=== PATIENT | female | born 1955 | race Caucasian/White ===

== ENCOUNTER 2016-09-14 18:24 | Emergency (ER) | payer MEDICAID ==
[2016-02-21 16:37] VITALS: BMI 41.9
[~2016-09-14 18:24] MED LIST: BUTALB-APAP-CA1 EACH PO; DESERYL100 MG PO; EFFEXOR XR150 MG PO; FAMOTIDINE10 MG PO; GLIPIZIDE10 MG PO; HUMULIN R100 U/ML SC; LANTUS INSULIN10 ML SC; LEVAQUIN500 MG PO; MIRALAX17 GM PO; NORVASC5 MG PO; PROTONIX40 MG PO; SEROQUEL200 MG PO; STERAPRED 5MG 125 MG; TRAZODONE HCL300 MG PO; VALIUM5 MG PO; ZANTAC150 MG PO; ZOCOR20 MG PO
[2016-09-14 19:34] LABS: BASOPHILS 0.3 % (0.0-2.0); EOSINOPHILS 2.8 % (0-7); HEMATOCRIT 36.8 % (36.0-48.0); HEMOGLOBIN 11.4 g/dL (12-16); IMMATURE GRANULOCYTES 0.4 % (0-5); LYMPHOCYTES 34.2 % (15-50); MCH 24.8 pg (26.0-34.0); MEAN PLATELET VOLUME 9.5 fL (7.4-10.4); MONOCYTES 4.7 % (2-11); NEUTROPHILS 57.6 % (40-80); PLATELET COUNT 177 10x3/uL (130-400); RDW 15.6 % (11.5-14.5); WBC 7.5 10x3/uL (4.8-10.8)
[2016-09-14 20:07] LABS: ALKALINE PHOSPHATASE 181 U/L (46-116); ALT (SGPT) 22 U/L (10-68); CALC OSMOLALITY 288 mosm/kg (275-300); CALCIUM 8.6 mg/dL (8.5-10.1); CARBON DIOXIDE 30.2 mmol/L (21.0-32.0); CHLORIDE - SERUM 103 mmol/L (98-107); CREATININE - SERUM 0.8 mg/dL (0.6-1.3); GLUCOSE 265 mg/dL (74-106); POTASSIUM - SERUM 3.6 mmol/L (3.5-5.1); PROTEIN - SERUM 6.8 g/dL (6.4-8.2); SODIUM 141 mmol/L (136-145); UREA NITROGEN 11 mg/dL (7-18); eGFR NON AFRICAN AMERICAN 77 mL/min (90-120)
[2016-09-14 20:08] LABS: KETONE - SERUM NEGATIVE (NEGATIVE)
[2016-09-14 20:09] LABS: MAGNESIUM - SERUM 1.7 mg/dL (1.8-2.4)
== END 2016-09-14 22:00 | disposition home or self-care (01) ==
LOC: D.ER 18:24
PROVIDERS: Emergency Medicine; Family Medicine
DX: R53.1 Weakness (principal); E66.09 Other obesity due to excess calories; E83.42 Hypomagnesemia; F31.9 Bipolar disorder, unspecified; J44.9 Chronic obstructive pulmonary disease, unspecified; I10 Essential (primary) hypertension; K21.9 Gastro-esophageal reflux disease without esophagitis; Z86.73 Personal history of transient ischemic attack (TIA), and cerebral infarction without residual deficits; E11.65 Type 2 diabetes mellitus with hyperglycemia

== ENCOUNTER 2016-09-18 18:52 | Emergency (ER) | payer MEDICAID ==
[2016-02-21 16:37] VITALS: BMI 41.9
[2016-09-18 19:51] LABS: BASOPHILS 0.2 % (0.0-2.0); EOSINOPHILS 1.9 % (0-7); HEMATOCRIT 38.4 % (36.0-48.0); HEMOGLOBIN 11.9 g/dL (12-16); IMMATURE GRANULOCYTES 0.4 % (0-5); LYMPHOCYTES 26.9 % (15-50); MCH 24.6 pg (26.0-34.0); MCV 79.5 fL (80.0-100.0); MEAN PLATELET VOLUME 9.6 fL (7.4-10.4); MONOCYTES 4.7 % (2-11); NEUTROPHILS 65.9 % (40-80); PLATELET COUNT 211 10x3/uL (130-400); RBC 4.83 10x6/uL (4.00-5.40); RDW 15.9 % (11.5-14.5); WBC 11.3 10x3/uL (4.8-10.8)
[2016-09-18 20:13] LABS: ALBUMIN 3.3 g/dL (3.4-5.0); ALKALINE PHOSPHATASE 175 U/L (46-116); ALT (SGPT) 31 U/L (10-68); BILIRUBIN - TOTAL 0.38 mg/dL (0.2-1.3); CALC OSMOLALITY 286 mosm/kg (275-300); CALCIUM 9.2 mg/dL (8.5-10.1); CARBON DIOXIDE 29.3 mmol/L (21.0-32.0); CHLORIDE - SERUM 102 mmol/L (98-107); CREATININE - SERUM 0.8 mg/dL (0.6-1.3); GLUCOSE 191 mg/dL (74-106); POTASSIUM - SERUM 3.8 mmol/L (3.5-5.1); PROTEIN - SERUM 7.8 g/dL (6.4-8.2); SODIUM 142 mmol/L (136-145); UREA NITROGEN 11 mg/dL (7-18); eGFR NON AFRICAN AMERICAN 77 mL/min (90-120)
[2016-09-18 20:26] LABS: CKMB 0.4 U/L (0.0-3.6); CREATINE KINASE 19 UL (21-215)
[2016-09-18 20:33] LABS: TROPONIN-I < 0.017 ng/mL (0.000-0.060)
== END 2016-09-18 21:46 | disposition home or self-care (01) ==
LOC: D.ER 18:52
PROVIDERS: Emergency Medicine
DX: R07.89 Other chest pain (principal); E11.9 Type 2 diabetes mellitus without complications; J44.9 Chronic obstructive pulmonary disease, unspecified

== ENCOUNTER 2016-10-08 23:44 | Emergency (ER) | payer MEDICAID ==
[2016-02-21 16:37] VITALS: BMI 41.9
[2016-10-09 00:16] LABS: BASOPHILS 0.2 % (0.0-2.0); EOSINOPHILS 2.9 % (0-7); HEMATOCRIT 37.4 % (36.0-48.0); HEMOGLOBIN 11.8 g/dL (12-16); IMMATURE GRANULOCYTES 0.4 % (0-5); LYMPHOCYTES 31.2 % (15-50); MCH 24.9 pg (26.0-34.0); MCHC 31.6 g/dL (31.0-37.0); MCV 78.9 fL (80.0-100.0); MEAN PLATELET VOLUME 9.3 fL (7.4-10.4); MONOCYTES 6.7 % (2-11); NEUTROPHILS 58.6 % (40-80); PLATELET COUNT 210 10x3/uL (130-400); RBC 4.74 10x6/uL (4.00-5.40); RDW 15.3 % (11.5-14.5); WBC 9.4 10x3/uL (4.8-10.8)
[2016-10-09 00:30] LABS: ALBUMIN 3.2 g/dL (3.4-5.0); ALKALINE PHOSPHATASE 172 U/L (46-116); ALT (SGPT) 30 U/L (10-68); BILIRUBIN - TOTAL 0.23 mg/dL (0.2-1.3); CALC OSMOLALITY 276 mosm/kg (275-300); CALCIUM 8.9 mg/dL (8.5-10.1); CARBON DIOXIDE 30.5 mmol/L (21.0-32.0); CHLORIDE - SERUM 100 mmol/L (98-107); CREATININE - SERUM 0.9 mg/dL (0.6-1.3); GLUCOSE 204 mg/dL (74-106); POTASSIUM - SERUM 3.5 mmol/L (3.5-5.1); PROTEIN - SERUM 7.7 g/dL (6.4-8.2); SODIUM 136 mmol/L (136-145); UREA NITROGEN 10 mg/dL (7-18); eGFR NON AFRICAN AMERICAN 68 mL/min (90-120)
[2016-10-09 00:42] LABS: CKMB 0.1 U/L (0.0-3.6); CREATINE KINASE 25 UL (21-215)
[2016-10-09 00:46] LABS: TROPONIN-I < 0.017 ng/mL (0.000-0.060)
[2016-10-09 00:54] LABS: AMYLASE - SERUM 35 U/L (25-115); LIPASE 153 U/L (73-393)
[2016-10-09 01:19] LABS: PRO BNP 51 pg/mL (0-125)
== END 2016-10-09 01:18 | disposition home or self-care (01) ==
LOC: D.ER 23:44
PROVIDERS: Family Medicine
DX: R07.9 Chest pain, unspecified (principal); I10 Essential (primary) hypertension; E11.9 Type 2 diabetes mellitus without complications; Z79.4 Long term (current) use of insulin; I25.10 Atherosclerotic heart disease of native coronary artery without angina pectoris; F31.9 Bipolar disorder, unspecified

== ENCOUNTER 2016-10-17 20:27 | Emergency (ER) | payer MEDICAID ==
[2016-02-21 16:37] VITALS: BMI 41.9
== END 2016-10-17 22:05 | disposition home or self-care (01) ==
LOC: D.ER 20:27
DX: R51 Headache (principal); F31.9 Bipolar disorder, unspecified; I10 Essential (primary) hypertension; I25.10 Atherosclerotic heart disease of native coronary artery without angina pectoris; E11.9 Type 2 diabetes mellitus without complications; Z79.4 Long term (current) use of insulin; Z86.73 Personal history of transient ischemic attack (TIA), and cerebral infarction without residual deficits

== ENCOUNTER 2016-10-24 22:57 | Emergency (ER) | payer MEDICAID ==
[2016-02-21 16:37] VITALS: BMI 41.9
== END 2016-10-24 23:55 | disposition home or self-care (01) ==
LOC: D.ER 22:57
DX: S83.91XA Sprain of unspecified site of right knee, initial encounter (principal); W19.XXXA Unspecified fall, initial encounter; Y93.89 Activity, other specified; Y92.512 Supermarket, store or market as the place of occurrence of the external cause; I10 Essential (primary) hypertension; E11.9 Type 2 diabetes mellitus without complications; Z86.73 Personal history of transient ischemic attack (TIA), and cerebral infarction without residual deficits

== ENCOUNTER 2016-11-18 18:03 | Emergency (ER) | payer MEDICAID ==
[2016-02-21 16:37] VITALS: BMI 41.9
[2016-11-18 19:53] LABS: BASOPHILS 0.1 % (0.0-2.0); EOSINOPHILS 2.4 % (0-7); HEMATOCRIT 37.3 % (36.0-48.0); HEMOGLOBIN 11.7 g/dL (12-16); IMMATURE GRANULOCYTES 0.3 % (0-5); MCH 25.2 pg (26.0-34.0); MCHC 31.4 g/dL (31.0-37.0); MCV 80.4 fL (80.0-100.0); MEAN PLATELET VOLUME 9.6 fL (7.4-10.4); MONOCYTES 6.5 % (2-11); NEUTROPHILS 60.7 % (40-80); RBC 4.64 10x6/uL (4.00-5.40); RDW 15.7 % (11.5-14.5); WBC 7.1 10x3/uL (4.8-10.8)
[2016-11-18 20:10] LABS: ALBUMIN 3.1 g/dL (3.4-5.0); ALKALINE PHOSPHATASE 168 U/L (46-116); ALT (SGPT) 27 U/L (10-68); BILIRUBIN - TOTAL 0.25 mg/dL (0.2-1.3); CALCIUM 8.9 mg/dL (8.5-10.1); CARBON DIOXIDE 25.8 mmol/L (21.0-32.0); CHLORIDE - SERUM 102 mmol/L (98-107); CREATININE - SERUM 0.8 mg/dL (0.6-1.3); POTASSIUM - SERUM 3.5 mmol/L (3.5-5.1); PROTEIN - SERUM 6.7 g/dL (6.4-8.2); SODIUM 139 mmol/L (136-145); UREA NITROGEN 7 mg/dL (7-18); eGFR NON AFRICAN AMERICAN 77 mL/min (90-120)
[2016-11-18 20:12] LABS: CREATINE KINASE 24 UL (21-215)
[2016-11-18 20:13] LABS: CALC OSMOLALITY 285 mosm/kg (275-300); GLUCOSE 276 mg/dL (74-106); TROPONIN-I < 0.017 ng/mL (0.000-0.060)
[2016-11-18 20:24] LABS: PLATELET COUNT 156 10x3/uL (130-400)
== END 2016-11-18 20:45 | disposition home or self-care (01) ==
LOC: D.ER 18:03
PROVIDERS: Family Medicine
DX: K52.9 Noninfective gastroenteritis and colitis, unspecified (principal); I10 Essential (primary) hypertension; E11.9 Type 2 diabetes mellitus without complications; Z79.4 Long term (current) use of insulin; Z86.73 Personal history of transient ischemic attack (TIA), and cerebral infarction without residual deficits

== ENCOUNTER 2016-11-23 21:10 | Emergency (ER) | payer MEDICAID ==
[2016-02-21 16:37] VITALS: BMI 41.9
== END 2016-11-24 00:25 | disposition home or self-care (01) ==
LOC: D.ER 21:10
DX: J18.9 Pneumonia, unspecified organism (principal); I10 Essential (primary) hypertension; E11.9 Type 2 diabetes mellitus without complications; Z79.4 Long term (current) use of insulin; Z86.73 Personal history of transient ischemic attack (TIA), and cerebral infarction without residual deficits; F17.200 Nicotine dependence, unspecified, uncomplicated

== ENCOUNTER 2016-11-24 15:57 | Emergency (ER) | payer MEDICAID ==
[2016-02-21 16:37] VITALS: BMI 41.9
[2016-11-24 16:50] LABS: BASOPHILS 0.3 % (0.0-2.0); EOSINOPHILS 2.3 % (0-7); HEMATOCRIT 36.3 % (36.0-48.0); HEMOGLOBIN 11.6 g/dL (12-16); MCH 25.7 pg (26.0-34.0); MCV 80.3 fL (80.0-100.0); MEAN PLATELET VOLUME 9.6 fL (7.4-10.4); MONOCYTES 9.4 % (2-11); RBC 4.52 10x6/uL (4.00-5.40); RDW 15.8 % (11.5-14.5); WBC 3.9 10x3/uL (4.8-10.8)
[2016-11-24 16:51] LABS: PLATELET COUNT 120 10x3/uL (130-400)
[2016-11-24 17:21] LABS: ALBUMIN 3.2 g/dL (3.4-5.0); ALKALINE PHOSPHATASE 168 U/L (46-116); ALT (SGPT) 31 U/L (10-68); BILIRUBIN - TOTAL 0.24 mg/dL (0.2-1.3); CALC OSMOLALITY 281 mosm/kg (275-300); CALCIUM 8.3 mg/dL (8.5-10.1); CARBON DIOXIDE 24.8 mmol/L (21.0-32.0); CHLORIDE - SERUM 99 mmol/L (98-107); CREATININE - SERUM 0.8 mg/dL (0.6-1.3); GLUCOSE 241 mg/dL (74-106); POTASSIUM - SERUM 3.2 mmol/L (3.5-5.1); PROTEIN - SERUM 6.9 g/dL (6.4-8.2); SODIUM 138 mmol/L (136-145); UREA NITROGEN 6 mg/dL (7-18); eGFR NON AFRICAN AMERICAN 77 mL/min (90-120)
== END 2016-11-24 18:10 | disposition home or self-care (01) ==
LOC: D.ER 15:57
PROVIDERS: Physician Assistant Medical
DX: J06.9 Acute upper respiratory infection, unspecified (principal); F17.200 Nicotine dependence, unspecified, uncomplicated; I10 Essential (primary) hypertension; E11.9 Type 2 diabetes mellitus without complications; Z79.4 Long term (current) use of insulin; Z86.73 Personal history of transient ischemic attack (TIA), and cerebral infarction without residual deficits

== ENCOUNTER 2016-12-07 16:07 | Emergency (ER) | payer MEDICAID ==
[2016-02-21 16:37] VITALS: BMI 41.9
[2016-12-07 16:59] LABS: BASOPHILS 0.3 % (0.0-2.0); EOSINOPHILS 2.2 % (0-7); HEMATOCRIT 38.6 % (36.0-48.0); HEMOGLOBIN 12.1 g/dL (12-16); IMMATURE GRANULOCYTES 0.3 % (0-5); LYMPHOCYTES 33.4 % (15-50); MCH 25.5 pg (26.0-34.0); MCHC 31.3 g/dL (31.0-37.0); MCV 81.4 fL (80.0-100.0); MEAN PLATELET VOLUME 9.7 fL (7.4-10.4); MONOCYTES 6.8 % (2-11); PLATELET COUNT 180 10x3/uL (130-400); RBC 4.74 10x6/uL (4.00-5.40); RDW 15.6 % (11.5-14.5); WBC 6.4 10x3/uL (4.8-10.8)
[2016-12-07 17:26] LABS: ALBUMIN 3.3 g/dL (3.4-5.0); ALKALINE PHOSPHATASE 146 U/L (46-116); ALT (SGPT) 28 U/L (10-68); BILIRUBIN - TOTAL 0.31 mg/dL (0.2-1.3); CALCIUM 8.6 mg/dL (8.5-10.1); CARBON DIOXIDE 24.9 mmol/L (21.0-32.0); CHLORIDE - SERUM 101 mmol/L (98-107); CREATININE - SERUM 0.8 mg/dL (0.6-1.3); POTASSIUM - SERUM 3.3 mmol/L (3.5-5.1); PROTEIN - SERUM 7.4 g/dL (6.4-8.2); SODIUM 138 mmol/L (136-145); UREA NITROGEN 11 mg/dL (7-18); eGFR NON AFRICAN AMERICAN 77 mL/min (90-120)
[2016-12-07 17:27] LABS: CHOL - HDL RATIO 4.8 ratio (2.3-4.1); CHOLESTEROL, TOTAL 188 mg/dL (0-200); CKMB 0.3 U/L (0.0-3.6); CREATINE KINASE 13 UL (21-215); HDL CHOLESTEROL 39 mg/dL (32-96); LDL CHOLESTEROL 109 mg/dL (0-100); LDL-HDL RATIO 2.8 ratio (1.5-3.5); TRIGLYCERIDE 200 mg/dL (30-200)
[2016-12-07 17:39] LABS: CALC OSMOLALITY 286 mosm/kg (275-300); GLUCOSE 312 mg/dL (74-106); TROPONIN-I < 0.017 ng/mL (0.000-0.060)
== END 2016-12-07 20:29 | disposition home or self-care (01) ==
LOC: D.ER 16:07
PROVIDERS: Emergency Medicine
DX: E11.65 Type 2 diabetes mellitus with hyperglycemia (principal); Z79.4 Long term (current) use of insulin; Z91.19 Patient's noncompliance with other medical treatment and regimen; R07.9 Chest pain, unspecified; I10 Essential (primary) hypertension; Z86.73 Personal history of transient ischemic attack (TIA), and cerebral infarction without residual deficits

== ENCOUNTER 2017-01-17 23:33 | Emergency (ER) | payer MEDICAID ==
[2016-02-21 16:37] VITALS: BMI 41.9
== END 2017-01-18 00:43 | disposition home or self-care (01) ==
LOC: D.ER 23:33
DX: I10 Essential (primary) hypertension (principal)

== ENCOUNTER 2017-01-22 13:36 | Emergency (ER) | payer MEDICAID ==
[2016-02-21 16:37] VITALS: BMI 41.9
[2017-01-22 14:04] LABS: BASOPHILS 0.1 % (0-2); EOSINOPHILS 3.9 % (0-7); HEMATOCRIT 39.8 % (36.0-48.0); HEMOGLOBIN 12.8 g/dL (12-16); IMMATURE GRANULOCYTES 0.4 % (0-5); LYMPHOCYTES 29.6 % (15-50); MCH 26.3 pg (26.0-34.0); MCHC 32.2 g/dL (31.0-37.0); MCV 81.7 fL (80.0-100.0); MEAN PLATELET VOLUME 9.5 fL (7.4-10.4); PLATELET COUNT 191 10x3/uL (130-400); RBC 4.87 10x6/uL (4.00-5.40); RDW 15.1 % (11.5-14.5); WBC 7.1 10x3/uL (4.8-10.8)
[2017-01-22 14:18] LABS: APPEARANCE HAZY (CLEAR); BILIRUBIN NEGATIVE (NEGATIVE); COLOR YELLOW (YELLOW); GLUCOSE 500 mg/dL (NEGATIVE); KETONE NEGATIVE (NEGATIVE); LEUKOCYTE ESTERASE 1+ (NEGATIVE); NITRITE NEGATIVE (NEGATIVE); PROTEIN TRACE mg/dL (NEGATIVE); SPECIFIC GRAVITY 1.025 (1.005-1.020); UROBILINOGEN NORMAL (NORMAL)
[2017-01-22 14:19] LABS: ALBUMIN 3.2 g/dL (3.4-5.0); BILIRUBIN - TOTAL 0.31 mg/dL (0.2-1.3); CALCIUM 8.8 mg/dL (8.5-10.1); CARBON DIOXIDE 24.4 mmol/L (21.0-32.0); CREATININE - SERUM 0.9 mg/dL (0.6-1.3); POTASSIUM - SERUM 3.4 mmol/L (3.5-5.1); PROTEIN - SERUM 7.8 g/dL (6.4-8.2)
[2017-01-22 14:20] LABS: BACTERIA MODERATE /hpf (NONE SEEN); MUCUS >1+ /lpf (NONE SEEN); RED CELLS - URINE 0-5 /hpf (0-5); UDS - AMPHET NEGATIVE QUAL (NEGATIVE); UDS - BARB NEGATIVE QUAL (NEGATIVE); UDS - BENZO POSITIVE QUAL (NEGATIVE); UDS - COCAINE NEGATIVE QUAL (NEGATIVE); UDS - METH NEGATIVE QUAL (NEGATIVE); UDS - OPIATE NEGATIVE QUAL (NEGATIVE); UDS - PCP NEGATIVE QUAL (NEGATIVE); UDS - THC NEGATIVE QUAL (NEGATIVE); YEAST <1+ /hpf (NONE SEEN)
== END 2017-01-23 08:17 | disposition home or self-care (01) ==
LOC: D.ER 13:36
PROVIDERS: Emergency Medicine
DX: F32.9 Major depressive disorder, single episode, unspecified (principal); R45.851 Suicidal ideations; E11.65 Type 2 diabetes mellitus with hyperglycemia; I10 Essential (primary) hypertension; E78.5 Hyperlipidemia, unspecified; Z86.73 Personal history of transient ischemic attack (TIA), and cerebral infarction without residual deficits

== ENCOUNTER 2017-02-08 21:32 | Emergency (ER) | payer MEDICAID ==
[2016-02-21 16:37] VITALS: BMI 41.9
[2017-02-08 22:43] LABS: BASOPHILS 0.3 % (0-2); EOSINOPHILS 2.8 % (0-7); HEMATOCRIT 37.9 % (36.0-48.0); HEMOGLOBIN 12.1 g/dL (12-16); IMMATURE GRANULOCYTES 0.5 % (0-5); LYMPHOCYTES 31.7 % (15-50); MCH 26.1 pg (26.0-34.0); MCHC 31.9 g/dL (31.0-37.0); MCV 81.9 fL (80.0-100.0); MEAN PLATELET VOLUME 9.5 fL (7.4-10.4); MONOCYTES 5.7 % (2-11); PLATELET COUNT 188 10x3/uL (130-400); RBC 4.63 10x6/uL (4.00-5.40)
[2017-02-08 23:06] LABS: ALKALINE PHOSPHATASE 183 U/L (46-116); ALT (SGPT) 39 U/L (10-68); CALC OSMOLALITY 279 mosm/kg (275-300); CARBON DIOXIDE 25.1 mmol/L (21.0-32.0); CHLORIDE - SERUM 99 mmol/L (98-107); CREATININE - SERUM 0.9 mg/dL (0.6-1.3); GLUCOSE 293 mg/dL (74-106); POTASSIUM - SERUM 3.5 mmol/L (3.5-5.1); PROTEIN - SERUM 7.4 g/dL (6.4-8.2); SODIUM 134 mmol/L (136-145); UREA NITROGEN 14 mg/dL (7-18); eGFR NON AFRICAN AMERICAN 68 mL/min (90-120)
[2017-02-08 23:17] LABS: CKMB 0.1 U/L (0.0-3.6); CREATINE KINASE 22 UL (21-215)
[2017-02-08 23:20] LABS: TROPONIN-I < 0.017 ng/mL (0.000-0.060)
[2017-02-09 01:36] LABS: CREATINE KINASE 25 UL (21-215)
[2017-02-09 01:37] LABS: TROPONIN-I < 0.017 ng/mL (0.000-0.060)
== END 2017-02-09 02:16 | disposition home or self-care (01) ==
LOC: D.ER 21:32
PROVIDERS: Family Medicine
DX: R07.9 Chest pain, unspecified (principal); E11.9 Type 2 diabetes mellitus without complications; R94.31 Abnormal electrocardiogram [ECG] [EKG]; I10 Essential (primary) hypertension

== ENCOUNTER 2017-02-21 16:25 | Emergency (ER) | payer MEDICAID ==
[2016-02-21 16:37] VITALS: BMI 41.9
[2017-02-21 16:54] LABS: BASOPHILS 0.1 % (0-2); EOSINOPHILS 3.6 % (0-7); HEMATOCRIT 39.8 % (36.0-48.0); HEMOGLOBIN 12.5 g/dL (12-16); IMMATURE GRANULOCYTES 0.5 % (0-5); MCHC 31.4 g/dL (31.0-37.0); MCV 82.7 fL (80.0-100.0); MEAN PLATELET VOLUME 9.5 fL (7.4-10.4); NEUTROPHILS 64.8 % (40-80); PLATELET COUNT 178 10x3/uL (130-400); RBC 4.81 10x6/uL (4.00-5.40); RDW 14.9 % (11.5-14.5); WBC 7.8 10x3/uL (4.8-10.8)
[2017-02-21 17:09] LABS: ALBUMIN 3.1 g/dL (3.4-5.0); ALKALINE PHOSPHATASE 191 U/L (46-116); ALT (SGPT) 37 U/L (10-68); BILIRUBIN - TOTAL 0.44 mg/dL (0.2-1.3); CALC OSMOLALITY 283 mosm/kg (275-300); CALCIUM 8.9 mg/dL (8.5-10.1); CHLORIDE - SERUM 99 mmol/L (98-107); GLUCOSE 352 mg/dL (74-106); POTASSIUM - SERUM 3.6 mmol/L (3.5-5.1); PROTEIN - SERUM 7.8 g/dL (6.4-8.2); SODIUM 135 mmol/L (136-145); UREA NITROGEN 12 mg/dL (7-18); eGFR NON AFRICAN AMERICAN 60 mL/min (90-120)
[2017-02-21 17:19] LABS: CREATINE KINASE 22 UL (21-215); TROPONIN-I < 0.017 ng/mL (0.000-0.060)
[2017-02-22] MEDS ORDERED: GLIPIZIDE10 MG PO (20:52)
== END 2017-02-21 19:40 | disposition home or self-care (01) ==
LOC: D.ER 16:25
PROVIDERS: Emergency Medicine
DX: J18.9 Pneumonia, unspecified organism (principal); E11.9 Type 2 diabetes mellitus without complications; I10 Essential (primary) hypertension; E66.9 Obesity, unspecified

== ENCOUNTER 2017-02-22 14:21 | Inpatient (IN) | payer MEDICAID ==
[~2017-02-22] VITALS: Ht 165.1 cm; Wt 116.1 kg
[2017-02-22 15:10] LABS: BASOPHILS 0.1 % (0-2); EOSINOPHILS 0.1 % (0-7); HEMATOCRIT 39.8 % (36.0-48.0); HEMOGLOBIN 12.7 g/dL (12-16); IMMATURE GRANULOCYTES 0.5 % (0-5); LYMPHOCYTES 16.4 % (15-50); MCHC 31.9 g/dL (31.0-37.0); MCV 81.4 fL (80.0-100.0); MEAN PLATELET VOLUME 9.6 fL (7.4-10.4); MONOCYTES 6.3 % (2-11); NEUTROPHILS 76.6 % (40-80); PLATELET COUNT 171 10x3/uL (130-400); RBC 4.89 10x6/uL (4.00-5.40); RDW 14.7 % (11.5-14.5); WBC 11.4 10x3/uL (4.8-10.8)
[2017-02-22 15:32] LABS: ALBUMIN 3.1 g/dL (3.4-5.0); ALKALINE PHOSPHATASE 213 U/L (46-116); ALT (SGPT) 45 U/L (10-68); BILIRUBIN - TOTAL 0.28 mg/dL (0.2-1.3); CALCIUM 9.6 mg/dL (8.5-10.1); CARBON DIOXIDE 20.2 mmol/L (21.0-32.0); CHLORIDE - SERUM 99 mmol/L (98-107); CREATININE - SERUM 1.1 mg/dL (0.6-1.3); POTASSIUM - SERUM 3.8 mmol/L (3.5-5.1); PRO BNP 143 pg/mL (0-125); PROTEIN - SERUM 7.9 g/dL (6.4-8.2); SODIUM 134 mmol/L (136-145); eGFR NON AFRICAN AMERICAN 54 mL/min (90-120)
[2017-02-22 15:36] LABS: CALC OSMOLALITY 292 mosm/kg (275-300); TROPONIN-I < 0.017 ng/mL (0.000-0.060); UREA NITROGEN 21 mg/dL (7-18)
[2017-02-22 15:38] LABS: GLUCOSE 492 mg/dL (74-106)
[2017-02-22 18:31] LABS: APPEARANCE CLEAR (CLEAR); BILIRUBIN NEGATIVE (NEGATIVE); COLOR YELLOW (YELLOW); GLUCOSE 1000 mg/dL (NEGATIVE); KETONE NEGATIVE (NEGATIVE); LEUKOCYTE ESTERASE NEGATIVE (NEGATIVE); NITRITE NEGATIVE (NEGATIVE); PROTEIN NEGATIVE (NEGATIVE); SPECIFIC GRAVITY 1.015 (1.005-1.020); UROBILINOGEN NORMAL (NORMAL)
[2017-02-22 20:00] VITALS: BP 140/77
--- NOTE | 2017-02-22 20:27 | NUR ---
REC'D TO ROOM 2204 AT THIS TIME FROM ER ACCOMPANIED BY ER STAFF. AWAKE AND ALERT. RESP EVEN AND UNLABORED WITH NO DISTRESS NOTED. CAN EXPRESS NEEDS AND WANTS. NO C/O NOTED AT THIS TIME. ASSESSMENT COMPLETED. C/L IN REACH AT BEDSIDE.
[2017-02-22] MEDS ORDERED: GLIPIZIDE10 MG PO (20:52)
[2017-02-23] VITALS (7 sets, daily range): BP systolic 107–150; BP diastolic 47–80; Ht 165.1 cm; Wt 116.1 kg
--- NOTE | 2017-02-23 08:18 | NUR ---
PT SEEN. UPPER LOBES DIMINISHED BILAT WITH LOWER LOBES CLEAR. STATES MID SHORT OF BREATH-BREATHING SHALLOW AT PRESENT. ENCOURAGED TO DEEP BREATHE EVERY FEW MINUTES TO "OPEN" BASE OF LUNGS. NO PAIN OR N/V AT PRESNT. CALL LIGHT IN REACH
[2017-02-23 13:06] LABS: CKMB 0.5 U/L (0.0-3.6); CREATINE KINASE 35 UL (21-215); TROPONIN-I < 0.017 ng/mL (0.000-0.060)
--- NOTE | 2017-02-23 13:37 | NUR ---
NUTRITION MONITORING & EVAL PROVIDED PT WITH DIABETIC DIET EDU PACKET. DISCUSSED CARB SOURCES, SERVING SIZES, # CARB CHOICES PER MEAL. ENCOURAGED CONSISTENT MEAL TIMES. RD FOLLOWING
[2017-02-23 17:50] LABS: CKMB 0.3 U/L (0.0-3.6); CREATINE KINASE 32 UL (21-215)
[2017-02-23 18:01] LABS: TROPONIN-I < 0.017 ng/mL (0.000-0.060)
--- NOTE | 2017-02-23 19:10 | NUR ---
Received patient resting in bed with eyes open watching TV. Patient AO x4, calm and cooperative. Eyes PERRLA @ 4mm with brisk response, sclera is slightly reddened. S1/S2 noted, rhythmic and regular. Breathing is even and unlabored on 2L via NC, O2 sat 95%. Abdomen is obese and soft, non-tender to palpation with bowel sounds active x4. Patient utilizes commode w/o assistance, 210ml clear yellow urine noted. Full ROM all extemities with all pulses palpable, cap refill <3 sec. 22G piv noted L hand, patent and saline locked. Patient denies pain or other needs at this time, all VSS and will continue to monitor.
--- NOTE | 2017-02-23 21:00 | NUR ---
HS meds given without difficulty, BS performed and insulin given. Patient c/o pain L hand IV site, site patent with dressing intact. No further needs and all VSS, will continue to monitor.
--- NOTE | 2017-02-23 23:00 | NUR ---
Reassessment completed, patient resting in bed with eyes closed. S1/S2 noted rhythmic and regular. Breathing is even and unlabored on 2L via NC with O2 sat 94%, lung sounds clear bilateral upper with diminished mid and lower. All pulses palpable with cap refill <3 sec. Patient denies pain or other needs at this time, all VSS and will continue to monitor.
[2017-02-24] VITALS: BP 116/50
[2017-02-24 00:54] LABS: CKMB 0.1 U/L (0.0-3.6); CREATINE KINASE 33 UL (21-215)
[2017-02-24 00:59] LABS: TROPONIN-I < 0.017 ng/mL (0.000-0.060)
--- NOTE | 2017-02-24 01:00 | NUR ---
Patient resting in bed with eyes closed, breathing is even and unlabored on 2L via NC. Patient denies pain or other needs at this time, all VSS and will continue to monitor.
--- NOTE | 2017-02-24 03:00 | NUR ---
Reassessment completed per flowsheet, patient resting in bed with eyes closed. S1/S2 noted, rhythmic and regular. Breathing is even and unlabored on 2L via NC, Lung sounds clear bilateral upper with diminished mid and lower with O2 sat 94%. Abdomen is obese and soft, non-tender to palpation. Patient states deep pain 8/10 in chest, PRN pain medication given. No further needs at this time, all VSS and will continue to monitor.
[2017-02-24 04:00] VITALS: BP 119/70
--- NOTE | 2017-02-24 05:00 | NUR ---
Patient resting in bed with eyes closed, Lab at bedside for AM draw. Denies pain or other needs at this time, all VSS and will continue to monitor.
[2017-02-24 06:52] LABS: BASOPHILS 0.1 % (0-2); EOSINOPHILS 2.8 % (0-7); HEMATOCRIT 36.5 % (36.0-48.0); HEMOGLOBIN 11.3 g/dL (12-16); IMMATURE GRANULOCYTES 0.4 % (0-5); LYMPHOCYTES 38.6 % (15-50); MCH 25.9 pg (26.0-34.0); MEAN PLATELET VOLUME 9.8 fL (7.4-10.4); MONOCYTES 5.5 % (2-11); NEUTROPHILS 52.6 % (40-80); PLATELET COUNT 177 10x3/uL (130-400); RBC 4.37 10x6/uL (4.00-5.40)
[2017-02-24 07:00] LABS: MCV 83.5 fL (80.0-100.0); WBC 7.5 10x3/uL (4.8-10.8)
[2017-02-24 07:08] LABS: ALBUMIN 2.7 g/dL (3.4-5.0); ANION GAP 14.3 mmol/L (8-16); BILIRUBIN - TOTAL 0.26 mg/dL (0.2-1.3); CALCIUM 8.6 mg/dL (8.5-10.1); CARBON DIOXIDE 26.6 mmol/L (21.0-32.0); CREATININE - SERUM 0.9 mg/dL (0.6-1.3); POTASSIUM - SERUM 3.9 mmol/L (3.5-5.1); PROTEIN - SERUM 6.6 g/dL (6.4-8.2)
--- NOTE | 2017-02-24 08:00 | NUR ---
Alert and oriented times three, verbalized name and . SCD's not on patient refuses stating, I'm up all the time. Patient is up adlib. Reports no present chest pain. Telemetry in place. No distress noted.
[2017-02-24 08:12] VITALS: BP 120/54
--- NOTE | 2017-02-24 10:26 | NUR ---
Patient Name: RONEN PALOMO Admission Status: ER Accout number: [id number] Admission Date: 02-22-2017 : 1955 Admission Diagnosis: Attending: SHANNAN Current LOS: 2 Anticipated DC Date: 02-26-2017 Planned Disposition: Home Primary Insurance: MEDICAID [place] Discharge Planning Comments: CM MET WITH PATIENT REGARDING D/C NEEDS AND PLANS. PATIENT STATED SHE LIVES WITH HER SPOUSE (VIKI) AND HE WILL DRIVE HER HOME AT DISCHARGE. PATIENT STATED SHE HAS 3 STEPS W/RAILS TO ENTER HOME AND NO STAIRS INSIDE. PATIENT STATED SHE IS INDEPENDENT WITH HER CARE AND HAS A WALKER, WHEELCHAIR, NEBULIZER AND GLUCOMETER AT HOME. PATIENTS PCP IS DR. RYAN AND PHARMACY IS [facility]. PATIENT DID NOT WANT HOME HEALTH AT THIS TIME. CM WILL CONTINUE TO FOLLOW PAITIENT WITH D/C NEEDS AND PLANS. PCP DR. SHELBY RODRIGUEZ [facility]- [phone] VIKI (SPOUSE) [phone] Talkback Host: Tayler Mena Is the patient Alert and Oriented? Yes 0 * How many steps to enter\exit or inside your home? 3 W/RAILS 0 * PCP DR. RYAN 0 * Pharmacy [facility] * Preadmission Environment Home with Family 0 * ADLs Independent 0 * Equipment Glucometer Nebulizer Walker Wheelchair 0 * List name and contact numbers for known caregivers / representatives who currently or will assist patient after discharge: VIKI [phone] (SPOUSE) 0 * Community resources currently utilized None 0 * Additional services required to return to the preadmission environment? Yes 0 * Can the patient safely return to the preadmission environment? Yes 0 * Has this patient been hospitalized within the prior 30 days at any hospital? No 0 Grand Total: 0
[2017-02-24 12:27] VITALS: BP 127/78
--- NOTE | 2017-02-24 13:52 | NUR ---
Resting quietly. No distress assessed. Call light within reach.
--- NOTE | 2017-02-24 14:24 | NUR ---
IV ACCESS-22 GAUGE INSERTED IN LEFT HAND FOR ACCESS. CALI LYONS RN
[2017-02-24 16:26] VITALS: BP 125/55
[2017-02-24 20:00] VITALS: BP 157/75
--- NOTE | 2017-02-24 20:30 | NUR ---
SITTING UP IN BED WATCHING TV. NO COMPLAINTS VOICED AT THIS TIME. SL TO LEFT HAND PATENT WITHOUT REDNESS OR EDEMA NOTED. FAMILY AT BEDSIDE. CL IN REACH.
[2017-02-25] VITALS (8 sets, daily range): BP systolic 112–163; BP diastolic 54–72
--- NOTE | 2017-02-25 00:04 | NUR ---
RESTING QUIETLY. NO DISTRESS NOTED.
--- NOTE | 2017-02-25 02:00 | NUR ---
PT IN BED WITH NO DISTRESS. O2 @ 2 PER NASAL CANNULA. LEFT HAND IV S/L. SIDE RAILS X 2. BED IS LOW. CALL LIGHT IN REACH.
--- NOTE | 2017-02-25 05:53 | NUR ---
RESTING QUIETLY. NO DISTRESS NOTED. CL IN REACH.
[2017-02-25 06:35] LABS: BASOPHILS 0.2 % (0-2); EOSINOPHILS 2.9 % (0-7); HEMATOCRIT 35.2 % (36.0-48.0); HEMOGLOBIN 11.3 g/dL (12-16); IMMATURE GRANULOCYTES 0.5 % (0-5); LYMPHOCYTES 32.5 % (15-50); MCH 26.5 pg (26.0-34.0); MCHC 32.1 g/dL (31.0-37.0); MCV 82.4 fL (80.0-100.0); MEAN PLATELET VOLUME 9.4 fL (7.4-10.4); MONOCYTES 4.8 % (2-11); NEUTROPHILS 59.1 % (40-80); PLATELET COUNT 168 10x3/uL (130-400); RBC 4.27 10x6/uL (4.00-5.40); RDW 14.8 % (11.5-14.5); WBC 6.6 10x3/uL (4.8-10.8)
--- NOTE | 2017-02-25 07:00 | NUR ---
REPORT RECIEVED ASSUMED CARE. PATIENT IN BED WITH IV INTACT. NO COMPLAINTS. EYES CLOSED RESTING QUIETLY. CALL LIGHT WITHIN REACH.
[2017-02-25 07:14] LABS: ALBUMIN 2.7 g/dL (3.4-5.0); ANION GAP 11.3 mmol/L (8-16); BILIRUBIN - TOTAL 0.25 mg/dL (0.2-1.3); CARBON DIOXIDE 28.6 mmol/L (21.0-32.0); CREATININE - SERUM 0.9 mg/dL (0.6-1.3); POTASSIUM - SERUM 3.9 mmol/L (3.5-5.1); PROTEIN - SERUM 6.5 g/dL (6.4-8.2)
[2017-02-25 07:55] LABS: ERYTHROCYTE SEDIMENTATION RATE 45 mm/hr (0-30)
--- NOTE | 2017-02-25 18:50 | NUR ---
PATIENT IN BED WITH NO COMPLAINTS AT THIS TIME. CALLED HOUSESUPERVISOR COLEMAN ABOUT BRONCHOSCOPY ON PATIENT TOMORROW. ALSO SPOKE WITH RESPIRATORY THERAPIST. SHE STATED WHEN DR. HORTON PUTS THE ORDER IN IT WILL BE TAKEN CARE OF.
--- NOTE | 2017-02-25 21:44 | NUR ---
AWAKE,ALERT.NO COMPLIANTS VOICED.O2 @ 2L PER NC .NO DISTRESS NOTED. SL TO LEFT ARM WITHOUT REDNESS OR EDEMA NOTED. CL IN REACH.
--- NOTE | 2017-02-26 02:10 | NUR ---
EYES CLOSED. RESP EVEN AND UNALBORED.CL IN REACH
--- NOTE | 2017-02-26 02:59 | NUR ---
PATIENT RESTING IN BED WITH EYES CLOSED AND NO VISIBLE SIGNS OF DISTRESS. BED IN LOWEST POSITION AND CALL LIGHT WITHIN REACH.
[2017-02-26 04:39] VITALS: BP 125/55
--- NOTE | 2017-02-26 05:59 | NUR ---
NO CHANGE IN ASSESSMENT. REMAINS NPO FOR PROCEDURE THIS AM. CL IN REACH
[2017-02-26 06:53] LABS: BASOPHILS 0.1 % (0-2); EOSINOPHILS 2.7 % (0-7); HEMATOCRIT 35.2 % (36.0-48.0); HEMOGLOBIN 11.1 g/dL (12-16); IMMATURE GRANULOCYTES 0.6 % (0-5); LYMPHOCYTES 29.7 % (15-50); MCH 26.1 pg (26.0-34.0); MCHC 31.5 g/dL (31.0-37.0); MCV 82.8 fL (80.0-100.0); MEAN PLATELET VOLUME 10.1 fL (7.4-10.4); MONOCYTES 6.3 % (2-11); NEUTROPHILS 60.6 % (40-80); PLATELET COUNT 167 10x3/uL (130-400); RBC 4.25 10x6/uL (4.00-5.40); RDW 14.8 % (11.5-14.5)
--- NOTE | 2017-02-26 07:00 | NUR ---
REPORT RECIEVED ASSUMED CARE. PATIENT IN BED WITH IV INTACT. CALL LIGHT WITHIN REACH.
[2017-02-26 07:05] LABS: INR 0.99 (0.85-1.17)
[2017-02-26 07:12] LABS: ALBUMIN 2.7 g/dL (3.4-5.0); ALKALINE PHOSPHATASE 155 U/L (46-116); ALT (SGPT) 38 U/L (10-68); BILIRUBIN - TOTAL 0.41 mg/dL (0.2-1.3); CALC OSMOLALITY 287 mosm/kg (275-300); CALCIUM 9.2 mg/dL (8.5-10.1); CHLORIDE - SERUM 101 mmol/L (98-107); CREATININE - SERUM 0.8 mg/dL (0.6-1.3); GLUCOSE 315 mg/dL (74-106); POTASSIUM - SERUM 3.7 mmol/L (3.5-5.1); PROTEIN - SERUM 6.5 g/dL (6.4-8.2); SODIUM 138 mmol/L (136-145); UREA NITROGEN 13 mg/dL (7-18); eGFR NON AFRICAN AMERICAN 77 mL/min (90-120)
[2017-02-26 07:58] VITALS: BP 118/57
[2017-02-26 08:20] LABS: IMMUNOGLOBULIN E 57 IU/mL (0-100)
[2017-02-26 10:19] LABS: IMMUNOGLOBULIN A 183 mg/dL (87-352); IMMUNOGLOBULIN G 939 mg/dL (700-1600)
--- NOTE | 2017-02-26 12:40 | NUR ---
PATIENT BACK TO ROOM AT THIS TIME. VS STABLE. NO COMPLAINTS AT THIS TIME. CALL LIGHT WITHIN REACH. PATIENT IV LEAKING AT THIS TIME. WILL RESTART IV.
[2017-02-26 12:46] VITALS: BP 157/76
[2017-02-26 14:15] LABS: LYMPH - BF 23 %; MACROPHAGES BF 44 %; MESOTHELIALS BF 23 %; NEUT - BF 10 %
--- NOTE | 2017-02-26 16:00 | NUR ---
PATIENT IN BED WITH IV REMOVED. CATH TIP INTACT. UNABLE TO RESTART IV. NOTIFIED CALI VASCULAR NURSE. STATED SHE WOULD COME TO PATIENTS ROOM JORGE.
[2017-02-26 16:02] VITALS: BP 157/75
--- NOTE | 2017-02-26 18:00 | NUR ---
PATIENT REFUSED ALL MEDS. STATED SHE IS LEAVING AMA. STATED IF SHE IS JUST GOING TO SIT HERE IN PAIN WITH NOTHING WRONG WITH HER SHE CAN DO THAT AT HOME. EXPLAINED TO PATIENT THAT SHE IS GETTING ANTIBIOTICS AND TREATMENT HERE. STATED THE "QUACK" TOLD HER NOTHING WAS WRONG WITH HER. CALLED HOUSESUPERVISOR KIM AND TOLD HIM WHAT THE PATIENT STATED. ALSO NOTIFIED ADDIS ESPAÑA. ADDIS STATED PATIENT IS NOT GOING TO BE DISCHARGED THAT THE ONLY WAY SHE CAN LEAVE IS AMA. EXPLAINED TO PATIENT AGAIN.
--- NOTE | 2017-02-26 18:30 | NUR ---
PATIENT STATED SHE IS STAYING AT THIS TIME. NOTIFIED KIM. PATIENT UP TO BR. CALL LIGHT WITHIN REACH. [facility].
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
--- NOTE | 2017-02-26 20:30 | NUR ---
AWAKE,WATCHING TV QUIETLY. NO COMPLAITNS AT THIS TIME.CL IN REACH. O2 @ 2L PER NC ON
[2017-02-26 20:54] VITALS: BP 170/80
[2017-02-27] VITALS: BP 122/51
--- NOTE | 2017-02-27 02:08 | NUR ---
IV RESTARTED PER ICU NURSE. 20 G TO LEFT BREAST. TOLERATED WELL
[2017-02-27 04:00] VITALS: BP 106/56
[2017-02-27 06:15] LABS: ANA REFLEX - DIRECT Negative (Negative)
[2017-02-27 06:23] LABS: BASOPHILS 0.1 % (0-2); EOSINOPHILS 2.1 % (0-7); HEMATOCRIT 35.1 % (36.0-48.0); HEMOGLOBIN 11.3 g/dL (12-16); IMMATURE GRANULOCYTES 0.8 % (0-5); LYMPHOCYTES 19.2 % (15-50); MCH 26.5 pg (26.0-34.0); MCHC 32.2 g/dL (31.0-37.0); MCV 82.2 fL (80.0-100.0); MEAN PLATELET VOLUME 9.9 fL (7.4-10.4); MONOCYTES 6.9 % (2-11); NEUTROPHILS 70.9 % (40-80); PLATELET COUNT 176 10x3/uL (130-400); RBC 4.27 10x6/uL (4.00-5.40); WBC 7.6 10x3/uL (4.8-10.8)
--- NOTE | 2017-02-27 06:25 | NUR ---
EYES CLOSED.RESP EVEN AND UNLAOBRED. CL IN REACH
--- NOTE | 2017-02-27 07:00 | NUR ---
REPORT RECIEVED ASSUMED CARE. PATIENT IN BED WITH IV INTACT. NO COMPLAINTS. CALL LIGHT WITHIN REACH.
[2017-02-27 07:04] LABS: ALBUMIN 2.7 g/dL (3.4-5.0); ANION GAP 11.6 mmol/L (8-16); BILIRUBIN - TOTAL 0.52 mg/dL (0.2-1.3); CALCIUM 8.6 mg/dL (8.5-10.1); CARBON DIOXIDE 28.9 mmol/L (21.0-32.0); CREATININE - SERUM 0.9 mg/dL (0.6-1.3); POTASSIUM - SERUM 3.5 mmol/L (3.5-5.1); PROTEIN - SERUM 6.5 g/dL (6.4-8.2)
[2017-02-27 07:58] VITALS: BP 131/72
--- NOTE | 2017-02-27 11:01 | NUR ---
CM REASSESSMENT NOTE: PATIENT IS DISCHARGING HOME TODAY-STATED SHE DID NOT NEED HOME HEALTH OR ANYTHING ELSE FOR DISCHARGE. PATIENTS SPOUSE (VIKI) WILL DRIVE PATIENT HOME.
[2017-02-27 11:17] LABS: FUNGUS STAIN Final report (())
[2017-02-27 12:28] VITALS: BP 138/53
[2017-02-27 15:37] VITALS: BP 127/79
--- NOTE | 2017-02-27 15:40 | NUR ---
CM REASSESSMENT NOTE: PATIENT IS STAYING HERE TONIGHT DUE TO (FEVER). PATIENT WILL BE REEVALUATED TOMORROW FOR DISCHARGE.
--- NOTE | 2017-02-27 18:55 | NUR ---
PATIENT IN BED WITH IV INTACT. NO COMPLAINTS AT THIS TIME. FAMILY AT BEDSIDE. CALL LIGHT WITHIN REACH.
[2017-02-27 19:11] LABS: ACID FAST SMEAR Negative (()); AFB SPECIMEN PROCESSING Concentration (())
[2017-02-27 20:00] VITALS: BP 124/59
--- NOTE | 2017-02-27 20:00 | NUR ---
PT IN BED WITH NO DISTRESS. IV PATENT IN LEFT CHEST AREA. SIDE RAILS X 2. BED IS LOW. CALL LIGHT IN REACH.
[2017-02-27 22:07] LABS: MYCOPLASMA PNEUMO IGG 560 U/mL (0-99)
[2017-02-28] VITALS: BP 130/60
[2017-02-28 04:00] VITALS: BP 121/68
--- NOTE | 2017-02-28 07:30 | NUR ---
COMPLAINTS OF PAIN UNDER BREAST, AFTER LOOKING SHE HAS A RASH, NYSTATIN POWDER ORDERED, DENIES OTHER NEEDS, BED LOWEST POSITION, CALL LIGHT IN REACH, WILL CONTINUE TO MONITOR
[2017-02-28 08:01] LABS: BASOPHILS 0.2 % (0-2); EOSINOPHILS 3.2 % (0-7); HEMATOCRIT 35.6 % (36.0-48.0); HEMOGLOBIN 11.2 g/dL (12-16); IMMATURE GRANULOCYTES 1.7 % (0-5); LYMPHOCYTES 11.4 % (15-50); MCH 26.1 pg (26.0-34.0); MCHC 31.5 g/dL (31.0-37.0); MEAN PLATELET VOLUME 9.3 fL (7.4-10.4); MONOCYTES 11.2 % (2-11); NEUTROPHILS 72.3 % (40-80); PLATELET COUNT 141 10x3/uL (130-400); RBC 4.29 10x6/uL (4.00-5.40); RDW 15.1 % (11.5-14.5)
[2017-02-28 08:03] LABS: WBC 4.6 10x3/uL (4.8-10.8)
[2017-02-28 08:05] LABS: APPEARANCE CLEAR (CLEAR); BILIRUBIN NEGATIVE (NEGATIVE); COLOR YELLOW (YELLOW); GLUCOSE NEGATIVE (NEGATIVE); KETONE NEGATIVE (NEGATIVE); LEUKOCYTE ESTERASE TRACE (NEGATIVE); NITRITE NEGATIVE (NEGATIVE); PROTEIN NEGATIVE (NEGATIVE); RED CELLS - URINE OCC /hpf (0-5); UROBILINOGEN NORMAL (NORMAL)
[2017-02-28 08:06] LABS: BACTERIA FEW /hpf (NONE SEEN); YEAST OCC /hpf (NONE SEEN)
[2017-02-28 08:31] LABS: ALBUMIN 2.7 g/dL (3.4-5.0); ANION GAP 11.3 mmol/L (8-16); BILIRUBIN - TOTAL 0.4 mg/dL (0.2-1.3); CALCIUM 8.5 mg/dL (8.5-10.1); CARBON DIOXIDE 28.1 mmol/L (21.0-32.0); POTASSIUM - SERUM 3.4 mmol/L (3.5-5.1); PROTEIN - SERUM 6.9 g/dL (6.4-8.2)
[2017-02-28 09:48] VITALS: BP 136/78
--- NOTE | 2017-02-28 10:05 | NUR ---
PT SITTING UP ON THE SIDE OF BED WITH NO VISABLE SIGNS OF PAIN OR DISCOMFORT AT THIS TIME. BED IN LOW POSITION AND CALL LIGHT WITHIN REACH. WILL CONTINUE TO MONITOR.
[2017-02-28] MEDS ORDERED: LEVAQUIN750 MG PO (12:22)
[2017-02-28] MEDS ORDERED: NYSTATIN1 PWD TOPICAL (12:23)
[2017-02-28] MEDS ORDERED: MUCINEX DM ER1 EAC1 PO (12:24)
[2017-02-28] MEDS ORDERED: SINGULAIR10 MG PO (12:24)
[2017-02-28] MEDS ORDERED: FLUTICASONE PRO16 GM NASAL (12:24)
[2017-02-28] MEDS ORDERED: BENZONATATE200 MG PO (12:25)
[2017-02-28] MEDS ORDERED: PULMICORT0.5 MG/21 UPD (12:25)
[2017-02-28] MEDS ORDERED: IPRAT-ALBUT 0.5-3 ML UPD (12:25)
[2017-02-28 13:02] VITALS: BP 121/71
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
--- NOTE | 2017-02-28 15:30 | NUR ---
DISHCARGE PAPERS AND INSTRUICTIONS GIVEN TO PATIENT, QUESTIONS ANSWERED, IV REMOVED TIP INTACT BY PATIENT, DICAHRGED WITH BELONGINGS PER WC
--- NOTE | 2017-03-04 13:54 | EC ---
PATIENT:RONEN PALOMO DATE OF SERVICE: 02/22/17 SEX: F MEDICAL RECORD: [id number] DATE OF : 57 LOCATION:D[facility] AGE OF PATIENT: 61 ADMISSION DATE: 02/22/17 REFERRING PHYSICIAN: INTERPRETING PHYSICIAN: LAINA ROSE M.D. ECHOCARDIOGRAM REPORT ECHO CHARGES 4 ECHO COMPLETE CLINICAL DIAGNOSIS: CP/DYSPNEA ECHOCARDIOGRAPHIC MEASUREMENTS (adult normal given) AC root (d.<3.7cm) 2.7 LV Septum d (<1.2 cm> 1.6 Valve Excursion 1.4 LV Septum (systole) 2.1 Left Atria (s.<4.0cm> 3.4 LVPW d(<1.2cm) 1.5 RV (d.<2.3cm) 2.0 LVPW (sytole) 2.3 LV diastole(<5.6CM) 5.4 MV E-F(>70mm/sec) LV systole 3.1 LVOT Diameter 1.8 MV exc.(>10mm) Est.ejection fraction (50-75%) Pericardial Effusion N DOPPLER: LVIT A 77.0 E 87.0 LA RVSP 20.0 LVOT 119 AOP1/2T Asc. Ao 154 RVOT 71.0 RA PA 100 AV Gradient Peak 9.5 AV Mean 4.4 AV Area 1.9 MV Gradient Peak 4.4 MV Mean 2.1 MV Area COMMENTS: Cobbler Sole: Vanessa LEONOE Clean Out Driller Helper:1 Dr. Wilson TAPE# PACS DATE OF SERVICE: 02/23/2017 Echocardiogram Report REFERRING PHYSICIAN: Dr. Bruce Retana. INDICATION: Chest pain. DESCRIPTION: Left ventricle demonstrates left ventricular hypertrophy. No wall motion abnormalities are noted. Estimated ejection fraction is 55%. Mitral ECHOCARDIOGRAM REPORT [id number] RONEN PALOMO valve is structurally normal. There is trivial regurgitation noted. Left atrium is normal size. The aortic valve is trileaflet. There is no stenosis or regurgitation seen. Right ventricle is normal size and function. Tricuspid valve is structurally normal. There is trivial regurgitation noted. Right atrium is normal size. There is no pericardial effusion seen. IMPRESSION: 1. Left ventricular hypertrophy with preserved ejection fraction of 55%. 2. Trivial mitral regurgitation. 3. Trivial tricuspid regurgitation. TRANSINT:[id number] Voice Confirmation ID: [id number] DOCUMENT ID: [id number] LAINA ROSE M.D. at 1354 CC: [id number] DICTATION DATE: 02/23/17 165 AIRBRUSH PAINTER: 02/23/17 2355 DIS IN 02/28/17 [id number] [place] [address]
== END 2017-02-28 16:04 | disposition home or self-care (01) | DRG 190 ==
LOC: D.ER 14:21 → D.MS 18:58
PROVIDERS: Emergency Medicine; Family Medicine; Internal Medicine Pulmonary Disease; Physician Assistant Medical; ADMIT Family Medicine Adult Medicine
PROC: 0B958ZX Drainage of Right Middle Lobe Bronchus, Via Natural or Artificial Opening Endoscopic, Diagnostic (ICD-10-PCS; principal; 2017-02-26 11:49)
DX: J44.0 Chronic obstructive pulmonary disease with (acute) lower respiratory infection (principal); J18.9 Pneumonia, unspecified organism; Z68.41 Body mass index [BMI] 40.0-44.9, adult; J44.1 Chronic obstructive pulmonary disease with (acute) exacerbation; E11.65 Type 2 diabetes mellitus with hyperglycemia; E78.5 Hyperlipidemia, unspecified; G47.33 Obstructive sleep apnea (adult) (pediatric); Z91.19 Patient's noncompliance with other medical treatment and regimen; K21.9 Gastro-esophageal reflux disease without esophagitis; F41.8 Other specified anxiety disorders; I25.2 Old myocardial infarction; K30 Functional dyspepsia; E66.9 Obesity, unspecified; R05 Cough; Z86.73 Personal history of transient ischemic attack (TIA), and cerebral infarction without residual deficits

== ENCOUNTER 2017-03-04 20:36 | Emergency (ER) | payer MEDICAID ==
[2017-02-23 12:47] VITALS: BMI 42.4
[~2017-03-04 20:36] MED LIST changes: +BENZONATATE200 MG PO; +FLUTICASONE PRO16 GM NASAL; +IPRAT-ALBUT 0.5-3 ML UPD; +LEVAQUIN750 MG PO; +MUCINEX DM ER1 EAC1 PO; +NYSTATIN1 PWD TOPICAL; +PULMICORT0.5 MG/21 UPD; +SINGULAIR10 MG PO
[2017-03-04 22:07] LABS: BASOPHILS 0.3 % (0-2); EOSINOPHILS 2.6 % (0-7); HEMATOCRIT 38.3 % (36.0-48.0); HEMOGLOBIN 12.4 g/dL (12-16); IMMATURE GRANULOCYTES 0.7 % (0-5); LYMPHOCYTES 39.7 % (15-50); MCH 26.6 pg (26.0-34.0); MCHC 32.4 g/dL (31.0-37.0); MEAN PLATELET VOLUME 9.6 fL (7.4-10.4); MONOCYTES 6.2 % (2-11); NEUTROPHILS 50.5 % (40-80); RBC 4.67 10x6/uL (4.00-5.40); RDW 14.9 % (11.5-14.5); WBC 6.9 10x3/uL (4.8-10.8)
[2017-03-04 22:16] LABS: APPEARANCE CLEAR (CLEAR); COLOR YELLOW (YELLOW); LEUKOCYTE ESTERASE NEGATIVE (NEGATIVE); NITRITE NEGATIVE (NEGATIVE); PROTEIN NEGATIVE (NEGATIVE)
[2017-03-04 22:17] LABS: BILIRUBIN NEGATIVE (NEGATIVE); GLUCOSE 250 mg/dL (NEGATIVE); KETONE NEGATIVE (NEGATIVE); PLATELET COUNT 175 10x3/uL (130-400); UROBILINOGEN NORMAL (NORMAL)
[2017-03-04 22:22] LABS: ALKALINE PHOSPHATASE 165 U/L (46-116); ALT (SGPT) 37 U/L (10-68); BILIRUBIN - TOTAL 0.26 mg/dL (0.2-1.3); CALC OSMOLALITY 285 mosm/kg (275-300); CALCIUM 8.8 mg/dL (8.5-10.1); CARBON DIOXIDE 28.9 mmol/L (21.0-32.0); CHLORIDE - SERUM 99 mmol/L (98-107); CREATININE - SERUM 0.7 mg/dL (0.6-1.3); POTASSIUM - SERUM 3.4 mmol/L (3.5-5.1); PROTEIN - SERUM 6.8 g/dL (6.4-8.2); SODIUM 137 mmol/L (136-145); UREA NITROGEN 9 mg/dL (7-18); eGFR NON AFRICAN AMERICAN 90 mL/min (90-120)
[2017-03-04 22:29] LABS: GLUCOSE 338 mg/dL (74-106)
== END 2017-03-05 01:51 | disposition home or self-care (01) ==
LOC: D.ER 20:36
PROVIDERS: Family Medicine
DX: J06.9 Acute upper respiratory infection, unspecified (principal); E11.8 Type 2 diabetes mellitus with unspecified complications; Z79.4 Long term (current) use of insulin; J44.9 Chronic obstructive pulmonary disease, unspecified; F32.9 Major depressive disorder, single episode, unspecified; K21.9 Gastro-esophageal reflux disease without esophagitis

== ENCOUNTER 2017-04-01 22:23 | Emergency (ER) | payer MEDICAID ==
[2017-02-23 12:47] VITALS: BMI 42.4
== END 2017-04-02 01:05 | disposition home or self-care (01) ==
LOC: D.ER 22:23
DX: J02.0 Streptococcal pharyngitis (principal); F31.89 Other bipolar disorder; J44.9 Chronic obstructive pulmonary disease, unspecified; E11.9 Type 2 diabetes mellitus without complications; K21.9 Gastro-esophageal reflux disease without esophagitis; R51 Headache; M79.1 Myalgia; R09.89 Other specified symptoms and signs involving the circulatory and respiratory systems

== ENCOUNTER 2017-04-14 01:06 | Emergency (ER) | payer MEDICAID ==
[2017-02-23 12:47] VITALS: BMI 42.4
== END 2017-04-14 02:10 | disposition home or self-care (01) ==
LOC: D.ER 01:06
DX: M62.838 Other muscle spasm (principal); M60.88 Other myositis, other site; F31.89 Other bipolar disorder; J44.9 Chronic obstructive pulmonary disease, unspecified; E11.9 Type 2 diabetes mellitus without complications; K21.9 Gastro-esophageal reflux disease without esophagitis

== ENCOUNTER 2017-04-15 22:24 | Emergency (ER) | payer MEDICAID ==
[2017-02-23 12:47] VITALS: BMI 42.4
== END 2017-04-16 01:33 | disposition home or self-care (01) ==
LOC: D.ER 22:24
DX: S16.1XXA Strain of muscle, fascia and tendon at neck level, initial encounter (principal); M62.838 Other muscle spasm; E11.9 Type 2 diabetes mellitus without complications; J44.9 Chronic obstructive pulmonary disease, unspecified; K21.9 Gastro-esophageal reflux disease without esophagitis; Z79.4 Long term (current) use of insulin; M54.2 Cervicalgia

== ENCOUNTER 2017-05-22 16:44 | Emergency (ER) | payer MEDICAID ==
[2017-02-23 12:47] VITALS: BMI 42.4
[2017-05-22 18:12] LABS: BASOPHILS 0.1 % (0-2); EOSINOPHILS 2.3 % (0-7); HEMATOCRIT 36.9 % (36.0-48.0); IMMATURE GRANULOCYTES 0.5 % (0-5); LYMPHOCYTES 27.2 % (15-50); MCH 26.5 pg (26.0-34.0); MCHC 32.5 g/dL (31.0-37.0); MCV 81.6 fL (80.0-100.0); MEAN PLATELET VOLUME 9.1 fL (7.4-10.4); MONOCYTES 4.9 % (2-11); PLATELET COUNT 194 10x3/uL (130-400); RBC 4.52 10x6/uL (4.00-5.40); RDW 15.1 % (11.5-14.5); WBC 8.6 10x3/uL (4.8-10.8)
[2017-05-22 18:45] LABS: ALKALINE PHOSPHATASE 168 U/L (46-116); ALT (SGPT) 36 U/L (10-68); BILIRUBIN - TOTAL 0.23 mg/dL (0.2-1.3); CALC OSMOLALITY 280 mosm/kg (275-300); CALCIUM 8.9 mg/dL (8.5-10.1); CARBON DIOXIDE 27.9 mmol/L (21.0-32.0); CHLORIDE - SERUM 101 mmol/L (98-107); CREATININE - SERUM 0.9 mg/dL (0.6-1.3); POTASSIUM - SERUM 4.1 mmol/L (3.5-5.1); PROTEIN - SERUM 7.7 g/dL (6.4-8.2); SODIUM 136 mmol/L (136-145); UREA NITROGEN 13 mg/dL (7-18); eGFR NON AFRICAN AMERICAN 67 mL/min (90-120)
[2017-05-22 18:48] LABS: GLUCOSE 252 mg/dL (74-106)
[2017-05-22 18:56] LABS: CREATINE KINASE 23 UL (21-215)
[2017-05-22 19:00] LABS: TROPONIN-I < 0.017 ng/mL (0.000-0.060)
== END 2017-05-22 21:20 | disposition home or self-care (01) ==
LOC: D.ER 16:44
PROVIDERS: Family Medicine
DX: R07.89 Other chest pain (principal); E11.9 Type 2 diabetes mellitus without complications; J44.9 Chronic obstructive pulmonary disease, unspecified; K21.9 Gastro-esophageal reflux disease without esophagitis; F17.200 Nicotine dependence, unspecified, uncomplicated

== ENCOUNTER 2017-06-03 22:04 | Observation (INO) | payer MEDICAID ==
[2017-06-04 00:15] LABS: HEMOGLOBIN 12.3 g/dL (12-16); LYMPHOCYTES 32.4 % (15-50); MCH 25.2 pg (26.0-34.0); MCHC 31.5 g/dL (31.0-37.0); MCV 79.8 fL (80.0-100.0); MEAN PLATELET VOLUME 8.9 fL (7.4-10.4); NEUTROPHILS 65.1 % (40-80); RBC 4.89 10x6/uL (4.00-5.40); RDW 14.7 % (11.5-14.5)
[2017-06-04 00:16] LABS: PLATELET COUNT 240 10x3/uL (130-400)
[2017-06-04 00:19] LABS: APTT 28.3 SECONDS (22.8-39.4); INR 0.99 (0.85-1.17); PROTIME 12.9 SECONDS (11.6-15.0)
[2017-06-04 00:27] LABS: ALBUMIN 3.1 g/dL (3.4-5.0); ANION GAP 14.4 mmol/L (8-16); BILIRUBIN - TOTAL 0.23 mg/dL (0.2-1.3); CALCIUM 8.9 mg/dL (8.5-10.1); CARBON DIOXIDE 26.4 mmol/L (21.0-32.0); CREATININE - SERUM 0.9 mg/dL (0.6-1.3); POTASSIUM - SERUM 3.8 mmol/L (3.5-5.1); PROTEIN - SERUM 7.9 g/dL (6.4-8.2)
[2017-06-04 01:23] LABS: CREATINE KINASE 24 UL (21-215); TROPONIN-I < 0.017 ng/mL (0.000-0.060)
[2017-06-04 01:49] LABS: APPEARANCE HAZY (CLEAR); COLOR YELLOW (YELLOW); NITRITE NEGATIVE (NEGATIVE); PROTEIN NEGATIVE (NEGATIVE); SPECIFIC GRAVITY 1.025 (1.005-1.020)
[2017-06-04 01:50] LABS: BILIRUBIN NEGATIVE (NEGATIVE); GLUCOSE 100 mg/dL (NEGATIVE); KETONE NEGATIVE (NEGATIVE); UROBILINOGEN NORMAL (NORMAL)
[2017-06-04 01:51] LABS: BACTERIA MANY /hpf (NONE SEEN); EPITHELIAL CELLS 0-5 /hpf (0-5); MUCUS <1+ /lpf (NONE SEEN); RED CELLS - URINE 0-5 /hpf (0-5); WHITE CELLS - URINE 0-5 /hpf (0-5); YEAST <1+ /hpf (NONE SEEN)
[2017-06-04 01:53] LABS: UDS - AMPHET NEGATIVE QUAL (NEGATIVE); UDS - BARB NEGATIVE QUAL (NEGATIVE); UDS - BENZO POSITIVE QUAL (NEGATIVE); UDS - COCAINE NEGATIVE QUAL (NEGATIVE); UDS - OPIATE NEGATIVE QUAL (NEGATIVE); UDS - PCP NEGATIVE QUAL (NEGATIVE); UDS - THC NEGATIVE QUAL (NEGATIVE)
--- NOTE | 2017-06-04 08:20 | NUR ---
PATIENT TO ROOM AT THIS TIME. ASSESSMENT COMPLETE, VS STABLE. IV INTACT. SITTING UP IN BED WITH NO COMPLAINTS AT THIS TIME. ORIENTED TO ROOM AND CALL LIGHT. CALL LIGHT WITHIN REACH.
[2017-06-04 12:15] VITALS: BP 130/80
[2017-06-04 13:33] VITALS: BMI 42.4
[2017-06-04 14:00] VITALS: BMI 41.3
[2017-06-04 16:02] VITALS: BP 140/79
--- NOTE | 2017-06-04 18:55 | NUR ---
PATIENT IN BED WITH IV INTACT. NO COMPLAINTS AT THIS TIME. STATED NAUSEA AND DELGADO BETTER FROM MEDS. NO PROBLEMS AT THIS TIME. CALL LIGHT WITHIN REACH.
[2017-06-04 20:00] VITALS: BP 149/89
[2017-06-05] VITALS: BP 108/66
[2017-06-05 04:00] VITALS: BP 116/66
[2017-06-05 05:25] LABS: BASOPHILS 0.1 % (0-2); EOSINOPHILS 2.3 % (0-7); HEMATOCRIT 37.9 % (36.0-48.0); HEMOGLOBIN 12.2 g/dL (12-16); IMMATURE GRANULOCYTES 0.4 % (0-5); LYMPHOCYTES 34.2 % (15-50); MCH 26.3 pg (26.0-34.0); MCHC 32.2 g/dL (31.0-37.0); MEAN PLATELET VOLUME 9.5 fL (7.4-10.4); MONOCYTES 6.5 % (2-11); NEUTROPHILS 56.5 % (40-80); PLATELET COUNT 216 10x3/uL (130-400); RBC 4.63 10x6/uL (4.00-5.40); RDW 15.2 % (11.5-14.5); WBC 8.4 10x3/uL (4.8-10.8)
[2017-06-05 05:26] LABS: MCV 81.9 fL (80.0-100.0)
[2017-06-05 05:41] LABS: ALBUMIN 2.8 g/dL (3.4-5.0); ANION GAP 11.5 mmol/L (8-16); BILIRUBIN - TOTAL 0.3 mg/dL (0.2-1.3); CALCIUM 8.9 mg/dL (8.5-10.1); CARBON DIOXIDE 27.5 mmol/L (21.0-32.0); CREATININE - SERUM 0.9 mg/dL (0.6-1.3)
--- NOTE | 2017-06-05 07:00 | NUR ---
REPORT RECIEVED ASSUMED CARE. PATIENT IN BED WITH IV INTACT. NO COMPLAINTS OF SIGNS OF DISTRESS AT THIS TIME. CALL LIGHT WITHIN REACH.
[2017-06-05 07:39] VITALS: BP 129/79
[2017-06-05] MEDS ORDERED: LANTUS SOL100 UNIT/1 SC (12:09)
[2017-06-05 12:20] VITALS: BP 124/61
[2017-06-05] MEDS ORDERED: PLAVIX75 MG PO (12:25)
[2017-06-05] MEDS ORDERED: MACROBID100 MG PO (12:25)
[2017-06-05] MEDS ORDERED: ASPIRIN325 MG PO (12:26)
--- NOTE | 2017-06-05 17:00 | NUR ---
PATIENT RECIEVED DISCHARGE INSTRUCTIONS. VERBALIZED UNDERSTANDING. NO QUESTIONS AT THIS TIME. IV REMOVED WITH CATH TIP INTACT. PATIENT TAKEN DOWN TO PRIVATE VEHICLE WITH PERSONAL BELONGINGS BY PLANT MAINTENANCE SUPERVISOR AND FAMILY.
== END 2017-06-05 17:35 | disposition home or self-care (01) ==
LOC: D.ER 22:04 → D.MS 06-04 06:27 → D.M2 06-04 06:27 → OBSVTIME 06-04 06:27 → D.M2 06-04 06:27 → D.MS 06-04 06:49
PROVIDERS: Family Medicine; Nurse Practitioner Family; ADMIT Family Medicine
DX: G45.9 Transient cerebral ischemic attack, unspecified (principal); N39.0 Urinary tract infection, site not specified; I69.354 Hemiplegia and hemiparesis following cerebral infarction affecting left non-dominant side; R47.81 Slurred speech; H53.8 Other visual disturbances; R51 Headache; I07.1 Rheumatic tricuspid insufficiency; I10 Essential (primary) hypertension; E11.9 Type 2 diabetes mellitus without complications

== ENCOUNTER 2017-06-19 20:56 | Emergency (ER) | payer MEDICAID ==
[~2017-06-19 20:56] MED LIST changes: +ASPIRIN325 MG PO; +LANTUS SOL100 UNIT/1 SC; +MACROBID100 MG PO; +PLAVIX75 MG PO
[2017-06-19 21:33] LABS: BASOPHILS 0.1 % (0-2); EOSINOPHILS 2.1 % (0-7); HEMATOCRIT 39.7 % (36.0-48.0); HEMOGLOBIN 12.9 g/dL (12-16); IMMATURE GRANULOCYTES 0.4 % (0-5); LYMPHOCYTES 26.6 % (15-50); MCH 26.4 pg (26.0-34.0); MCHC 32.5 g/dL (31.0-37.0); MCV 81.2 fL (80.0-100.0); MEAN PLATELET VOLUME 9.5 fL (7.4-10.4); MONOCYTES 5.1 % (2-11); NEUTROPHILS 65.7 % (40-80); PLATELET COUNT 206 10x3/uL (130-400); RBC 4.89 10x6/uL (4.00-5.40); RDW 14.8 % (11.5-14.5)
[2017-06-19 21:47] LABS: ALBUMIN 3.2 g/dL (3.4-5.0); ALKALINE PHOSPHATASE 178 U/L (46-116); ALT (SGPT) 35 U/L (10-68); BILIRUBIN - TOTAL 0.23 mg/dL (0.2-1.3); CALC OSMOLALITY 280 mosm/kg (275-300); CALCIUM 9.4 mg/dL (8.5-10.1); CARBON DIOXIDE 23.5 mmol/L (21.0-32.0); CHLORIDE - SERUM 96 mmol/L (98-107); GLUCOSE 370 mg/dL (74-106); POTASSIUM - SERUM 4.3 mmol/L (3.5-5.1); SODIUM 132 mmol/L (136-145); UREA NITROGEN 14 mg/dL (7-18); eGFR NON AFRICAN AMERICAN 60 mL/min (90-120)
[2017-06-19 21:50] LABS: CREATINE KINASE 23 UL (21-215); TROPONIN-I < 0.017 ng/mL (0.000-0.060)
[2017-06-19 22:02] LABS: APPEARANCE CLEAR (CLEAR); BILIRUBIN NEGATIVE (NEGATIVE); COLOR YELLOW (YELLOW); GLUCOSE 1000 mg/dL (NEGATIVE); KETONE NEGATIVE (NEGATIVE); NITRITE NEGATIVE (NEGATIVE); PROTEIN NEGATIVE (NEGATIVE); SPECIFIC GRAVITY 1.025 (1.005-1.020); UROBILINOGEN NORMAL (NORMAL)
[2017-06-19 22:10] LABS: UDS - AMPHET NEGATIVE QUAL (NEGATIVE); UDS - BARB NEGATIVE QUAL (NEGATIVE); UDS - BENZO POSITIVE QUAL (NEGATIVE); UDS - COCAINE NEGATIVE QUAL (NEGATIVE); UDS - OPIATE NEGATIVE QUAL (NEGATIVE); UDS - PCP NEGATIVE QUAL (NEGATIVE); UDS - THC NEGATIVE QUAL (NEGATIVE)
== END 2017-06-19 23:04 | disposition home or self-care (01) ==
LOC: D.ER 20:56
PROVIDERS: Family Medicine; Nurse Practitioner Family
DX: R55 Syncope and collapse (principal); R53.1 Weakness; M25.562 Pain in left knee; F41.9 Anxiety disorder, unspecified; E11.9 Type 2 diabetes mellitus without complications

== ENCOUNTER 2017-06-25 07:19 | Emergency (ER) | payer MEDICAID | END 2017-06-25 09:04 | disposition home or self-care (01) | LOC: D.ER 07:19 | DX: R51 Headache (principal) ==

== ENCOUNTER 2017-07-05 00:58 | Emergency (ER) | payer MEDICAID ==
[2017-07-05 01:38] LABS: BASOPHILS 0.2 % (0-2); EOSINOPHILS 2.5 % (0-7); HEMATOCRIT 39.9 % (36.0-48.0); HEMOGLOBIN 12.9 g/dL (12-16); IMMATURE GRANULOCYTES 0.3 % (0-5); LYMPHOCYTES 30.2 % (15-50); MCH 26.2 pg (26.0-34.0); MCHC 32.3 g/dL (31.0-37.0); MCV 81.1 fL (80.0-100.0); MEAN PLATELET VOLUME 9.4 fL (7.4-10.4); MONOCYTES 6.3 % (2-11); NEUTROPHILS 60.5 % (40-80); PLATELET COUNT 220 10x3/uL (130-400); RBC 4.92 10x6/uL (4.00-5.40); RDW 14.6 % (11.5-14.5); WBC 10.1 10x3/uL (4.8-10.8)
[2017-07-05 01:53] LABS: ALBUMIN 3.2 g/dL (3.4-5.0); ALKALINE PHOSPHATASE 181 U/L (46-116); ALT (SGPT) 31 U/L (10-68); BILIRUBIN - TOTAL 0.26 mg/dL (0.2-1.3); CALC OSMOLALITY 281 mosm/kg (275-300); CALCIUM 8.9 mg/dL (8.5-10.1); CARBON DIOXIDE 23.7 mmol/L (21.0-32.0); CHLORIDE - SERUM 101 mmol/L (98-107); CREATININE - SERUM 0.8 mg/dL (0.6-1.3); POTASSIUM - SERUM 3.5 mmol/L (3.5-5.1); PROTEIN - SERUM 8.1 g/dL (6.4-8.2); SODIUM 137 mmol/L (136-145); UREA NITROGEN 13 mg/dL (7-18); eGFR NON AFRICAN AMERICAN 77 mL/min (90-120)
[2017-07-05 01:54] LABS: GLUCOSE 251 mg/dL (74-106)
[2017-07-05 01:58] LABS: HEMOGLOBIN A1C 10.8 % (4.8-6.0)
[2017-07-05 02:02] LABS: AMYLASE - SERUM 33 U/L (25-115); LIPASE 149 U/L (73-393); PRO BNP 21 pg/mL (0-125); TROPONIN-I < 0.017 ng/mL (0.000-0.060)
== END 2017-07-05 04:20 | disposition home or self-care (01) ==
LOC: D.ER 00:58
PROVIDERS: Family Medicine
DX: R06.00 Dyspnea, unspecified (principal); K21.9 Gastro-esophageal reflux disease without esophagitis

== ENCOUNTER 2017-07-08 22:28 | Emergency (ER) | payer MEDICAID ==
[2017-07-08 23:05] LABS: BASOPHILS 0.1 % (0-2); EOSINOPHILS 2.5 % (0-7); HEMATOCRIT 39.9 % (36.0-48.0); HEMOGLOBIN 12.7 g/dL (12-16); IMMATURE GRANULOCYTES 0.5 % (0-5); LYMPHOCYTES 26.2 % (15-50); MCH 26.1 pg (26.0-34.0); MCHC 31.8 g/dL (31.0-37.0); MCV 82.1 fL (80.0-100.0); MEAN PLATELET VOLUME 9.6 fL (7.4-10.4); MONOCYTES 5.5 % (2-11); NEUTROPHILS 65.2 % (40-80); PLATELET COUNT 219 10x3/uL (130-400); RBC 4.86 10x6/uL (4.00-5.40); RDW 14.8 % (11.5-14.5); WBC 9.6 10x3/uL (4.8-10.8)
[2017-07-08 23:29] LABS: ALBUMIN 3.1 g/dL (3.4-5.0); ANION GAP 11.4 mmol/L (8-16); BILIRUBIN - TOTAL 0.24 mg/dL (0.2-1.3); CALCIUM 8.4 mg/dL (8.5-10.1); CARBON DIOXIDE 28.3 mmol/L (21.0-32.0); POTASSIUM - SERUM 3.7 mmol/L (3.5-5.1)
== END 2017-07-09 02:30 | disposition home or self-care (01) ==
LOC: D.ER 22:28
PROVIDERS: Physician Assistant Medical
DX: J20.9 Acute bronchitis, unspecified (principal); R73.9 Hyperglycemia, unspecified; K21.9 Gastro-esophageal reflux disease without esophagitis

== ENCOUNTER 2017-07-14 23:13 | Emergency (ER) | payer MEDICAID | END 2017-07-14 23:59 | disposition home or self-care (01) | LOC: D.ER 23:13 | DX: R06.00 Dyspnea, unspecified (principal); E11.9 Type 2 diabetes mellitus without complications; Z79.4 Long term (current) use of insulin; K21.9 Gastro-esophageal reflux disease without esophagitis; J44.9 Chronic obstructive pulmonary disease, unspecified ==

== ENCOUNTER 2017-07-29 00:27 | Inpatient (IN) | payer MEDICAID ==
[~2017-07-29] VITALS: Ht 165.1 cm; Wt 113.7 kg
[2017-07-29 00:58] LABS: BASOPHILS 0.1 % (0-2); EOSINOPHILS 2.5 % (0-7); HEMATOCRIT 37.7 % (36.0-48.0); IMMATURE GRANULOCYTES 0.6 % (0-5); LYMPHOCYTES 29.3 % (15-50); MCHC 31.8 g/dL (31.0-37.0); MCV 81.6 fL (80.0-100.0); MEAN PLATELET VOLUME 9.7 fL (7.4-10.4); MONOCYTES 6.1 % (2-11); NEUTROPHILS 61.4 % (40-80); PLATELET COUNT 208 10x3/uL (130-400); RBC 4.62 10x6/uL (4.00-5.40); RDW 14.9 % (11.5-14.5)
[2017-07-29 01:10] LABS: ALBUMIN 2.7 g/dL (3.4-5.0); ANION GAP 14.2 mmol/L (8-16); BILIRUBIN - TOTAL 0.17 mg/dL (0.2-1.3); CALCIUM 8.1 mg/dL (8.5-10.1); CARBON DIOXIDE 24.5 mmol/L (21.0-32.0); POTASSIUM - SERUM 3.7 mmol/L (3.5-5.1)
[2017-07-29 01:42] LABS: APPEARANCE CLEAR (CLEAR); BILIRUBIN NEGATIVE (NEGATIVE); COLOR YELLOW (YELLOW); GLUCOSE 1000 mg/dL (NEGATIVE); KETONE NEGATIVE (NEGATIVE); NITRITE NEGATIVE (NEGATIVE); PROTEIN NEGATIVE (NEGATIVE); UROBILINOGEN NORMAL (NORMAL)
[2017-07-29 01:44] LABS: BACTERIA NONE SEEN /hpf (NONE SEEN); EPITHELIAL CELLS 0-5 /hpf (0-5); WHITE CELLS - URINE 0-5 /hpf (0-5)
--- NOTE | 2017-07-29 02:50 | NUR ---
PT ARRIVES TO FLOOR VIA STRETCHER ACCOMPANIED BY NURSE. ADMISSION ASSESSMENT AND HISTORY OBTAINED. VS, AFEBRILE. RESP EVEN UNLABORED. O2 2LPM NC, SATS 94%. PT IS ALERT AND ORIENTED X4. C/O GENERALIZED WEAKNESS. INSTRUCTED TO CALL FOR NURSING STAFF BEFORE GETTING OOB AND VERBALIZES UNDERSTANDING. STALLWORTH TO BSD, DRAINS ADEQUATE AMOUNT CLEAR YELLOW URINE. IV TO LEFT HAND WITH NS @ 75 ML/HR. NO NEEDS VOICED. DENIES ANY C/O PAIN. CALL LIGHT PLACED WITHIN REACH. WILL CONT TO MONITOR.
[2017-07-29 03:05] VITALS: BMI 46.0
[2017-07-29 05:11] VITALS: BP 149/80
--- NOTE | 2017-07-29 07:15 | NUR ---
REPORT RECEIVED. RR EVEN AND UNLABORED. PT DENIES NEEDS AT THIS TIME. NAME PLACED ON WHITE BOARD. PT IS ALERT AND ORIENTED. BED IN LOWEST POSTION, CALL JUAN IN REACH, WILL CTM.
[2017-07-29 08:15] VITALS: BP 129/71
--- NOTE | 2017-07-29 11:00 | NUR ---
PTS BS CHECKED. CURRENTLY 288, WILL GIVEN SLIDING SCALE. PT REQUESTING PAIN MEDICATION, WILL CALL PHYSICIAN FOR ORDERS.
--- NOTE | 2017-07-29 11:15 | NUR ---
SPOKE TO SANDRA BERGER APN ABOUT PT REQUEST FOR PAIN MEDS. GAVE TELEPHONE ORDER FOR NORCO 5-325 Q4 HRS. WILL GIVE AND CTM.
[2017-07-29 11:40] VITALS: Ht 165.1 cm; Wt 113.7 kg
[2017-07-29 12:14] VITALS: BP 119/91
--- NOTE | 2017-07-29 12:43 | NUR ---
PT STILL REPORTING HER PAIN IS 9/10. SHE SAYS "IT IS JUST TAKING THE EDGE OFF." WILL CALL SANDRA BERGER APN ABOUT PT CONDITION.
--- NOTE | 2017-07-29 12:48 | NUR ---
SPOKE TO SANDRA AGAIN REGARDING PTS CONDITION. GAVE ONE TIME ORDER FOR DILUDID INJECTION 0.5MG. WILL GIVE AND CTM. PT REPORTS THAT IN THE PAST SHE HAS TAKEN DILUDID WHILE IN THE HOSPITAL.
[2017-07-29 16:02] VITALS: BP 121/77
--- NOTE | 2017-07-29 19:22 | NUR ---
PT IN BED RESTING QUEITLY. BREATHING EVEN AND UNLABORED. STATED SHE WAS FEELING HOT SO I BROUGHT HER A FAN. DENIES ANY OTHER NEEDS AT THIS TIME. BED IN LOW POSITION, CALL LIGHT WITHIN REACH.
--- NOTE | 2017-07-29 21:04 | NUR ---
FSBS 204. 8 UNITS INSULIN GIVEN PER SLIDING SCALE.
[2017-07-29 21:09] VITALS: BP 137/61
--- NOTE | 2017-07-29 21:24 | NUR ---
MENTALLY IMPAIRED TEACHER WENT INTO TO TAKE VITALS AND ASKED THE PT IF SHE COULD GIVE HER A BATH DUE TO THE PT BEING IN DIRTY CLOTHES AND HAVING AN ODOR IN THE ROOM. PT REFUSED MULTIPLE TIMES.
--- NOTE | 2017-07-29 23:02 | NUR ---
PT C/O PAIN. PRN DILAUDID GIVEN PER ORDER. BREATHING EVEN AND UNLABORED. WILL CTM.
[2017-07-30 01:59] VITALS: BP 149/59
[2017-07-30 05:54] VITALS: BP 163/84
--- NOTE | 2017-07-30 06:09 | NUR ---
PT FSBS 220. 8 UNITS INSULIN GIVEN PER SLIDING SCALE. BREATHING EVEN AND UNLABORED. BED IN LOW POSITION, CALL LIGHT WITHIN REACH. PT REPORTED THAT SHE THREW UP A "SMALL AMOUNT" EARLIER BUT THAT SHE WAS FEELING BETTER. REQUESTED SOME MILK. WILL CTM.
[2017-07-30 06:19] LABS: BASOPHILS 0.1 % (0-2); EOSINOPHILS 2.9 % (0-7); HEMATOCRIT 40.2 % (36.0-48.0); HEMOGLOBIN 12.6 g/dL (12-16); IMMATURE GRANULOCYTES 0.5 % (0-5); LYMPHOCYTES 28.7 % (15-50); MCH 25.8 pg (26.0-34.0); MCHC 31.3 g/dL (31.0-37.0); MCV 82.4 fL (80.0-100.0); MEAN PLATELET VOLUME 9.6 fL (7.4-10.4); MONOCYTES 5.8 % (2-11); PLATELET COUNT 189 10x3/uL (130-400); RBC 4.88 10x6/uL (4.00-5.40); RDW 14.7 % (11.5-14.5)
[2017-07-30 06:33] LABS: ALBUMIN 2.7 g/dL (3.4-5.0); ALKALINE PHOSPHATASE 195 U/L (46-116); CALCIUM 8.7 mg/dL (8.5-10.1); CARBON DIOXIDE 25.9 mmol/L (21.0-32.0); CHLORIDE - SERUM 104 mmol/L (98-107); CREATININE - SERUM 0.8 mg/dL (0.6-1.3); PROTEIN - SERUM 7.1 g/dL (6.4-8.2); SODIUM 139 mmol/L (136-145); UREA NITROGEN 13 mg/dL (7-18); eGFR NON AFRICAN AMERICAN 77 mL/min (90-120)
[2017-07-30 06:34] LABS: ALT (SGPT) 80 U/L (10-68); CALC OSMOLALITY 285 mosm/kg (275-300); GLUCOSE 245 mg/dL (74-106)
--- NOTE | 2017-07-30 07:30 | NUR ---
MORNING ROUNDS MADE. PATIENT LAYING IN BED, EYES CLOSED. AROUSED EASILY WHEN SPOKEN TO. WEARING NC WITH 2L O2 AND HAS IV IN RIGHT HAND WITH NS @ 75ML. PT ASKED IF HOME MEDS COULD BE STARTED, ADVISED I WOULD SPEAK TO HER MD. C/O PAIN AND ASKED WHEN SHE COULD HAVE EHR DILAUDED. ADVISED SHE HAD IT ABOUT 0300 AND CAN HAVE MORE AROUND 0900. PATIENT VOCALIZED UNDERSTANDING. WILL CONTINUE TO MONITOR. CPOC.
--- NOTE | 2017-07-30 07:30 | NUR ---
AM ROUNDS. PT RESTING QUILETY, RR EVEN AND UNLABORED. PT WORRIED ABOUT HER HOME MEDICATIONS. EXPLAINED THE PHYSICIAN WILL BE ROUNDING TODAY AND HE WILL DECIDE TO START HER HOME MEDS. VERBALIZED UNDERSTANDING.
[2017-07-30 07:55] VITALS: BP 150/90
--- NOTE | 2017-07-30 08:15 | NUR ---
SPOKE WITH DR. TOSCANO REGARDING STARTING HOME MEDS. HOME MEDS RESTARTED. INFORMED HIM PATIENT C/O VOMITING AND HEADACHE. ORDERS ENTERED FOR ZOFRAN 4MG Q6HP AND FIORSET Q4HP. WILL CONTINUE TO MONITOR. CPOC.
--- NOTE | 2017-07-30 09:25 | NUR ---
PATIENT RESTING IN BED. MEDS GIVEN WITHOUT PROBLEMS. DILAUDID AND ZOFRAN GIVEN, STATES PAIN IS "9" ON 1-10 SCALE. WILL CONTINUE TO MONITOR. CPOC.
--- NOTE | 2017-07-30 09:55 | NUR ---
PATIENT LAYING IN BED WITH EYES CLOSED. ASKED PATIENT HER CURRENT LEVEL OF PAIN. STATES "6" ON 0-10 SCALE. WILL CONTINUE TO MONITOR. CPOC.
--- NOTE | 2017-07-30 11:49 | NUR ---
PATIENT LAYING IN BED WITH EYES CLOSED. OPENED EYES WHEN SPOKEN TO. FSBS IS 265, 10U OF HUMALOG GIVEN PER SLIDING SCALE. NO REQUESTS AT THIS TIME. CPOC.
[2017-07-30 12:21] VITALS: BP 129/75
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
[2017-07-30 15:25] VITALS: BP 133/88
--- NOTE | 2017-07-30 16:03 | NUR ---
PATIENT SITTING UP IN BED, FAMILY AT BEDSIDE. MEDS GIVEN WITHOUT PROBLEMS. STATES SHE IS STILL ITCHING A LITTLE, "I'VE BEEN ITCHING ALL DAY". NO REDNESS OR WHELPS PRESENT. STATES SHE WOULD LIKE TO TAKE A BATH, ADVISED WE WILL HELP HER WITH THAT. ALSO, C/O HER CATHETER "BOTHERING HER". WILL ASSESS. CPOC.
--- NOTE | 2017-07-30 16:47 | NUR ---
PATIENT SITTING UP IN BED, FAMILY AT BEDSIDE. FSBS IS 275, 10U HUMALOG GIVEN. STATES SOMEONE WAS GOING TO TAKE HER CATHETER OUT THE OTHER DAY, BUT SHE WANTED IT LEFT IN, BUT NOW SHE WOULD LIKE IT OUT. ADVISED I WOULD LOOK AT THE ORDERS AND I'D BE HAPPY TO TAKE IT OUT IF THERE ARE ORDERS TO DC. PT VOICED UNDERSTANDING. CPOC
--- NOTE | 2017-07-30 18:26 | NUR ---
PT CALLED HER AND HE CALLED STATING SHE WAS CRYING AND DISTRESSED. UPON ENTERING ROOM PT WAS CRYING AND TRYING TO DIAL OUT ON TELEPHONE. ASKED PT WHATS WRONG AND SHE BEGAN TO CRY AND STATED "JOSE I JUST CANT HELP IT IM BIPOLAR AND I JUST I NEED HELP, I DONT WANT TO LIVE" ASKED PT IF SHE WANTED TO HARM HERSELF OR PLANNED ON IT AND SHE STATES "NO I JUST NEED MY AND BIPOLAR MEDICATION" NOTIFIED PTS PRIMARY NURSE RAINA AND PT WILL BE PROVIDED WITH PRN ANXIETY MEDICATION VALIUM. PT PULLED OUT HER PIV AND IT ITCHING ALL OVER HER HANDS AND ARMS AND REQUESTING SOMETHING. PAGED TO REQUEST PRN BENADRYL AND WILL CPOC.
--- NOTE | 2017-07-30 18:32 | NUR ---
UPON TRYING TO RESITE PT SHE REFUSED PIV ACCESS, REFUSED HER OXYGEN AND IS VERY ANXIOUS STILL STATING "IM A BURDEN TO EVERYONE" PT REQUESTING HER COME BACK. CALLED HIM AND HE STATES HE WILL RETURN, STILL WAITING ON TO CALL BACK AND WILL UPDATE HIM ON HER BEHAVIOR AND WAIT FOR FURTHER ORDERS.
--- NOTE | 2017-07-30 18:54 | NUR ---
PT STILL VERY UPSET AND CRYING AND BEING BIPOLAR REFUSING IV BUT STATES SHE WILL TAKE BENADRYL ORALLY. IS AWARE AND PROVIDED US WITH NEW ORDERS. WILL WE CARRY THEM OUT AND TRY TO KEEP PATIENT CALM.
--- NOTE | 2017-07-30 20:05 | NUR ---
RESUMED CARE OF PT, UP ON SIDE RESPIRATIONS EVEN AND UNLABORED ON ROOM AIR. CALM BUT, STATES SHE'S STILL IN A BAD MOOD. REQUESTS CATHETER REMOVED, 10CC OF NS REMOVED FROM CATHETER BULB. NO FURTHER NEEDS AT THIS TIME, WILL CONTINUE TO MONITOR. SEE NURSE ASSESSMENT.
[2017-07-30 21:43] VITALS: BP 156/84
--- NOTE | 2017-07-31 00:08 | NUR ---
HEAD LICE REPORTED BY KATIE VILLEDA SOAKING ON HEAD.
[2017-07-31 01:21] VITALS: BP 160/82
--- NOTE | 2017-07-31 02:29 | NUR ---
HEAD CLEANED WITH A FINE TOOTH COMB, MANY FULL SIZE LICE AND NITS REMOVED. REQUESTS IV TO BE RESTARTED, 2 FAILED ATTEMPTS. WILL CONSULT VASCULAR NURSE IN AM. REQUESTS DILAUDID, GIVEN IM DOSE DUE TO NO IV ACCESS. CALL LIGHT IN REACH. WILL CONTINUE TO MONITOR.
[2017-07-31 05:18] VITALS: BP 104/54
[2017-07-31 06:18] LABS: BASOPHILS 0.1 % (0-2); EOSINOPHILS 3.1 % (0-7); HEMATOCRIT 36.1 % (36.0-48.0); HEMOGLOBIN 11.4 g/dL (12-16); IMMATURE GRANULOCYTES 0.5 % (0-5); LYMPHOCYTES 33.7 % (15-50); MCH 25.8 pg (26.0-34.0); MCHC 31.6 g/dL (31.0-37.0); MCV 81.7 fL (80.0-100.0); MEAN PLATELET VOLUME 9.7 fL (7.4-10.4); MONOCYTES 5.7 % (2-11); NEUTROPHILS 56.9 % (40-80); PLATELET COUNT 189 10x3/uL (130-400); RBC 4.42 10x6/uL (4.00-5.40); RDW 14.8 % (11.5-14.5); WBC 8.4 10x3/uL (4.8-10.8)
[2017-07-31 06:21] LABS: ALBUMIN 2.5 g/dL (3.4-5.0); ANION GAP 12.6 mmol/L (8-16); BILIRUBIN - TOTAL 0.2 mg/dL (0.2-1.3); CALCIUM 8.7 mg/dL (8.5-10.1); CARBON DIOXIDE 26.5 mmol/L (21.0-32.0); POTASSIUM - SERUM 4.1 mmol/L (3.5-5.1); PROTEIN - SERUM 6.3 g/dL (6.4-8.2)
[2017-07-31 08:00] VITALS: BP 140/65
--- NOTE | 2017-07-31 08:08 | NUR ---
BLOOD SUGAR OF 320, 16UNITS OF HUMALOG GIVEN PER S/S. TRIED TO START IV X2 STICKS UNABLE TO START IV. PT ASKING IF CAN HAVE A GUEST TRAY, THAT THEY TOLD HER LAST NIGHT THAT HE COULD HAVE ONE SINCE SHE WAS HAVING A BAD DAY. INFORMED PT THAT I WOULD CHECK WITH THE PAINTING TECHNICIAN. PT DENIES ANY OTHER NEEDS AT THIS TIME. CALL LIGHT IN REACH, NAD NOTED, WILL CONTINUE PLAN OF CARE.
--- NOTE | 2017-07-31 09:00 | NUR ---
SPOKE WITH GERRY BEAMING INSPECTOR AND INFORMED HER THAT I WAS NOT ABLE TO START IV ON PT. GERRY STATED THAT SHE WOULD GO AND TRY TO START IV.
--- NOTE | 2017-07-31 09:37 | NUR ---
INFORMED PT'S THAT HE NEEDS TO BE TREATED FOR HEAD LICE, IF HE WANTS TO VISIT HIS PER OUR POLICY. INFOMRED HIM THAT AFTER HE IS TREATED THAT HE CAN COME BACK AND STAY WITH PT IN ROOM, BUT HAS TO WEAR GLOWN, GLOVES, AND HAT. VERBALIZED UNDERSTANDING.
--- NOTE | 2017-07-31 10:59 | NUR ---
WENT TO ADMINISTER ZOFRAN, PT IN BED, WITH EYES CLOSED, SNOORING. DID NOT WAKE PT UP WILL COME BACK AND CHECK ON PT LATER. CALL LIGHT IN REACH, NAD NOTED.
[2017-07-31 12:00] VITALS: BP 136/56
--- NOTE | 2017-07-31 12:12 | NUR ---
BLOOD SUGAR OF 202, ADMINISTERED 8UNTIS OF HUMALOG PER S/S. PT IN BED, FIXING TO EAT LUNCH. ALSO GAVE PT 5MG OF NORCO FOR PAIN LEVEL OF 9/10, AND 4MG OF ZOFRAN PO FOR C/O OF NUASEA AND VOMITING. PT STATED " THIS IS THE SECOND DAY THAT I HAVE BEEN VOMITING, AND I REALLY THINK SOMETHING IS WRONG." PT DENIES ANY OTHER AT THIS TIME. CALL LIGHT IN REACH, NAD NOTED, WILL CONTINUE PLAN OF CARE.
--- NOTE | 2017-07-31 15:55 | NUR ---
EMILY DE LA TORRE TRIED TO START IV, WAS UNSUCCESSFUL. CALLED HAND ROUNDER HERIBERTO AND SHE WILL COME AND TRY TO START IV. PT IN BED, DENIES ANY NEEDS AT THIS TIME, CALL LIGHT IN REACH, NAD NOTED, WILL CONTINUE PLAN OF CARE.
[2017-07-31 16:00] VITALS: BP 113/50
--- NOTE | 2017-07-31 16:40 | NUR ---
NOTIFIED DR. PIZANO ABOUT PT NOT HAVING IV ACCESS FOR CTA. DR. PIZANO STATED TO CONSULT SURGERY FOR CENTRAL LINE PLACEMENT.
--- NOTE | 2017-07-31 17:25 | NUR ---
CONSENTS FOR CENTRAL LINE PLACEMENT SIGNED BY PT AND PLACED ON CHART. SUPPLIES READY FOR DR. SANCHEZ.
--- NOTE | 2017-07-31 19:10 | NUR ---
RECEIVED REPORT, WILL ASSUME CARE OF PT, PT LAYING BACILIO, DENIES ANY NEEDS, CALL LIGHT IN REACH, WILL CONTINUE PLAN OF CARE
[2017-07-31 21:40] VITALS: BP 120/65
[2017-08-01] VITALS: BP 124/65; BP 150/70
--- NOTE | 2017-08-01 02:10 | NUR ---
PT UP TO RESTROOM, DENIES ANY NEEDS AT THIS TIME, WILL CONTINUE PLAN OF CARE
--- NOTE | 2017-08-01 05:16 | NUR ---
BLOOD COLLECTED TAKEN TO LAB
--- NOTE | 2017-08-01 05:35 | NUR ---
PT IN BED RESTING QUIETLY. BREATHING EVEN AND UNLABORED. BED IN LOW POSITION, CALL LIGHT WITHIN REACH. WILL CPOC.
[2017-08-01 05:39] LABS: BASOPHILS 0.2 % (0-2); EOSINOPHILS 0.9 % (0-7); HEMATOCRIT 36.3 % (36.0-48.0); HEMOGLOBIN 11.4 g/dL (12-16); IMMATURE GRANULOCYTES 0.3 % (0-5); LYMPHOCYTES 16.1 % (15-50); MCHC 31.4 g/dL (31.0-37.0); MCV 82.7 fL (80.0-100.0); MEAN PLATELET VOLUME 9.8 fL (7.4-10.4); MONOCYTES 1.4 % (2-11); NEUTROPHILS 81.1 % (40-80); PLATELET COUNT 157 10x3/uL (130-400); RBC 4.39 10x6/uL (4.00-5.40); WBC 5.8 10x3/uL (4.8-10.8)
[2017-08-01 05:47] LABS: ALBUMIN 2.7 g/dL (3.4-5.0); ALKALINE PHOSPHATASE 182 U/L (46-116); ALT (SGPT) 59 U/L (10-68); BILIRUBIN - TOTAL 0.24 mg/dL (0.2-1.3); CALC OSMOLALITY 287 mosm/kg (275-300); CALCIUM 8.5 mg/dL (8.5-10.1); CARBON DIOXIDE 26.6 mmol/L (21.0-32.0); CHLORIDE - SERUM 104 mmol/L (98-107); CREATININE - SERUM 0.8 mg/dL (0.6-1.3); GLUCOSE 335 mg/dL (74-106); POTASSIUM - SERUM 4.7 mmol/L (3.5-5.1); PROTEIN - SERUM 6.9 g/dL (6.4-8.2); SODIUM 137 mmol/L (136-145); UREA NITROGEN 14 mg/dL (7-18); eGFR NON AFRICAN AMERICAN 77 mL/min (90-120)
--- NOTE | 2017-08-01 07:38 | NUR ---
PATIENT REAMINS IN ISOLATION FOR HEAD LICE. ALERT/OREINT X4. CALL LIGHT WITHIN REACH. VOICES NO NEEDS AT THIS TIME
[2017-08-01 08:00] VITALS: BP 121/76
--- NOTE | 2017-08-01 10:10 | NUR ---
PRN DILAUDID GIVEN PER PATINT REQUEST FOR BILATERAL RIB PAIN.
--- NOTE | 2017-08-01 11:29 | CN ---
PATIENT NAME:RONEN PALOMO MEDICAL RECORD: [id number] : 57 LOCATION:[address] ADMIT DATE: 07/29/17 ACCOUNT: [id number] CONSULTING PHYSICIAN: JCARLOS ORTIZ MD REFERRING PHYSICIAN: KARIS TOSCANO MD DATE OF CONSULTATION: 07/31/2017 IDENTIFYING DATA: The patient is 62 years old and she is admitted to the hospital because of pneumonia. CHIEF COMPLAINT: None. HISTORY OF PRESENT ILLNESS: The patient has a mental health history, it is apparently fairly stable and being managed by her primary care physician who prescribes her psychiatric meds. She is happy with this arrangement and feels that it is appropriate and serving her needs. She says that she had not gotten her psychiatric medicines for several days and was not feeling well and is just overall generally frustrated and angry and so last night made some statements about wanting to hurt herself. She denies that she would do this and says that she was just angry and the context of the conversation seems to have a resonance of truth to it. ASSESSMENT: Major depression. PLAN: The patient denies intent to harm herself or others as mentioned above, she was simply frustrated and angry about not getting her medications. She endorses a lot of depressive symptoms but relates them to her multiple medical and personal problems and states that she would not hurt herself. She has been offered outpatient psychiatric care through the [facility] and says she prefers to see her primary care doctor. She will discuss with him her depressive symptoms. TRANSINT:[id number] Voice Confirmation ID: [id number] DOCUMENT ID: [id number] JCARLOS ORTIZ MD at 1129 CC: [id number] DICTATION DATE: 07/31/17 0957 INSPECTOR GRAIN MILL PRODUCTS: 07/31/17 1044 ADM IN [facility] [address] [place] [address]
--- NOTE | 2017-08-01 11:30 | NUR ---
GLUCOSE LEVEL 370. SIXTEEN UNITS OF SLIDING SCALE GIVEN PER ORDER
[2017-08-01 12:00] VITALS: BP 122/76
--- NOTE | 2017-08-01 13:45 | NUR ---
PRN DILAUDID GIVEN FOR BILATERAL RIB PAIN/DISCOMFORT.
--- NOTE | 2017-08-01 15:57 | NUR ---
DR TOSCANO INTO SEE PATIENT. NEW ORDERS RECEIVED
[2017-08-01 16:00] VITALS: BP 130/79
--- NOTE | 2017-08-01 17:00 | NUR ---
GLUCOSE LEVEL 386. SIXTEEN UNITS OF SLIDING SCALE INSULIN GIVEN
--- NOTE | 2017-08-01 19:35 | NUR ---
RECEIVED REPORT, WILL ASSUME CARE OF PT, PT LAYING IN BED, CALL LIGHT IN REACH, WILL CONTINUE PLAN OF CARE
[2017-08-01 21:22] VITALS: BP 143/81
--- NOTE | 2017-08-01 21:23 | NUR ---
[id number] UNITS OF HUMALOG GIVEN, NORCO GIVEN FOR FOR PAIN, WILL MONITOR
--- NOTE | 2017-08-02 | NUR ---
PT RESTING WELL, NO CHANGES NOTED. ASSESSMENTS UNCHANGED. CALL LIGHT WITHIN REACH. WILL MONITOR.
[2017-08-02 01:32] VITALS: BP 123/65
[2017-08-02 04:27] VITALS: BP 122/62
[2017-08-02 05:21] LABS: BASOPHILS 0.1 % (0-2); EOSINOPHILS 0.1 % (0-7); HEMATOCRIT 34.8 % (36.0-48.0); IMMATURE GRANULOCYTES 0.6 % (0-5); LYMPHOCYTES 14.2 % (15-50); MCH 25.9 pg (26.0-34.0); MCHC 31.6 g/dL (31.0-37.0); MCV 81.9 fL (80.0-100.0); MEAN PLATELET VOLUME 9.4 fL (7.4-10.4); MONOCYTES 4.2 % (2-11); NEUTROPHILS 80.8 % (40-80); PLATELET COUNT 175 10x3/uL (130-400); RBC 4.25 10x6/uL (4.00-5.40); RDW 14.8 % (11.5-14.5); WBC 9.7 10x3/uL (4.8-10.8)
[2017-08-02 05:35] LABS: ALBUMIN 2.6 g/dL (3.4-5.0); ALKALINE PHOSPHATASE 154 U/L (46-116); BILIRUBIN - TOTAL 0.18 mg/dL (0.2-1.3); CALC OSMOLALITY 290 mosm/kg (275-300); CALCIUM 8.5 mg/dL (8.5-10.1); CHLORIDE - SERUM 106 mmol/L (98-107); CREATININE - SERUM 0.7 mg/dL (0.6-1.3); GLUCOSE 315 mg/dL (74-106); POTASSIUM - SERUM 4.7 mmol/L (3.5-5.1); PROTEIN - SERUM 6.6 g/dL (6.4-8.2); SODIUM 139 mmol/L (136-145); UREA NITROGEN 14 mg/dL (7-18); eGFR NON AFRICAN AMERICAN 90 mL/min (90-120)
[2017-08-02 05:42] LABS: ALT (SGPT) 42 U/L (10-68)
--- NOTE | 2017-08-02 07:34 | NUR ---
ASSESSMENT DONE. DENIES NEEDS.
[2017-08-02 09:06] VITALS: BP 136/58
--- NOTE | 2017-08-02 09:45 | NUR ---
RESTS IN ISOLATION ROOM. IV PATENT. CALL LIGHT IN REACH. WILL MONITOR NEEDS.
[2017-08-02 12:00] VITALS: BP 103/67
[2017-08-02] MEDS ORDERED: OMNICEF300 MG PO (14:18)
[2017-08-02] MEDS ORDERED: PREDNISONE10 MG PO (14:18)
--- NOTE | 2017-08-02 16:00 | NUR ---
DC GIVEN TO PT
--- NOTE | 2017-08-02 16:00 | NUR ---
CENTRAL LINE REMOVED. HELD DIRECT PRESSURE FOR 5 MINUTES AND INSTRUCTED PT TO LAY FLAT FOR 15 MINUTES. PT VERBALIZED UNDERSTANDING. NO BLEEDING NOTED AROUND SITE AFTER 5 MINUTES. SUTRUES REMOVED WITH DIFFICULTY. PT TO BE D/C
--- NOTE | 2017-08-02 16:37 | NUR ---
DC HOME PER PERSONAL CAR
--- NOTE | 2017-08-05 11:38 | CN ---
PATIENT NAME:RONEN WELLS MEDICAL RECORD: [id number] : 57 LOCATION:D. D.2132 ADMIT DATE: 07/29/17 ACCOUNT: [id number] CONSULTING PHYSICIAN: RICK PIZANO MD REFERRING PHYSICIAN: BRUCE RETANA MD DATE OF CONSULTATION: 07/31/2017 CONSULT REQUESTING PHYSICIAN: Bruce Retana MD REASON FOR CONSULTATION: Hypoxia. HISTORY OF PRESENT ILLNESS: Ms. Wells is a 62-year-old female who was admitted on the with pleuritic type of chest pain and shortness of breath. The patient required nasal cannula oxygen. Now, the patient is not on any oxygen and she denies any shortness of breath. She says her shortness of breath is significantly improved. There is no significant cough, no sputum production, and no hemoptysis. The patient does have history of recurrent pneumonias as well as history of pulmonary nodule, which is followed by Dr. Cool. REVIEW OF THE SYSTEMS: Mainly in the history of present illness. PAST MEDICAL HISTORY: 1. COPD. 2. Asthma. 3. Coronary artery disease, status post [place]. 4. History of CVA and TIA. 5. Gastroesophageal reflux disease. 6. Bipolar disorder. 7. Obstructive sleep apnea, noncompliant with CPAP machine. 8. Anxiety and depression. PAST SURGICAL HISTORY: 1. Cholecystectomy. 2. Knee surgery. 3. . 4. Appendectomy. 5. ____ ALLERGIES: SHE IS ALLERGIC TO BACTRIM, ERYTHROMYCIN, MEPERIDINE, MORPHINE, NEOMYCIN, AND POLYMYXIN. MEDICATIONS: Fusion Antibodies is reviewed. PERSONAL AND SOCIAL HISTORY: The patient is nonsmoker and nondrinker. FAMILY HISTORY: Noncontributory. PHYSICAL EXAMINATION: GENERAL: Now, the patient is lying comfortably in bed. She is not in acute distress. VITAL SIGNS: The blood pressure is 113/50, pulse is 89, respiration is 18, temperature is 97.2, and SpO2 is 93% on room air. HEENT: Conjunctivae are pink. Sclerae nonicteric. NECK: Neck is supple. No JVD. CONSULT REPORT [id number] RONEN WELLS CHEST: The chest excursion is minimal on both sides. There is no wheeze and no rales. HEART: Rhythm regular. Normal sounds. No murmur. ABDOMEN: Abdomen is soft. Bowel sounds present. No hepatosplenomegaly. RECTAL: Deferred. EXTREMITIES: No cyanosis, no clubbing, and no pedal edema. SKIN: Warm. Normal turgor. CENTRAL NERVOUS SYSTEM: The patient is awake and alert. There is no obvious cranial nerve abnormality. The gait was not tested. IMAGING DATA: Chest radiograph on admission; there were prominent pulmonary vessels. LABORATORY DATA: ABG; the pH was 7.41, pCO2 was 36.4, pO2 was 62, and bicarb was 23.5. CBC; WBC is 8.4, hemoglobin 11.4, hematocrit 36.1, and platelet count 189. IMPRESSION: 1. Acute hypoxic respiratory failure. 2. Dyspnea on exertion. Rule out pulmonary embolism. Rule out pulmonary edema. The patient's chest radiograph on admission showed prominent pulmonary vessels. 3. COPD with acute exacerbation. 4. Pulmonary nodules. This is being followed by Dr. Cool. 5. Pleurisy. This has been resolved. 6. Gastroesophageal reflux disease. 7. Coronary artery disease. RECOMMENDATIONS: 1. I will check the ABG on room air. 2. Check the CTA of the chest. Continue albuterol/ipratropium nebulizer and methylprednisolone IV. Continue Rocephin IV. DVT prophylaxis. Dr. Retana, thank you for involving me in the care of Ms. Wells. TRANSINT:[id number] Voice Confirmation ID: [id number] DOCUMENT ID: [id number] RICK PIZANO MD at 1138 CC: BRUCE RETANA MD [id number] DICTATION DATE: 07/31/17 162 AUTOMOBILE PAINTER: 07/31/172013 DIS IN 08/02/17 [facility] [address] [place] [address]
--- NOTE | 2017-08-18 12:19 | OP ---
PATIENT NAME: RONEN PALOMO MEDICAL RECORD: [id number] :57 LOCATION:D.M2 D.2132 ADMISSION DATE:07/29/17 SURGEON: STEVAN SANCHEZ MD DATE OF OPERATION: 07/31/2017 PREOPERATIVE DIAGNOSES: 1. Need for intravenous access. 2. Pneumonia. 3. Hypoxia. 4. Diabetes mellitus. 5. Hypertension. 6. Hyperlipidemia. 7. Atrial fibrillation. POSTOPERATIVE DIAGNOSES: 1. Need for intravenous access. 2. Pneumonia. 3. Hypoxia. 4. Diabetes mellitus. 5. Hypertension. 6. Hyperlipidemia. 7. Atrial fibrillation. PROCEDURE: Right subclavian vein triple-lumen central venous line placement. SURGEON: Stevan Sanchez MD REPORT OF PROCEDURE: The patient's right chest was prepped and draped in a sterile fashion. Lidocaine 1%, 5 mL was infused into the subcutaneous tissue. A needle was then used to cannulate the right subclavian vein. A guidewire was advanced with ease. Over this wire, a dilator was placed followed by a triple-lumen catheter. The catheter aspirated nonpulsatile dark blood and flushed easily in all 3 ports. This was sutured into place with 3-0 silk ties and dressed appropriately. COMPLICATIONS: None. CONDITION: Stable. ANESTHESIA: Local. BLOOD LOSS: Minimal. Procedure done at the bedside. TRANSINT:[id number] Voice Confirmation ID: [id number] DOCUMENT ID: [id number] OPERATIVE REPORT [id number] RONEN PALOMO STEVAN SANCHEZ MD at 1219 CC: [id number] DICTATION DATE: 07/31/172005 RUBBER FLAP TUBER MACHINE OPERATOR: 07/31/172019 DIS IN 08/02/17 [facility] [address] [place] [address]
== END 2017-08-02 16:37 | disposition home or self-care (01) | DRG 193 ==
LOC: D.ER 00:27 → D.M2 02:05
PROVIDERS: Emergency Medicine; ADMIT Family Medicine Adult Medicine
PROC: 0T9B70Z Drainage of Bladder with Drainage Device, Via Natural or Artificial Opening (ICD-10-PCS; 2017-07-29)
PROC: 02HV33Z Insertion of Infusion Device into Superior Vena Cava, Percutaneous Approach (ICD-10-PCS; principal; 2017-07-31)
DX: J18.9 Pneumonia, unspecified organism (principal); J96.01 Acute respiratory failure with hypoxia; G93.41 Metabolic encephalopathy; J44.0 Chronic obstructive pulmonary disease with (acute) lower respiratory infection; J44.1 Chronic obstructive pulmonary disease with (acute) exacerbation; J20.9 Acute bronchitis, unspecified; I48.2 Chronic atrial fibrillation; E11.65 Type 2 diabetes mellitus with hyperglycemia; I10 Essential (primary) hypertension; E78.5 Hyperlipidemia, unspecified; F31.9 Bipolar disorder, unspecified; G47.33 Obstructive sleep apnea (adult) (pediatric); F41.9 Anxiety disorder, unspecified; D64.9 Anemia, unspecified; K21.9 Gastro-esophageal reflux disease without esophagitis; I25.10 Atherosclerotic heart disease of native coronary artery without angina pectoris; R91.1 Solitary pulmonary nodule; B85.2 Pediculosis, unspecified; Z86.73 Personal history of transient ischemic attack (TIA), and cerebral infarction without residual deficits

== ENCOUNTER 2018-05-09 16:49 | Inpatient (IN) | payer MEDICAID ==
[~2018-05-09] VITALS: Ht 165.1 cm; Wt 120.2 kg
--- NOTE | ~2018-05-09 | EC ---
PATIENT:RONEN PALOMO DATE OF SERVICE: 05/09/18 SEX: F MEDICAL RECORD: [id number] DATE OF : 57 LOCATION:D.M2 D.213 AGE OF PATIENT: 63 ADMISSION DATE: 05/09/18 REFERRING PHYSICIAN: INTERPRETING PHYSICIAN: MARIAH WILSON MD ECHOCARDIOGRAM REPORT ECHO CHARGES 4 ECHO COMPLETE Date: 05/11/18 CLINICAL DIAGNOSIS: SYNCOPE ECHOCARDIOGRAPHIC MEASUREMENTS (adult normal given) AC root (d.<3.7cm) 2.5 cm LV Septum d (<1.2 cm> 1.4 cm Valve Excursion 1.1 cm LV Septum (systole) 1.4 cm Left Atria (s.<4.0cm> 3.4 cm LVPW d(<1.2cm) 0.9 cm RV (d.<2.3cm) 2.2 cm LVPW (sytole) 1.0 cm LV diastole(<5.6CM) 4.4 cm MV E-F(>70mm/sec) cm LV systole 2.4 cm LVOT Diameter 2.0 cm MV exc.(>10mm) cm Est.ejection fraction (50-75%) % DOPPLER: LVIT cm/sec A 85 cm/sec E 65 cm/sec LA cm/sec RVSP 15.7 mmHg LVOT 120 cm/sec AOP1/2T m/s Asc. Ao 154 cm/sec RVOT 93 cm/sec RA cm/sec PA 93 cm/sec AV Gradient Peak 9.5 mmHg AV Mean 4.3 mmHg AV Area 3.0 cm MV Gradient Peak 3.4 mmHg MV Mean 2.4 mmHg MV Area cm COMMENTS: Non Licensed Operator: Radha ROBIN JULIAN Director Of Occupational Therapy: 1 Dr. Wilson TAPE# PACS Pericardial Effusion N DATE OF SERVICE: 05/11/2018 PROCEDURE: Echocardiogram. FINDINGS: 1. Left ventricular chamber size is within normal limits. Left ventricular systolic function is normal. Overall ejection fraction estimated at 60%. 2. Left atrium, right atrium, and right ventricle chamber sizes are within normal limits. 3. Valvular structures have normal structure and motion. ECHOCARDIOGRAM REPORT [id number] RONEN PALOMO 4. Doppler interrogation only reveals trace tricuspid regurgitation, no other valvular insufficiency or stenosis and pulmonary systolic pressure is normal estimated 16 mmHg. 5. No evidence of pericardial effusion or left ventricular thrombus. TRANSINT:[id number] Voice Confirmation ID: [id number] DOCUMENT ID: [id number] MARIAH WILSON MD at 1950 CC: [id number] DICTATION DATE: 05/11/18 1545 MINE WEDGE SAWYER: 05/11/18 1551 ADM IN [place] [id number] [place] [id number]
[~2018-05-09 16:49] MED LIST changes: +OMNICEF300 MG PO; +PREDNISONE10 MG PO
[2018-05-09] MEDS ORDERED: SEROQUEL100 MG PO (16:54)
[2018-05-09 17:56] LABS: BASOPHILS 0.4 % (0-2); EOSINOPHILS 3.2 % (0-7); HEMOGLOBIN 10.2 g/dL (12-16); IMMATURE GRANULOCYTES 0.5 % (0-5); LYMPHOCYTES 31.3 % (15-50); MCH 23.2 pg (26.0-34.0); MCHC 30.9 g/dL (31.0-37.0); MCV 75.2 fL (80.0-100.0); MEAN PLATELET VOLUME 9.4 fL (7.4-10.4); MONOCYTES 8.2 % (2-11); NEUTROPHILS 56.4 % (40-80); PLATELET COUNT 200 10x3/uL (130-400); RBC 4.39 10x6/uL (4.00-5.40); RDW 16.5 % (11.5-14.5); WBC 7.9 10x3/uL (4.8-10.8)
[2018-05-09 18:29] LABS: ALKALINE PHOSPHATASE 129 U/L (46-116); ALT (SGPT) 26 U/L (10-68); BILIRUBIN - TOTAL 0.25 mg/dL (0.2-1.3); CALCIUM 8.5 mg/dL (8.5-10.1); CARBON DIOXIDE 27.6 mmol/L (21.0-32.0); CHLORIDE - SERUM 105 mmol/L (98-107); CKMB 0.2 U/L (0.0-3.6); CREATINE KINASE 19 UL (21-215); CREATININE - SERUM 0.8 mg/dL (0.6-1.3); PROTEIN - SERUM 7.1 g/dL (6.4-8.2); SODIUM 139 mmol/L (136-145); UREA NITROGEN 9 mg/dL (7-18); eGFR NON AFRICAN AMERICAN 77 mL/min (90-120)
[2018-05-09 18:30] LABS: CALC OSMOLALITY 280 mosm/kg (275-300); GLUCOSE 179 mg/dL (74-106); TROPONIN-I < 0.017 ng/mL (0.000-0.060)
[2018-05-09 18:31] LABS: POTASSIUM - SERUM 2.8 mmol/L (3.5-5.1)
[2018-05-09 19:00] VITALS: BP 180/75
[2018-05-09 21:30] VITALS: BP 140/69
[2018-05-10] VITALS (8 sets, daily range): BP systolic 137–174; BP diastolic 60–93; BMI 42.6
[2018-05-10] MEDS ORDERED: EFFEXOR100 MG PO (00:36)
[2018-05-10 13:45] LABS: BASOPHILS 0.2 % (0-2); EOSINOPHILS 3.9 % (0-7); HEMATOCRIT 31.1 % (36.0-48.0); HEMOGLOBIN 9.3 g/dL (12-16); IMMATURE GRANULOCYTES 0.6 % (0-5); LYMPHOCYTES 26.7 % (15-50); MCH 22.9 pg (26.0-34.0); MCHC 29.9 g/dL (31.0-37.0); MCV 76.4 fL (80.0-100.0); MEAN PLATELET VOLUME 9.6 fL (7.4-10.4); MONOCYTES 5.3 % (2-11); NEUTROPHILS 63.3 % (40-80); PLATELET COUNT 121 10x3/uL (130-400); RBC 4.07 10x6/uL (4.00-5.40); RDW 16.5 % (11.5-14.5); WBC 4.9 10x3/uL (4.8-10.8)
[2018-05-10 14:12] LABS: ALBUMIN 2.6 g/dL (3.4-5.0); ALKALINE PHOSPHATASE 132 U/L (46-116); ALT (SGPT) 28 U/L (10-68); BILIRUBIN - TOTAL 0.25 mg/dL (0.2-1.3); CALC OSMOLALITY 288 mosm/kg (275-300); CALCIUM 7.6 mg/dL (8.5-10.1); CARBON DIOXIDE 28.4 mmol/L (21.0-32.0); CHLORIDE - SERUM 106 mmol/L (98-107); CKMB 0.3 U/L (0.0-3.6); CREATINE KINASE 98 UL (21-215); CREATININE - SERUM 0.9 mg/dL (0.6-1.3); GLUCOSE 267 mg/dL (74-106); MAGNESIUM - SERUM 1.5 mg/dL (1.8-2.4); SODIUM 141 mmol/L (136-145); TROPONIN-I < 0.017 ng/mL (0.000-0.060); UREA NITROGEN 9 mg/dL (7-18); eGFR NON AFRICAN AMERICAN 67 mL/min (90-120)
[2018-05-10 15:01] LABS: % SATURATION 7 % (15-55); IRON 21 ug/dl (35-150); TOTAL IRON BIND CAPACITY 283 ug/dl (260-445); UNSAT IRON BIND CAPACITY 262 ug/dl (150-375)
[2018-05-10 19:06] LABS: CKMB 0.3 U/L (0.0-3.6); CREATINE KINASE 122 UL (21-215); TROPONIN-I < 0.017 ng/mL (0.000-0.060)
[2018-05-11 01:21] LABS: CKMB 0.5 U/L (0.0-3.6); CREATINE KINASE 161 UL (21-215)
[2018-05-11 01:27] LABS: TROPONIN-I < 0.017 ng/mL (0.000-0.060)
[2018-05-11 04:00] VITALS: BP 150/79
[2018-05-11 05:43] LABS: BASOPHILS 0.2 % (0-2); EOSINOPHILS 4.1 % (0-7); HEMATOCRIT 30.1 % (36.0-48.0); HEMOGLOBIN 8.9 g/dL (12-16); IMMATURE GRANULOCYTES 0.5 % (0-5); LYMPHOCYTES 30.6 % (15-50); MCH 22.8 pg (26.0-34.0); MCHC 29.6 g/dL (31.0-37.0); MCV 77.2 fL (80.0-100.0); MEAN PLATELET VOLUME 9.3 fL (7.4-10.4); MONOCYTES 7.7 % (2-11); NEUTROPHILS 56.9 % (40-80); RDW 16.8 % (11.5-14.5); WBC 6.1 10x3/uL (4.8-10.8)
[2018-05-11 05:53] LABS: PLATELET COUNT 174 10x3/uL (130-400)
[2018-05-11 06:06] LABS: ALBUMIN 2.6 g/dL (3.4-5.0); ALKALINE PHOSPHATASE 125 U/L (46-116); ALT (SGPT) 31 U/L (10-68); BILIRUBIN - TOTAL 0.32 mg/dL (0.2-1.3); CALCIUM 7.3 mg/dL (8.5-10.1); CARBON DIOXIDE 29.7 mmol/L (21.0-32.0); CHLORIDE - SERUM 105 mmol/L (98-107); CREATININE - SERUM 0.8 mg/dL (0.6-1.3); MAGNESIUM - SERUM 1.4 mg/dL (1.8-2.4); PROTEIN - SERUM 5.8 g/dL (6.4-8.2); SODIUM 142 mmol/L (136-145); eGFR NON AFRICAN AMERICAN 77 mL/min (90-120)
[2018-05-11 06:07] LABS: CALC OSMOLALITY 283 mosm/kg (275-300); GLUCOSE 173 mg/dL (74-106); POTASSIUM - SERUM 3.3 mmol/L (3.5-5.1); UREA NITROGEN 5 mg/dL (7-18)
[2018-05-11 08:08] VITALS: BP 179/71
[2018-05-11 11:00] VITALS: BP 145/84
[2018-05-11 14:51] VITALS: BMI 42.6
[2018-05-11 15:08] VITALS: BP 123/86
[2018-05-11 20:14] VITALS: BP 168/88
[2018-05-12 00:19] VITALS: BP 164/84
[2018-05-12 04:00] VITALS: BP 94/61
[2018-05-12 05:53] LABS: BASOPHILS 0.2 % (0-2); EOSINOPHILS 3.4 % (0-7); HEMATOCRIT 30.3 % (36.0-48.0); HEMOGLOBIN 8.9 g/dL (12-16); IMMATURE GRANULOCYTES 0.5 % (0-5); LYMPHOCYTES 29.9 % (15-50); MCH 22.7 pg (26.0-34.0); MCHC 29.4 g/dL (31.0-37.0); MCV 77.3 fL (80.0-100.0); MEAN PLATELET VOLUME 8.9 fL (7.4-10.4); MONOCYTES 7.1 % (2-11); NEUTROPHILS 58.9 % (40-80); PLATELET COUNT 162 10x3/uL (130-400); RBC 3.92 10x6/uL (4.00-5.40); RDW 16.8 % (11.5-14.5); WBC 5.8 10x3/uL (4.8-10.8)
[2018-05-12 06:15] LABS: ALBUMIN 2.6 g/dL (3.4-5.0); ALKALINE PHOSPHATASE 120 U/L (46-116); ALT (SGPT) 25 U/L (10-68); BILIRUBIN - TOTAL 0.32 mg/dL (0.2-1.3); CALCIUM 7.4 mg/dL (8.5-10.1); CARBON DIOXIDE 32.3 mmol/L (21.0-32.0); CHLORIDE - SERUM 106 mmol/L (98-107); CREATININE - SERUM 0.8 mg/dL (0.6-1.3); GLUCOSE 189 mg/dL (74-106); MAGNESIUM - SERUM 1.6 mg/dL (1.8-2.4); POTASSIUM - SERUM 3.4 mmol/L (3.5-5.1); PROTEIN - SERUM 5.8 g/dL (6.4-8.2); SODIUM 142 mmol/L (136-145); eGFR NON AFRICAN AMERICAN 77 mL/min (90-120)
[2018-05-12 06:23] LABS: CALC OSMOLALITY 284 mosm/kg (275-300); UREA NITROGEN 3 mg/dL (7-18)
[2018-05-12 07:50] VITALS: BP 116/72
[2018-05-12 08:00] VITALS: BP 145/47
[2018-05-12 09:17] LABS: FOLATE (FOLIC ACID) - SERUM 5.9 ng/mL (>3.0)
[2018-05-12 10:50] VITALS: BP 114/51
[2018-05-12 15:11] VITALS: BP 155/87
[2018-05-12 15:41] LABS: CKMB 0.4 U/L (0.0-3.6); CREATINE KINASE 126 UL (21-215); TROPONIN-I < 0.017 ng/mL (0.000-0.060)
[2018-05-12 16:54] LABS: APPEARANCE CLEAR (CLEAR); BILIRUBIN NEGATIVE (NEGATIVE); COLOR YELLOW (YELLOW); GLUCOSE NEGATIVE (NEGATIVE); KETONE NEGATIVE (NEGATIVE); NITRITE NEGATIVE (NEGATIVE); PROTEIN NEGATIVE (NEGATIVE); SPECIFIC GRAVITY 1.015 (1.005-1.020); UROBILINOGEN NORMAL (NORMAL)
[2018-05-12 16:55] LABS: EPITHELIAL CELLS 0-5 /hpf (0-5); WHITE CELLS - URINE OCC /hpf (0-5)
[2018-05-12 16:56] LABS: BACTERIA FEW /hpf (NONE SEEN); YEAST >1+ /hpf (NONE SEEN)
[2018-05-12 20:32] LABS: CKMB 0.5 U/L (0.0-3.6); CREATINE KINASE 124 UL (21-215)
[2018-05-12 20:33] LABS: TROPONIN-I < 0.017 ng/mL (0.000-0.060)
[2018-05-13] VITALS: BP 107/53
[2018-05-13 04:00] VITALS: BP 131/55
[2018-05-13 04:16] LABS: BASOPHILS 0.2 % (0-2); HEMATOCRIT 31.1 % (36.0-48.0); HEMOGLOBIN 9.2 g/dL (12-16); IMMATURE GRANULOCYTES 0.7 % (0-5); LYMPHOCYTES 21.1 % (15-50); MCH 23.1 pg (26.0-34.0); MCHC 29.6 g/dL (31.0-37.0); MCV 77.9 fL (80.0-100.0); MEAN PLATELET VOLUME 9.5 fL (7.4-10.4); MONOCYTES 7.7 % (2-11); NEUTROPHILS 65.3 % (40-80); PLATELET COUNT 178 10x3/uL (130-400); RBC 3.99 10x6/uL (4.00-5.40); RDW 16.7 % (11.5-14.5); WBC 5.6 10x3/uL (4.8-10.8)
[2018-05-13 04:52] LABS: ALBUMIN 2.5 g/dL (3.4-5.0); ALKALINE PHOSPHATASE 115 U/L (46-116); ALT (SGPT) 24 U/L (10-68); BILIRUBIN - TOTAL 0.38 mg/dL (0.2-1.3); CALC OSMOLALITY 280 mosm/kg (275-300); CALCIUM 7.7 mg/dL (8.5-10.1); CARBON DIOXIDE 29.1 mmol/L (21.0-32.0); CHLORIDE - SERUM 105 mmol/L (98-107); CKMB 0.3 U/L (0.0-3.6); CREATINE KINASE 102 UL (21-215); CREATININE - SERUM 0.8 mg/dL (0.6-1.3); GLUCOSE 153 mg/dL (74-106); MAGNESIUM - SERUM 1.5 mg/dL (1.8-2.4); POTASSIUM - SERUM 3.4 mmol/L (3.5-5.1); PROTEIN - SERUM 6.2 g/dL (6.4-8.2); SODIUM 141 mmol/L (136-145); UREA NITROGEN 3 mg/dL (7-18); eGFR NON AFRICAN AMERICAN 77 mL/min (90-120)
[2018-05-13 04:53] LABS: TROPONIN-I < 0.017 ng/mL (0.000-0.060)
[2018-05-13 07:46] VITALS: BP 126/60
[2018-05-13 11:26] VITALS: BP 128/80
[2018-05-13 15:13] VITALS: BP 142/77
[2018-05-13 15:30] VITALS: Ht 165.1 cm; Wt 120.2 kg
[2018-05-13 20:41] VITALS: BP 140/69
[2018-05-14 04:56] VITALS: BP 140/68
[2018-05-14 08:01] LABS: ALBUMIN 2.4 g/dL (3.4-5.0); ALKALINE PHOSPHATASE 104 U/L (46-116); ALT (SGPT) 20 U/L (10-68); CALC OSMOLALITY 280 mosm/kg (275-300); CALCIUM 7.4 mg/dL (8.5-10.1); CARBON DIOXIDE 24.1 mmol/L (21.0-32.0); CHLORIDE - SERUM 106 mmol/L (98-107); CREATININE - SERUM 0.8 mg/dL (0.6-1.3); MAGNESIUM - SERUM 1.7 mg/dL (1.8-2.4); POTASSIUM - SERUM 3.8 mmol/L (3.5-5.1); PROTEIN - SERUM 5.6 g/dL (6.4-8.2); SODIUM 139 mmol/L (136-145); UREA NITROGEN 3 mg/dL (7-18); eGFR NON AFRICAN AMERICAN 77 mL/min (90-120)
[2018-05-14 08:05] LABS: GLUCOSE 205 mg/dL (74-106)
[2018-05-14 09:23] VITALS: BP 119/59
[2018-05-14 09:44] LABS: HEMATOCRIT 29.7 % (36.0-48.0); HEMOGLOBIN 9.1 g/dL (12-16); MCH 23.5 pg (26.0-34.0); MCHC 30.6 g/dL (31.0-37.0); MCV 76.5 fL (80.0-100.0); MEAN PLATELET VOLUME 9.9 fL (7.4-10.4); NEUTROPHILS 65.5 % (40-80); RBC 3.88 10x6/uL (4.00-5.40); RDW 16.7 % (11.5-14.5); WBC 5.1 10x3/uL (4.8-10.8)
[2018-05-14 09:51] LABS: PLATELET COUNT 137 10x3/uL (130-400)
[2018-05-14 13:26] VITALS: BP 127/81
[2018-05-14 18:00] VITALS: BP 130/71
[2018-05-14 20:00] VITALS: BP 113/51
[2018-05-15 04:00] VITALS: BP 118/64
[2018-05-15 05:20] LABS: BASOPHILS 0.2 % (0-2); EOSINOPHILS 3.6 % (0-7); HEMATOCRIT 29.6 % (36.0-48.0); HEMOGLOBIN 8.7 g/dL (12-16); IMMATURE GRANULOCYTES 0.5 % (0-5); LYMPHOCYTES 31.5 % (15-50); MCHC 29.4 g/dL (31.0-37.0); MCV 78.1 fL (80.0-100.0); MEAN PLATELET VOLUME 9.1 fL (7.4-10.4); MONOCYTES 7.9 % (2-11); NEUTROPHILS 56.3 % (40-80); PLATELET COUNT 182 10x3/uL (130-400); RBC 3.79 10x6/uL (4.00-5.40); RDW 17.5 % (11.5-14.5); WBC 6.1 10x3/uL (4.8-10.8)
[2018-05-15 05:49] LABS: ALBUMIN 2.5 g/dL (3.4-5.0); ALKALINE PHOSPHATASE 103 U/L (46-116); ALT (SGPT) 18 U/L (10-68); BILIRUBIN - TOTAL 0.24 mg/dL (0.2-1.3); CALC OSMOLALITY 281 mosm/kg (275-300); CALCIUM 7.7 mg/dL (8.5-10.1); CARBON DIOXIDE 29.8 mmol/L (21.0-32.0); CHLORIDE - SERUM 106 mmol/L (98-107); CREATININE - SERUM 0.8 mg/dL (0.6-1.3); MAGNESIUM - SERUM 1.7 mg/dL (1.8-2.4); POTASSIUM - SERUM 3.4 mmol/L (3.5-5.1); SODIUM 142 mmol/L (136-145); UREA NITROGEN 3 mg/dL (7-18); eGFR NON AFRICAN AMERICAN 77 mL/min (90-120)
[2018-05-15 05:52] LABS: GLUCOSE 137 mg/dL (74-106)
[2018-05-15 08:20] VITALS: BP 104/49
[2018-05-15 12:09] VITALS: BP 142/88
[2018-05-15 15:56] VITALS: BP 138/60
[2018-05-15 20:26] VITALS: BP 155/50
[2018-05-16 00:58] VITALS: BP 109/56
[2018-05-16 06:51] VITALS: BP 128/39
[2018-05-16 07:22] LABS: BASOPHILS 0.2 % (0-2); EOSINOPHILS 3.2 % (0-7); HEMATOCRIT 28.9 % (36.0-48.0); HEMOGLOBIN 8.5 g/dL (12-16); IMMATURE GRANULOCYTES 0.5 % (0-5); LYMPHOCYTES 23.7 % (15-50); MCH 22.8 pg (26.0-34.0); MCHC 29.4 g/dL (31.0-37.0); MCV 77.7 fL (80.0-100.0); MEAN PLATELET VOLUME 8.9 fL (7.4-10.4); MONOCYTES 6.8 % (2-11); NEUTROPHILS 65.6 % (40-80); PLATELET COUNT 160 10x3/uL (130-400); RBC 3.72 10x6/uL (4.00-5.40); RDW 17.7 % (11.5-14.5); WBC 6.3 10x3/uL (4.8-10.8)
[2018-05-16 07:36] LABS: ALBUMIN 2.5 g/dL (3.4-5.0); ALKALINE PHOSPHATASE 98 U/L (46-116); ALT (SGPT) 15 U/L (10-68); BILIRUBIN - TOTAL 0.31 mg/dL (0.2-1.3); CALCIUM 7.8 mg/dL (8.5-10.1); CARBON DIOXIDE 29.5 mmol/L (21.0-32.0); CHLORIDE - SERUM 106 mmol/L (98-107); CREATININE - SERUM 0.8 mg/dL (0.6-1.3); GLUCOSE 156 mg/dL (74-106); POTASSIUM - SERUM 3.7 mmol/L (3.5-5.1); PROTEIN - SERUM 6.1 g/dL (6.4-8.2); SODIUM 140 mmol/L (136-145); eGFR NON AFRICAN AMERICAN 77 mL/min (90-120)
[2018-05-16 07:38] LABS: CALC OSMOLALITY 278 mosm/kg (275-300); UREA NITROGEN 5 mg/dL (7-18)
[2018-05-16 09:20] VITALS: BP 142/77
[2018-05-16 12:33] VITALS: BP 133/59
[2018-05-16 17:32] VITALS: BP 128/67
[2018-05-16 21:59] VITALS: BP 172/79
[2018-05-17 06:25] LABS: BASOPHILS 0.2 % (0-2); EOSINOPHILS 2.9 % (0-7); HEMATOCRIT 28.6 % (36.0-48.0); HEMOGLOBIN 8.5 g/dL (12-16); IMMATURE GRANULOCYTES 0.8 % (0-5); MCH 22.8 pg (26.0-34.0); MCHC 29.7 g/dL (31.0-37.0); MCV 76.9 fL (80.0-100.0); MONOCYTES 8.3 % (2-11); NEUTROPHILS 67.8 % (40-80); PLATELET COUNT 181 10x3/uL (130-400); RBC 3.72 10x6/uL (4.00-5.40); RDW 17.8 % (11.5-14.5); WBC 6.7 10x3/uL (4.8-10.8)
[2018-05-17 07:00] LABS: ALBUMIN 2.4 g/dL (3.4-5.0); ALKALINE PHOSPHATASE 94 U/L (46-116); ALT (SGPT) 14 U/L (10-68); CALC OSMOLALITY 285 mosm/kg (275-300); CALCIUM 7.7 mg/dL (8.5-10.1); CARBON DIOXIDE 28.5 mmol/L (21.0-32.0); CHLORIDE - SERUM 105 mmol/L (98-107); CREATININE - SERUM 0.8 mg/dL (0.6-1.3); GLUCOSE 161 mg/dL (74-106); POTASSIUM - SERUM 3.6 mmol/L (3.5-5.1); PROTEIN - SERUM 5.7 g/dL (6.4-8.2); SODIUM 143 mmol/L (136-145); UREA NITROGEN 6 mg/dL (7-18); eGFR NON AFRICAN AMERICAN 77 mL/min (90-120)
[2018-05-17 07:16] VITALS: BP 143/84
[2018-05-17 08:37] VITALS: BP 135/70
[2018-05-17 11:41] VITALS: BP 139/68
[2018-05-17 16:10] VITALS: BP 153/67
[2018-05-17 20:00] VITALS: BP 173/80
[2018-05-18 00:46] VITALS: BP 143/76
[2018-05-18 04:00] VITALS: BP 118/55
[2018-05-18 06:22] LABS: BASOPHILS 0.2 % (0-2); EOSINOPHILS 3.4 % (0-7); HEMATOCRIT 28.8 % (36.0-48.0); HEMOGLOBIN 8.6 g/dL (12-16); IMMATURE GRANULOCYTES 0.7 % (0-5); LYMPHOCYTES 19.9 % (15-50); MCH 22.9 pg (26.0-34.0); MCHC 29.9 g/dL (31.0-37.0); MCV 76.6 fL (80.0-100.0); MEAN PLATELET VOLUME 9.7 fL (7.4-10.4); MONOCYTES 7.7 % (2-11); NEUTROPHILS 68.1 % (40-80); PLATELET COUNT 202 10x3/uL (130-400); RBC 3.76 10x6/uL (4.00-5.40); WBC 5.9 10x3/uL (4.8-10.8)
[2018-05-18 07:30] LABS: ALBUMIN 2.5 g/dL (3.4-5.0); ALKALINE PHOSPHATASE 88 U/L (46-116); ALT (SGPT) 15 U/L (10-68); BILIRUBIN - TOTAL 0.36 mg/dL (0.2-1.3); CALC OSMOLALITY 279 mosm/kg (275-300); CALCIUM 7.8 mg/dL (8.5-10.1); CARBON DIOXIDE 27.5 mmol/L (21.0-32.0); CHLORIDE - SERUM 106 mmol/L (98-107); CREATININE - SERUM 0.8 mg/dL (0.6-1.3); GLUCOSE 124 mg/dL (74-106); POTASSIUM - SERUM 3.3 mmol/L (3.5-5.1); PROTEIN - SERUM 6.2 g/dL (6.4-8.2); SODIUM 141 mmol/L (136-145); UREA NITROGEN 7 mg/dL (7-18); eGFR NON AFRICAN AMERICAN 77 mL/min (90-120)
[2018-05-18 07:41] VITALS: BP 118/57
[2018-05-18 11:06] VITALS: BP 132/76
[2018-05-18 15:52] VITALS: BP 134/67
[2018-05-18 20:00] VITALS: BP 119/59
[2018-05-19 04:00] VITALS: BP 118/65
[2018-05-19 06:45] LABS: BASOPHILS 0.3 % (0-2); EOSINOPHILS 3.2 % (0-7); HEMATOCRIT 28.9 % (36.0-48.0); HEMOGLOBIN 8.7 g/dL (12-16); IMMATURE GRANULOCYTES 0.9 % (0-5); LYMPHOCYTES 26.6 % (15-50); MCHC 30.1 g/dL (31.0-37.0); MCV 76.5 fL (80.0-100.0); MEAN PLATELET VOLUME 10.1 fL (7.4-10.4); MONOCYTES 8.2 % (2-11); NEUTROPHILS 60.8 % (40-80); RBC 3.78 10x6/uL (4.00-5.40); WBC 6.8 10x3/uL (4.8-10.8)
[2018-05-19 06:46] LABS: ALBUMIN 2.5 g/dL (3.4-5.0); ALKALINE PHOSPHATASE 82 U/L (46-116); ALT (SGPT) 12 U/L (10-68); BILIRUBIN - TOTAL 0.18 mg/dL (0.2-1.3); CALC OSMOLALITY 283 mosm/kg (275-300); CALCIUM 7.6 mg/dL (8.5-10.1); CHLORIDE - SERUM 106 mmol/L (98-107); CREATININE - SERUM 0.7 mg/dL (0.6-1.3); GLUCOSE 136 mg/dL (74-106); POTASSIUM - SERUM 4.2 mmol/L (3.5-5.1); PROTEIN - SERUM 5.8 g/dL (6.4-8.2); SODIUM 142 mmol/L (136-145); eGFR NON AFRICAN AMERICAN 90 mL/min (90-120)
[2018-05-19 06:47] LABS: PLATELET COUNT 134 10x3/uL (130-400)
[2018-05-19 07:04] LABS: UREA NITROGEN 9 mg/dL (7-18)
[2018-05-19 07:55] VITALS: BP 134/67
[2018-05-19 11:28] VITALS: BP 151/77
[2018-05-19] MEDS ORDERED: LOPRESSOR25 MG PO (15:28)
[2018-05-19] MEDS ORDERED: FLAGYL500 MG PO (15:28)
[2018-05-19] MEDS ORDERED: LEVSIN/ANASP0.125 MG SL (15:29)
[2018-05-19 15:30] VITALS: BP 121/70
== END 2018-05-19 18:02 | disposition home or self-care (01) | DRG 394 ==
LOC: D.ER 16:49 → D.M2 22:28 → D.EDHOLD 22:28 → D.M2 22:55 → D.SDCHOLD 05-11 07:34 → D.M2 05-11 07:34
PROVIDERS: Emergency Medicine; Family Medicine; Internal Medicine Nephrology
PROC: 05HC33Z Insertion of Infusion Device into Left Basilic Vein, Percutaneous Approach (ICD-10-PCS; principal; 2018-05-12)
PROC: B54NZZA Ultrasonography of Left Upper Extremity Veins, Guidance (ICD-10-PCS; 2018-05-12)
DX: K55.9 Vascular disorder of intestine, unspecified (principal); A09 Infectious gastroenteritis and colitis, unspecified; Z68.41 Body mass index [BMI] 40.0-44.9, adult; D50.9 Iron deficiency anemia, unspecified; E87.6 Hypokalemia; E83.42 Hypomagnesemia; E11.65 Type 2 diabetes mellitus with hyperglycemia; E78.5 Hyperlipidemia, unspecified; I10 Essential (primary) hypertension; J44.9 Chronic obstructive pulmonary disease, unspecified; K57.90 Diverticulosis of intestine, part unspecified, without perforation or abscess without bleeding; R16.0 Hepatomegaly, not elsewhere classified; E66.9 Obesity, unspecified; Z86.73 Personal history of transient ischemic attack (TIA), and cerebral infarction without residual deficits; K22.4 Dyskinesia of esophagus

== ENCOUNTER 2018-06-17 17:36 | Emergency (ER) | payer MEDICAID ==
[~2018-06-17] VITALS: Ht 165.1 cm; Wt 109.1 kg
[~2018-06-17 17:36] MED LIST changes: +EFFEXOR100 MG PO; +FLAGYL500 MG PO; +LEVSIN/ANASP0.125 MG SL; +LOPRESSOR25 MG PO; +SEROQUEL100 MG PO
[2018-06-17 17:39] VITALS: Ht 165.1 cm; Wt 109.1 kg
[2018-06-17] MEDS ORDERED: ULTRAM50 MG PO (19:51)
[2018-06-17] MEDS ORDERED: CYCLOBENZAPRINE10 MG PO (19:51)
[2018-06-17 20:08] VITALS: BP 150/69
== END 2018-06-17 20:08 | disposition home or self-care (01) ==
LOC: D.ER 17:36
DX: S16.1XXA Strain of muscle, fascia and tendon at neck level, initial encounter (principal); W05.0XXA Fall from non-moving wheelchair, initial encounter; Y93.89 Activity, other specified; Y92.019 Unspecified place in single-family (private) house as the place of occurrence of the external cause; M62.838 Other muscle spasm; E11.9 Type 2 diabetes mellitus without complications; I10 Essential (primary) hypertension; J44.9 Chronic obstructive pulmonary disease, unspecified; Z86.73 Personal history of transient ischemic attack (TIA), and cerebral infarction without residual deficits

== ENCOUNTER 2018-07-10 14:00 | Emergency (ER) | payer MEDICAID ==
[~2018-07-10] VITALS: Ht 165.1 cm; Wt 156.8 kg
[2018-07-10 14:00] VITALS: Ht 165.1 cm; Wt 156.8 kg
[~2018-07-10 14:00] MED LIST changes: +CYCLOBENZAPRINE10 MG PO; +ULTRAM50 MG PO
[2018-07-10 14:54] LABS: BASOPHILS 0.1 % (0-2); EOSINOPHILS 2.1 % (0-7); HEMOGLOBIN 10.2 g/dL (12-16); IMMATURE GRANULOCYTES 0.4 % (0-5); LYMPHOCYTES 23.9 % (15-50); MCH 23.2 pg (26.0-34.0); MCHC 30.9 g/dL (31.0-37.0); MEAN PLATELET VOLUME 9.4 fL (7.4-10.4); MONOCYTES 5.6 % (2-11); NEUTROPHILS 67.9 % (40-80); RDW 16.9 % (11.5-14.5); WBC 7.7 10x3/uL (4.8-10.8)
[2018-07-10 14:56] LABS: PLATELET COUNT 219 10x3/uL (130-400)
[2018-07-10 15:13] LABS: ALBUMIN 2.9 g/dL (3.4-5.0); ALKALINE PHOSPHATASE 160 U/L (46-116); ALT (SGPT) 22 U/L (10-68); BILIRUBIN - TOTAL 0.24 mg/dL (0.2-1.3); CALC OSMOLALITY 283 mosm/kg (275-300); CALCIUM 8.5 mg/dL (8.5-10.1); CARBON DIOXIDE 24.5 mmol/L (21.0-32.0); CHLORIDE - SERUM 102 mmol/L (98-107); CREATININE - SERUM 0.7 mg/dL (0.6-1.3); PROTEIN - SERUM 7.1 g/dL (6.4-8.2); SODIUM 137 mmol/L (136-145); UREA NITROGEN 9 mg/dL (7-18); eGFR NON AFRICAN AMERICAN 90 mL/min (90-120)
[2018-07-10 15:14] LABS: GLUCOSE 295 mg/dL (74-106)
[2018-07-10 15:20] LABS: APTT 21.1 SECONDS (22.8-39.4); INR 0.97 (0.85-1.17); PROTIME 12.5 SECONDS (11.6-15.0)
[2018-07-10 15:39] LABS: CKMB 0.3 U/L (0.0-3.6); CREATINE KINASE 21 UL (21-215); MAGNESIUM - SERUM 1.4 mg/dL (1.8-2.4); TROPONIN-I < 0.017 ng/mL (0.000-0.060)
[2018-07-10 16:56] VITALS: BP 119/56
== END 2018-07-10 17:12 | disposition other institution (70) ==
LOC: D.ER 14:00
PROVIDERS: Emergency Medicine
DX: I63.81 Other cerebral infarction due to occlusion or stenosis of small artery (principal); R20.1 Hypoesthesia of skin; E11.9 Type 2 diabetes mellitus without complications; I10 Essential (primary) hypertension; J44.9 Chronic obstructive pulmonary disease, unspecified; K21.9 Gastro-esophageal reflux disease without esophagitis

== ENCOUNTER 2018-07-25 19:40 | Observation (INO) | payer MEDICAID ==
[~2018-07-25] VITALS: Ht 165.1 cm; Wt 112.2 kg
[2018-07-25] VITALS (7 sets, daily range): BP systolic 122–143; BP diastolic 70–79
--- NOTE | ~2018-07-25 | MORECARE ---
CASE MANAGEMENT DISCHARGE SUMMARY PATIENT: RONEN PALOMO UNIT: [id number] ADM DATE: 07/25/18 AGE: 63 : 57 SEX: F ROOM/BED: D.8760 AUTHOR: YONATAN NEW PHYSICIAN: REFERRING PHYSICIAN: RADAMES COLLINS MD DATE OF SERVICE: 07/28/18 Discharge Plan Patient Name: RONEN PALOMO Facility: [facility]:[place] : 1955 Planned Disposition: Home Anticipated Discharge Date: 07/27/18 Discharge Date: 07/27/2018 Expected LOS: 2 Initial Reviewer: [email or web address] Initial Review Date: 07/28/2018 Generated: 07/28/18 8:55 am Patient Name: RONEN PALOMO Page [phone] at 0755 All edits/amendments must be made on the electronic document DICTATION DATE: 07/28/18 0754 BOLT HEADER: RAN 07/28/18 0754 RPT#: [id number] DC DATE:07/27/18 STATUS: DIS IN [facility] [address] [place] [address] END OF REPORT
--- NOTE | ~2018-07-25 | OP ---
PATIENT NAME: RONEN PALOMO MEDICAL RECORD: [id number] :57 LOCATION:D. D.2123 ADMISSION DATE:07/25/18 SURGEON: DARLENE IZQUIERDO MD DATE OF OPERATION: 07/26/2018 PROCEDURE: Left heart catheterization, selective coronary angiography, right radial approach. CATHETERS: A 5-Latvian sheath and Washburn catheter. The procedure was well tolerated. The patient was returned to the horn. Sheath was removed. TR band was placed. FINDINGS: Left ventriculography in 30-degree GAINES view; normal wall motion and normal systolic function. CORONARY ANATOMY: LEFT MAIN: Left main is free of disease. LAD: Free of disease in the diagonal system. CIRCUMFLEX: Free of disease in the marginal system. RIGHT CORONARY ARTERY: Dominant artery, gives rise to PDA, free of disease. IMPRESSION: Normal LV systolic function. Normal coronary anatomy. TRANSINT:[id number] Voice Confirmation ID: [id number] DOCUMENT ID: [id number] DARLENE IZQUIERDO MD at 1303 CC: [id number] DICTATION DATE: 07/26/18 1532 BENCH TECHNICIAN: 07/26/18 1604 DIS IN 07/27/[address] [facility] [address] [place] [address]
--- NOTE | ~2018-07-25 | HEMODYNAMI ---
PATIENT:RONEN PALOMO MEDICAL RECORD: [id number] : 57 LOCATION:[facility].2123 ADMISSION DATE: 07/25/18 Generatedon:07/26/201815:37 Patient name: RONEN PALOMO Patient #: [id number] SSN: : 1955 Date of study: 07/26/2018 Page: Of Hemodynamic Procedure Report Patient Data Patient Demographics Procedure consent was obtained First Name: RONEN Gender: Female Last Name: DEWEY : 1955 [facility] Initial: J Age: 63 year(s) Patient #: [id number] Race: Additional ID: [id number] Contact details [address]: [address] [place] [address] State: [place] City: [place] Zip code: [address] Admission Admission Data Admission Date: 07/25/2018 Admission Time: 22:41 Room #: D.2123 Lab Results Lab Result Date: 07/26/2018 Lab Result Time: 0:00 Biochemistry Name Units Result Min Max BUN mg/dl 12 --(-*--)-- 7 18 Creatinine mg/dl 1 --(--*-)-- 0.6 1.3 CBC Name Units Result Min Max Hemoglobin g/dl 9.1 *-(----)-- 13.5 17.5 Procedure Procedure Types Cath Procedure Diagnostic Procedure [facility] w/Coronaries Procedure Description Procedure Date Procedure Date: 07/26/2018 Procedure Start Time: 15:21 Procedure End Time: 15:36 Procedure Staff Name Function Miki Rowe RT Monitor Emy Luz RN Nurse David Mensah RT Scrub Nitish Owen MD Performing Physician Procedure Data Cath Procedure Fluoroscopy Diagnostic fluoroscopy Total fluoroscopy Time: 1.3 time: 1.3 min min Diagnostic fluoroscopy Total fluoroscopy dose: dose: 177.66 mGy 177.66 mGy Contrast Material Contrast Material Type Amount (ml) Isovue 300 45 Entry Location Entry Primary Successful Side Size Upsize Upsize Entry Closure Pate ccessful Closure Location (Fr) 1 (Fr) 2 (Fr) Remarks Device Remarks Radial Right 6 Fr Mechanical artery Short Compression Diagnostic catheters Device Type Used For End Catheter Placement DIAGNOSTIC [place] 110cm 5 Left Coronary Fr catheter ([id number]) Angiography Procedure Complications No complications Procedure Medications Medication Administration Route Dosage Oxygen etCO2 Nasal cannula 2 l/min Lidocaine 2% added to field 20 Heparin Flush Bag added to field 2 bags (1000units/500ml NS) 0.9% NaCl I.V. 100 ml/hr Zofran P.O. 4 mg Versed I.V. 2 mg Fentanyl I.V. 100 mcg Versed I.V. 1 mg Fentanyl I.V. 50 mcg Radial Cocktail I.A. 1 syringe (Verapomil 2mg/Nitro 400mcg/Heparin 1500units) Hemodynamics Rest HGB: 9.1 (g/dl) Heart Rate: 77 (bpm) Pressure Samples Time Site Value (mmHg) Purpose Heart Use Rate(bpm) 15:24 LV 110/18,23 EDP 45 15:24 AO 86/56(69) Pullback 23 Gradients Valve Time Site Site 2 Mean SEP/DFP Peak To Heart Use 1 (mmHg) (sec/min) Peak Rate (mmHg) (bpm) Aortic 15:24 LV AO 11 3 23 86/56(69) Calculations Valve P-P Mean Valve Index Valve Source Name Gradient Area Flow (cm2) Aortic 11 11 Snapshots Pre Cath Intra NCS Post Cath Vital Signs Time Heart Resp SPO2 etCO2 NIBP (mmHg) Rhythm Pain Sedation Rate (ipm) (%) (mmHg) Status Level (bpm) 15:02:39 76 18 94 0 165/89(126) NSR 0 (11) 10(A) , No pain 15:07:18 76 20 95 30.8 154/85(120) NSR 0 (11) 10(A) , No pain 15:12:58 75 16 94 27 144/78(100) NSR 0 (11) 10(A) , No pain 15:17:34 74 14 93 14.3 130/76(89) NSR 0 (11) 10(A) , No pain 15:22:05 72 14 94 32.3 132/71(85) NSR 0 (11) 9(A) , No pain 15:26:29 73 15 94 12 121/61(76) NSR 0 (11) 9(A) , No pain 15:30:55 72 15 93 19 110/73(95) NSR 0 (11) 10(A) , No pain 15:35:54 74 4 27.8 Measuring NSR 0 (11) 10(A) , No pain Medications Time Medication Route Dose Verified Delivered Reason Notes Effectiveness by by 15:09:18 Oxygen etCO2 2 l/min Patrick Buffie used for Nasal Dale Luz RN procedure cannula 15:09:30 Lidocaine 2% added 20ml Patrick Patrick for local to vial Dale Hunter MD anesthetic field 15:09:37 Heparin Flush added 2 bags Patrick Patrick used for Bag to Dale Hunter MD procedure (1000units/500ml field NS) 15:09:49 0.9% NaCl I.V. 100 Patrick Buffie used for ml/hr Dale Luz RN procedure 15:10:06 Zofran P.O. 4 mg Patrick Buffie for nausea Dale Luz RN 15:16:17 Versed I.V. 2 mg Patrick Buffie for sedation Dale Luz RN 15:16:25 Fentanyl I.V. 100 mcg Patrick Buffie for sedation Dale Luz RN 15:22:22 Radial Cocktail I.A. 1 Patrick Nitish for (Verapomil syringe Dale Owen vasodilation 2mg/Nitro 400mcg/Heparin 1500units) 15:23:56 Versed I.V. 1 mg Patrick Buffie for sedation Dale Luz RN 15:24:02 Fentanyl I.V. 50 mcg Patrick Buffie for sedation Dale Luz RN Procedure Log Time Note 14:47:49 ACC Patient presents with Stable Angina CCS Anginal Class 2--Slight limitation of ordinary activity. 14:47:52 Diagnostic Cath status Elective 14:48:18 David MICHAEL(R) sent for patient. Start room use. 14:48:19 Time tracking: Regular hours (M-F 7:00 - 5:00) 14:48:23 Plan of Care:Hemodynamics will remain stable., Cardiac rhythm will remain stable., Comfort level will be maintained., Respiratory function will remain adequate., Patient/ family verbilizes understanding of procedure., Procedure tolerated without complication., Recovers from procedure without complications.. 14:54:38 Patient received from PCU to CCL 3 Alert and oriented. Tansferred to table in Supine position. 14:54:39 Warm blankets applied, and racquel hugger turned on for patient comfort. 14:54:40 Correct patient and procedure confirmed by team. 14:54:41 Signed procedure consent form obtained from patient. 14:54:42 ECG and BP/O2 sat monitors applied to patient. 15:01:03 Vital chart was started 15:08:19 Baseline sample Acquired. 15:08:22 Rhythm: sinus rhythm 15:08:25 Full Disclosure recording started 15:08:53 H&P Date Dictated: 07/25/2018 Within 30 days and on chart.. 15:09:10 Pre-procedure instructions explained to patient. 15:09:13 Pre-op teaching completed and patient verbalized understanding. 15:09:18 Oxygen 2 l/min etCO2 Nasal cannula was administered by Emy Luz RN; used for procedure; 15:09:21 Family unavailable. 15:09:24 Patient NPO since Midnight. 15:09:30 Lidocaine 2% 20ml vial added to field was administered by Patrick Hunter MD; for local anesthetic; 15:09:37 Heparin Flush Bag (1000units/500ml NS) 2 bags added to field was administered by Patrick Hunter MD; used for procedure; 15:09:40 Is the patient allergic to Iodine/contrast media? No. 15:09:47 Is patient on blood thinner?No 15:09:49 0.9% NaCl 100 ml/hr I.V. was administered by Emy Luz RN; used for procedure; 15:09:49 Patient diabetic? Yes. 15:09:56 ----Pre-sedation anethsthesia assessment.---- 15:10:04 Previous problem with sedation/anesthesia? Yes nausea 15:10:06 Zofran 4 mg P.O. was administered by Emy Luz RN; for nausea; 15:10:06 Snore? Yes 15:10:08 Sleep apnea? Yes 15:10:09 Deviated septum? No 15:10:11 Opens mouth fully? Yes 15:10:12 Sticks out tongue? Yes 15:10:16 Airway obstruction? Yes COPD 15:10:21 Dentures? Yes OUT 15:10:31 Pre procedure: right dorsailis pedis pulse 2+ Normal; easily identifiable; not easily obliterated 15:10:33 Modified Joel's test Ulnar < 7 seconds 15:10:36 Patient pain scale 0/10 ?. 15:10:52 IV patent on arrival in right antecubital with 0.9% NaCl at 10ml/hr. 15:11:15 Lab Result : Creatinine 1 mg/dl 15:11:15 Lab Result : BUN 12 mg/dl 15:11:15 Lab Result : Hemoglobin 9.1 g/dl 15:11:19 Lab results completed and on chart. 15:11:21 Right Radial & Right Groin area was prepped with chlora-prep and draped in sterile fashion 15::22 Alarms reviewed by R. N. 15::23 Sharps counted by scrub and verified by R.N. 15:16:17 Versed 2 mg I.V. was administered by Emy Luz RN; for sedation; 15:16:25 Fentanyl 100 mcg I.V. was administered by Emy Luz RN; for sedation; 15:20:16 Physician arrived 15:20:16 --------ALL STOP TIME OUT------ 15:20:17 Final Timeout: patient, procedure, and site verified with staff and physician. All members of the team are in agreement. 15:20:19 Right Radial & Right Groin site verified by team. 15:20:42 Sedation plan: IV Moderate Sedation Medication:Versed, Fentanyl 15:20:53 Physical assessment completed. ASA score P 2 - A patient with mild systemic disease as per Nitish Owen MD. 15:20:59 Use device set Radial Dx or PCI 15:21:01 ACIST Syringe (71472) opened to sterile field. 15:21:01 Medline Cath Pack ([id number]) opened to sterile field. 15:21:01 Bag Decanter (2002) opened to sterile field. 15:21:01 DIAGNOSTIC WIRE .035 260cm J wire (871129) opened to sterile field. 15:21:02 ACIST Hand Control (71161) opened to sterile field. 15:21:02 ACIST Manifold (65466) opened to sterile field. 15:21:03 Tegaderm 4 x 4 (1626W) opened to sterile field. 15:21:03 MBrace Wrist Support ([id number]) opened to sterile field. 15:21:04 NEEDLE Cook 21G 4cm Radial (F87213) opened to sterile field. 15:21:05 TR BAND Large ([id number]) opened to sterile field. 15:21:10 SHEATH 6FR Slender ([id number]) opened to sterile field. 15:21:13 Procedure started. 15:: Local anesthetic to right radial artery with Lidocaine 2% by Nitish Owen MD.INITIAL ACCESS ONLY 15::50 A 6 Fr Short sheath was inserted into the Right Radial artery 15:: Radial Cocktail (Verapomil 2mg/Nitro 400mcg/Heparin 1500units) 1 syringe I.A. was administered by Nitish Owen MD; for vasodilation; 15::44 A DIAGNOSTIC [place] 110cm 5 Fr catheter (893265) was advanced over the wire and used for Left Coronary Angiography. 15:23:16 Zero performed for pressure channel P1 15:23:21 Zero performed for pressure channel P1 15:23:35 Zero performed for pressure channel P1 15:23:38 Zero performed for pressure channel P1 15::54 LV angiography performed. 15::56 Versed 1 mg I.V. was administered by Emy Luz RN; for sedation; 15:24: LV gram done using GAINES 15:24: Fentanyl 50 mcg I.V. was administered by Emy Luz RN; for sedation; 15:24:02 LV hemodynamics recorded. 15:24:15 EF : 55 % 15:24:49 LCA angiography performed. 15:26:19 RCA angiography performed. 15:: Catheter removed. 15::43 Sheath removed intact; hemostasis achieved with Mechanical Compression to the Right Radial artery. 15::45 Procedure ended.(Physican Out) 15::59 Fluoroscopy time 01.30 minutes. 15::08 Fluoroscopy dose: 177.66 mGy 15::08 Flurop Dose total: 177.66 15:: Contrast amount:Isovue 300 45ml. 15::58 Sharps counted by scrub and verified by R.N. 15:28:00 TR band inflated with 10cc of air. 15:28:07 Post procedure rhythm: sinus rhythm 15:: Post procedure instruction explained to patient.Patient verbalizes understanding. 15:28:12 Procedure and supply charges have been captured, reviewed, submitted and are correct. 15:28:29 Procedure Complication : No complications 15:36:12 Vital chart was stopped 15:36:12 See physician's report for complete and final results. 15:36:15 Report given to PCU. 15:36:19 Patient transfered to PCU with Bed. 15:36:22 Procedure ended. 15:36:22 Full Disclosure recording stopped 15:36:28 End room use (Document Last) Device Usage Item Name Manufacture Quantity Catalog Hospital Part Current Minima l Lot# / Number Charge Number Stock Stock Serial# Code ACIST Acist 1 88483 618497 098884 521998 20 Syringe Medical (99791) Systems Inc Medline Cath Medline 1 [id number] 194464 75137 818021 5 Pack ([id number]) Bag Decanter Microtek 1 2001S 402713 65354 356343 5 (2001S) Medical Inc. DIAGNOSTIC [place] 1 692455 497832 156473 067523 30 WIRE .035 260cm J wire (694027) ACIST Hand Acist 1 66683 818840 174622 746909 5 Control Medical (71778) Systems Inc ACIST Acist 1 00553 084777 339056 123900 5 Manifold Medical (23746) Systems Inc Tegaderm 4 x 3M 1 1626W 252075 008063 194214 5 4 (1626W) MBrace Wrist Advanced 1 140-0250-00 407212 66615 413454 5 Support Vascular ([id number]) Dynamics NEEDLE SaludF[employer]CIL Medical 1 H05489 573377 819969 062875 5 21G 4cm Radial (I59070) TR BAND Terumo 1 [id number] 816210 139846 316115 40 Large (USE80RMQ) SHEATH 6FR Terumo 1 [id number] 576291 707956 602670 40 Slender ([id number]) DIAGNOSTIC Terumo 1 40-5719 008354 552003 495498 5 [place] 110cm 5 Fr catheter (486557) Signature Audit [place] Stage Time Signature Unsigned Intra-Procedure 07/26/2018 Miki Rowe RT(R) 3:37:12 PM Signatures Monitor : Miki Rowe RT Signature : Date : Time : [address] [place] [address]
[2018-07-25] MEDS ORDERED: SENEXON8.6 MG (20:13)
[2018-07-25] MEDS ORDERED: MOBIC7.5 MG PO (20:13)
[2018-07-25] MEDS ORDERED: RANITIDINE HCL150 M1 PO (20:13)
[2018-07-25] MEDS ORDERED: LIPITOR40 MG PO (20:14)
[2018-07-25] MEDS ORDERED: KLONOPIN0.5 MG PO (20:14)
[2018-07-25] MEDS ORDERED: NEURONTIN600 MG PO (20:14)
[2018-07-25 20:27] LABS: BASOPHILS 0.2 % (0-2); EOSINOPHILS 2.7 % (0-7); HEMATOCRIT 33.8 % (36.0-48.0); HEMOGLOBIN 10.2 g/dL (12-16); IMMATURE GRANULOCYTES 0.4 % (0-5); LYMPHOCYTES 23.1 % (15-50); MCH 22.9 pg (26.0-34.0); MCHC 30.2 g/dL (31.0-37.0); MEAN PLATELET VOLUME 9.2 fL (7.4-10.4); NEUTROPHILS 67.6 % (40-80); PLATELET COUNT 234 10x3/uL (130-400); RBC 4.45 10x6/uL (4.00-5.40); RDW 16.5 % (11.5-14.5); WBC 8.9 10x3/uL (4.8-10.8)
[2018-07-25 20:52] LABS: ALBUMIN 3.1 g/dL (3.4-5.0); ALKALINE PHOSPHATASE 171 U/L (46-116); ALT (SGPT) 21 U/L (10-68); BILIRUBIN - TOTAL 0.33 mg/dL (0.2-1.3); CALC OSMOLALITY 280 mosm/kg (275-300); CALCIUM 8.6 mg/dL (8.5-10.1); CHLORIDE - SERUM 98 mmol/L (98-107); CREATININE - SERUM 0.8 mg/dL (0.6-1.3); GLUCOSE 338 mg/dL (74-106); POTASSIUM - SERUM 3.3 mmol/L (3.5-5.1); PROTEIN - SERUM 7.6 g/dL (6.4-8.2); SODIUM 134 mmol/L (136-145); UREA NITROGEN 12 mg/dL (7-18); eGFR NON AFRICAN AMERICAN 77 mL/min (90-120)
[2018-07-25 21:04] LABS: CREATINE KINASE 16 UL (21-215); MAGNESIUM - SERUM 1.7 mg/dL (1.8-2.4); PRO BNP 44 pg/mL (0-125); TROPONIN-I < 0.017 ng/mL (0.000-0.060)
[2018-07-26 00:34] VITALS: BP 143/84; BMI 41.1
[2018-07-26] MEDS ORDERED: BAYER CHEWABLE81 MG PO (00:52)
[2018-07-26] MEDS ORDERED: TRAZODONE HCL150 MG PO (00:59)
[2018-07-26 02:43] LABS: BASOPHILS 0.2 % (0-2); EOSINOPHILS 3.4 % (0-7); HEMATOCRIT 30.6 % (36.0-48.0); HEMOGLOBIN 9.1 g/dL (12-16); IMMATURE GRANULOCYTES 0.3 % (0-5); LYMPHOCYTES 28.2 % (15-50); MCH 22.6 pg (26.0-34.0); MCHC 29.7 g/dL (31.0-37.0); MCV 76.1 fL (80.0-100.0); NEUTROPHILS 61.9 % (40-80); PLATELET COUNT 214 10x3/uL (130-400); RBC 4.02 10x6/uL (4.00-5.40); RDW 16.4 % (11.5-14.5); WBC 8.9 10x3/uL (4.8-10.8)
[2018-07-26 03:03] LABS: ALBUMIN 2.6 g/dL (3.4-5.0); ALKALINE PHOSPHATASE 143 U/L (46-116); ALT (SGPT) 18 U/L (10-68); BILIRUBIN - TOTAL 0.29 mg/dL (0.2-1.3); CALC OSMOLALITY 284 mosm/kg (275-300); CALCIUM 8.1 mg/dL (8.5-10.1); CHLORIDE - SERUM 102 mmol/L (98-107); CKMB 0.3 U/L (0.0-3.6); CREATINE KINASE 12 UL (21-215); GLUCOSE 303 mg/dL (74-106); MAGNESIUM - SERUM 1.5 mg/dL (1.8-2.4); POTASSIUM - SERUM 3.7 mmol/L (3.5-5.1); PROTEIN - SERUM 6.4 g/dL (6.4-8.2); SODIUM 137 mmol/L (136-145); UREA NITROGEN 12 mg/dL (7-18); eGFR NON AFRICAN AMERICAN 59 mL/min (90-120)
[2018-07-26 03:05] LABS: CARBON DIOXIDE 29.3 mmol/L (21.0-32.0); TROPONIN-I < 0.017 ng/mL (0.000-0.060)
[2018-07-26 04:00] VITALS: BP 98/54
[2018-07-26 08:39] LABS: CKMB 0.1 U/L (0.0-3.6); CREATINE KINASE 16 UL (21-215); TROPONIN-I < 0.017 ng/mL (0.000-0.060)
[2018-07-26 09:09] VITALS: Ht 165.1 cm; Wt 112.2 kg
[2018-07-26 09:48] LABS: ANION GAP 12.2 mmol/L (8-16); CALCIUM 8.4 mg/dL (8.5-10.1); CARBON DIOXIDE 27.5 mmol/L (21.0-32.0); CREATININE - SERUM 0.9 mg/dL (0.6-1.3); POTASSIUM - SERUM 3.7 mmol/L (3.5-5.1)
[2018-07-26 10:20] LABS: BASOPHILS 0.1 % (0-2); EOSINOPHILS 3.6 % (0-7); HEMATOCRIT 30.2 % (36.0-48.0); IMMATURE GRANULOCYTES 0.4 % (0-5); LYMPHOCYTES 29.3 % (15-50); MCH 22.8 pg (26.0-34.0); MCHC 29.8 g/dL (31.0-37.0); MCV 76.6 fL (80.0-100.0); MEAN PLATELET VOLUME 9.6 fL (7.4-10.4); MONOCYTES 7.6 % (2-11); PLATELET COUNT 229 10x3/uL (130-400); RBC 3.94 10x6/uL (4.00-5.40); RDW 16.7 % (11.5-14.5); WBC 6.7 10x3/uL (4.8-10.8)
[2018-07-26 10:48] VITALS: BP 98/46
[2018-07-26 13:38] VITALS: BP 118/77
[2018-07-26 14:21] LABS: % SATURATION 13 % (15-55); IRON 43 ug/dl (35-150); TOTAL IRON BIND CAPACITY 324 ug/dl (260-445); UNSAT IRON BIND CAPACITY 281 ug/dl (150-375)
[2018-07-26 14:38] LABS: CKMB 0.2 U/L (0.0-3.6); CREATINE KINASE 21 UL (21-215); TROPONIN-I < 0.017 ng/mL (0.000-0.060)
[2018-07-26 19:45] VITALS: BP 120/62
[2018-07-26 23:35] VITALS: BP 126/65
[2018-07-27 03:30] VITALS: BP 101/52
[2018-07-27 06:06] LABS: BASOPHILS 0.2 % (0-2); EOSINOPHILS 3.7 % (0-7); HEMATOCRIT 32.9 % (36.0-48.0); HEMOGLOBIN 9.5 g/dL (12-16); IMMATURE GRANULOCYTES 0.5 % (0-5); LYMPHOCYTES 30.4 % (15-50); MCH 22.6 pg (26.0-34.0); MCHC 28.9 g/dL (31.0-37.0); MCV 78.1 fL (80.0-100.0); MEAN PLATELET VOLUME 9.5 fL (7.4-10.4); MONOCYTES 5.9 % (2-11); NEUTROPHILS 59.3 % (40-80); PLATELET COUNT 232 10x3/uL (130-400); RBC 4.21 10x6/uL (4.00-5.40); RDW 16.8 % (11.5-14.5); WBC 5.9 10x3/uL (4.8-10.8)
[2018-07-27 06:28] LABS: CALC OSMOLALITY 287 mosm/kg (275-300); CARBON DIOXIDE 27.8 mmol/L (21.0-32.0); CHLORIDE - SERUM 106 mmol/L (98-107); CREATININE - SERUM 0.8 mg/dL (0.6-1.3); GLUCOSE 211 mg/dL (74-106); POTASSIUM - SERUM 3.9 mmol/L (3.5-5.1); SODIUM 141 mmol/L (136-145); UREA NITROGEN 15 mg/dL (7-18); eGFR NON AFRICAN AMERICAN 77 mL/min (90-120)
[2018-07-27 07:34] LABS: FOLATE (FOLIC ACID) - SERUM 5.4 ng/mL (>3.0)
[2018-07-27 08:47] VITALS: BP 107/56
[2018-07-27 11:42] VITALS: BP 100/52
[2018-07-27 15:07] VITALS: BP 106/56
== END 2018-07-27 17:53 | disposition home or self-care (01) ==
LOC: D.ER 19:40 → D.M2 22:41 → OBSVTIME 22:41 → D.M2 22:41
PROVIDERS: Family Medicine; Internal Medicine Cardiovascular Disease; Internal Medicine Nephrology
DX: D50.9 Iron deficiency anemia, unspecified (principal); D62 Acute posthemorrhagic anemia; I20.9 Angina pectoris, unspecified; Z86.79 Personal history of other diseases of the circulatory system; Z86.73 Personal history of transient ischemic attack (TIA), and cerebral infarction without residual deficits; F41.9 Anxiety disorder, unspecified; F31.30 Bipolar disorder, current episode depressed, mild or moderate severity, unspecified; E11.65 Type 2 diabetes mellitus with hyperglycemia; E11.40 Type 2 diabetes mellitus with diabetic neuropathy, unspecified; I48.2 Chronic atrial fibrillation; J44.9 Chronic obstructive pulmonary disease, unspecified

== ENCOUNTER 2018-07-28 15:38 | Observation (INO) | payer MEDICAID ==
[~2018-07-28] VITALS: Ht 165.1 cm; Wt 114.1 kg
--- NOTE | ~2018-07-28 | MORECARE ---
CASE MANAGEMENT DISCHARGE SUMMARY PATIENT: RONEN PALOMO UNIT: [id number] ADM DATE: 07/28/18 AGE: 63 : 57 SEX: F ROOM/BED: D.6627 AUTHOR: YONATAN NEW PHYSICIAN: REFERRING PHYSICIAN: RADAEMS COLLINS MD DATE OF SERVICE: 08/02/18 Discharge Plan Patient Name: RONEN PALOMO Facility: [facility]:[place] : 1955 Planned Disposition: Left Against Medical Advice Anticipated Discharge Date: 07/29/18 Discharge Date: 07/29/2018 Expected LOS: 1 Initial Reviewer: [email or web address] Initial Review Date: 08/02/2018 Generated: 08/02/18 10:43 am Patient Name: RONEN PALOMO Page 34694 at 0944 All edits/amendments must be made on the electronic document DICTATION DATE: 08/02/18942 CRIPPLE CUTTER: RAN 08/02/18942 RPT#: [id number] DC DATE:07/29/18 STATUS: DIS IN [facility] [address] [place] [address] END OF REPORT
[~2018-07-28 15:38] MED LIST changes: +BAYER CHEWABLE81 MG PO; +KLONOPIN0.5 MG PO; +LIPITOR40 MG PO; +MOBIC7.5 MG PO; +NEURONTIN600 MG PO; +RANITIDINE HCL150 M1 PO; +SENEXON8.6 MG; +TRAZODONE HCL150 MG PO
[2018-07-28 19:21] LABS: BASOPHILS 0.1 % (0-2); EOSINOPHILS 3.3 % (0-7); HEMATOCRIT 32.3 % (36.0-48.0); HEMOGLOBIN 9.7 g/dL (12-16); IMMATURE GRANULOCYTES 0.9 % (0-5); LYMPHOCYTES 24.7 % (15-50); MCH 22.9 pg (26.0-34.0); MCV 76.4 fL (80.0-100.0); MEAN PLATELET VOLUME 9.2 fL (7.4-10.4); MONOCYTES 4.5 % (2-11); NEUTROPHILS 66.5 % (40-80); PLATELET COUNT 209 10x3/uL (130-400); RBC 4.23 10x6/uL (4.00-5.40); RDW 16.7 % (11.5-14.5); WBC 8.2 10x3/uL (4.8-10.8)
[2018-07-28 19:35] LABS: ALBUMIN 2.9 g/dL (3.4-5.0); ALKALINE PHOSPHATASE 156 U/L (46-116); ALT (SGPT) 17 U/L (10-68); BILIRUBIN - TOTAL 0.18 mg/dL (0.2-1.3); CALC OSMOLALITY 280 mosm/kg (275-300); CALCIUM 8.6 mg/dL (8.5-10.1); CARBON DIOXIDE 28.3 mmol/L (21.0-32.0); CHLORIDE - SERUM 104 mmol/L (98-107); CREATININE - SERUM 0.7 mg/dL (0.6-1.3); GLUCOSE 186 mg/dL (74-106); POTASSIUM - SERUM 3.4 mmol/L (3.5-5.1); PROTEIN - SERUM 7.2 g/dL (6.4-8.2); SODIUM 138 mmol/L (136-145); UREA NITROGEN 12 mg/dL (7-18); eGFR NON AFRICAN AMERICAN 90 mL/min (90-120)
[2018-07-28 20:00] VITALS: BP 157/89
[2018-07-28 21:00] VITALS: BP 156/72
[2018-07-29 00:42] VITALS: BP 147/77
[2018-07-29 01:55] VITALS: Ht 165.1 cm; Wt 114.1 kg
[2018-07-29 04:49] LABS: BASOPHILS 0.1 % (0-2); EOSINOPHILS 3.5 % (0-7); HEMATOCRIT 30.4 % (36.0-48.0); HEMOGLOBIN 9.2 g/dL (12-16); LYMPHOCYTES 29.8 % (15-50); MCH 23.1 pg (26.0-34.0); MCHC 30.3 g/dL (31.0-37.0); MCV 76.2 fL (80.0-100.0); MEAN PLATELET VOLUME 9.3 fL (7.4-10.4); MONOCYTES 4.9 % (2-11); NEUTROPHILS 60.7 % (40-80); PLATELET COUNT 203 10x3/uL (130-400); RBC 3.99 10x6/uL (4.00-5.40); RDW 16.9 % (11.5-14.5); WBC 6.8 10x3/uL (4.8-10.8)
[2018-07-29 05:11] LABS: CALC OSMOLALITY 284 mosm/kg (275-300); CALCIUM 8.4 mg/dL (8.5-10.1); CARBON DIOXIDE 29.7 mmol/L (21.0-32.0); CHLORIDE - SERUM 104 mmol/L (98-107); CREATININE - SERUM 0.6 mg/dL (0.6-1.3); GLUCOSE 205 mg/dL (74-106); POTASSIUM - SERUM 3.4 mmol/L (3.5-5.1); SODIUM 139 mmol/L (136-145); T4 THYROXIN - FREE 0.86 ng/dL (0.76-1.46); THYROID STIMULATING HORMONE 3.79 uIU/mL (0.36-3.74); UREA NITROGEN 15 mg/dL (7-18); eGFR NON AFRICAN AMERICAN > 90 mL/min (90-120)
[2018-07-29 05:17] VITALS: BP 141/67
[2018-07-29 07:56] VITALS: BP 137/73
== END 2018-07-29 08:30 | disposition left against medical advice (07) ==
LOC: D.ER 15:38 → D.M2 22:12 → OBSVTIME 22:12 → D.M2 07-29 08:30
PROVIDERS: Family Medicine
DX: R55 Syncope and collapse (principal); E11.40 Type 2 diabetes mellitus with diabetic neuropathy, unspecified; I48.91 Unspecified atrial fibrillation; J44.9 Chronic obstructive pulmonary disease, unspecified; F31.30 Bipolar disorder, current episode depressed, mild or moderate severity, unspecified; F41.9 Anxiety disorder, unspecified

== ENCOUNTER 2018-08-19 13:02 | Emergency (ER) | payer MEDICAID ==
[~2018-08-19] VITALS: Ht 165.1 cm; Wt 112.7 kg
[2018-08-19 13:11] VITALS: Ht 165.1 cm; Wt 112.7 kg
[2018-08-19 14:27] LABS: APTT 28.2 SECONDS (22.8-39.4); BASOPHILS 0.1 % (0-2); EOSINOPHILS 2.3 % (0-7); HEMATOCRIT 37.5 % (36.0-48.0); HEMOGLOBIN 11.5 g/dL (12-16); IMMATURE GRANULOCYTES 0.6 % (0-5); INR 1.01 (0.85-1.17); MCH 23.5 pg (26.0-34.0); MCHC 30.7 g/dL (31.0-37.0); MCV 76.5 fL (80.0-100.0); MEAN PLATELET VOLUME 9.5 fL (7.4-10.4); MONOCYTES 4.1 % (2-11); NEUTROPHILS 72.9 % (40-80); PLATELET COUNT 200 10x3/uL (130-400); PROTIME 12.8 SECONDS (11.6-15.0); RDW 16.9 % (11.5-14.5); WBC 7.1 10x3/uL (4.8-10.8)
[2018-08-19 14:32] LABS: ALBUMIN 2.9 g/dL (3.4-5.0); ALKALINE PHOSPHATASE 171 U/L (46-116); ALT (SGPT) 16 U/L (10-68); BILIRUBIN - TOTAL 0.32 mg/dL (0.2-1.3); CALC OSMOLALITY 287 mosm/kg (275-300); CALCIUM 8.9 mg/dL (8.5-10.1); CARBON DIOXIDE 28.4 mmol/L (21.0-32.0); CHLORIDE - SERUM 103 mmol/L (98-107); CREATININE - SERUM 0.8 mg/dL (0.6-1.3); POTASSIUM - SERUM 3.5 mmol/L (3.5-5.1); PROTEIN - SERUM 7.7 g/dL (6.4-8.2); SODIUM 140 mmol/L (136-145); UREA NITROGEN 9 mg/dL (7-18); eGFR NON AFRICAN AMERICAN 77 mL/min (90-120)
[2018-08-19 14:39] LABS: GLUCOSE 277 mg/dL (74-106)
[2018-08-19 14:43] LABS: CKMB 0.1 U/L (0.0-3.6); CREATINE KINASE 16 UL (21-215); PRO BNP 93 pg/mL (0-125); TROPONIN-I < 0.017 ng/mL (0.000-0.060)
[2018-08-19 16:06] VITALS: BP 136/69
[2018-08-19] MEDS ORDERED: TESSALON PERLE100 MG PO (17:44)
[2018-08-19] MEDS ORDERED: PREDNISONE10 MG PO (17:44)
== END 2018-08-19 18:39 | disposition home or self-care (01) ==
LOC: D.ER 13:02
PROVIDERS: Family Medicine
DX: J44.1 Chronic obstructive pulmonary disease with (acute) exacerbation (principal); R06.02 Shortness of breath; E11.9 Type 2 diabetes mellitus without complications; I10 Essential (primary) hypertension

== ENCOUNTER 2018-08-24 19:45 | Inpatient (IN) | payer MEDICAID ==
[~2018-08-24] VITALS: Ht 165.1 cm; Wt 112.0 kg
--- NOTE | ~2018-08-24 | MORECARE ---
CASE MANAGEMENT DISCHARGE SUMMARY PATIENT: RONEN WELLS UNIT: [id number] ADM DATE: 08/24/18 AGE: 63 : 57 SEX: F ROOM/BED: D.E07 AUTHOR: YONATAN NEW PHYSICIAN: REFERRING PHYSICIAN: RADAMES COLLINS MD DATE OF SERVICE: 08/25/18 Discharge Plan Patient Name: RONEN WELLS Facility: [facility]:[place] : 1955 Planned Disposition: Anticipated Discharge Date: Discharge Date: Expected LOS: Initial Reviewer: [email or web address] Initial Review Date: 08/25/2018 Generated: 08/25/18 12:50 pm DCPIA - Discharge Planning Initial Assessment Updated by [email or web address]: Jessica Gooden on 08/25/18 11:45 am * Is the patient Alert and Oriented? Yes * PCP Dr. Alphonso turner) nancy New * Pharmacy [facility], by [facility] * Preadmission Environment Home with Family * ADLs Partial Dependent * Partial ADLs (Assistance needed) Ambulation Bathing Dressing * Equipment Bedside Commode Cane Grab Bars Nebulizer Oxygen Rolling Walker Shower Chair Wheelchair * Other Equipment NA * List name and contact numbers for known caregivers / representatives who currently or will assist patient after discharge: Gordon Wells %[phone] * Verbal permission to speak to the caregivers and representatives has been obtained from the patient. Yes * Community resources currently utilized Private Duty Care * Please name any agencies selected above. [employer] 2/H/ 3days/W aide assist with bathing, dressing, light house work. * Additional services required to return to the preadmission environment? No * Can the patient safely return to the preadmission environment? Yes * Has this patient been hospitalized within the prior 30 days at any hospital? No Last DP export: 08/25/18 10:42 Patient Name: RONEN WELLS Page 46842 at 1151 All edits/amendments must be made on the electronic document DICTATION DATE: 08/25/18 1150 SUPERVISOR BLOOD DONOR RECRUITERS: RAN 08/25/18 1150 RPT#: [id number] DC DATE: STATUS: ADM IN [facility] [address] [place] [address] END OF REPORT
--- NOTE | ~2018-08-24 | MORECARE ---
CASE MANAGEMENT DISCHARGE SUMMARY PATIENT: RONEN WELLS UNIT: [id number] ADM DATE: 08/24/18 AGE: 63 : 56 SEX: F ROOM/BED: D.E07 AUTHOR: YONATAN NEW PHYSICIAN: REFERRING PHYSICIAN: RADAMES COLLINS MD DATE OF SERVICE: 08/25/18 Discharge Plan Patient Name: RONEN WELLS Facility: [facility]:[place] : 1955 Planned Disposition: Anticipated Discharge Date: Discharge Date: Expected LOS: Initial Reviewer: [email or web address] Initial Review Date: 08/25/2018 Generated: 08/25/18 12:42 pm DCPIA - Discharge Planning Initial Assessment Updated by [email or web address]: Jessica Gooden on 08/25/18 11:41 am * Is the patient Alert and Oriented? Yes * PCP Dr. Alphonso turner) nancy New * Pharmacy [facility], by [facility] * Preadmission Environment Home with Family * ADLs Partial Dependent * Partial ADLs (Assistance needed) Ambulation Bathing Dressing * Equipment Cane Nebulizer Oxygen Wheelchair * Other Equipment NA * List name and contact numbers for known caregivers / representatives who currently or will assist patient after discharge: Gordon Wells %[phone] * Verbal permission to speak to the caregivers and representatives has been obtained from the patient. Yes * Community resources currently utilized Private Duty Care * Please name any agencies selected above. [employer] 2/H/ 3days/W aide assist with bathing, dressing, light house work. * Additional services required to return to the preadmission environment? No * Can the patient safely return to the preadmission environment? Yes * Has this patient been hospitalized within the prior 30 days at any hospital? No Patient Name: RONEN WELLS Page 66164 at 1142 All edits/amendments must be made on the electronic document DICTATION DATE: 08/25/18 1141 PHONE OPERATOR: RAN 08/25/18 1141 RPT#: [id number] DC DATE: STATUS: ADM IN [facility] [address] [place] [address] END OF REPORT
--- NOTE | ~2018-08-24 | MORECARE ---
CASE MANAGEMENT DISCHARGE SUMMARY PATIENT: RONEN WELLS UNIT: [id number] ADM DATE: 08/25/18 AGE: 63 : 57 SEX: F ROOM/BED: D.1206 AUTHOR: VIRGEN,DOC PHYSICIAN: REFERRING PHYSICIAN: RADAMES COLLINS MD DATE OF SERVICE: 08/25/18 Discharge Plan Patient Name: RONEN WELLS Facility: [facility]:[place] : 1955 Planned Disposition: Anticipated Discharge Date: Discharge Date: Expected LOS: Initial Reviewer: [email or web address] Initial Review Date: 08/25/2018 Generated: 08/25/18 6:26 pm Comments DCP- Discharge Planning Updated by [email or web address]: Jessica Gooden on 08/25/18 4:[address] Patient's called and reported the electricity has been reconnected. Jessica Gooden RN CM DCP- Discharge Planning Updated by [email or web address]: Jessica Gooden on 08/25/18 10:[address] CM met with patient regarding dc needs/plans. Patient is alert/co-operative and is in agreement with dc planning. Patient lives w/her spouse, Gordon Wells ([phone]). PCP: Dr. Alphonso Alfonso (Medicaid). Pharmacy: [facility] by [employer]. Other services in the home: [facility] aide, 2 H/D, 3 D/W. Patient requires assistance w/bathing, dressing, ambulation. DME: O2 @HS, Nebulizer, Shower chair, BSC, Pull bar on bathtub, manual W/C, cane. Patient states she does not use her cane, she "holds onto the wall to ambulate or uses the w/c." Patient presented to ER with statement that her electricity had been turned off and is unable to use her O2. Per patient report, she forgot to pay the bill. Per patient report, [employer] paid all of the electricity bill 08/24 except the reconnect fee. Spouse paid the reconnect fee this morning. LUZ spoke with Mr. Wells who informs CM that the electricity will be reconnected before 5 pm today. LUZ attempted to speak with [employer] service center representative, but was unable to reach a person. CM request spouse to call ER and ask for CM when his electricity has been reconnected and he voices understanding. CM will continue to follow and assist as needed. Jessica Gooden RN CM DCPIA - Discharge Planning Initial Assessment Updated by [email or web address]: Jessica Gooden on 08/25/18 11:45 am * Is the patient Alert and Oriented? Yes * PCP Dr. Alphonso turner) nancy New * Pharmacy [facility], by [facility] * Preadmission Environment Home with Family * ADLs Partial Dependent * Partial ADLs (Assistance needed) Ambulation Bathing Dressing * Equipment Bedside Commode Cane Grab Bars Nebulizer Oxygen Rolling Walker Shower Chair Wheelchair * Other Equipment NA * List name and contact numbers for known caregivers / representatives who currently or will assist patient after discharge: Gordon Wells %[phone] * Verbal permission to speak to the caregivers and representatives has been obtained from the patient. Yes * Community resources currently utilized Private Duty Care * Please name any agencies selected above. AAA 2/H/ 3days/W aide assist with bathing, dressing, light house work. * Additional services required to return to the preadmission environment? No * Can the patient safely return to the preadmission environment? Yes * Has this patient been hospitalized within the prior 30 days at any hospital? No Last DP export: 08/25/18 11:04 Patient Name: RONEN WELLS Page 44321 at 1726 All edits/amendments must be made on the electronic document DICTATION DATE: 08/25/181725 SKI INSTRUCTOR: RAN 08/25/181725 RPT#: [id number] DC DATE: STATUS: ADM IN [facility] [address] [facility] [place] [address] END OF REPORT
--- NOTE | ~2018-08-24 | MORECARE ---
CASE MANAGEMENT DISCHARGE SUMMARY PATIENT: RONEN WELLS UNIT: [id number] ADM DATE: 08/24/18 AGE: 63 : 57 SEX: F ROOM/BED: D.E07 AUTHOR: YONATAN NEW PHYSICIAN: REFERRING PHYSICIAN: RADAMES COLLINS MD DATE OF SERVICE: 08/25/18 Discharge Plan Patient Name: RONEN WELLS Facility: [facility]:[place] : 1955 Planned Disposition: Anticipated Discharge Date: Discharge Date: Expected LOS: Initial Reviewer: [email or web address] Initial Review Date: 08/25/2018 Generated: 08/25/18 1:04 pm Comments DCP- Discharge Planning Updated by [email or web address]: Jessica Gooden on 08/25/18 10:[address] CM met with patient regarding dc needs/plans. Patient is alert/co-operative and is in agreement with dc planning. Patient lives w/her spouse, Gordon Wells ([phone]). PCP: Dr. Alphonso Alfonso (Medicaid). Pharmacy: [facility] by [employer]. Other services in the home: [facility] [employer] [facility] aide, 2 H/D, 3 D/W. Patient requires assistance w/bathing, dressing, ambulation. DME: O2 @HS, Nebulizer, Shower chair, BSC, Pull bar on bathtub, manual W/C, cane. Patient states she does not use her cane, she "holds onto the wall to ambulate or uses the w/c." Patient presented to ER with statement that her electricity had been turned off and is unable to use her O2. Per patient report, she forgot to pay the bill. Per patient report, [employer] paid all of the electricity bill 08/24 except the reconnect fee. Spouse paid the reconnect fee this morning. CM spoke with Mr. Wells who informs CM that the electricity will be reconnected before 5 pm today. CM attempted to speak with [employer] representative, but was unable to reach a person. CM request spouse to call ER and ask for CM when his electricity has been reconnected and he voices understanding. CM will continue to follow and assist as needed. Jessica Giacomo RN CM DCPIA - Discharge Planning Initial Assessment Updated by [email or web address]: Jessica Gooden on 08/25/18 11:45 am * Is the patient Alert and Oriented? Yes * PCP Dr. Alphonso turner) nancy New * Pharmacy [facility], by [facility] * Preadmission Environment Home with Family * ADLs Partial Dependent * Partial ADLs (Assistance needed) Ambulation Bathing Dressing * Equipment Bedside Commode Cane Grab Bars Nebulizer Oxygen Rolling Walker Shower Chair Wheelchair * Other Equipment NA * List name and contact numbers for known caregivers / representatives who currently or will assist patient after discharge: Gordon Wells %[phone] * Verbal permission to speak to the caregivers and representatives has been obtained from the patient. Yes * Community resources currently utilized Private Duty Care * Please name any agencies selected above. [employer] 2/H/ 3days/W aide assist with bathing, dressing, light house work. * Additional services required to return to the preadmission environment? No * Can the patient safely return to the preadmission environment? Yes * Has this patient been hospitalized within the prior 30 days at any hospital? No Last DP export: 08/25/18 10:50 Patient Name: RONEN WELLS Page [phone] at 1204 All edits/amendments must be made on the electronic document DICTATION DATE: 08/25/18 120 SHOWER SCREEN INSTALLER: RAN 08/25/18 1204 RPT#: [id number] DC DATE: STATUS: ADM IN [facility] [address] [place] [address] END OF REPORT
--- NOTE | ~2018-08-24 | MORECARE ---
CASE MANAGEMENT DISCHARGE SUMMARY PATIENT: RONEN WELLS UNIT: [id number] ADM DATE: 08/25/18 AGE: 63 : 57 SEX: F ROOM/BED: D.1206 AUTHOR: YONATAN NEW PHYSICIAN: REFERRING PHYSICIAN: RADAMES COLLINS MD DATE OF SERVICE: 08/26/18 Discharge Plan Patient Name: RONEN WELLS Facility: [facility]:[place] : 1955 Planned Disposition: Home Anticipated Discharge Date: 08/27/18 Discharge Date: 08/26/2018 Expected LOS: 2 Initial Reviewer: [email or web address] Initial Review Date: 08/25/2018 Generated: 08/26/18 4:59 pm Comments DCP- Discharge Planning Updated by [email or web address]: Tayler Mena on 08/25/18 5:[address] Patient Name: RONEN WELLS Admission Status: ER Accout number: [id number] Admission Date: 08-25-2018 : 1955 Admission Diagnosis: Attending: RADAMES COLLINS Current LOS: 1 Anticipated DC Date: 08-27-2018 Planned Disposition: Home Primary Insurance: MEDICAID [place] Discharge Planning Comments: CM MET WITH PATIENT AND SPOUSE (VIKI) REGARDING D/C NEEDS AND PLANS. PATIENT STATED THERE ARE 2 STEPS TO ENTER HER HOME AND NO STAIRS INSIDE. PATIENTS SPOUSE WILL DRIVE HER HOME AT DISCHARGE. PATIENT STATED HER PCP IS DR. NEW AND PHARMACY IS [email or web address]. PATIENT HAS A WALKER, WHEELCHAIR, SHOWER CHAIR, BEDSIDE COMMODE, AND O2 HS AND PRN AT HOME. [facility] SUPPLIES THE OXYGEN. NURSE NOTIFIED OF O2 NEEDS. PATIENT STATED SHE HAS AREA AGENCY ON AGING STARTING AT DISCHARGE. PATIENT REFUSED HOME HEALTH. CM WILL CONTINUE TO FOLLOW PATIENT WITH D/C NEEDS AND PLANS. PATIENT HAS A NEW ADDRESS [address] [place] [address] [facility] (SPOUSE) [phone] Campground Attendant: Tayler Mena DCP- Discharge Planning Updated by [id number]: Jessica Gooden on 08/25/18 4:[address] Patient's called and reported the electricity has been reconnected. Jsesica Gooden RN, CM DCP- Discharge Planning Updated by [email or web address]: Jessica Giacomo on 08/25/18 10:[address] CM met with patient regarding dc needs/plans. Patient is alert/co-operative and is in agreement with dc planning. Patient lives w/her spouse, Viki Wells ([phone]). PCP: Dr. Alphonso Alfonso (Medicaid). Pharmacy: [facility] [employer]. Other services in the home: [facility] Agency on Aging aide, 2 H/D, 3 D/W. Patient requires assistance w/bathing, dressing, ambulation. DME: O2 @HS, Nebulizer, Shower chair, BSC, Pull bar on bathtub, manual W/C, cane. Patient states she does not use her cane, she "holds onto the wall to ambulate or uses the w/c." Patient presented to ER with statement that her electricity had been turned off and is unable to use her O2. Per patient report, she forgot to pay the bill. Per patient report, AAA paid all of the electricity bill 08/24 except the reconnect fee. Spouse paid the reconnect fee this morning. CM spoke with Mr. Wells who informs CM that the electricity will be reconnected before 5 pm today. CM attempted to speak with [employer] sales representative aircraft, but was unable to reach a person. CM request spouse to call ER and ask for CM when his electricity has been reconnected and he voices understanding. CM will continue to follow and assist as needed. Jessica Gooden RN, CM DCPIA - Discharge Planning Initial Assessment Updated by [id number]: Jessica Giacomo on 08/25/18 11:45 am * Is the patient Alert and Oriented? Yes * PCP Dr. Alphonso Alfonso edicaid) nancy New * Pharmacy [facility] * Preadmission Environment Home with Family * ADLs Partial Dependent * Partial ADLs (Assistance needed) Ambulation Bathing Dressing * Equipment Bedside Commode Cane Grab Bars Nebulizer Oxygen Rolling Walker Shower Chair Wheelchair * Other Equipment NA * List name and contact numbers for known caregivers / representatives who currently or will assist patient after discharge: Viki Wells %[phone] * Verbal permission to speak to the caregivers and representatives has been obtained from the patient. Yes * Community resources currently utilized Private Duty Care * Please name any agencies selected above. [employer] 2/H/ 3days/W aide assist with bathing, dressing, light house work. * Additional services required to return to the preadmission environment? No * Can the patient safely return to the preadmission environment? Yes * Has this patient been hospitalized within the prior 30 days at any hospital? No Last DP export: 08/25/18 5:32 Patient Name: RONEN WELLS Page 91315 at 1557 All edits/amendments must be made on the electronic document DICTATION DATE: 08/26/181558 CORPORATE STRATEGY ASSOCIATE: RAN 08/26/185 RPT#: [id number] DC DATE:08/26/18 STATUS: DIS IN [facility] [address] [place] [address] END OF REPORT
--- NOTE | ~2018-08-24 | MORECARE ---
CASE MANAGEMENT DISCHARGE SUMMARY PATIENT: RONEN WELLS UNIT: [id number] ADM DATE: 08/25/18 AGE: 63 : 57 SEX: F ROOM/BED: D.1206 AUTHOR: YONATAN NEW PHYSICIAN: REFERRING PHYSICIAN: RADAMES COLLINS MD DATE OF SERVICE: 08/25/18 Discharge Plan Patient Name: RONEN WELLS Facility: [facility]:[place] : 1955 Planned Disposition: Home Anticipated Discharge Date: 08/27/18 Discharge Date: Expected LOS: 2 Initial Reviewer: [email or web address] Initial Review Date: 08/25/2018 Generated: 08/25/18 7:32 pm Comments DCP- Discharge Planning Updated by [email or web address]: Tayler Mena on 08/25/18 5:[address] Patient Name: RONEN WELLS Admission Status: ER Accout number: [id number] Admission Date: 08-25-2018 : 1955 Admission Diagnosis: Attending: RADAMES COLLINS Current LOS: 1 Anticipated DC Date: 08-27-2018 Planned Disposition: Home Primary Insurance: MEDICAID [place] Discharge Planning Comments: CM MET WITH PATIENT AND SPOUSE (VIKI) REGARDING D/C NEEDS AND PLANS. PATIENT STATED THERE ARE 2 STEPS TO ENTER HER HOME AND NO STAIRS INSIDE. PATIENTS SPOUSE WILL DRIVE HER HOME AT DISCHARGE. PATIENT STATED HER PCP IS DR. NEW AND PHARMACY IS [facility]. PATIENT HAS A WALKER, WHEELCHAIR, SHOWER CHAIR, BEDSIDE COMMODE, AND O2 HS AND PRN AT HOME. [facility] SUPPLIES THE OXYGEN. NURSE NOTIFIED OF O2 NEEDS. PATIENT STATED SHE HAS AREA AGENCY ON AGING STARTING AT DISCHARGE. PATIENT REFUSED HOME HEALTH. CM WILL CONTINUE TO FOLLOW PATIENT WITH D/C NEEDS AND PLANS. PATIENT HAS A NEW ADDRESS [address] [place] [address] [facility] [employer] [place] (SPOUSE) [phone] Electrical Installation Supervisor: Tayler Mena DCP- Discharge Planning Updated by [email or web address]: Jessica Gooden on 08/25/18 4:[address] Patient's called and reported the electricity has been reconnected. Jessica Gooden RN, CM DCP- Discharge Planning Updated by [email or web address]: Jessica Gooden on 08/25/18 10:[address] CM met with patient regarding dc needs/plans. Patient is alert/co-operative and is in agreement with dc planning. Patient lives w/her spouse, Viki Wells ([phone]). PCP: Dr. Alphonso Alfonso (Medicaid). Pharmacy: [facility] [place] [facility] [employer]. Other services in the home: [facility] Agency on Aging aide, 2 H/D, 3 D/W. Patient requires assistance w/bathing, dressing, ambulation. DME: O2 @HS, Nebulizer, Shower chair, BSC, Pull bar on bathtub, manual W/C, cane. Patient states she does not use her cane, she "holds onto the wall to ambulate or uses the w/c." Patient presented to ER with statement that her electricity had been turned off and is unable to use her O2. Per patient report, she forgot to pay the bill. Per patient report, AAA paid all of the electricity bill 08/24 except the reconnect fee. Spouse paid the reconnect fee this morning. CM spoke with Mr. Wells who informs CM that the electricity will be reconnected before 5 pm today. CM attempted to speak with [employer] billing representative, but was unable to reach a person. CM request spouse to call ER and ask for CM when his electricity has been reconnected and he voices understanding. CM will continue to follow and assist as needed. Jessica Gooden RN CM DCPIA - Discharge Planning Initial Assessment Updated by [email or web address]: Jessica Gooden on 08/25/18 11:45 am * Is the patient Alert and Oriented? Yes * PCP Dr. Alphonso Alfonso edicaid) nancy New * [facility] * Preadmission Environment Home with Family * ADLs Partial Dependent * Partial ADLs (Assistance needed) Ambulation Bathing Dressing * Equipment Bedside Commode Cane Grab Bars Nebulizer Oxygen Rolling Walker Shower Chair Wheelchair * Other Equipment NA * List name and contact numbers for known caregivers / representatives who currently or will assist patient after discharge: Viki Wells %[phone] * Verbal permission to speak to the caregivers and representatives has been obtained from the patient. Yes * Community resources currently utilized Private Duty Care * Please name any agencies selected above. AAA 2/H/ 3days/W aide assist with bathing, dressing, light house work. * Additional services required to return to the preadmission environment? No * Can the patient safely return to the preadmission environment? Yes * Has this patient been hospitalized within the prior 30 days at any hospital? No Last DP export: 08/25/18 4:26 Patient Name: RONEN WELLS Page 61841 at 1833 All edits/amendments must be made on the electronic document DICTATION DATE: 08/25/181831 BASKET BOTTOM MACHINE OPERATOR: RAN 08/25/181831 RPT#: [id number] DC DATE: STATUS: ADM IN [facility] [address] [place] [address] END OF REPORT
[~2018-08-24 19:45] MED LIST changes: +TESSALON PERLE100 MG PO
[2018-08-24 21:59] LABS: ALBUMIN 3.2 g/dL (3.4-5.0); ALKALINE PHOSPHATASE 161 U/L (46-116); ALT (SGPT) 18 U/L (10-68); BILIRUBIN - TOTAL 0.41 mg/dL (0.2-1.3); CALC OSMOLALITY 282 mosm/kg (275-300); CARBON DIOXIDE 27.3 mmol/L (21.0-32.0); CHLORIDE - SERUM 101 mmol/L (98-107); CREATININE - SERUM 0.7 mg/dL (0.6-1.3); POTASSIUM - SERUM 3.4 mmol/L (3.5-5.1); PROTEIN - SERUM 7.7 g/dL (6.4-8.2); SODIUM 140 mmol/L (136-145); UREA NITROGEN 8 mg/dL (7-18); eGFR NON AFRICAN AMERICAN 90 mL/min (90-120)
[2018-08-24 22:08] LABS: BASOPHILS 0.2 % (0-2); GLUCOSE 204 mg/dL (74-106); HEMATOCRIT 35.3 % (36.0-48.0); HEMOGLOBIN 10.9 g/dL (12-16); IMMATURE GRANULOCYTES 0.4 % (0-5); LYMPHOCYTES 25.1 % (15-50); MCH 23.4 pg (26.0-34.0); MCHC 30.9 g/dL (31.0-37.0); MCV 75.8 fL (80.0-100.0); MEAN PLATELET VOLUME 9.5 fL (7.4-10.4); MONOCYTES 5.1 % (2-11); NEUTROPHILS 66.2 % (40-80); PLATELET COUNT 228 10x3/uL (130-400); RBC 4.66 10x6/uL (4.00-5.40); RDW 16.9 % (11.5-14.5); WBC 9.2 10x3/uL (4.8-10.8)
[2018-08-24 22:10] LABS: CKMB 0.1 U/L (0.0-3.6); CREATINE KINASE 11 UL (21-215); TROPONIN-I < 0.017 ng/mL (0.000-0.060)
[2018-08-25 03:14] VITALS: BP 146/71
[2018-08-25 05:46] VITALS: BP 147/91
[2018-08-25 13:12] VITALS: BP 151/84; BMI 41.1
[2018-08-25 14:33] VITALS: Ht 165.1 cm; Wt 112.0 kg
[2018-08-25 20:00] VITALS: BP 134/76
[2018-08-26] VITALS: BP 100/46
[2018-08-26 02:21] VITALS: BP 112/57
[2018-08-26 02:51] LABS: APPEARANCE HAZY (CLEAR); BILIRUBIN NEGATIVE (NEGATIVE); COLOR YELLOW (YELLOW); GLUCOSE NEGATIVE (NEGATIVE); KETONE NEGATIVE (NEGATIVE); NITRITE POSITIVE (NEGATIVE); PROTEIN NEGATIVE (NEGATIVE); UROBILINOGEN NORMAL (NORMAL)
[2018-08-26 02:53] LABS: BACTERIA MANY /hpf (NONE SEEN); EPITHELIAL CELLS 0-5 /hpf (0-5); RED CELLS - URINE 0-5 /hpf (0-5); YEAST <1+ /hpf (NONE SEEN)
[2018-08-26 04:00] VITALS: BP 93/49
[2018-08-26 06:15] LABS: BASOPHILS 0.1 % (0-2); HEMATOCRIT 32.8 % (36.0-48.0); HEMOGLOBIN 9.8 g/dL (12-16); IMMATURE GRANULOCYTES 0.7 % (0-5); LYMPHOCYTES 24.3 % (15-50); MCH 23.1 pg (26.0-34.0); MCHC 29.9 g/dL (31.0-37.0); MCV 77.2 fL (80.0-100.0); MEAN PLATELET VOLUME 9.5 fL (7.4-10.4); MONOCYTES 6.7 % (2-11); NEUTROPHILS 65.2 % (40-80); PLATELET COUNT 215 10x3/uL (130-400); RBC 4.25 10x6/uL (4.00-5.40); RDW 17.1 % (11.5-14.5); WBC 7.3 10x3/uL (4.8-10.8)
[2018-08-26 06:27] LABS: ANION GAP 12.8 mmol/L (8-16); CALCIUM 8.6 mg/dL (8.5-10.1); CARBON DIOXIDE 28.8 mmol/L (21.0-32.0); POTASSIUM - SERUM 3.6 mmol/L (3.5-5.1)
[2018-08-26 09:17] VITALS: BP 123/54
[2018-08-26] MEDS ORDERED: BACTRIM DS PO (10:55)
[2018-08-26] MEDS ORDERED: BACTRIM DS1 TAB PO (10:58)
== END 2018-08-26 13:33 | disposition home or self-care (01) | DRG 189 ==
LOC: D.ER 19:45 → D.EDHOLD 22:54 → OBSVTIME 22:54 → D.EDHOLD 22:54 → D.M3 08-25 12:47
PROVIDERS: Family Medicine; Internal Medicine Nephrology
DX: J96.21 Acute and chronic respiratory failure with hypoxia (principal); J44.1 Chronic obstructive pulmonary disease with (acute) exacerbation; N39.0 Urinary tract infection, site not specified; G43.909 Migraine, unspecified, not intractable, without status migrainosus; D50.9 Iron deficiency anemia, unspecified; F32.9 Major depressive disorder, single episode, unspecified; F41.9 Anxiety disorder, unspecified; K21.9 Gastro-esophageal reflux disease without esophagitis; I25.10 Atherosclerotic heart disease of native coronary artery without angina pectoris; I10 Essential (primary) hypertension; E78.5 Hyperlipidemia, unspecified; E11.9 Type 2 diabetes mellitus without complications; Z86.73 Personal history of transient ischemic attack (TIA), and cerebral infarction without residual deficits

== ENCOUNTER 2018-09-06 15:33 | Emergency (ER) | payer MEDICAID ==
[~2018-09-06] VITALS: Ht 165.1 cm; Wt 113.6 kg
[~2018-09-06 15:33] MED LIST changes: +BACTRIM DS PO; +BACTRIM DS1 TAB PO
[2018-09-06 15:36] VITALS: Ht 165.1 cm; Wt 113.6 kg
[2018-09-06 16:17] LABS: BASOPHILS 0.2 % (0-2); EOSINOPHILS 2.4 % (0-7); HEMATOCRIT 37.2 % (36.0-48.0); HEMOGLOBIN 11.3 g/dL (12-16); IMMATURE GRANULOCYTES 0.7 % (0-5); LYMPHOCYTES 21.7 % (15-50); MCH 23.4 pg (26.0-34.0); MCHC 30.4 g/dL (31.0-37.0); MCV 77.2 fL (80.0-100.0); MEAN PLATELET VOLUME 9.6 fL (7.4-10.4); PLATELET COUNT 197 10x3/uL (130-400); RBC 4.82 10x6/uL (4.00-5.40); RDW 16.8 % (11.5-14.5); WBC 8.4 10x3/uL (4.8-10.8)
[2018-09-06 16:35] LABS: APTT 25.2 SECONDS (22.8-39.4); PROTIME 12.7 SECONDS (11.6-15.0)
[2018-09-06 16:37] LABS: D-DIMER-QUANTITATIVE < 0.27 ug/mLFEU (0.20-0.54)
[2018-09-06 16:42] LABS: ALKALINE PHOSPHATASE 183 U/L (46-116); ALT (SGPT) 23 U/L (10-68); BILIRUBIN - TOTAL 0.27 mg/dL (0.2-1.3); CARBON DIOXIDE 23.2 mmol/L (21.0-32.0); CHLORIDE - SERUM 98 mmol/L (98-107); CREATINE KINASE 17 UL (21-215); CREATININE - SERUM 0.9 mg/dL (0.6-1.3); POTASSIUM - SERUM 3.8 mmol/L (3.5-5.1); PRO BNP 16 pg/mL (0-125); PROTEIN - SERUM 7.2 g/dL (6.4-8.2); SODIUM 133 mmol/L (136-145); UREA NITROGEN 14 mg/dL (7-18); eGFR NON AFRICAN AMERICAN 67 mL/min (90-120)
[2018-09-06 16:52] LABS: CALC OSMOLALITY 287 mosm/kg (275-300); GLUCOSE 475 mg/dL (74-106); TROPONIN-I < 0.017 ng/mL (0.000-0.060)
[2018-09-06 20:36] VITALS: BP 107/58
== END 2018-09-06 20:37 | disposition home or self-care (01) ==
LOC: D.ER 15:33
PROVIDERS: Emergency Medicine
DX: R06.02 Shortness of breath (principal); J44.9 Chronic obstructive pulmonary disease, unspecified; E11.65 Type 2 diabetes mellitus with hyperglycemia; I10 Essential (primary) hypertension

== ENCOUNTER 2018-09-17 19:13 | Emergency (ER) | payer MEDICAID ==
[~2018-09-17] VITALS: Ht 165.1 cm; Wt 109.1 kg
[2018-09-17 19:38] VITALS: Ht 165.1 cm; Wt 109.1 kg
[2018-09-17 20:12] LABS: BASOPHILS 0.3 % (0-2); EOSINOPHILS 2.8 % (0-7); HEMATOCRIT 36.8 % (36.0-48.0); HEMOGLOBIN 11.5 g/dL (12-16); IMMATURE GRANULOCYTES 0.5 % (0-5); LYMPHOCYTES 29.2 % (15-50); MCHC 31.3 g/dL (31.0-37.0); MCV 76.8 fL (80.0-100.0); MEAN PLATELET VOLUME 9.1 fL (7.4-10.4); MONOCYTES 6.5 % (2-11); NEUTROPHILS 60.7 % (40-80); PLATELET COUNT 213 10x3/uL (130-400); RBC 4.79 10x6/uL (4.00-5.40); WBC 7.8 10x3/uL (4.8-10.8)
[2018-09-17 20:41] LABS: ALBUMIN 3.2 g/dL (3.4-5.0); ALKALINE PHOSPHATASE 221 U/L (46-116); ALT (SGPT) 36 U/L (10-68); BILIRUBIN - TOTAL 0.19 mg/dL (0.2-1.3); CALCIUM 8.9 mg/dL (8.5-10.1); CARBON DIOXIDE 27.6 mmol/L (21.0-32.0); CHLORIDE - SERUM 100 mmol/L (98-107); CREATINE KINASE 18 UL (21-215); CREATININE - SERUM 0.9 mg/dL (0.6-1.3); MAGNESIUM - SERUM 1.9 mg/dL (1.8-2.4); POTASSIUM - SERUM 4.2 mmol/L (3.5-5.1); PROTEIN - SERUM 7.7 g/dL (6.4-8.2); SODIUM 136 mmol/L (136-145); UREA NITROGEN 9 mg/dL (7-18); eGFR NON AFRICAN AMERICAN 67 mL/min (90-120)
[2018-09-17 20:42] LABS: CALC OSMOLALITY 291 mosm/kg (275-300); GLUCOSE 480 mg/dL (74-106); TROPONIN-I < 0.017 ng/mL (0.000-0.060)
[2018-09-17 21:05] LABS: APTT 25.7 SECONDS (22.8-39.4)
[2018-09-17 21:06] LABS: INR 0.92 (0.85-1.17); PROTIME 11.9 SECONDS (11.6-15.0)
[2018-09-17] MEDS ORDERED: OMEPRAZOLE40 MG PO (21:27)
[2018-09-17 22:00] VITALS: BP 164/91
[2018-10-05] MEDS ORDERED: HUMALOG MIX 75/10 ML SC (01:19)
== END 2018-09-17 22:00 | disposition home or self-care (01) ==
LOC: D.ER 19:13
PROVIDERS: Family Medicine
DX: K21.9 Gastro-esophageal reflux disease without esophagitis (principal); J44.9 Chronic obstructive pulmonary disease, unspecified; E11.9 Type 2 diabetes mellitus without complications; I10 Essential (primary) hypertension

== ENCOUNTER 2018-09-22 21:59 | Emergency (ER) | payer MEDICAID ==
[~2018-09-22] VITALS: Ht 165.1 cm; Wt 109.1 kg
[~2018-09-22 21:59] MED LIST changes: +OMEPRAZOLE40 MG PO
[2018-09-22 22:20] VITALS: Ht 165.1 cm; Wt 109.1 kg
[2018-09-22 22:53] LABS: BASOPHILS 0.1 % (0-2); EOSINOPHILS 2.6 % (0-7); HEMATOCRIT 36.7 % (36.0-48.0); HEMOGLOBIN 11.6 g/dL (12-16); IMMATURE GRANULOCYTES 0.4 % (0-5); LYMPHOCYTES 27.1 % (15-50); MCH 24.1 pg (26.0-34.0); MCHC 31.6 g/dL (31.0-37.0); MCV 76.1 fL (80.0-100.0); MEAN PLATELET VOLUME 9.3 fL (7.4-10.4); MONOCYTES 4.1 % (2-11); NEUTROPHILS 65.7 % (40-80); PLATELET COUNT 225 10x3/uL (130-400); RBC 4.82 10x6/uL (4.00-5.40); RDW 16.9 % (11.5-14.5)
[2018-09-22 23:02] LABS: ALBUMIN 3.1 g/dL (3.4-5.0); ANION GAP 15.1 mmol/L (8-16); BILIRUBIN - TOTAL 0.23 mg/dL (0.2-1.3); CALCIUM 8.7 mg/dL (8.5-10.1); CARBON DIOXIDE 26.6 mmol/L (21.0-32.0); POTASSIUM - SERUM 3.7 mmol/L (3.5-5.1); PROTEIN - SERUM 7.3 g/dL (6.4-8.2)
[2018-10-05] MEDS ORDERED: HUMALOG MIX 75/10 ML SC (01:19)
== END 2018-09-22 23:26 | disposition left against medical advice (07) ==
LOC: D.ER 21:59
PROVIDERS: Family Medicine
DX: R10.9 Unspecified abdominal pain (principal); R19.5 Other fecal abnormalities; E11.9 Type 2 diabetes mellitus without complications; I10 Essential (primary) hypertension; J44.9 Chronic obstructive pulmonary disease, unspecified

== ENCOUNTER 2018-10-05 01:10 | Emergency (ER) | payer MEDICAID ==
[~2018-10-05] VITALS: Ht 165.1 cm; Wt 109.1 kg
[2018-10-05 01:15] VITALS: Ht 165.1 cm; Wt 109.1 kg
[2018-10-05] MEDS ORDERED: EFFEXOR XR150 MG PO (01:18)
[2018-10-05] MEDS ORDERED: HUMALOG 30100 UNITS/ SC (01:19)
[2018-10-05 02:09] LABS: BASOPHILS 0.1 % (0-2); EOSINOPHILS 2.3 % (0-7); HEMATOCRIT 36.4 % (36.0-48.0); HEMOGLOBIN 11.5 g/dL (12-16); IMMATURE GRANULOCYTES 0.6 % (0-5); MCH 23.8 pg (26.0-34.0); MCHC 31.6 g/dL (31.0-37.0); MCV 75.2 fL (80.0-100.0); MEAN PLATELET VOLUME 9.1 fL (7.4-10.4); MONOCYTES 4.9 % (2-11); NEUTROPHILS 68.1 % (40-80); PLATELET COUNT 225 10x3/uL (130-400); RBC 4.84 10x6/uL (4.00-5.40); RDW 16.2 % (11.5-14.5); WBC 8.3 10x3/uL (4.8-10.8)
[2018-10-05 02:16] LABS: ALBUMIN 3.1 g/dL (3.4-5.0); ANION GAP 15.9 mmol/L (8-16); BILIRUBIN - TOTAL 0.4 mg/dL (0.2-1.3); CALCIUM 8.2 mg/dL (8.5-10.1); CARBON DIOXIDE 24.1 mmol/L (21.0-32.0); CREATININE - SERUM 0.9 mg/dL (0.6-1.3); PROTEIN - SERUM 7.2 g/dL (6.4-8.2)
[2018-10-05 02:18] LABS: APPEARANCE HAZY (CLEAR); BILIRUBIN NEGATIVE (NEGATIVE); COLOR YELLOW (YELLOW); GLUCOSE 1000 mg/dL (NEGATIVE); KETONE NEGATIVE (NEGATIVE); NITRITE NEGATIVE (NEGATIVE); PROTEIN TRACE mg/dL (NEGATIVE); UROBILINOGEN NORMAL (NORMAL)
[2018-10-05 02:20] LABS: BACTERIA MODERATE /hpf (NONE SEEN); EPITHELIAL CELLS 0-5 /hpf (0-5); RED CELLS - URINE 0-5 /hpf (0-5); YEAST <1+ /hpf (NONE SEEN)
[2018-10-05] MEDS ORDERED: MACROBID100 MG PO (02:38)
[2018-10-05] MEDS ORDERED: PHENERGAN25 M1 PO (02:38)
[2018-10-05] MEDS ORDERED: IMODIUM2 MG PO (03:05)
[2018-10-05] MEDS ORDERED: K-DUR20 MEQ PO (03:20)
[2018-10-05 04:00] VITALS: BP 148/79
== END 2018-10-05 04:00 | disposition home or self-care (01) ==
LOC: D.ER 01:10
PROVIDERS: Emergency Medicine
DX: K52.9 Noninfective gastroenteritis and colitis, unspecified (principal); R10.9 Unspecified abdominal pain; N30.90 Cystitis, unspecified without hematuria; K44.9 Diaphragmatic hernia without obstruction or gangrene; E87.6 Hypokalemia; E11.65 Type 2 diabetes mellitus with hyperglycemia; Z79.4 Long term (current) use of insulin; I10 Essential (primary) hypertension

== ENCOUNTER 2018-10-11 19:36 | Emergency (ER) | payer MEDICAID ==
[~2018-10-11] VITALS: Ht 165.1 cm; Wt 109.1 kg
[~2018-10-11 19:36] MED LIST changes: +HUMALOG 30100 UNITS/ SC; +IMODIUM2 MG PO; +K-DUR20 MEQ PO; +PHENERGAN25 M1 PO
[2018-10-11 19:55] VITALS: Ht 165.1 cm; Wt 109.1 kg
[2018-10-11 21:14] LABS: BASOPHILS 0.1 % (0-2); EOSINOPHILS 2.6 % (0-7); HEMATOCRIT 34.7 % (36.0-48.0); HEMOGLOBIN 10.7 g/dL (12-16); IMMATURE GRANULOCYTES 0.7 % (0-5); LYMPHOCYTES 28.9 % (15-50); MCH 23.4 pg (26.0-34.0); MCHC 30.8 g/dL (31.0-37.0); MCV 75.9 fL (80.0-100.0); MEAN PLATELET VOLUME 8.5 fL (7.4-10.4); MONOCYTES 6.5 % (2-11); NEUTROPHILS 61.2 % (40-80); PLATELET COUNT 202 10x3/uL (130-400); RBC 4.57 10x6/uL (4.00-5.40); RDW 16.6 % (11.5-14.5); WBC 8.4 10x3/uL (4.8-10.8)
[2018-10-11 21:33] LABS: ALBUMIN 2.9 g/dL (3.4-5.0); ALKALINE PHOSPHATASE 154 U/L (46-116); ALT (SGPT) 24 U/L (10-68); BILIRUBIN - TOTAL 0.23 mg/dL (0.2-1.3); CALC OSMOLALITY 283 mosm/kg (275-300); CALCIUM 8.4 mg/dL (8.5-10.1); CARBON DIOXIDE 28.5 mmol/L (21.0-32.0); CHLORIDE - SERUM 103 mmol/L (98-107); CREATININE - SERUM 0.8 mg/dL (0.6-1.3); POTASSIUM - SERUM 3.2 mmol/L (3.5-5.1); PROTEIN - SERUM 6.9 g/dL (6.4-8.2); SODIUM 141 mmol/L (136-145); UREA NITROGEN 9 mg/dL (7-18); eGFR NON AFRICAN AMERICAN 77 mL/min (90-120)
[2018-10-11 21:39] LABS: GLUCOSE 165 mg/dL (74-106)
[2018-10-11 21:43] LABS: APPEARANCE CLOUDY (CLEAR); COLOR YELLOW (YELLOW)
[2018-10-11 21:43] LABS: AMYLASE - SERUM 25 U/L (25-115); LIPASE 70 U/L (73-393); TROPONIN-I < 0.017 ng/mL (0.000-0.060)
[2018-10-11 21:44] LABS: BILIRUBIN NEGATIVE (NEGATIVE); GLUCOSE 50 mg/dL (NEGATIVE); KETONE NEGATIVE (NEGATIVE); NITRITE NEGATIVE (NEGATIVE); PROTEIN NEGATIVE (NEGATIVE); UROBILINOGEN NORMAL (NORMAL)
[2018-10-11 21:45] LABS: RED CELLS - URINE 0-5 /hpf (0-5); WHITE CELLS - URINE 0-5 /hpf (0-5)
[2018-10-11 21:46] LABS: AMORPHOUS SEDIMENT <1+ /lpf (NONE SEEN); BACTERIA MODERATE /hpf (NONE SEEN); EPITHELIAL CELLS 0-5 /hpf (0-5); YEAST >1+ /hpf (NONE SEEN)
[2018-10-11] MEDS ORDERED: TORADOL10 MG PO (23:30)
[2018-10-12 00:11] VITALS: BP 134/79
== END 2018-10-12 00:08 | disposition home or self-care (01) ==
LOC: D.ER 19:36
PROVIDERS: Family Medicine
DX: R11.2 Nausea with vomiting, unspecified (principal); E87.6 Hypokalemia; R10.32 Left lower quadrant pain; N13.30 Unspecified hydronephrosis

== ENCOUNTER 2018-10-29 21:44 | Emergency (ER) | payer MEDICAID ==
[~2018-10-29] VITALS: Ht 165.1 cm; Wt 109.5 kg
[~2018-10-29 21:44] MED LIST changes: +TORADOL10 MG PO
[2018-10-29 21:50] VITALS: Ht 165.1 cm; Wt 109.5 kg
[2018-10-29 22:33] LABS: BASOPHILS 0.2 % (0-2); EOSINOPHILS 3.8 % (0-7); HEMATOCRIT 35.8 % (36.0-48.0); IMMATURE GRANULOCYTES 0.6 % (0-5); LYMPHOCYTES 24.5 % (15-50); MCH 23.5 pg (26.0-34.0); MCHC 30.7 g/dL (31.0-37.0); MCV 76.3 fL (80.0-100.0); MEAN PLATELET VOLUME 9.3 fL (7.4-10.4); MONOCYTES 5.3 % (2-11); NEUTROPHILS 65.6 % (40-80); PLATELET COUNT 185 10x3/uL (130-400); RBC 4.69 10x6/uL (4.00-5.40); RDW 16.5 % (11.5-14.5); WBC 8.2 10x3/uL (4.8-10.8)
[2018-10-29 22:48] LABS: INR 1.01 (0.85-1.17); PROTIME 12.8 SECONDS (11.6-15.0)
[2018-10-29 22:49] LABS: D-DIMER-QUANTITATIVE 0.31 ug/mLFEU (0.20-0.54)
[2018-10-29 22:54] LABS: ALBUMIN 2.9 g/dL (3.4-5.0); ALKALINE PHOSPHATASE 167 U/L (46-116); ALT (SGPT) 18 U/L (10-68); BILIRUBIN - TOTAL 0.27 mg/dL (0.2-1.3); CALC OSMOLALITY 284 mosm/kg (275-300); CALCIUM 8.4 mg/dL (8.5-10.1); CARBON DIOXIDE 27.9 mmol/L (21.0-32.0); CHLORIDE - SERUM 100 mmol/L (98-107); CREATININE - SERUM 1.1 mg/dL (0.6-1.3); POTASSIUM - SERUM 3.6 mmol/L (3.5-5.1); PROTEIN - SERUM 7.2 g/dL (6.4-8.2); SODIUM 138 mmol/L (136-145); UREA NITROGEN 9 mg/dL (7-18); eGFR NON AFRICAN AMERICAN 53 mL/min (90-120)
[2018-10-29 22:55] LABS: GLUCOSE 284 mg/dL (74-106)
[2018-10-29 23:05] LABS: CREATINE KINASE 21 UL (21-215)
[2018-10-29 23:11] LABS: TROPONIN-I < 0.017 ng/mL (0.000-0.060)
[2018-10-29 23:58] LABS: CKMB 0.3 U/L (0.0-3.6)
[2018-10-30 00:47] VITALS: BP 132/66
== END 2018-10-30 00:49 | disposition home or self-care (01) ==
LOC: D.ER 21:44
PROVIDERS: Family Medicine
DX: R06.02 Shortness of breath (principal); R07.9 Chest pain, unspecified; M54.9 Dorsalgia, unspecified; E11.9 Type 2 diabetes mellitus without complications; I10 Essential (primary) hypertension

== ENCOUNTER 2018-11-02 20:25 | Observation (INO) | payer MEDICAID ==
[~2018-11-02] VITALS: Ht 165.1 cm; Wt 55.1 kg
[2018-11-02 21:44] LABS: BASOPHILS 0.1 % (0-2); HEMATOCRIT 35.8 % (36.0-48.0); HEMOGLOBIN 11.2 g/dL (12-16); IMMATURE GRANULOCYTES 0.8 % (0-5); LYMPHOCYTES 22.9 % (15-50); MCH 23.6 pg (26.0-34.0); MCHC 31.3 g/dL (31.0-37.0); MCV 75.4 fL (80.0-100.0); MEAN PLATELET VOLUME 8.7 fL (7.4-10.4); MONOCYTES 5.4 % (2-11); NEUTROPHILS 66.8 % (40-80); PLATELET COUNT 184 10x3/uL (130-400); RBC 4.75 10x6/uL (4.00-5.40); RDW 16.1 % (11.5-14.5); WBC 7.8 10x3/uL (4.8-10.8)
--- NOTE | 2018-11-02 21:53 | NUR ---
PT GIVEN ICE WATER TO DRINK.
[2018-11-02 21:57] LABS: KETONE - SERUM NEGATIVE (NEGATIVE)
[2018-11-02 22:20] LABS: ALKALINE PHOSPHATASE 163 U/L (46-116); ALT (SGPT) 18 U/L (10-68); BILIRUBIN - TOTAL 0.24 mg/dL (0.2-1.3); CALCIUM 8.7 mg/dL (8.5-10.1); CARBON DIOXIDE 29.6 mmol/L (21.0-32.0); CHLORIDE - SERUM 97 mmol/L (98-107); CKMB 0.1 U/L (0.0-3.6); CREATINE KINASE 17 UL (21-215); CREATININE - SERUM 0.9 mg/dL (0.6-1.3); MAGNESIUM - SERUM 1.7 mg/dL (1.8-2.4); PROTEIN - SERUM 7.2 g/dL (6.4-8.2); SODIUM 136 mmol/L (136-145); TROPONIN-I < 0.017 ng/mL (0.000-0.060); UREA NITROGEN 8 mg/dL (7-18); eGFR NON AFRICAN AMERICAN 67 mL/min (90-120)
[2018-11-02 22:21] LABS: CALC OSMOLALITY 287 mosm/kg (275-300)
[2018-11-02 22:23] LABS: GLUCOSE 415 mg/dL (74-106)
[2018-11-02 22:24] LABS: POTASSIUM - SERUM 2.9 mmol/L (3.5-5.1)
[2018-11-03] VITALS (7 sets, daily range): BP systolic 136–161; BP diastolic 61–80; Ht 165.1 cm; Wt 55.1 kg
--- NOTE | 2018-11-03 00:07 | NUR ---
PT'S IV ANTIBIOTIC ROCEPHIN FINISHED.
--- NOTE | 2018-11-03 01:30 | NUR ---
PT ADMIT HISTORY, PHARMACY AND [facility]REC COMPLETE. ADMIT ASSESSMENT DONE. PT IS AAO, GLASSES ON. RIGHT AC 20G WITH 40MEQ KCL AND NS INFUSING AT 125. PT COMPLAINS OF PAIN. NORCO GIVEN, PT STATES SHE WEARS 2L O2 AT HOME, 2L O2 NC GIVEN. PT S1S2 RRR, LUNGS DIMINISHED. PT STATES SOB AND COUGHING THAT IS PRODUCTIVE AT TIMES. UNKNOWN COLOR OF SPUTUM. PT BEDLOW AND CALL LIGHT IN REACH. NAME AND DATE PLACED ON BOARD. WILL CPOC
--- NOTE | 2018-11-03 01:54 | NUR ---
PT REFUSED TELEMETRY STATES SHE IS HERE FOR RESP NOT HEART. RETURNED TO JOINERY FACTORY WORKER
[2018-11-03 06:53] LABS: CALCIUM 7.8 mg/dL (8.5-10.1); CARBON DIOXIDE 25.5 mmol/L (21.0-32.0); CHLORIDE - SERUM 104 mmol/L (98-107); MAGNESIUM - SERUM 1.6 mg/dL (1.8-2.4); POTASSIUM - SERUM 3.3 mmol/L (3.5-5.1); SODIUM 140 mmol/L (136-145); UREA NITROGEN 8 mg/dL (7-18)
[2018-11-03 06:56] LABS: CALC OSMOLALITY 286 mosm/kg (275-300); CREATININE - SERUM 0.6 mg/dL (0.6-1.3); GLUCOSE 277 mg/dL (74-106); eGFR NON AFRICAN AMERICAN > 90 mL/min (90-120)
[2018-11-03 07:05] LABS: BASOPHILS 0.1 % (0-2); HEMATOCRIT 31.9 % (36.0-48.0); HEMOGLOBIN 9.9 g/dL (12-16); IMMATURE GRANULOCYTES 0.5 % (0-5); LYMPHOCYTES 27.1 % (15-50); MCH 23.3 pg (26.0-34.0); MCV 75.1 fL (80.0-100.0); MEAN PLATELET VOLUME 9.6 fL (7.4-10.4); MONOCYTES 6.2 % (2-11); NEUTROPHILS 62.1 % (40-80); RBC 4.25 10x6/uL (4.00-5.40); RDW 16.2 % (11.5-14.5); WBC 7.8 10x3/uL (4.8-10.8)
[2018-11-03 07:07] LABS: PLATELET COUNT 142 10x3/uL (130-400)
--- NOTE | 2018-11-03 07:28 | NUR ---
PT FSBS IS 277 10 UNITS GIVEN ORDERED
--- NOTE | 2018-11-03 07:40 | NUR ---
REPORT RECEIVED. WILL CONTINUE WITH POC. PT CURRENTLY LYING SUPINE. CALL LIGHT W/I REACH. PT IS AAO AND UP AD NAYELI. RR EVEN AND UNLABORED ON 2L 02. 40MEQ OF POTASSIUM NS INFUSING @125ML/HR VIA R.AC PIV. PT DENIES ANY NEEDS AT THIS TIME. NO S/S OF DISTRESS NOTED. WILL CTM.
[2018-11-03 13:46] LABS: % SATURATION 10 % (15-55); IRON 26 ug/dl (35-150); TOTAL IRON BIND CAPACITY 260 ug/dl (260-445); UNSAT IRON BIND CAPACITY 234 ug/dl (150-375)
[2018-11-03 16:28] LABS: APPEARANCE CLEAR (CLEAR); BILIRUBIN NEGATIVE (NEGATIVE); COLOR YELLOW (YELLOW); GLUCOSE 50 mg/dL (NEGATIVE); KETONE NEGATIVE (NEGATIVE); NITRITE NEGATIVE (NEGATIVE); PROTEIN NEGATIVE (NEGATIVE); SPECIFIC GRAVITY 1.015 (1.005-1.020); UROBILINOGEN NORMAL (NORMAL)
[2018-11-03 16:29] LABS: BACTERIA FEW /hpf (NONE SEEN); EPITHELIAL CELLS 0-5 /hpf (0-5); WHITE CELLS - URINE 0-5 /hpf (0-5)
--- NOTE | 2018-11-03 17:23 | NUR ---
PT CURRENTLY LYING SEMI FOWLERS. CALL LIGHT W/I REACH. PT IS AAO AND CURRENTLY EATING DINNER. RR EVEN AND UNLABORED ON 2L 02. NS INFUSING @75ML/HR VIA R.AC PIV. PT COMPLAINED OF BACK PAIN LEVEL 5/10. ADMINISTERED ORDERED DOSE OF NORCO. PT DENEIS ANY FURTHER NEEDS. WILL CTM.
--- NOTE | 2018-11-03 19:51 | NUR ---
RECIEVED REPORT FROM JORGE MONTIEL. INITIAL ASSESSMENT COMPLETED. PT ORIENTED X4, SLEEPY DUE TO PAIN MEDS. R AC PIV INFUSING NS AT 75 ML/HR. PATENT, C/D/I. PT DENIES PAIN OR DISCOMFORT AT THIS TIME. VSS. RR EVEN AND UL ON 2L OF O2 VIA NC. AT BEDSIDE. REVIEWED LABS. MAG LOW AND NOT COVERED, PROVIDED COVERAGE WITH MAG PO. POTASSIUM WILL BE RECHECKED WITH AM LABS WELL MAG, PER EP ORDER. NO OTHER NEEDS NOTEDA AT THIS TIME. CL IN REACH, SR UP X2, BED IN LOWEST POSITION.
--- NOTE | 2018-11-03 23:37 | NUR ---
RESUMING PT CARE - PT RESTING IN BED QUIETLY WITH EYES CLOSED. RR EVEN AND UL, NO S/S OF DISTRESS. NO NEEDS NOTED AT THIS TIME. SPOUSE AT BEDSIDE. CL IN REACH, SR UP X2, BED IN LOWEST POSITION. WCTM AND FOLLOW POC.
[2018-11-04 00:30] VITALS: BP 141/77
--- NOTE | 2018-11-04 00:33 | NUR ---
RECOVERED PT'S MAG PER EP. LAB TO REDRAW IN THE MORNING WITH AM LABS. NO OTHER NEEDS AT THIS TIME. CL IN REACH, SR UP X2, BED IN LOWEST POSITION, AT BEDSIDE.
[2018-11-04 05:29] VITALS: BP 135/71
[2018-11-04 06:05] LABS: BASOPHILS 0.2 % (0-2); EOSINOPHILS 4.9 % (0-7); HEMATOCRIT 31.9 % (36.0-48.0); HEMOGLOBIN 9.7 g/dL (12-16); IMMATURE GRANULOCYTES 1.2 % (0-5); LYMPHOCYTES 31.5 % (15-50); MCH 23.1 pg (26.0-34.0); MCHC 30.4 g/dL (31.0-37.0); MEAN PLATELET VOLUME 9.3 fL (7.4-10.4); MONOCYTES 7.1 % (2-11); NEUTROPHILS 55.1 % (40-80); RDW 16.3 % (11.5-14.5); WBC 5.9 10x3/uL (4.8-10.8)
[2018-11-04 06:20] LABS: CALC OSMOLALITY 291 mosm/kg (275-300); CALCIUM 8.2 mg/dL (8.5-10.1); CARBON DIOXIDE 28.8 mmol/L (21.0-32.0); CHLORIDE - SERUM 105 mmol/L (98-107); CREATININE - SERUM 0.7 mg/dL (0.6-1.3); GLUCOSE 242 mg/dL (74-106); POTASSIUM - SERUM 3.4 mmol/L (3.5-5.1); SODIUM 143 mmol/L (136-145); UREA NITROGEN 11 mg/dL (7-18); eGFR NON AFRICAN AMERICAN 90 mL/min (90-120)
[2018-11-04 06:43] LABS: PLATELET COUNT 207 10x3/uL (130-400)
--- NOTE | 2018-11-04 07:36 | NUR ---
ROUNDING DONE WITH PATIENT LAYING ON LEFT SIDE. ON 2L PER NC. RIGHT AC PIV SEEN WITH NS INFUSING AT 75 CC/HR. ON EP, K+ IS 3.4. THIS WAS COVERED WITH SUPPLEMENT AND LAB RE-ORDERED. JSUTA NEEDS AT THIS TIME. CALL LIGHT IN USE. WILL MONITOR.
[2018-11-04 07:53] VITALS: BP 150/74
[2018-11-04 08:20] LABS: FOLATE (FOLIC ACID) - SERUM 3.8 ng/mL (>3.0)
[2018-11-04 12:23] VITALS: BP 148/79
--- NOTE | 2018-11-04 14:25 | NUR ---
DENIES NEEDS AT THIS TIME. IV RE-CONNECTED PATIENT WAS GIVEN A BATH.
[2018-11-04 14:47] VITALS: BP 136/59
--- NOTE | 2018-11-04 15:30 | NUR ---
I CALLED LAB TO SEE WHERE THE RESULTS OF POTASSIUM ARE THIS WAS SUPPOSE TO BEEN DONE AT 1100. THEY ARE HERE NOW TO DRAW.
[2018-11-04 16:52] LABS: POTASSIUM - SERUM 3.7 mmol/L (3.5-5.1); T4 THYROXIN - FREE 1.01 ng/dL (0.76-1.46); THYROID STIMULATING HORMONE 2.53 uIU/mL (0.36-3.74)
--- NOTE | 2018-11-04 17:01 | NUR ---
RE-DRAW OF POTASSIUM WITH RESULTS OF 3.7. NO NEED FOR ORAL SUPPLEMENTS.
--- NOTE | 2018-11-04 19:16 | NUR ---
Resting quietly at this time, alert and oriented x 4, PIV in right AC infusing well, NS @75ml/hr. States throat is slightly sore from cough, unable to cough much up but is trying. Experiences sharp pains in ribcage, has been alternating taking Dilaudid and [place]. No pain at this time.
[2018-11-04 20:00] VITALS: BP 151/101
--- NOTE | 2018-11-04 21:30 | NUR ---
Given Dilaudid IV for complaints of severe ribcage pain. Stated 26/06 then said it is a 06/16.
--- NOTE | 2018-11-04 22:10 | NUR ---
Resting quietly, states Dilaudid is effective.
[2018-11-05] VITALS: BP 116/55
--- NOTE | 2018-11-05 00:22 | NUR ---
Resting quietly, no signs of distress, respirations unlabored, oxygen remains on @2L/min. IV infusing.
--- NOTE | 2018-11-05 04:02 | NUR ---
Patient is a light sleeper, went into room to switch IV bag, patient aroused and requested analgesic at that time. Given [place] tab for ribcage pain rated as 9/10.
[2018-11-05 04:50] VITALS: BP 118/68
[2018-11-05 05:45] LABS: BASOPHILS 0.2 % (0-2); EOSINOPHILS 4.2 % (0-7); HEMATOCRIT 31.9 % (36.0-48.0); HEMOGLOBIN 9.7 g/dL (12-16); IMMATURE GRANULOCYTES 1.4 % (0-5); LYMPHOCYTES 30.2 % (15-50); MCH 23.3 pg (26.0-34.0); MCHC 30.4 g/dL (31.0-37.0); MCV 76.7 fL (80.0-100.0); MEAN PLATELET VOLUME 9.1 fL (7.4-10.4); PLATELET COUNT 167 10x3/uL (130-400); RBC 4.16 10x6/uL (4.00-5.40); RDW 16.4 % (11.5-14.5); WBC 5.7 10x3/uL (4.8-10.8)
[2018-11-05 05:54] LABS: CALC OSMOLALITY 286 mosm/kg (275-300); CALCIUM 8.3 mg/dL (8.5-10.1); CARBON DIOXIDE 27.4 mmol/L (21.0-32.0); CHLORIDE - SERUM 107 mmol/L (98-107); CREATININE - SERUM 0.7 mg/dL (0.6-1.3); MAGNESIUM - SERUM 1.8 mg/dL (1.8-2.4); POTASSIUM - SERUM 3.4 mmol/L (3.5-5.1); SODIUM 142 mmol/L (136-145); UREA NITROGEN 11 mg/dL (7-18); eGFR NON AFRICAN AMERICAN 90 mL/min (90-120)
[2018-11-05 05:55] LABS: GLUCOSE 183 mg/dL (74-106)
--- NOTE | 2018-11-05 07:06 | NUR ---
Given oral potassium supplements for low level, K+ = 3.4 to recheck lab in four hours.
--- NOTE | 2018-11-05 08:07 | NUR ---
ROUNDING DONE WITH PATIENT LAYING ON RIGHT SIDE RESTING, EYES CLOSED. RESP ARE EVEN. ON 2L PER NC. RIGHT AC PIV SEEN WITH NS INFUSING AT 75 CC/HR. ON EP, K+ WAS 3.4, WAS COVERED WITH ORAL SUPPLEMENTS. WILL MONITOR.
[2018-11-05 08:14] VITALS: BP 105/53
[2018-11-05 12:09] VITALS: BP 126/66
--- NOTE | 2018-11-05 14:31 | NUR ---
PATIENT IS STILL AWAITING RIDE FOR DISCHARGE.
[2018-11-05 15:02] VITALS: BP 115/70
--- NOTE | 2018-11-05 16:38 | NUR ---
I ASKED PATIENT WHEN HER RIDE WOULD BE HERE FOR DISCHARGE AND SHE STATES THAT HER DOES NOT GET OFF WORK UNTIL 0630 AM. HE WENT TO WORK AT [employer] TODAY. I ASKED HER TO PLEASE CALL AND SEE IF SHE CAN FIND A RIDE SHE IS DISCHARGED.
--- NOTE | 2018-11-05 16:56 | NUR ---
CALLED TO ROOM FOR PATIENT TO TELL ME THAT SHE IS GOING TO BE GOING HOME WITH WHO IS ON WAY TO GET HER. SHE REMOVED HER OWN IV. CATH TIP INTACT. VERBAL AND WRITTEN DISCHARGE INSTRUCTIONS GIVEN TO PATIENT. AWAITING FOR DISCHARGE.
--- NOTE | 2018-11-05 17:23 | NUR ---
DISCHARGED HOME VIA WHEELCHAIR.
--- NOTE | 2018-11-08 08:31 | MORECARE ---
CASE MANAGEMENT DISCHARGE SUMMARY PATIENT: RONEN PALOMO UNIT: [id number] ADM DATE: 11/02/18 AGE: 63 : 57 SEX: F ROOM/BED: D.2104 AUTHOR: YONATAN NEW PHYSICIAN: REFERRING PHYSICIAN: RADAMES COLLINS MD DATE OF SERVICE: 11/08/18 Discharge Plan Patient Name: RONEN PALOMO Facility: [facility]:[place] : 1955 Planned Disposition: Home Anticipated Discharge Date: 11/05/18 Discharge Date: 11/05/2018 Expected LOS: 3 Initial Reviewer: [email or web address] Initial Review Date: 11/08/2018 Generated: 11/08/18 9:31 am Patient Name: RONEN PALOMO Page 94494 at 0831 All edits/amendments must be made on the electronic document DICTATION DATE: 11/08/18829 SWITCH INSPECTOR: RAN 11/08/18829 RPT#: [id number] DC DATE:11/05/18 STATUS: DIS IN [facility] [address] [place] [address] END OF REPORT
== END 2018-11-05 17:26 | disposition home or self-care (01) ==
LOC: D.ER 20:25 → D.M2 22:51 → OBSVTIME 22:51 → D.EDHOLD 22:51 → D.M2 23:40
PROVIDERS: Family Medicine; ADMIT Internal Medicine Nephrology; ATTEND Internal Medicine Nephrology
DX: J96.21 Acute and chronic respiratory failure with hypoxia (principal); J44.1 Chronic obstructive pulmonary disease with (acute) exacerbation; N17.9 Acute kidney failure, unspecified; E87.6 Hypokalemia; E83.42 Hypomagnesemia; I10 Essential (primary) hypertension; E78.5 Hyperlipidemia, unspecified; E11.9 Type 2 diabetes mellitus without complications; I25.10 Atherosclerotic heart disease of native coronary artery without angina pectoris; D50.9 Iron deficiency anemia, unspecified

== ENCOUNTER 2018-11-07 20:28 | Inpatient (IN) | payer MEDICAID ==
[~2018-11-07] VITALS: Ht 165.1 cm; Wt 100.2 kg
[2018-11-07 21:14] LABS: BASOPHILS 0.1 % (0-2); EOSINOPHILS 2.5 % (0-7); HEMATOCRIT 34.7 % (36.0-48.0); HEMOGLOBIN 10.6 g/dL (12-16); IMMATURE GRANULOCYTES 1.6 % (0-5); LYMPHOCYTES 27.7 % (15-50); MCH 23.5 pg (26.0-34.0); MCHC 30.5 g/dL (31.0-37.0); MCV 76.8 fL (80.0-100.0); MEAN PLATELET VOLUME 8.9 fL (7.4-10.4); MONOCYTES 4.3 % (2-11); NEUTROPHILS 63.8 % (40-80); PLATELET COUNT 216 10x3/uL (130-400); RBC 4.52 10x6/uL (4.00-5.40); WBC 6.7 10x3/uL (4.8-10.8)
[2018-11-07 21:22] LABS: ALBUMIN 2.8 g/dL (3.4-5.0); ALKALINE PHOSPHATASE 154 U/L (46-116); ALT (SGPT) 23 U/L (10-68); CALC OSMOLALITY 290 mosm/kg (275-300); CALCIUM 8.2 mg/dL (8.5-10.1); CARBON DIOXIDE 27.8 mmol/L (21.0-32.0); CHLORIDE - SERUM 102 mmol/L (98-107); CREATININE - SERUM 0.9 mg/dL (0.6-1.3); GLUCOSE 335 mg/dL (74-106); POTASSIUM - SERUM 3.9 mmol/L (3.5-5.1); PROTEIN - SERUM 6.8 g/dL (6.4-8.2); SODIUM 140 mmol/L (136-145); UREA NITROGEN 9 mg/dL (7-18); eGFR NON AFRICAN AMERICAN 67 mL/min (90-120)
[2018-11-07 21:25] LABS: CREATINE KINASE 15 UL (21-215); TROPONIN-I < 0.017 ng/mL (0.000-0.060)
--- NOTE | 2018-11-07 22:52 | NUR ---
PT PROVIDED WARM BLANKET AND BELONGINGS BAG. PT RESTING ON BED. NO S/S OF ACUTE DISTRESS NOTED AT THIS TIME.
[2018-11-07 23:10] VITALS: BP 147/87
--- NOTE | 2018-11-08 00:30 | NUR ---
ROCEPHIN INFUSION COMPLETE
--- NOTE | 2018-11-08 00:48 | NUR ---
ARRIVED ON FLOOR VIA WC WITH SPOUSE AT SIDE. ORIENTED TO ROOM AND CALL LIGHT. ASSESSMENT AND HISTORY PER FLOW SHEET. IV IN LEFT WRIST/THUMB WILL NOT FLUSH AND PAINFUL. DC'D WITH TIP INTACT. LEFT AC FLUSHES WELL. FLUIDS CONNECTED HERE PER ORDER. PT REPORTS SHE USES 2L O2 VIA NC AT HOME. PROVIDED AT THIS TIME. REQUEST PAIN MEDICATION. DR COLLINS TO BE CALLED. NO OTHER NEEDS VOICED AT THIS TIME.
--- NOTE | 2018-11-08 01:08 | NUR ---
SPOKE WITH HS ABOUT PULLING VIBRAMYCIN
--- NOTE | 2018-11-08 01:25 | NUR ---
DECLINES SCD'S, AWARE OF INCREASED RISK OF DVT WHILE IN BED.
[2018-11-08 01:54] VITALS: BP 145/84; BMI 36.8
--- NOTE | 2018-11-08 02:23 | NUR ---
SPOKE WITH TELEMETRY. NO BOX'S AVAILABLE.
[2018-11-08 03:15] LABS: BASOPHILS 0.1 % (0-2); EOSINOPHILS 3.3 % (0-7); HEMATOCRIT 32.7 % (36.0-48.0); IMMATURE GRANULOCYTES 1.3 % (0-5); LYMPHOCYTES 27.5 % (15-50); MCH 23.6 pg (26.0-34.0); MCHC 30.6 g/dL (31.0-37.0); MCV 77.3 fL (80.0-100.0); MEAN PLATELET VOLUME 8.9 fL (7.4-10.4); MONOCYTES 4.7 % (2-11); NEUTROPHILS 63.1 % (40-80); PLATELET COUNT 196 10x3/uL (130-400); RBC 4.23 10x6/uL (4.00-5.40); RDW 17.1 % (11.5-14.5); WBC 7.6 10x3/uL (4.8-10.8)
[2018-11-08 03:22] LABS: CALC OSMOLALITY 289 mosm/kg (275-300); CALCIUM 8.1 mg/dL (8.5-10.1); CARBON DIOXIDE 28.6 mmol/L (21.0-32.0); CHLORIDE - SERUM 103 mmol/L (98-107); CREATININE - SERUM 0.8 mg/dL (0.6-1.3); GLUCOSE 298 mg/dL (74-106); POTASSIUM - SERUM 3.8 mmol/L (3.5-5.1); SODIUM 140 mmol/L (136-145); eGFR NON AFRICAN AMERICAN 77 mL/min (90-120)
[2018-11-08 03:23] LABS: UREA NITROGEN 13 mg/dL (7-18)
[2018-11-08 04:27] VITALS: BP 140/64
[2018-11-08 08:22] VITALS: BP 102/51
--- NOTE | 2018-11-08 11:32 | NUR ---
ATTEMPTED IV X 3 STICKS, X2 BLEW AND ON WOULD NOT THREAD ALL WITH A 22 GAUGE IV. ORDER FOR VASCULAR ACCESS NURSE RECEIVED, SPOKE WITH CALI DE LA TORRE
[2018-11-08 12:28] VITALS: BP 124/77
[2018-11-08 14:21] VITALS: Ht 165.1 cm; Wt 100.2 kg
--- NOTE | 2018-11-08 16:30 | MORECARE ---
CASE MANAGEMENT DISCHARGE SUMMARY PATIENT: RONEN PALOMO UNIT: [id number] ADM DATE: 11/07/18 AGE: 63 : 57 SEX: F ROOM/BED: D.2234 AUTHOR: YONATAN NEW PHYSICIAN: REFERRING PHYSICIAN: RADAMES COLLINS MD DATE OF SERVICE: 11/08/18 Discharge Plan Patient Name: RONEN PALOMO [facility] [facility] 1955 Planned Disposition: Anticipated Discharge Date: Discharge Date: Expected LOS: Initial Reviewer: [email or web address] Initial Review Date: 11/08/2018 Generated: 11/08/18 5:30 pm Comments DCP- Discharge Planning Updated by [email or web address]: Jessica Nuñez on 11/08/18 3:[address] Attempted to meet with patient in the room, she is sleeping and not awakened for assessment. I will try and meet with her for discharge planning tomorrow. Patient Name: RONEN PALOMO Page 21461 at 1630 All edits/amendments must be made on the electronic document DICTATION DATE: 11/08/181628 ELECTRICAL FITTER: RAN 11/08/181628 RPT#: [id number] DC DATE: STATUS: ADM IN [facility] [address] [place] [address] END OF REPORT
[2018-11-08 16:37] VITALS: BP 132/64
[2018-11-09] VITALS: BP 105/59
[2018-11-09 04:00] VITALS: BP 113/64
--- NOTE | 2018-11-09 05:39 | NUR ---
1999)ASSISTED TO BATHROOM NINA WELL. 02 2L NC.MINIMAL SOB ON EXERTION.NO RESP. DISTRESS OBSERVED.WILL CONTINUE TO MONITOR FOR ANY CHGES. AND FOLLOW CURRENT PLAN OF CARE.
[2018-11-09 05:45] LABS: BASOPHILS 0.2 % (0-2); EOSINOPHILS 3.5 % (0-7); HEMATOCRIT 30.9 % (36.0-48.0); HEMOGLOBIN 9.2 g/dL (12-16); IMMATURE GRANULOCYTES 1.2 % (0-5); LYMPHOCYTES 35.8 % (15-50); MCH 23.2 pg (26.0-34.0); MCHC 29.8 g/dL (31.0-37.0); MEAN PLATELET VOLUME 9.5 fL (7.4-10.4); MONOCYTES 5.7 % (2-11); NEUTROPHILS 53.6 % (40-80); PLATELET COUNT 172 10x3/uL (130-400); RBC 3.96 10x6/uL (4.00-5.40); RDW 17.4 % (11.5-14.5); WBC 6.5 10x3/uL (4.8-10.8)
[2018-11-09 06:18] LABS: ALBUMIN 2.4 g/dL (3.4-5.0); ANION GAP 13.9 mmol/L (8-16); BILIRUBIN - TOTAL 0.15 mg/dL (0.2-1.3); CARBON DIOXIDE 25.1 mmol/L (21.0-32.0); CREATININE - SERUM 0.9 mg/dL (0.6-1.3)
[2018-11-09 09:24] VITALS: BP 133/67
[2018-11-09 12:00] VITALS: BP 104/63
--- NOTE | 2018-11-09 12:22 | MORECARE ---
CASE MANAGEMENT DISCHARGE SUMMARY PATIENT: RONEN PALOMO UNIT: [id number] ADM DATE: 11/07/18 AGE: 63 : 57 SEX: F ROOM/BED: D.2234 AUTHOR: YONATAN NEW PHYSICIAN: REFERRING PHYSICIAN: RADAMES COLLINS MD DATE OF SERVICE: 11/09/18 Discharge Plan Patient Name: RONEN PALOMO Facility: [facility]:[place] : 1955 Planned Disposition: Home with Home Health Anticipated Discharge Date: Discharge Date: Expected LOS: Initial Reviewer: [email or web address] Initial Review Date: 11/09/2018 Generated: 11/09/18 1:21 pm Comments DCP- Discharge Planning Updated by [email or web address]: Jessica Presleyviviane on 11/08/18 3:[address] Attempted to meet with patient in the room, she is sleeping and not awakened for assessment. I will try and meet with her for discharge planning tomorrow. DCPIA - Discharge Planning Initial Assessment Updated by [email or web address]: Jessica Presleyviviane on 11/09/18 12:19 pm * Is the patient Alert and Oriented? Yes * How many steps to enter\exit or inside your home? 0/0 * PCP Dr. Guido New States she sees Dr. Davis at Dr. De La Vega's office by [facility] * Pharmacy [facility] * Preadmission Environment Home with Family * ADLs Partial Dependent * Partial ADLs (Assistance needed) Ambulation Bathing Dressing * Equipment Bedside Commode Grab Bars Nebulizer Oxygen Shower Chair Walker Wheelchair * List name and contact numbers for known caregivers / representatives who currently or will assist patient after discharge: [facility] - [phone] * Verbal permission to speak to the caregivers and representatives has been obtained from the patient. Yes * Community resources currently utilized Private Duty Care * Please name any agencies selected above. [facility] * Additional services required to return to the preadmission environment? No * Can the patient safely return to the preadmission environment? Yes * Has this patient been hospitalized within the prior 30 days at any hospital? Yes Last DP export: 11/08/18 3:30 pm Patient Name: RONEN PALOMO Page 45561 at 1222 All edits/amendments must be made on the electronic document DICTATION DATE: 11/09/181220 PERFECT BINDER OPERATOR: RAN 11/09/181220 RPT#: [id number] DC DATE: STATUS: ADM IN [facility] [address] [place] [address] END OF REPORT
--- NOTE | 2018-11-09 12:30 | MORECARE ---
CASE MANAGEMENT DISCHARGE SUMMARY PATIENT: RONEN PALOMO UNIT: [id number] ADM DATE: 11/07/18 AGE: 63 : 57 SEX: F ROOM/BED: D.2234 AUTHOR: VIRGENDOC PHYSICIAN: REFERRING PHYSICIAN: RADAMES COLLINS MD DATE OF SERVICE: 11/09/18 Discharge Plan Patient Name: RONEN PALOMO Facility: [facility]:[place] : 1955 Planned Disposition: Home with Home Health Anticipated Discharge Date: Discharge Date: Expected LOS: Initial Reviewer: [email or web address] Initial Review Date: 11/09/2018 Generated: 11/09/18 1:30 pm Comments DCP- Discharge Planning Updated by [email or web address]: Jessica Nuñez on 11/09/18 11:[address] Patient Name: RONEN PALOMO Admission Status: ER Accout number: [id number] Admission Date: 11-07-2018 : 1955 Admission Diagnosis: Attending: RADAMES COLLINS Current LOS: 2 Anticipated DC Date: Planned Disposition: Home with Home Health Primary Insurance: MEDICAID [place] Discharge Planning Comments: CM met with patient to discuss discharge planning, she is alone in the room. States she lives with her . States she has [facility] come in twice a week for 2-3 hours to assist with bathing and dressing. States she does her own medication management. States she can drive, but does not. States her drives her where she needs to go. States she did not fill her prescriptions when she left last time because her truck was broken down. States her truck is now fixed and will be able to get her prescriptions. I discussed the availability of Home health and DME. She would like to have [facility] arranged. She states she has all the DME needed and her DME company for oxygen and nebulizer is [employer]. CM will continue to follow and assist with discharge planning/needs. Cheesemaker: Jessica Nuñez DCP- Discharge Planning Updated by [email or web address]: Jessica Nuñez on 11/08/18 3:[address] Attempted to meet with patient in the room, she is sleeping and not awakened for assessment. I will try and meet with her for discharge planning tomorrow. DCPIA - Discharge Planning Initial Assessment Updated by [id number]: Jessica Nuñez on 11/09/18 12:19 pm * Is the patient Alert and Oriented? Yes * How many steps to enter\exit or inside your home? 0/0 * PCP Dr. Guido New States she sees Dr. Davis at Dr. De La Vega's office by [facility] * Pharmacy [facility] * Preadmission Environment Home with Family * ADLs Partial Dependent * Partial ADLs (Assistance needed) Ambulation Bathing Dressing * Equipment Bedside Commode Grab Bars Nebulizer Oxygen Shower Chair Walker Wheelchair * List name and contact numbers for known caregivers / representatives who currently or will assist patient after discharge: Gordon - qdenjz - [phone] * Verbal permission to speak to the caregivers and representatives has been obtained from the patient. Yes * Community resources currently utilized Private Duty Care * Please name any agencies selected above. [facility] * Additional services required to return to the preadmission environment? No * Can the patient safely return to the preadmission environment? Yes * Has this patient been hospitalized within the prior 30 days at any hospital? Yes Last DP export: 11/09/18 11:21 am Patient Name: RONEN PALOMO Page [phone] at 1230 All edits/amendments must be made on the electronic document DICTATION DATE: 11/09/181228 PATHOLOGY TRANSCRIPTIONIST: RAN 11/09/18 1229 RPT#: [id number] DC DATE: STATUS: ADM IN [facility] [address] [place] [address] END OF REPORT
--- NOTE | 2018-11-09 13:13 | MORECARE ---
CASE MANAGEMENT DISCHARGE SUMMARY PATIENT: RONEN PALOMO UNIT: [id number] ADM DATE: 11/07/18 AGE: 63 : 57 SEX: F ROOM/BED: D.2234 AUTHOR: VIRGENDOC PHYSICIAN: REFERRING PHYSICIAN: RADAMES COLLINS MD DATE OF SERVICE: 11/09/18 Discharge Plan Patient Name: RONEN PALOMO Facility: [facility]:[place] : 1955 Planned Disposition: Home with Home Health Anticipated Discharge Date: Discharge Date: Expected LOS: Initial Reviewer: [email or web address] Initial Review Date: 11/09/2018 Generated: 11/09/18 2:13 pm Comments DCP- Discharge Planning Updated by [email or web address]: Jessica Nuñez on 11/09/18 11:[address] Patient Name: RONEN PALOMO Admission Status: ER Accout number: [id number] Admission Date: 11-07-2018 : 1955 Admission Diagnosis: Attending: RADAMES COLLINS Current LOS: 2 Anticipated DC Date: Planned Disposition: Home with Home Health Primary Insurance: MEDICAID [place] Discharge Planning Comments: CM met with patient to discuss discharge planning, she is alone in the room. States she lives with her . States she has [employer] [facility] come in twice a week for 2-3 hours to assist with bathing and dressing. States she does her own medication management. States she can drive, but does not. States her drives her where she needs to go. States she did not fill her prescriptions when she left last time because her truck was broken down. States her truck is now fixed and will be able to get her prescriptions. I discussed the availability of Home health and DME. She would like to have [facility] arranged. She states she has all the DME needed and her DME company for oxygen and nebulizer is [employer]. CM will continue to follow and assist with discharge planning/needs. Final Expense Agent: Jessica Nuñez DCP- Discharge Planning Updated by [id number]: Jessica Nuñez on 11/08/18 3:[address] Attempted to meet with patient in the room, she is sleeping and not awakened for assessment. I will try and meet with her for discharge planning tomorrow. DCPIA - Discharge Planning Initial Assessment Updated by [id number]: Jessica Nuñez on 11/09/18 12:19 pm * Is the patient Alert and Oriented? Yes * How many steps to enter\exit or inside your home? 0/0 * PCP Dr. Guido New States she sees Dr. Davis at Dr. De La Vega's office by [facility] * Pharmacy [facility] * Preadmission Environment Home with Family * ADLs Partial Dependent * Partial ADLs (Assistance needed) Ambulation Bathing Dressing * Equipment Bedside Commode Grab Bars Nebulizer Oxygen Shower Chair Walker Wheelchair * List name and contact numbers for known caregivers / representatives who currently or will assist patient after discharge: Gordon - jnitad - [phone] * Verbal permission to speak to the caregivers and representatives has been obtained from the patient. Yes * Community resources currently utilized Private Duty Care * Please name any agencies selected above. [employer] [facility] * Additional services required to return to the preadmission environment? No * Can the patient safely return to the preadmission environment? Yes * Has this patient been hospitalized within the prior 30 days at any hospital? Yes External Providers External Provider: [facility] Next Contact Date: Service Request Date: Service Type: Resolution: Reviewer: Comments: Last DP export: 11/09/18 11:30 am Patient Name: RONEN PALOMO Page [id number] at 1313 All edits/amendments must be made on the electronic document DICTATION DATE: 11/09/18 1312 BAKER PASTRY: RAN 11/09/18 1312 RPT#: [id number] DC DATE: STATUS: ADM IN [facility] [address] [place] [address] END OF REPORT
--- NOTE | 2018-11-09 13:20 | MORECARE ---
CASE MANAGEMENT DISCHARGE SUMMARY PATIENT: RONEN PALOMO UNIT: [id number] ADM DATE: 11/07/18 AGE: 63 : 57 SEX: F ROOM/BED: D.2234 AUTHOR: YONATAN NEW PHYSICIAN: REFERRING PHYSICIAN: RADAMES COLLINS MD DATE OF SERVICE: 11/09/18 Discharge Plan Patient Name: RONEN PALOMO Facility: [facility]:[place] : 1955 Planned Disposition: Home with Home Health Anticipated Discharge Date: Discharge Date: Expected LOS: Initial Reviewer: [email or web address] Initial Review Date: 11/09/2018 Generated: 11/09/18 2:20 pm Comments DCP- Discharge Planning Updated by [email or web address]: Jessica Nuñez on 11/09/18 12:[address] Spoke to Maritza at [facility] [facility] and clinical faxed. Maritza states she will call back if able to accept her. CM will continue to follow and assist with discharge planning/needs. DCP- Discharge Planning Updated by [email or web address]: Jessica Nuñez on 11/09/18 11:[address] Patient Name: RONEN PALOMO Admission Status: ER Accout number: [id number] Admission Date: 11-07-2018 : 1955 Admission Diagnosis: Attending: RADAMES COLLINS Current LOS: 2 Anticipated DC Date: Planned Disposition: Home with Home Health Primary Insurance: MEDICAID [place] Discharge Planning Comments: CM met with patient to discuss discharge planning, she is alone in the room. States she lives with her . States she has [employer] [facility] come in twice a week for 2-3 hours to assist with bathing and dressing. States she does her own medication management. States she can drive, but does not. States her drives her where she needs to go. States she did not fill her prescriptions when she left last time because her truck was broken down. States her truck is now fixed and will be able to get her prescriptions. I discussed the availability of Home health and DME. She would like to have [employer] [facility] arranged. She states she has all the DME needed and her DME company for oxygen and nebulizer is [employer]. CM will continue to follow and assist with discharge planning/needs. Brewery Worker: Jessica Nuñez DCP- Discharge Planning Updated by [email or web address]: Jessica Nuñez on 11/08/18 3:[address] Attempted to meet with patient in the room, she is sleeping and not awakened for assessment. I will try and meet with her for discharge planning tomorrow. DCPIA - Discharge Planning Initial Assessment Updated by [id number]: Jessica Nuñez on 11/09/18 12:19 pm * Is the patient Alert and Oriented? Yes * How many steps to enter\exit or inside your home? 0/0 * PCP Dr. Guido New States she sees Dr. Davis at Dr. De La Vega's office by [facility] * Pharmacy [facility] * Preadmission Environment Home with Family * ADLs Partial Dependent * Partial ADLs (Assistance needed) Ambulation Bathing Dressing * Equipment Bedside Commode Grab Bars Nebulizer Oxygen Shower Chair Walker Wheelchair * List name and contact numbers for known caregivers / representatives who currently or will assist patient after discharge: [facility] - [phone] * Verbal permission to speak to the caregivers and representatives has been obtained from the patient. Yes * Community resources currently utilized Private Duty Care * Please name any agencies selected above. [employer] * Additional services required to return to the preadmission environment? No * Can the patient safely return to the preadmission environment? Yes * Has this patient been hospitalized within the prior 30 days at any hospital? Yes Last DP export: 11/09/18 12:13 pm Patient Name: RONEN PALOMO Page 19879 at 1320 All edits/amendments must be made on the electronic document DICTATION DATE: 11/09/18 1319 VAT SKIMMER: RAN 11/09/18 1319 RPT#: [id number] DC DATE: STATUS: ADM IN [facility] [address] [place] [address] END OF REPORT
--- NOTE | 2018-11-09 14:58 | NUR ---
OT NOTE: PT REQUESTING PAIN PILL. STATED THAT I WOULD INFORM NURSE. BED MOB IWTH MIN ASSIST; AMB TO BATHROOM WITH MIN/CGA; TOILETING WITH CGA; REQUIRED MOD ASSIST TO MAHAMED AND DOFF SOCKS. PT STATED THAT SHE HAD BEEN IN SHOWER ALL AM.. CNAS REPORTED LICE. ASKED PT IF SHE WOULD LIKE TO SIT UP IN CHAIR FOR A SHORT TIME, BUT SHE STATED THAT SHE WAS TOO TIRED. LULU DASILVA,OTR/L
[2018-11-09 17:43] VITALS: BP 135/71
[2018-11-09 20:00] VITALS: BP 150/74
--- NOTE | 2018-11-09 20:20 | NUR ---
PT RESTING IN BED. ALERT AND ORIENTED. NO SIGNS OF DISTRESS. BREATHING EVEN AND UNLABORED. PT STATES NO PROBLEMS AT THIS TIME. IV SITE RT UPPER ARM DRESSING CLEAN DRY AND INTACT. NO SIGNS OF INFECTION. SKIN CLEAN DRY AND INTACT. 2LO2 NASAL CANNULA. BOWEL SOUNDS ACTIVE. NO LOWER LEG SWELLING PRESENT. SCD ON. WILL CONTINUE PLAN OF CARE. CALL LIGHT IN REACH. BED LOWERED AND LOCKED. BED RAILS UP X2.
--- NOTE | 2018-11-09 21:00 | NUR ---
PT IV INFULTRATED. RT UPPER ARM. WILL CALL VASCULAR NURSE IN AM DUE TO IT TAKING A LOT TO GET THIS IV THE VASCULAR NURSE HAD PLACED THIS ONE NOT TO LONG AGO. PT ASKED FOR A BREAK FOR THE NIGHT BECAUSE SHE HAD BEEN POKED A LOT TODAY. WILL FALLOW UP.
--- NOTE | 2018-11-09 21:27 | NUR ---
OT NOTE: PT COMPLETED SUPINE TO SIT WITH CGA. PT COMPLETED EOB SITTING BALANCE WITH SBA/CGA. PT COMPLETED SIT TO STAND WITH MIN A. THANK YOU, NAJMA DURANT
--- NOTE | 2018-11-09 21:30 | NUR ---
FSBS 277 10 UNITS OF REGULAR INSULIN PER SS GIVEN. 20 UNITS ON LANTUS GIVEN PER SS.
[2018-11-10 04:00] VITALS: BP 117/50
[2018-11-10 04:58] LABS: BASOPHILS 0.1 % (0-2); EOSINOPHILS 3.6 % (0-7); HEMATOCRIT 32.5 % (36.0-48.0); HEMOGLOBIN 9.8 g/dL (12-16); IMMATURE GRANULOCYTES 0.7 % (0-5); LYMPHOCYTES 34.8 % (15-50); MCH 23.6 pg (26.0-34.0); MCHC 30.2 g/dL (31.0-37.0); MCV 78.3 fL (80.0-100.0); MEAN PLATELET VOLUME 9.5 fL (7.4-10.4); MONOCYTES 5.1 % (2-11); NEUTROPHILS 55.7 % (40-80); RBC 4.15 10x6/uL (4.00-5.40); RDW 17.4 % (11.5-14.5); WBC 7.2 10x3/uL (4.8-10.8)
[2018-11-10 05:09] LABS: PLATELET COUNT 220 10x3/uL (130-400)
[2018-11-10 05:28] LABS: ALBUMIN 2.7 g/dL (3.4-5.0); ALKALINE PHOSPHATASE 130 U/L (46-116); ALT (SGPT) 22 U/L (10-68); CALC OSMOLALITY 290 mosm/kg (275-300); CALCIUM 8.6 mg/dL (8.5-10.1); CHLORIDE - SERUM 108 mmol/L (98-107); CREATININE - SERUM 0.8 mg/dL (0.6-1.3); POTASSIUM - SERUM 3.7 mmol/L (3.5-5.1); PROTEIN - SERUM 6.3 g/dL (6.4-8.2); SODIUM 145 mmol/L (136-145); UREA NITROGEN 12 mg/dL (7-18); eGFR NON AFRICAN AMERICAN 77 mL/min (90-120)
[2018-11-10 05:30] LABS: GLUCOSE 130 mg/dL (74-106)
--- NOTE | 2018-11-10 07:15 | NUR ---
REC'D IN WAKING ROUND AWAKE AND ALERT. RESP EVEN AND UNLABORED WITH NO DISTRESS NOTED. CAN EXPRESS NEEDS AND WANTS WITH NONE NOTED OR VOICED. ASSESSMENT COMPLETED. C/L IN REACH AT BEDSIDE.
[2018-11-10 08:39] VITALS: BP 135/71
--- NOTE | 2018-11-10 11:26 | NUR ---
MEDICATED WITH DILAUDID 0.5 MG PER REQUEST FOR C/O GENERALIZED PAIN. C/L IN REACH AT BEDSIDE.
--- NOTE | 2018-11-10 11:31 | MORECARE ---
CASE MANAGEMENT DISCHARGE SUMMARY PATIENT: RONEN PALOMO UNIT: [id number] ADM DATE: 11/07/18 AGE: 63 : 57 SEX: F ROOM/BED: D.2234 AUTHOR: VIRGEN,DOC PHYSICIAN: REFERRING PHYSICIAN: RADAMES COLLINS MD DATE OF SERVICE: 11/10/18 Discharge Plan Patient Name: RONEN PALOMO Facility: [facility]:[place] : 1955 Planned Disposition: Home with Home Health Anticipated Discharge Date: Discharge Date: Expected LOS: Initial Reviewer: [email or web address] Initial Review Date: 11/09/2018 Generated: 11/10/18 12:31 pm Comments DCP- Discharge Planning Updated by [email or web address]: Jessica Nuñez on 11/10/18 10:[address] I spoke with Maritza at [facility] and they will start seeing her on Thursday if she is discharged by then CM will continue to follow and assist with discharge planning/needs. DCP- Discharge Planning Updated by [email or web address]: Jessica Nuñez on 11/09/18 12:[address] Spoke to Maritza at [facility] and clinical faxed. Maritza states she will call back if able to accept her. CM will continue to follow and assist with discharge planning/needs. DCP- Discharge Planning Updated by [id number]: Jessica Nuñez on 11/09/18 11:[address] Patient Name: RONEN PALOMO Admission Status: ER Accout number: [id number] Admission Date: 11-07-2018 : 1955 Admission Diagnosis: Attending: RADAMES COLLINS Current LOS: 2 Anticipated DC Date: Planned Disposition: Home with Home Health Primary Insurance: MEDICAID [place] Discharge Planning Comments: CM met with patient to discuss discharge planning, she is alone in the room. States she lives with her . States she has [employer] come in twice a week for 2-3 hours to assist with bathing and dressing. States she does her own medication management. States she can drive, but does not. States her drives her where she needs to go. States she did not fill her prescriptions when she left last time because her truck was broken down. States her truck is now fixed and will be able to get her prescriptions. I discussed the availability of Home health and DME. She would like to have [facility] arranged. She states she has all the DME needed and her DME company for oxygen and nebulizer is [email or web address]. CM will continue to follow and assist with discharge planning/needs. Machine Trimmer: Jessica Nuñez DCP- Discharge Planning Updated by [email or web address]: Jessica Nuñez on 11/08/18 3:[address] Attempted to meet with patient in the room, she is sleeping and not awakened for assessment. I will try and meet with her for discharge planning tomorrow. DCPIA - Discharge Planning Initial Assessment Updated by [id number]: Jessica Nuñez on 11/09/18 12:19 pm * Is the patient Alert and Oriented? Yes * How many steps to enter\exit or inside your home? 0/0 * PCP Dr. Guido New States she sees Dr. Davis at Dr. De La Vega's office by [facility] * Pharmacy [facility] * Preadmission Environment Home with Family * ADLs Partial Dependent * Partial ADLs (Assistance needed) Ambulation Bathing Dressing * Equipment Bedside Commode Grab Bars Nebulizer Oxygen Shower Chair Walker Wheelchair * List name and contact numbers for known caregivers / representatives who currently or will assist patient after discharge: [facility] - [phone] * Verbal permission to speak to the caregivers and representatives has been obtained from the patient. Yes * Community resources currently utilized Private Duty Care * Please name any agencies selected above. [employer] * Additional services required to return to the preadmission environment? No * Can the patient safely return to the preadmission environment? Yes * Has this patient been hospitalized within the prior 30 days at any hospital? Yes Last DP export: 11/09/18 12:20 pm Patient Name: RONEN PALOMO Page [id number] at 1131 All edits/amendments must be made on the electronic document DICTATION DATE: 11/10/18 113 BILINGUAL CUSTOMER SERVICE SPECIALIST: RAN 11/10/18 1130 RPT#: [id number] DC DATE: STATUS: ADM IN [facility] [address] [place] [address] END OF REPORT
[2018-11-10 13:48] VITALS: BP 124/52
--- NOTE | 2018-11-10 14:14 | NUR ---
NUTRITION F/U PT TOLERATING DIABETIC DIET WITH GOOD INTAKE RECENT MEALS. WILL CONTINUE TO PROVIDE DIET, MONITOR PO INTAKE. RD FOLLOWING
--- NOTE | 2018-11-10 15:31 | NUR ---
OT NOTE: PT DOING MUCH BETTER. AT BEDSIDE. PT ABLE TO PERFORM BED MOB WITH SPV; DONNED SOCKS WITH SET UP..REPORTED THAT HER USUALLY DOES THIS FOR HER AT HOME, HOWEVER, SHE IS ABLE TO PERFORM WITHOUT DIFFICULTY. AMB WITH IV AROUND BED WITH CGA; TRANSFERRED TO CHAIR WITH CGA; TOLERATED SITTING UP IN CHAIR WITHOUT DIFFICULTY. PT REQUESTING [id number] PUZZLES. THERAPIST PRINTED SEVERAL OFF AND PROVIDED FOR PT. LULU DASILVA, OTR/L
--- NOTE | 2018-11-10 15:46 | NUR ---
OT NOTE: PT COMPLETED BED MOB WITH SBA. PT COMPLETED ADL MOB WITHIN ROOM WITH CGA. THANK YOU, NAJMA DURANT
[2018-11-10 16:58] VITALS: BP 133/68
[2018-11-10 20:00] VITALS: BP 131/66
--- NOTE | 2018-11-10 20:20 | NUR ---
PT RESTING IN BED. ALERT AND ORIENTED. NO SIGNS OF DISTRESS. BREATHING EVEN AND UNLABORED. PT STATES NO PROBLEMS AT THIS TIME. IV SITE LT UPPER ARM DRESSING CLEAN DRY AND INTACT. NO SIGNS OF INFECTION. BOWEL SOUNDS ACTIVE. NO LOWER LEG SWELLING PRESENT. ON CONTACT ISO FOR HEAD LICE. WILL CONTINUE PLAN OF CARE. CALL LIGHT IN REACH. BED LOWERED AND LOCKED. BED RAILS UP X2.
[2018-11-11 04:00] VITALS: BP 136/68
--- NOTE | 2018-11-11 04:29 | NUR ---
I have reviewed this patient and I concur with the Shift Assessment completed by the Licensed Practical Nurse today this shift.
[2018-11-11 05:14] LABS: BASOPHILS 0.1 % (0-2); EOSINOPHILS 3.7 % (0-7); HEMATOCRIT 30.7 % (36.0-48.0); HEMOGLOBIN 9.3 g/dL (12-16); IMMATURE GRANULOCYTES 0.6 % (0-5); MCH 23.7 pg (26.0-34.0); MCHC 30.3 g/dL (31.0-37.0); MCV 78.1 fL (80.0-100.0); MEAN PLATELET VOLUME 8.9 fL (7.4-10.4); MONOCYTES 4.2 % (2-11); NEUTROPHILS 60.4 % (40-80); PLATELET COUNT 178 10x3/uL (130-400); RBC 3.93 10x6/uL (4.00-5.40); RDW 17.6 % (11.5-14.5); WBC 8.1 10x3/uL (4.8-10.8)
[2018-11-11 05:56] LABS: ALBUMIN 2.5 g/dL (3.4-5.0); ALKALINE PHOSPHATASE 133 U/L (46-116); ALT (SGPT) 19 U/L (10-68); BILIRUBIN - TOTAL 0.23 mg/dL (0.2-1.3); CALCIUM 8.1 mg/dL (8.5-10.1); CARBON DIOXIDE 29.1 mmol/L (21.0-32.0); CHLORIDE - SERUM 106 mmol/L (98-107); CREATININE - SERUM 0.8 mg/dL (0.6-1.3); POTASSIUM - SERUM 4.2 mmol/L (3.5-5.1); PROTEIN - SERUM 6.3 g/dL (6.4-8.2); SODIUM 142 mmol/L (136-145); UREA NITROGEN 13 mg/dL (7-18); eGFR NON AFRICAN AMERICAN 77 mL/min (90-120)
[2018-11-11 06:00] LABS: CALC OSMOLALITY 289 mosm/kg (275-300); GLUCOSE 219 mg/dL (74-106)
[2018-11-11 08:48] VITALS: BP 172/59
--- NOTE | 2018-11-11 09:49 | NUR ---
C/O PAIN RATING 7/10 ON PAIN SCALE MEDICATED WITH DILUADID 05 MG PER ORDERS. C/L IN REACH
[2018-11-11] MEDS ORDERED: TESSALON PERLE100 MG PO (11:41)
[2018-11-11] MEDS ORDERED: MUCINEX600 MG PO (11:41)
[2018-11-11] MEDS ORDERED: FLORAJEN3 CAPS460 MG PO (11:41)
[2018-11-11] MEDS ORDERED: OMNICEF300 MG PO (11:42)
[2018-11-11] MEDS ORDERED: DOXYCYCLINE HY100 M2 PO (11:42)
[2018-11-11] MEDS ORDERED: [UNRECOGNIZED DRUG - REMARK] TOPICAL (11:43)
--- NOTE | 2018-11-11 12:21 | MORECARE ---
CASE MANAGEMENT DISCHARGE SUMMARY PATIENT: RONEN PALOMO UNIT: [id number] ADM DATE: 11/07/18 AGE: 63 : 57 SEX: F ROOM/BED: D.2234 AUTHOR: VIRGEN,DOC PHYSICIAN: REFERRING PHYSICIAN: RADAMES COLLINS MD DATE OF SERVICE: 11/11/18 Discharge Plan Patient Name: RONEN PALOMO Facility: [facility]:[place] : 1955 Planned Disposition: Home with Home Health Anticipated Discharge Date: Discharge Date: Expected LOS: Initial Reviewer: [email or web address] Initial Review Date: 11/09/2018 Generated: 11/11/18 1:21 pm Comments DCP- Discharge Planning Updated by [email or web address]: Jessica Nuñez on 11/11/18 11:[address] Received order for discharge. [facility] will begin seeing her on Thursday, clinical faxed. I called Tessie at [facility], she states that they do see her twice a week but can see her more often if requested. States patient has declined more days at this time. Tessie states they have known about the head lice, they offered to do the repeat shampoo on her after leaving the hospital and she refused. Tessie states they will try and see her tomorrow. I informed patient that [facility] will try and see her tomorrow and [facility] will see on Thursday. CM will continue to follow and assist with discharge planning/needs. DCP- Discharge Planning Updated by [id number]: Jessica Nuñez on 11/10/18 10:[address] I spoke with Maritza at [facility] and they will start seeing her on Thursday if she is discharged by then CM will continue to follow and assist with discharge planning/needs. DCP- Discharge Planning Updated by [id number]: Jessica Nuñez on 11/09/18 12:[address] Spoke to Maritza at [facility] and clinical faxed. Maritza states she will call back if able to accept her. CM will continue to follow and assist with discharge planning/needs. DCP- Discharge Planning Updated by [email or web address]: Jessica Nuñez on 11/09/18 11:[address] Patient Name: RONEN PALOMO Admission Status: ER Accout number: [id number] Admission Date: 11-07-2018 : 1955 Admission Diagnosis: Attending: RADAMES COLLINS Current LOS: 2 Anticipated DC Date: Planned Disposition: Home with Home Health Primary Insurance: MEDICAID [place] Discharge Planning Comments: CM met with patient to discuss discharge planning, she is alone in the room. States she lives with her . States she has [employer] come in twice a week for 2-3 hours to assist with bathing and dressing. States she does her own medication management. States she can drive, but does not. States her drives her where she needs to go. States she did not fill her prescriptions when she left last time because her truck was broken down. States her truck is now fixed and will be able to get her prescriptions. I discussed the availability of Home health and DME. She would like to have [facility] arranged. She states she has all the DME needed and her DME company for oxygen and nebulizer is [email or web address]. CM will continue to follow and assist with discharge planning/needs. Felt Tipping Machine Tender: Jessicapreeti Nuñez DCP- Discharge Planning Updated by [email or web address]: Jessica Nuñez on 11/08/18 3:[address] Attempted to meet with patient in the room, she is sleeping and not awakened for assessment. I will try and meet with her for discharge planning tomorrow. DCPIA - Discharge Planning Initial Assessment Updated by [email or web address]: Jessica Presleyviviane on 11/09/18 12:19 pm * Is the patient Alert and Oriented? Yes * How many steps to enter\exit or inside your home? 0/0 * PCP Dr. Guido New States she sees Dr. Davis at Dr. De La Vega's office by [facility] * Pharmacy [facility] * Preadmission Environment Home with Family * ADLs Partial Dependent * Partial ADLs (Assistance needed) Ambulation Bathing Dressing * Equipment Bedside Commode Grab Bars Nebulizer Oxygen Shower Chair Walker Wheelchair * List name and contact numbers for known caregivers / representatives who currently or will assist patient after discharge: [facility] - [phone] * Verbal permission to speak to the caregivers and representatives has been obtained from the patient. Yes * Community resources currently utilized Private Duty Care * Please name any agencies selected above. [employer] * Additional services required to return to the preadmission environment? No * Can the patient safely return to the preadmission environment? Yes * Has this patient been hospitalized within the prior 30 days at any hospital? Yes Last DP export: 11/10/18 10:31 am Patient Name: RONEN PALOMO Page [id number] at 1221 All edits/amendments must be made on the electronic document DICTATION DATE: 11/11/18 1220 FARM ADVISER: RAN 11/11/18 1220 RPT#: [id number] DC DATE: STATUS: ADM IN [facility] [address] [place] [address] END OF REPORT
[2018-11-11 13:01] VITALS: BP 130/67
--- NOTE | 2018-11-11 14:58 | NUR ---
DC HOME AT THIS TIME . VOICE UNDERSTANDING OF DC INSTRUCTION. IV DC. WAS IN STABLE IN CONDITION UPON DEPARTURE.
--- NOTE | 2018-11-11 15:11 | NUR ---
OT NOTE: PT PERFORMED WELL TODAY. SHE WAS REQUESTING TO AMBULATE FURTHER THAN INSIDE HER ROOM. PT ABLE TO PERFORM BED MOB WITHOUT ASSIST; IN ROOM AMBULATION WITH SBA. AMBULATION INTO HALLWAY WITH MIN ASSIST. UPON RETURN TO ROOM, PT WAS VERY SOB. PT STATED THAT SHE IS CURRENTLY AT HER PRIOR LEVEL OF FUNCTION. SHE REPORTS THAT WHEN SHE IS AT HOME, SHE ONLY AMBULATES FROM BED TO BATHROOM, APPROX 7 FT, AND SHE IS VERY SOB. STATES THAT SHE USES 02 MOST OF DAY AND ALWAYS AT NIGHT. PT STATED THAT SHE SOMETIMES USES WALKER AT HOME AND A SCOOTER WHEN SHE GOES OUT. INSTRUCTED PT TO USE WALKER AT HOME, SHE IS STILL WEAK AND IT WOULD BE MUCH SAFER AT THIS TIME. PT VOICED UNDERSTANDING. LULU DASILVA, OTR/L
--- NOTE | 2018-11-11 17:21 | NUR ---
OT NOTE: PT COMPLETED ADL MOB WITH CGA. PT COMPLETED BED MOB WITH SBA. PT COMPLETED BUE AROM AXS. PT COMPLETED GROOMING TASK WITH SET UP. PT REQUIRED REST BREAKS. THANK YOU, NAJMA DURANT
--- NOTE | 2018-11-12 17:00 | MORECARE ---
CASE MANAGEMENT DISCHARGE SUMMARY PATIENT: RONEN PALOMO UNIT: [id number] ADM DATE: 11/07/18 AGE: 63 : 57 SEX: F ROOM/BED: D.2234 AUTHOR: VIRGEN,DOC PHYSICIAN: REFERRING PHYSICIAN: RADAMES COLLINS MD DATE OF SERVICE: 11/12/18 Discharge Plan Patient Name: RONEN PALOMO Facility: [facility]:[place] : 1955 Planned Disposition: Home with Home Health Anticipated Discharge Date: Discharge Date: 11/11/2018 Expected LOS: Initial Reviewer: [email or web address] Initial Review Date: 11/09/2018 Generated: 11/12/18 6:00 pm Comments DCP- Discharge Planning Updated by [email or web address]: Jessica Nuñez on 11/11/18 11:[address] Received order for discharge. [facility] will begin seeing her on Thursday, clinical faxed. I called Tessie at [facility] [email or web address], she states that they do see her twice a week but can see her more often if requested. States patient has declined more days at this time. Tessie states they have known about the head lice, they offered to do the repeat shampoo on her after leaving the hospital and she refused. Tessie states they will try and see her tomorrow. I informed patient that [facility] will try and see her tomorrow and [facility] will see on Thursday. CM will continue to follow and assist with discharge planning/needs. DCP- Discharge Planning Updated by [email or web address]: Jessica Nuñez on 11/10/18 10:[address] I spoke with Maritza at [facility] and they will start seeing her on Thursday if she is discharged by then CM will continue to follow and assist with discharge planning/needs. DCP- Discharge Planning Updated by [email or web address]: Jessica Nuñez on 11/09/18 12:[address] Spoke to Maritza at [facility] and clinical faxed. Maritza states she will call back if able to accept her. CM will continue to follow and assist with discharge planning/needs. DCP- Discharge Planning Updated by [email or web address]: Jessica Nuñez on 11/09/18 11:[address] Patient Name: RONEN PALOMO Admission Status: ER Accout number: [id number] Admission Date: 11-07-2018 : 1955 Admission Diagnosis: Attending: RADAMES COLLINS Current LOS: 2 Anticipated DC Date: Planned Disposition: Home with Home Health Primary Insurance: MEDICAID [place] Discharge Planning Comments: CM met with patient to discuss discharge planning, she is alone in the room. States she lives with her . States she has [facility] come in twice a week for 2-3 hours to assist with bathing and dressing. States she does her own medication management. States she can drive, but does not. States her drives her where she needs to go. States she did not fill her prescriptions when she left last time because her truck was broken down. States her truck is now fixed and will be able to get her prescriptions. I discussed the availability of Home health and DME. She would like to have [facility] arranged. She states she has all the DME needed and her DME company for oxygen and nebulizer is [employer]. CM will continue to follow and assist with discharge planning/needs. Records Supervisor: Jessica Nuñez DCP- Discharge Planning Updated by [email or web address]: Jessica Nuñez on 11/08/18 3:[address] Attempted to meet with patient in the room, she is sleeping and not awakened for assessment. I will try and meet with her for discharge planning tomorrow. DCPIA - Discharge Planning Initial Assessment Updated by [email or web address]: Jessica Savannah on 11/09/18 12:19 pm * Is the patient Alert and Oriented? Yes * How many steps to enter\exit or inside your home? 0/0 * PCP Dr. Guido New States she sees Dr. Davis at Dr. De La Vega's office by [facility] * Pharmacy [facility] * Preadmission Environment Home with Family * ADLs Partial Dependent * Partial ADLs (Assistance needed) Ambulation Bathing Dressing * Equipment Bedside Commode Grab Bars Nebulizer Oxygen Shower Chair Walker Wheelchair * List name and contact numbers for known caregivers / representatives who currently or will assist patient after discharge: Gordon - [email or web address] - [phone] * Verbal permission to speak to the caregivers and representatives has been obtained from the patient. Yes * Community resources currently utilized [facility] * Please name any agencies selected above. [facility] * Additional services required to return to the preadmission environment? No * Can the patient safely return to the preadmission environment? Yes * Has this patient been hospitalized within the prior 30 days at any hospital? Yes Last DP export: 11/11/18 11:21 am Patient Name: RONEN PALOMO Page 90909 at 1700 All edits/amendments must be made on the electronic document DICTATION DATE: 11/12/181658 SECURITIES ANALYST: RAN 11/12/181658 RPT#: [id number] DC DATE:11/11/18 STATUS: DIS IN [address] [place] [address] END OF REPORT
== END 2018-11-11 14:59 | disposition home health service (06) | DRG 193 ==
LOC: D.ER 20:28 → D.MS 23:27 → D.EDHOLD 23:27 → D.MS 23:42
PROVIDERS: Emergency Medicine; Family Medicine; ADMIT Internal Medicine Nephrology; ATTEND Internal Medicine Nephrology
DX: J18.1 Lobar pneumonia, unspecified organism (principal); J96.21 Acute and chronic respiratory failure with hypoxia; J44.0 Chronic obstructive pulmonary disease with (acute) lower respiratory infection; F31.30 Bipolar disorder, current episode depressed, mild or moderate severity, unspecified; E11.65 Type 2 diabetes mellitus with hyperglycemia; J20.9 Acute bronchitis, unspecified; I10 Essential (primary) hypertension; E03.9 Hypothyroidism, unspecified; W18.30XA Fall on same level, unspecified, initial encounter; R55 Syncope and collapse; B85.2 Pediculosis, unspecified; K21.9 Gastro-esophageal reflux disease without esophagitis; K57.90 Diverticulosis of intestine, part unspecified, without perforation or abscess without bleeding

== ENCOUNTER 2018-11-17 17:48 | Emergency (ER) | payer MEDICAID ==
[~2018-11-17] VITALS: Ht 165.1 cm; Wt 110.9 kg
[~2018-11-17 17:48] MED LIST changes: +DOXYCYCLINE HY100 M2 PO; +FLORAJEN3 CAPS460 MG PO; +MUCINEX600 MG PO; +[UNRECOGNIZED DRUG - REMARK] TOPICAL
[2018-11-17 18:23] VITALS: Ht 165.1 cm; Wt 110.9 kg
[2018-11-17 19:04] LABS: BASOPHILS 0.2 % (0-2); EOSINOPHILS 4.1 % (0-7); HEMATOCRIT 36.5 % (36.0-48.0); HEMOGLOBIN 11.5 g/dL (12-16); IMMATURE GRANULOCYTES 0.4 % (0-5); LYMPHOCYTES 27.9 % (15-50); MCH 23.8 pg (26.0-34.0); MCHC 31.5 g/dL (31.0-37.0); MCV 75.6 fL (80.0-100.0); MEAN PLATELET VOLUME 8.7 fL (7.4-10.4); MONOCYTES 4.7 % (2-11); NEUTROPHILS 62.7 % (40-80); RBC 4.83 10x6/uL (4.00-5.40); WBC 9.2 10x3/uL (4.8-10.8)
[2018-11-17 19:11] LABS: APPEARANCE CLEAR (CLEAR); BILIRUBIN NEGATIVE (NEGATIVE); COLOR YELLOW (YELLOW); GLUCOSE 500 mg/dL (NEGATIVE); KETONE NEGATIVE (NEGATIVE); NITRITE NEGATIVE (NEGATIVE); PROTEIN NEGATIVE (NEGATIVE); UROBILINOGEN NORMAL (NORMAL)
[2018-11-17 19:27] LABS: ALBUMIN 3.4 g/dL (3.4-5.0); ALKALINE PHOSPHATASE 170 U/L (46-116); ALT (SGPT) 30 U/L (10-68); BILIRUBIN - TOTAL 0.37 mg/dL (0.2-1.3); CALC OSMOLALITY 279 mosm/kg (275-300); CALCIUM 8.9 mg/dL (8.5-10.1); CARBON DIOXIDE 24.7 mmol/L (21.0-32.0); CHLORIDE - SERUM 98 mmol/L (98-107); CREATININE - SERUM 0.8 mg/dL (0.6-1.3); POTASSIUM - SERUM 3.7 mmol/L (3.5-5.1); PROTEIN - SERUM 7.9 g/dL (6.4-8.2); SODIUM 135 mmol/L (136-145); UREA NITROGEN 12 mg/dL (7-18); eGFR NON AFRICAN AMERICAN 77 mL/min (90-120)
[2018-11-17 19:31] LABS: PLATELET COUNT 240 10x3/uL (130-400)
[2018-11-17 19:32] LABS: GLUCOSE 285 mg/dL (74-106)
[2018-11-17] MEDS ORDERED: VOLTAREN75 MG PO (21:07)
[2018-11-17] MEDS ORDERED: BACLOFEN20 M1 PO (21:07)
[2018-11-17 21:42] VITALS: BP 137/70
== END 2018-11-17 21:42 | disposition home or self-care (01) ==
LOC: D.ER 17:48
PROVIDERS: Family Medicine
DX: E11.65 Type 2 diabetes mellitus with hyperglycemia (principal); Z79.4 Long term (current) use of insulin

== ENCOUNTER 2018-11-30 18:24 | Emergency (ER) | payer MEDICAID ==
[2018-11-17 18:23] VITALS: Ht 165.1 cm; Wt 112.7 kg
[~2018-11-30] VITALS: Ht 165.1 cm; Wt 112.7 kg
[~2018-11-30 18:24] MED LIST changes: +BACLOFEN20 M1 PO; +VOLTAREN75 MG PO
[2018-11-30 18:57] LABS: BASOPHILS 0.3 % (0-2); EOSINOPHILS 3.7 % (0-7); HEMATOCRIT 35.7 % (36.0-48.0); HEMOGLOBIN 11.2 g/dL (12-16); IMMATURE GRANULOCYTES 0.6 % (0-5); LYMPHOCYTES 21.5 % (15-50); MCH 23.7 pg (26.0-34.0); MCHC 31.4 g/dL (31.0-37.0); MCV 75.5 fL (80.0-100.0); MEAN PLATELET VOLUME 9.5 fL (7.4-10.4); MONOCYTES 5.1 % (2-11); NEUTROPHILS 68.8 % (40-80); PLATELET COUNT 242 10x3/uL (130-400); RBC 4.73 10x6/uL (4.00-5.40); RDW 16.6 % (11.5-14.5); WBC 7.8 10x3/uL (4.8-10.8)
[2018-11-30 19:07] LABS: INR 0.99 (0.85-1.17); PROTIME 12.6 SECONDS (11.6-15.0)
[2018-11-30 19:08] LABS: APTT 25.4 SECONDS (22.8-39.4)
[2018-11-30 19:45] LABS: ALBUMIN 2.9 g/dL (3.4-5.0); ALKALINE PHOSPHATASE 182 U/L (46-116); ALT (SGPT) 30 U/L (10-68); BILIRUBIN - TOTAL 0.23 mg/dL (0.2-1.3); CALC OSMOLALITY 283 mosm/kg (275-300); CALCIUM 8.3 mg/dL (8.5-10.1); CHLORIDE - SERUM 102 mmol/L (98-107); CREATININE - SERUM 1.3 mg/dL (0.6-1.3); GLUCOSE 249 mg/dL (74-106); POTASSIUM - SERUM 3.4 mmol/L (3.5-5.1); PROTEIN - SERUM 7.3 g/dL (6.4-8.2); SODIUM 138 mmol/L (136-145); UREA NITROGEN 13 mg/dL (7-18); eGFR NON AFRICAN AMERICAN 44 mL/min (90-120)
[2018-11-30 19:59] LABS: CKMB 0.1 U/L (0.0-3.6); CREATINE KINASE 18 UL (21-215); MAGNESIUM - SERUM 1.7 mg/dL (1.8-2.4); THYROID STIMULATING HORMONE 1.62 uIU/mL (0.36-3.74)
[2018-11-30 20:11] LABS: TROPONIN-I < 0.017 ng/mL (0.000-0.060)
[2018-11-30 22:50] VITALS: BP 140/86
== END 2018-11-30 23:22 | disposition other institution (70) ==
LOC: D.ER 18:24
PROVIDERS: Family Medicine
DX: I63.9 Cerebral infarction, unspecified (principal); G81.94 Hemiplegia, unspecified affecting left nondominant side

== ENCOUNTER 2019-01-19 20:10 | Emergency (ER) | payer MEDICAID ==
[~2019-01-19] VITALS: Ht 165.1 cm; Wt 113.6 kg
[2019-01-19 20:12] VITALS: Ht 165.1 cm; Wt 113.6 kg
[2019-01-19 21:24] LABS: ALBUMIN 2.7 g/dL (3.4-5.0); ALKALINE PHOSPHATASE 162 U/L (46-116); ALT (SGPT) 18 U/L (10-68); BASOPHILS 0.1 % (0-2); BILIRUBIN - TOTAL 0.15 mg/dL (0.2-1.3); CALC OSMOLALITY 288 mosm/kg (275-300); CALCIUM 8.3 mg/dL (8.5-10.1); CHLORIDE - SERUM 102 mmol/L (98-107); CREATININE - SERUM 0.8 mg/dL (0.6-1.3); EOSINOPHILS 4.3 % (0-7); HEMATOCRIT 33.1 % (36.0-48.0); HEMOGLOBIN 10.3 g/dL (12-16); IMMATURE GRANULOCYTES 0.7 % (0-5); LYMPHOCYTES 26.2 % (15-50); MCH 23.3 pg (26.0-34.0); MCHC 31.1 g/dL (31.0-37.0); MCV 74.7 fL (80.0-100.0); MEAN PLATELET VOLUME 9.2 fL (7.4-10.4); MONOCYTES 5.1 % (2-11); NEUTROPHILS 63.6 % (40-80); PLATELET COUNT 214 10x3/uL (130-400); POTASSIUM - SERUM 3.3 mmol/L (3.5-5.1); PROTEIN - SERUM 7.1 g/dL (6.4-8.2); RBC 4.43 10x6/uL (4.00-5.40); RDW 15.9 % (11.5-14.5); SODIUM 139 mmol/L (136-145); UREA NITROGEN 12 mg/dL (7-18); WBC 7.6 10x3/uL (4.8-10.8); eGFR NON AFRICAN AMERICAN 77 mL/min (90-120)
[2019-01-19 21:26] LABS: GLUCOSE 304 mg/dL (74-106)
[2019-01-19 21:37] LABS: APTT 27.1 SECONDS (22.8-39.4); CKMB 0.2 U/L (0.0-3.6); CREATINE KINASE 14 UL (21-215); INR 1.03 (0.85-1.17); MAGNESIUM - SERUM 1.6 mg/dL (1.8-2.4)
[2019-01-19 21:41] LABS: TROPONIN-I < 0.017 ng/mL (0.000-0.060)
[2019-01-19 22:27] LABS: PRO BNP 54 pg/mL (0-125)
[2019-01-19 23:04] VITALS: BP 130/65
== END 2019-01-19 23:05 | disposition home or self-care (01) ==
LOC: D.ER 20:10
PROVIDERS: Family Medicine
DX: J44.1 Chronic obstructive pulmonary disease with (acute) exacerbation (principal); I25.10 Atherosclerotic heart disease of native coronary artery without angina pectoris

== ENCOUNTER 2019-02-21 19:29 | Emergency (ER) | payer MEDICAID ==
[~2019-02-21] VITALS: Ht 165.1 cm; Wt 113.6 kg
[2019-02-21 19:31] VITALS: Ht 165.1 cm; Wt 113.6 kg
[2019-02-21 19:56] LABS: BASOPHILS 0.2 % (0-2); EOSINOPHILS 4.5 % (0-7); HEMOGLOBIN 10.6 g/dL (12-16); IMMATURE GRANULOCYTES 0.5 % (0-5); LYMPHOCYTES 16.1 % (15-50); MCHC 31.2 g/dL (31.0-37.0); MCV 73.8 fL (80.0-100.0); NEUTROPHILS 72.7 % (40-80); PLATELET COUNT 213 10x3/uL (130-400); RBC 4.61 10x6/uL (4.00-5.40); RDW 16.8 % (11.5-14.5); WBC 8.5 10x3/uL (4.8-10.8)
--- NOTE | 2019-02-21 20:09 | NUR ---
The patient admits that she used to think about driving into deep water 15-20 years ago, and she admits to having bipolar and depression. She denies S.I., she scores low on the suicide assessment and does not require 1:1 observation.
[2019-02-21 20:22] LABS: APTT 29.6 SECONDS (22.8-39.4); INR 1.03 (0.85-1.17)
[2019-02-21 20:25] LABS: ALBUMIN 2.9 g/dL (3.4-5.0); ALKALINE PHOSPHATASE 171 U/L (46-116); ALT (SGPT) 21 U/L (10-68); BILIRUBIN - TOTAL 0.21 mg/dL (0.2-1.3); CALC OSMOLALITY 281 mosm/kg (275-300); CALCIUM 8.6 mg/dL (8.5-10.1); CARBON DIOXIDE 25.3 mmol/L (21.0-32.0); CHLORIDE - SERUM 100 mmol/L (98-107); CREATININE - SERUM 0.8 mg/dL (0.6-1.3); GLUCOSE 270 mg/dL (74-106); POTASSIUM - SERUM 3.7 mmol/L (3.5-5.1); PROTEIN - SERUM 7.5 g/dL (6.4-8.2); SODIUM 136 mmol/L (136-145); UREA NITROGEN 12 mg/dL (7-18); eGFR NON AFRICAN AMERICAN 77 mL/min (90-120)
[2019-02-21 20:36] LABS: CKMB 0.3 U/L (0.0-3.6); CREATINE KINASE 15 UL (21-215); MAGNESIUM - SERUM 1.8 mg/dL (1.8-2.4); PRO BNP 36 pg/mL (0-125)
[2019-02-21 20:37] LABS: TROPONIN-I < 0.017 ng/mL (0.000-0.060)
[2019-02-21] MEDS ORDERED: TESSALON PERLE100 MG PO (21:36)
[2019-02-21 22:06] VITALS: BP 153/57
== END 2019-02-21 22:07 | disposition home or self-care (01) ==
LOC: D.ER 19:29
PROVIDERS: Family Medicine
DX: J44.9 Chronic obstructive pulmonary disease, unspecified (principal)

== ENCOUNTER 2019-03-02 13:07 | Emergency (ER) | payer MEDICAID ==
[~2019-03-02] VITALS: Ht 165.1 cm; Wt 118.2 kg
[2019-03-02 13:23] VITALS: Ht 165.1 cm; Wt 118.2 kg
[2019-03-02 14:49] LABS: APTT 26.1 SECONDS (22.8-39.4); PROTIME 12.7 SECONDS (11.6-15.0)
[2019-03-02 14:52] LABS: APPEARANCE HAZY (CLEAR); BILIRUBIN NEGATIVE (NEGATIVE); COLOR YELLOW (YELLOW); GLUCOSE 1000 mg/dL (NEGATIVE); KETONE NEGATIVE (NEGATIVE); NITRITE NEGATIVE (NEGATIVE); PROTEIN NEGATIVE (NEGATIVE); SPECIFIC GRAVITY 1.025 (1.005-1.020); UROBILINOGEN NORMAL (NORMAL)
[2019-03-02 14:53] LABS: BASOPHILS 0.3 % (0-2); EOSINOPHILS 3.5 % (0-7); HEMATOCRIT 34.7 % (36.0-48.0); HEMOGLOBIN 10.9 g/dL (12-16); LYMPHOCYTES 26.9 % (15-50); MCHC 31.4 g/dL (31.0-37.0); MCV 73.2 fL (80.0-100.0); MEAN PLATELET VOLUME 9.1 fL (7.4-10.4); MONOCYTES 6.3 % (2-11); PLATELET COUNT 238 10x3/uL (130-400); RBC 4.74 10x6/uL (4.00-5.40); RDW 16.7 % (11.5-14.5); WBC 8.9 10x3/uL (4.8-10.8)
[2019-03-02 14:57] LABS: BACTERIA MODERATE /hpf (NONE SEEN); EPITHELIAL CELLS 0-5 /hpf (0-5); RED CELLS - URINE 0-5 /hpf (0-5); WHITE CELLS - URINE 0-5 /hpf (0-5); YEAST <1+ /hpf (NONE SEEN)
[2019-03-02 15:02] LABS: ALBUMIN 2.9 g/dL (3.4-5.0); ALKALINE PHOSPHATASE 180 U/L (46-116); ALT (SGPT) 23 U/L (10-68); BILIRUBIN - TOTAL 0.19 mg/dL (0.2-1.3); CALC OSMOLALITY 267 mosm/kg (275-300); CALCIUM 8.8 mg/dL (8.5-10.1); CARBON DIOXIDE 26.7 mmol/L (21.0-32.0); CHLORIDE - SERUM 99 mmol/L (98-107); CREATININE - SERUM 0.8 mg/dL (0.6-1.3); GLUCOSE 262 mg/dL (74-106); POTASSIUM - SERUM 3.5 mmol/L (3.5-5.1); PROTEIN - SERUM 7.1 g/dL (6.4-8.2); SODIUM 129 mmol/L (136-145); UREA NITROGEN 12 mg/dL (7-18); eGFR NON AFRICAN AMERICAN 77 mL/min (90-120)
[2019-03-02 15:13] LABS: CKMB 14.2 U/L (0.0-3.6); CREATINE KINASE 20 UL (21-215); MAGNESIUM - SERUM 1.7 mg/dL (1.8-2.4)
[2019-03-02 15:49] LABS: TROPONIN-I < 0.017 ng/mL (0.000-0.060)
[2019-03-02] MEDS ORDERED: ONDANSETRON8 MG/TAB PO (16:19)
[2019-03-02] MEDS ORDERED: MACROBID100 MG PO (16:19)
[2019-03-02 16:36] VITALS: BP 155/82
== END 2019-03-02 16:30 | disposition home or self-care (01) ==
LOC: D.ER 13:07
PROVIDERS: Family Medicine
DX: N39.0 Urinary tract infection, site not specified (principal); J44.9 Chronic obstructive pulmonary disease, unspecified

== ENCOUNTER 2019-03-03 22:59 | Observation (INO) | payer MEDICAID ==
[~2019-03-03 22:59] MED LIST changes: +ONDANSETRON8 MG/TAB PO
[2019-03-03 23:37] LABS: HEMATOCRIT 35.1 % (36.0-48.0); HEMOGLOBIN 11.5 g/dL (12-16); LYMPHOCYTES 23.1 % (15-50); MCH 24.3 pg (26.0-34.0); MCHC 32.8 g/dL (31.0-37.0); MCV 74.1 fL (80.0-100.0); MEAN PLATELET VOLUME 8.5 fL (7.4-10.4); NEUTROPHILS 69.7 % (40-80); PLATELET COUNT 267 10x3/uL (130-400); RBC 4.74 10x6/uL (4.00-5.40); RDW 15.8 % (11.5-14.5); WBC 10.4 10x3/uL (4.8-10.8)
[2019-03-03 23:43] LABS: APPEARANCE CLEAR (CLEAR); BILIRUBIN NEGATIVE (NEGATIVE); COLOR YELLOW (YELLOW); GLUCOSE 250 mg/dL (NEGATIVE); KETONE NEGATIVE (NEGATIVE); NITRITE NEGATIVE (NEGATIVE); PROTEIN NEGATIVE (NEGATIVE); SPECIFIC GRAVITY 1.015 (1.005-1.020); UROBILINOGEN NORMAL (NORMAL)
[2019-03-03 23:52] LABS: ALBUMIN 2.9 g/dL (3.4-5.0); ALKALINE PHOSPHATASE 163 U/L (46-116); ALT (SGPT) 19 U/L (10-68); BILIRUBIN - TOTAL 0.21 mg/dL (0.2-1.3); CALC OSMOLALITY 283 mosm/kg (275-300); CALCIUM 8.9 mg/dL (8.5-10.1); CARBON DIOXIDE 26.2 mmol/L (21.0-32.0); CHLORIDE - SERUM 99 mmol/L (98-107); POTASSIUM - SERUM 3.6 mmol/L (3.5-5.1); PROTEIN - SERUM 7.6 g/dL (6.4-8.2); SODIUM 136 mmol/L (136-145); UREA NITROGEN 11 mg/dL (7-18); eGFR NON AFRICAN AMERICAN 59 mL/min (90-120)
[2019-03-03 23:53] LABS: GLUCOSE 340 mg/dL (74-106); KETONE - SERUM NEGATIVE (NEGATIVE)
[2019-03-04] LABS: PRO BNP 73 pg/mL (0-125)
--- NOTE | 2019-03-04 01:09 | NUR ---
RECEIVED PT TO FLOOR FROM ER VIA STRETCHER. PT TRANSFERRED HERSELF BY SCOOTING FROM STRETCHER TO THE BED. SUICIDE SCREENING DONE. REVIEWED HOME MEDS AND HISTORY. STATES SHE USES OXYGEN 2L/NC QHS. SETUP OXYGEN 2L/NC FOR HER USE. VITAL SIGNS STABLE. ASSESSMENT COMPLETE PER FLOW-SHEET. NO OTHER NEEDS. WILL CONTINUE TO MONITOR.
[2019-03-04] MEDS ORDERED: ACETAMINOPHEN500 M1 PO (01:18)
[2019-03-04 03:37] VITALS: BP 168/84; BMI 41.1
[2019-03-04 06:04] VITALS: BP 148/73
--- NOTE | 2019-03-04 07:35 | NUR ---
PT LYING IN BED WITH EYES OPEN. GREETS STAFF APPROPRIATELY UPON ENTERING ROOM. ALERT AND ORIENTED. REPORTS PAIN 2/10 AT THIS TIME, VOICES TORADOL PAIN MEDICATION IS INEFFECTIVE TO PAIN IN LOWER PACK AND DOWN LEFT HIP AND REQUEST DILAUDID, "BECAUSE I KNOW IT WILL WORK". EDUCATED PT REGARDING MEDICATIONS PRESCRIBED AND THE NEED TO COMMUNICATE WITH PHYSICIAN REGARDING PAIN AND NEED FOR MORE. PT VOICES UNDERSTANDING. IV TO LEFT AC INTACT WITH NS @ 125ML/HR INFUSING VIA PUMP. SITE WITHOUT REDNESS OR EDEMA. DENIES FURTHER NEEDS AT THIS TIME. CL WITHIN REACH. ENCOURAGED TO CALL WITH NEEDS. CONTINUE POC
[2019-03-04 08:40] VITALS: BP 137/71
--- NOTE | 2019-03-04 09:36 | NUR ---
PT REQUESTED NURSE. UPON ENTERING PT ROOM PT VOICES NAUSEA AND NEED FOR ZOFRAN. ADMINISTERED ZOFRAN PER MD ORDERS AT THIS TIME
--- NOTE | 2019-03-04 10:00 | NUR ---
PT RESTING IN BED. ASSESSED PT NAUSEA AFTER ADMINISTRATION OF ZOFRAN. PT VOICES "ITS BETTER." WILL CONTINUE TO MONITOR PT FOR NAUSEA. ENCOURAGED TO CALL WITH NEEDS.
[2019-03-04 10:23] LABS: BASOPHILS 0.1 % (0-2); EOSINOPHILS 4.4 % (0-7); HEMATOCRIT 33.4 % (36.0-48.0); HEMOGLOBIN 10.7 g/dL (12-16); IMMATURE GRANULOCYTES 0.9 % (0-5); LYMPHOCYTES 28.6 % (15-50); MCH 23.6 pg (26.0-34.0); MCV 73.6 fL (80.0-100.0); MEAN PLATELET VOLUME 8.5 fL (7.4-10.4); MONOCYTES 4.7 % (2-11); NEUTROPHILS 61.3 % (40-80); RBC 4.54 10x6/uL (4.00-5.40); RDW 16.9 % (11.5-14.5); WBC 9.4 10x3/uL (4.8-10.8)
[2019-03-04 10:28] LABS: PLATELET COUNT 206 10x3/uL (130-400)
[2019-03-04 12:03] VITALS: BP 156/74
[2019-03-04 13:33] VITALS: BMI 41.1
[2019-03-04 16:39] VITALS: BP 159/73
[2019-03-04 20:00] VITALS: BP 162/69
--- NOTE | 2019-03-04 21:33 | NUR ---
PT ALERT & ORIENTED. C/O HIP PAIN RADIATING DOWN LEGS 04/16. GAVE DILAUDID 0.5 MG IV PUSH. GAVE SCHEDULED MEDS. OXYGEN SATS 89%-91% - INSTRUCTED PT TO COUGH AND DEEP BREATH AND WEAR HER OXYGEN. FSBS 321 - GAVE INSULIN PER SS. NO OTHER NEEDS. WILL CONTINUE TO MONITOR.
[2019-03-05] VITALS: BP 159/51
[2019-03-05 04:00] VITALS: BP 151/59
[2019-03-05 08:05] LABS: BASOPHILS 0 % (0-2); EOSINOPHILS 0.1 % (0-7); HEMATOCRIT 32.9 % (36.0-48.0); HEMOGLOBIN 10.2 g/dL (12-16); IMMATURE GRANULOCYTES 0.6 % (0-5); LYMPHOCYTES 10.4 % (15-50); MCH 22.9 pg (26.0-34.0); MCV 73.9 fL (80.0-100.0); MEAN PLATELET VOLUME 9.5 fL (7.4-10.4); MONOCYTES 1.3 % (2-11); NEUTROPHILS 87.6 % (40-80); PLATELET COUNT 220 10x3/uL (130-400); RBC 4.45 10x6/uL (4.00-5.40); RDW 16.6 % (11.5-14.5); WBC 8.3 10x3/uL (4.8-10.8)
[2019-03-05 08:08] LABS: ALBUMIN 2.5 g/dL (3.4-5.0); ALKALINE PHOSPHATASE 152 U/L (46-116); ALT (SGPT) 23 U/L (10-68); BILIRUBIN - TOTAL 0.11 mg/dL (0.2-1.3); CALCIUM 8.3 mg/dL (8.5-10.1); CARBON DIOXIDE 24.7 mmol/L (21.0-32.0); CHLORIDE - SERUM 107 mmol/L (98-107); CREATININE - SERUM 0.8 mg/dL (0.6-1.3); PROTEIN - SERUM 6.3 g/dL (6.4-8.2); SODIUM 141 mmol/L (136-145); UREA NITROGEN 12 mg/dL (7-18); eGFR NON AFRICAN AMERICAN 77 mL/min (90-120)
[2019-03-05 08:16] LABS: CALC OSMOLALITY 291 mosm/kg (275-300); GLUCOSE 288 mg/dL (74-106); POTASSIUM - SERUM 4.6 mmol/L (3.5-5.1)
[2019-03-05 08:43] VITALS: BP 171/89
[2019-03-05] MEDS ORDERED: HYDROCODON-ACE1 EA10 PO (12:19)
[2019-03-05] MEDS ORDERED: PREDNISONE10 MG PO (12:21)
[2019-03-05] MEDS ORDERED: OMNICEF300 MG PO (12:21)
[2019-03-05 12:32] VITALS: BP 137/69
--- NOTE | 2019-03-05 12:45 | NUR ---
PT RESTING IN BED. NO SIGNS OF DISTRESS. IV TO RIGHT AC PATENT NO REDNESS OR TENDERNESS. ON TELEMETRY 88 SR. ON 2L NC. COMPLAINS OF PAIN. MEDICATION GIVEN. DENIES ANY NEED AT THIS TIME. CALL LIGHT IN REACH. BED LOW POSITION. NO FAMILY AT BEDSIDE AT THIS TIME.
[2019-03-05 16:59] VITALS: BP 149/91
--- NOTE | 2019-03-05 18:27 | NUR ---
DISCHARGE INSRTUCTIONS GIVEN. SEEMS TO UNDERSTAND INSTRUCTIONS. IV OUT TIP INTACT. TELEMETRY TAKEN OFF. NO SIGNS OF DISTRESS. LEFT WITH HOSPITAL STAFF TO PERSONAL RIDE TO GO HOME WITH SPOUSE.
== END 2019-03-05 18:29 | disposition home or self-care (01) ==
LOC: D.ER 22:59 → OBSVTIME 23:34 → D.MS 23:34
PROVIDERS: Family Medicine; ADMIT Family Medicine; ATTEND Family Medicine
DX: N39.0 Urinary tract infection, site not specified (principal); J44.1 Chronic obstructive pulmonary disease with (acute) exacerbation; E86.0 Dehydration; E11.65 Type 2 diabetes mellitus with hyperglycemia; E78.5 Hyperlipidemia, unspecified; I11.0 Hypertensive heart disease with heart failure; I50.9 Heart failure, unspecified; M81.0 Age-related osteoporosis without current pathological fracture; F31.9 Bipolar disorder, unspecified; K21.9 Gastro-esophageal reflux disease without esophagitis; K44.9 Diaphragmatic hernia without obstruction or gangrene; I25.10 Atherosclerotic heart disease of native coronary artery without angina pectoris; E66.9 Obesity, unspecified

== ENCOUNTER 2019-03-15 23:35 | Emergency (ER) | payer MEDICAID ==
[~2019-03-15] VITALS: Ht 165.1 cm; Wt 118.2 kg
[~2019-03-15 23:35] MED LIST changes: +ACETAMINOPHEN500 M1 PO; +HYDROCODON-ACE1 EA10 PO
[2019-03-15 23:42] VITALS: Ht 165.1 cm; Wt 118.2 kg
--- NOTE | 2019-03-16 00:30 | NUR ---
DR ORTIZ NOTIFIED AND REVIEWED PT'S BEHAVIOR AND ASSESSMENT RESULTS. PT IS A LOW RISK PER DR ORTIZ. DR ORTIZ STATED TO GIVE RESOURCES TO PT AT TIME OF DISCHARGE. NO FURTHER ORDERS AT THIS TIME, RESOURCES REVIEWED WITH PT AND SHE VERBALIZED UNDERSTANDING.
[2019-03-16] MEDS ORDERED: ROBAXIN500 MG PO (01:46)
[2019-03-16] MEDS ORDERED: VOLTAREN75 MG PO (01:46)
[2019-03-16 02:35] VITALS: BP 145/71
== END 2019-03-16 02:05 | disposition home or self-care (01) ==
LOC: D.ER 23:35
DX: M54.5 Low back pain (principal); W18.30XA Fall on same level, unspecified, initial encounter; Y93.89 Activity, other specified; Y92.012 Bathroom of single-family (private) house as the place of occurrence of the external cause

== ENCOUNTER 2019-03-21 18:36 | Emergency (ER) | payer MEDICAID ==
[~2019-03-21] VITALS: Ht 165.1 cm; Wt 115.5 kg
[~2019-03-21 18:36] MED LIST changes: +ROBAXIN500 MG PO
[2019-03-21 18:41] VITALS: Ht 165.1 cm; Wt 115.5 kg
--- NOTE | 2019-03-21 22:01 | NUR ---
Dr Oquendo notified and reviewed pt behavior and assessment results. Pt is a low risk per Dr Oquendo. Dr Oquendo stated to give resources to pt at time of discharge. No further orders at this time. Resources reviewed with pt and she verbalized understanding.
[2019-03-21 22:15] VITALS: BP 146/88
== END 2019-03-21 22:15 | disposition home or self-care (01) ==
LOC: D.ER 18:36
DX: M54.5 Low back pain (principal)

== ENCOUNTER 2019-04-02 21:09 | Inpatient (IN) | payer MEDICAID ==
[~2019-04-02] VITALS: Ht 165.1 cm; Wt 112.3 kg
[2019-04-02 21:47] LABS: BASOPHILS 0.2 % (0-2); EOSINOPHILS 2.7 % (0-7); HEMATOCRIT 40.2 % (36.0-48.0); HEMOGLOBIN 12.6 g/dL (12-16); IMMATURE GRANULOCYTES 0.4 % (0-5); LYMPHOCYTES 26.1 % (15-50); MCH 23.4 pg (26.0-34.0); MCHC 31.3 g/dL (31.0-37.0); MCV 74.7 fL (80.0-100.0); MEAN PLATELET VOLUME 9.5 fL (7.4-10.4); NEUTROPHILS 64.6 % (40-80); PLATELET COUNT 216 10x3/uL (130-400); RBC 5.38 10x6/uL (4.00-5.40); RDW 18.1 % (11.5-14.5); WBC 10.1 10x3/uL (4.8-10.8)
[2019-04-02 21:56] LABS: APTT 23.8 SECONDS (22.8-39.4); INR 1.06 (0.85-1.17); PROTIME 13.3 SECONDS (11.6-15.0)
--- NOTE | 2019-04-02 21:58 | NUR ---
RT AND LAB AT PT BEDSIDE.
[2019-04-02 22:01] LABS: ALBUMIN 3.3 g/dL (3.4-5.0); ALKALINE PHOSPHATASE 183 U/L (46-116); ALT (SGPT) 22 U/L (10-68); BILIRUBIN - TOTAL 0.31 mg/dL (0.2-1.3); CALC OSMOLALITY 275 mosm/kg (275-300); CALCIUM 8.5 mg/dL (8.5-10.1); CARBON DIOXIDE 24.4 mmol/L (21.0-32.0); CHLORIDE - SERUM 97 mmol/L (98-107); CREATININE - SERUM 1.1 mg/dL (0.6-1.3); POTASSIUM - SERUM 4.4 mmol/L (3.5-5.1); PROTEIN - SERUM 7.7 g/dL (6.4-8.2); SODIUM 130 mmol/L (136-145); UREA NITROGEN 11 mg/dL (7-18); eGFR NON AFRICAN AMERICAN 53 mL/min (90-120)
[2019-04-02 22:02] LABS: GLUCOSE 385 mg/dL (74-106)
[2019-04-02 22:27] LABS: CREATINE KINASE 27 UL (21-215); PRO BNP 10 pg/mL (0-125); TROPONIN-I < 0.017 ng/mL (0.000-0.060)
[2019-04-02 23:22] LABS: APPEARANCE CLEAR (CLEAR); BILIRUBIN NEGATIVE (NEGATIVE); COLOR YELLOW (YELLOW); GLUCOSE 500 mg/dL (NEGATIVE); KETONE NEGATIVE (NEGATIVE); NITRITE NEGATIVE (NEGATIVE); PROTEIN NEGATIVE (NEGATIVE); SPECIFIC GRAVITY 1.015 (1.005-1.020); UROBILINOGEN NORMAL (NORMAL)
--- NOTE | 2019-04-02 23:30 | NUR ---
VERBAL ORDER GIVEN FOR NS AT 30ML/KG GIVEN FOR PT ELEVATED LACTIC.
--- NOTE | 2019-04-02 23:45 | NUR ---
PT UPDATED ON PLAN OF CARE. PT SITTING UPRIGHT ON BED, CELL PHONE IN HAND.
[2019-04-03 00:05] VITALS: BP 141/83
--- NOTE | 2019-04-03 01:38 | NUR ---
REPORT RECIEVED FROM EMILY IN ER. PATIENT IS ON SEPSIS PROTOCOL, HAS 2ND BOLUS RUNNING NOW AND STILL NEEDS THE 3RD LITER RAN. WILL CONTINUE CARE ONCE PATIENT IS BROUGHT TO THE FLOOR.
--- NOTE | 2019-04-03 01:56 | NUR ---
PATIENT TO THE FLOOR. PATIENT AMBULATED TO THE BATHROOM, STEADY ON HER FEET. PATIENT SETTLED INTO BED NOW. PATIENT HAS A RIGHT CHEST PIV WITH BOLUS RUNNING OF NS, AND ABX ALSO RUNNING. PIV SITE SHOWS NO S/SX OF FILTRATION OR INFECTION. PATIENT IS SHOWING NO S/SX OF DISTRESS AT THIS TIME. BED IN LOWEST LOCKED POSITION AND CALL LIGHT WITHIN REACH. NO OTHER NEEDS AT THIS TIME.
[2019-04-03] MEDS ORDERED: RANITIDINE HCL150 M1 PO (02:06)
--- NOTE | 2019-04-03 02:43 | NUR ---
PATIENT REQUESTED A SANDWICH, BROUGHT PATIENT A SANDWICH. NO ORHER NEEDS AT THIS TIME. CALL LIGHT WITHIN REACH AND BED IN LOWEST LOCKED POSITION.
--- NOTE | 2019-04-03 02:58 | NUR ---
ADMISSION ASSESSMENT COMPLETED. PT RESTING WITH NO DISTRESS.
[2019-04-03 03:34] VITALS: BP 184/92; Ht 165.1 cm; Wt 112.3 kg
[2019-04-03 04:00] VITALS: BP 133/69
--- NOTE | 2019-04-03 05:10 | NUR ---
PATIENT REFUSES TELEMETRY, PATIENT STATES IT HURTS HER BOOBS AND SHE DOSENT HAVE HEART PROBLEMS SO THERE IS NO NEED.
--- NOTE | 2019-04-03 07:31 | NUR ---
INITIAL ROUNDING, WHITE BOARD UPDATED. PATIENT IS AWAKE AND WATCHING TV. SHE REPORTS HAVING DIARRHEA "BECAUSE YALL GAVE ME ANTIBIOTICS THAT I AM ALLERGIC TO" PATIENT WAS EDUCATED ON ALLERGIES AND THE S/S INCLUDING HIVES, ITCHING, RASH AND SUDDEN SOB, FOR WHICH SHE HAS NONE AT THIS TIME AND SHE DENIES HAVING ANY OF THESE SYMPTOMS LAST NIGHT. INSTRUCTED THE PATIENT THAT DIARRHEA IS A COMMON SIDE EFFECT, NOT ALLERGY AND THE BENEFITS OUT WEIGHT THE SIDE EFFECTS, SHE STATED UNDERSTANDING. SHE STATED "I DONT KNOW WHAT MY DOCTOR HAS PLANNED THIS TIME, BUT WHEN I AM IN THE HOSPITAL FOR PNEUMONIA I GET DILAUDID AND PHENERGAN IN MY IV" I REVIEWED THE MEDICATIONS WITH THE PATIENT AND OFFERED HER TYLENOL, SHE STATED "WISH MY DOCTOR WAS HERE". SHE AGREED TO TAKE THE TYLENOL. INSTRUCTED THE PATIENT THAT NARCOTICS WILL MAKE HER SLEEPY AND SHE NEEDED TO BE AWAKE AND MOVING AROUND, USING THE IS, AND COUGHING/DEEP BREATHING TO HELP HEALING PROCESS. SHE THEN TURNED UP THE TV.
[2019-04-03 08:30] VITALS: BP 156/78
[2019-04-03 11:42] VITALS: BP 148/64
--- NOTE | 2019-04-03 16:45 | NUR ---
THE DOCTOR IS DISCHARGING THE PATIENT AT THIS TIME. AWAITING ORDER FOR DISCHARGE
--- NOTE | 2019-04-04 10:12 | MORECARE ---
CASE MANAGEMENT DISCHARGE SUMMARY PATIENT: RONEN PALOMO UNIT: [id number] ADM DATE: 04/03/19 AGE: 64 : 57 SEX: F ROOM/BED: D.3027 AUTHOR: YONATAN NEW PHYSICIAN: REFERRING PHYSICIAN: NEGIN DUNN MD DATE OF SERVICE: 04/04/19 Discharge Plan Patient Name: RONEN PALOMO [facility] [facility] 1955 Planned Disposition: Home Anticipated Discharge Date: 04/03/19 Discharge Date: 04/03/2019 Expected LOS: 1 Initial Reviewer: [email or web address] Initial Review Date: 04/04/2019 Generated: 04/04/19 11:12 am Patient Name: RONEN PALOMO Page 51801 at 1012 All edits/amendments must be made on the electronic document DICTATION DATE: 04/04/19 1012 BAR TENDER: RAN 04/04/19 1012 RPT#: [id number] DC DATE:04/03/19 STATUS: DIS IN [facility] [address] [place] [address] END OF REPORT
== END 2019-04-03 18:48 | disposition home or self-care (01) | DRG 190 ==
LOC: D.ER 21:09 → D.M2 04-03 00:14
PROVIDERS: Family Medicine; ADMIT Family Medicine; ATTEND Family Medicine
DX: J44.0 Chronic obstructive pulmonary disease with (acute) lower respiratory infection (principal); J18.1 Lobar pneumonia, unspecified organism; E87.1 Hypo-osmolality and hyponatremia; I25.10 Atherosclerotic heart disease of native coronary artery without angina pectoris; E11.65 Type 2 diabetes mellitus with hyperglycemia; E03.9 Hypothyroidism, unspecified; I10 Essential (primary) hypertension

== ENCOUNTER → 2019-04-13 09:42 | Outpatient (CLI) | payer MEDICAID ==
[2019-04-03 03:34] VITALS: BMI 41.1
== END | disposition home or self-care (01) ==
LOC: D.MRI 09:42 → D.MAMMO 11:00
PROVIDERS: ATTEND Family Medicine
DX: Z12.31 Encounter for screening mammogram for malignant neoplasm of breast (principal); M54.5 Low back pain

== ENCOUNTER 2019-05-06 14:40 | Emergency (ER) | payer MEDICAID ==
[~2019-05-06] VITALS: Ht 165.1 cm; Wt 103.2 kg
[2019-05-06 14:49] VITALS: Ht 165.1 cm; Wt 103.2 kg
[2019-05-06 15:13] LABS: BASOPHILS 0.2 % (0-2); EOSINOPHILS 4.1 % (0-7); HEMATOCRIT 34.7 % (36.0-48.0); HEMOGLOBIN 11.2 g/dL (12-16); IMMATURE GRANULOCYTES 0.3 % (0-5); LYMPHOCYTES 28.6 % (15-50); MCH 24.2 pg (26.0-34.0); MCHC 32.3 g/dL (31.0-37.0); MCV 75.1 fL (80.0-100.0); MEAN PLATELET VOLUME 9.2 fL (7.4-10.4); MONOCYTES 6.8 % (2-11); PLATELET COUNT 221 10x3/uL (130-400); RBC 4.62 10x6/uL (4.00-5.40); WBC 9.6 10x3/uL (4.8-10.8)
[2019-05-06 15:43] LABS: INR 0.99 (0.85-1.17); PROTIME 12.6 SECONDS (11.6-15.0)
[2019-05-06 15:44] LABS: APTT 27.3 SECONDS (22.8-39.4)
[2019-05-06 15:47] LABS: ALBUMIN 2.9 g/dL (3.4-5.0); ALKALINE PHOSPHATASE 178 U/L (46-116); ALT (SGPT) 23 U/L (10-68); BILIRUBIN - TOTAL 0.17 mg/dL (0.2-1.3); CALC OSMOLALITY 288 mosm/kg (275-300); CARBON DIOXIDE 27.2 mmol/L (21.0-32.0); CHLORIDE - SERUM 100 mmol/L (98-107); GLUCOSE 352 mg/dL (74-106); POTASSIUM - SERUM 3.8 mmol/L (3.5-5.1); PROTEIN - SERUM 7.2 g/dL (6.4-8.2); SODIUM 138 mmol/L (136-145); UREA NITROGEN 11 mg/dL (7-18); eGFR NON AFRICAN AMERICAN 59 mL/min (90-120)
[2019-05-06 15:57] LABS: CKMB 0.1 U/L (0.0-3.6); CREATINE KINASE 18 UL (21-215); MAGNESIUM - SERUM 1.6 mg/dL (1.8-2.4); TROPONIN-I < 0.017 ng/mL (0.000-0.060)
[2019-05-06 21:33] VITALS: BP 132/76
== END 2019-05-06 20:04 | disposition home or self-care (01) ==
LOC: D.ER 14:40
PROVIDERS: Family Medicine
DX: R07.9 Chest pain, unspecified (principal); E11.9 Type 2 diabetes mellitus without complications; Z87.09 Personal history of other diseases of the respiratory system

== ENCOUNTER 2019-05-18 12:34 | Inpatient (IN) | payer MEDICAID ==
[~2019-05-18] VITALS: Ht 165.1 cm; Wt 115.9 kg
--- NOTE | 2019-05-18 13:01 | NUR ---
TRANSFERED FROM ADMISSIONS BY W/C. OREINTED TO ROOM. CALL LIGHT IN REACH. WILL CONT. PLAN OF CARE.
[2019-05-18 13:46] VITALS: BP 146/78; BMI 42.5
[2019-05-18 14:14] LABS: BASOPHILS 0.2 % (0-2); EOSINOPHILS 3.7 % (0-7); HEMATOCRIT 35.9 % (36.0-48.0); HEMOGLOBIN 11.5 g/dL (12-16); IMMATURE GRANULOCYTES 0.5 % (0-5); LYMPHOCYTES 23.6 % (15-50); MCH 24.1 pg (26.0-34.0); MCV 75.1 fL (80.0-100.0); MONOCYTES 5.3 % (2-11); NEUTROPHILS 66.7 % (40-80); PLATELET COUNT 201 10x3/uL (130-400); RBC 4.78 10x6/uL (4.00-5.40); RDW 16.6 % (11.5-14.5); WBC 8.5 10x3/uL (4.8-10.8)
[2019-05-18 14:29] LABS: ALBUMIN 3.2 g/dL (3.4-5.0); ALKALINE PHOSPHATASE 171 U/L (46-116); ALT (SGPT) 23 U/L (10-68); BILIRUBIN - TOTAL 0.25 mg/dL (0.2-1.3); CALC OSMOLALITY 283 mosm/kg (275-300); CALCIUM 8.6 mg/dL (8.5-10.1); CARBON DIOXIDE 27.6 mmol/L (21.0-32.0); CHLORIDE - SERUM 102 mmol/L (98-107); GLUCOSE 222 mg/dL (74-106); POTASSIUM - SERUM 3.7 mmol/L (3.5-5.1); PROTEIN - SERUM 7.2 g/dL (6.4-8.2); SODIUM 138 mmol/L (136-145); UREA NITROGEN 15 mg/dL (7-18); eGFR NON AFRICAN AMERICAN 59 mL/min (90-120)
[2019-05-18 14:33] LABS: CREATINE KINASE 18 UL (21-215); TROPONIN-I < 0.017 ng/mL (0.000-0.060)
[2019-05-18 14:44] VITALS: Ht 165.1 cm; Wt 115.9 kg
[2019-05-18 15:26] LABS: % SATURATION 10 % (15-55); IRON 35 ug/dl (35-150); TOTAL IRON BIND CAPACITY 345 ug/dl (260-445); UNSAT IRON BIND CAPACITY 310 ug/dl (150-375)
[2019-05-18 17:31] VITALS: BP 122/63
[2019-05-18 18:21] LABS: APPEARANCE CLEAR (CLEAR); BILIRUBIN NEGATIVE (NEGATIVE); COLOR YELLOW (YELLOW); GLUCOSE 50 mg/dL (NEGATIVE); KETONE NEGATIVE (NEGATIVE); NITRITE NEGATIVE (NEGATIVE); PROTEIN NEGATIVE (NEGATIVE); SPECIFIC GRAVITY 1.015 (1.005-1.020); UROBILINOGEN NORMAL (NORMAL)
[2019-05-18 18:26] LABS: UDS - AMPHET NEGATIVE QUAL (NEGATIVE); UDS - BARB NEGATIVE QUAL (NEGATIVE); UDS - BENZO POSITIVE QUAL (NEGATIVE); UDS - COCAINE NEGATIVE QUAL (NEGATIVE); UDS - OPIATE NEGATIVE QUAL (NEGATIVE); UDS - PCP NEGATIVE QUAL (NEGATIVE); UDS - THC NEGATIVE QUAL (NEGATIVE)
--- NOTE | 2019-05-18 19:29 | NUR ---
BEDSIDE REPORT RECEIVED. PATIENT IS ALERT AND ORIENTED, RESTING COMFORTABLY IN BED. RESPIRATIONS ARE EVEN AND UNLABORED. NO S/S OF DISTRESS. NO C/O PAIN. CALL LIGHT WITHIN REACH. WILL CPOC.
[2019-05-18 19:46] LABS: CREATINE KINASE 16 UL (21-215); TROPONIN-I < 0.017 ng/mL (0.000-0.060)
[2019-05-18 20:00] VITALS: BP 141/74
[2019-05-19] VITALS: BP 126/62
[2019-05-19 04:00] VITALS: BP 116/52
--- NOTE | 2019-05-19 04:08 | NUR ---
TRIED TO PLACE A PIV ON BOTH RFA AND LFA WITH NO SUCCESS. PT STATES THIS IS THE 5TH UNCESSFUL TRY THAT SHE IS CONSIDERING GETTING A CENTRAL LINE PLACEMENT.
[2019-05-19 05:40] LABS: BASOPHILS 0.1 % (0-2); EOSINOPHILS 4.9 % (0-7); HEMOGLOBIN 10.2 g/dL (12-16); IMMATURE GRANULOCYTES 0.4 % (0-5); LYMPHOCYTES 35.1 % (15-50); MCH 23.2 pg (26.0-34.0); MCHC 30.9 g/dL (31.0-37.0); MEAN PLATELET VOLUME 9.1 fL (7.4-10.4); MONOCYTES 5.8 % (2-11); NEUTROPHILS 53.7 % (40-80); PLATELET COUNT 204 10x3/uL (130-400); RDW 16.8 % (11.5-14.5); WBC 6.9 10x3/uL (4.8-10.8)
[2019-05-19 06:10] LABS: CALCIUM 8.3 mg/dL (8.5-10.1); CARBON DIOXIDE 26.8 mmol/L (21.0-32.0); CHLORIDE - SERUM 107 mmol/L (98-107); CREATINE KINASE 17 UL (21-215); CREATININE - SERUM 0.9 mg/dL (0.6-1.3); POTASSIUM - SERUM 3.2 mmol/L (3.5-5.1); SODIUM 140 mmol/L (136-145); UREA NITROGEN 16 mg/dL (7-18); eGFR NON AFRICAN AMERICAN 67 mL/min (90-120)
[2019-05-19 06:15] LABS: CALC OSMOLALITY 282 mosm/kg (275-300); GLUCOSE 154 mg/dL (74-106); TROPONIN-I < 0.017 ng/mL (0.000-0.060)
--- NOTE | 2019-05-19 07:15 | NUR ---
RECEIVED PT IN BED EYES CLOSED RESP UNLABORED SKIN W/D COLOR WNL C/O GENERALIZED PAIN 01/14 NO IV AWAITING VASCULAR ACCESS NURSE FOR IV PLACEMENT
[2019-05-19 09:39] VITALS: BP 113/56
--- NOTE | 2019-05-19 09:41 | NUR ---
ORDER PLACED TO VASCULAR ACCESS NURSE FOR IV PLACEMENT ON PT MEESAGE LEFT ON EXT [id number] AFTER UNSUCCESSFUL ATTEMPT TO REACH BY PHONE
--- NOTE | 2019-05-19 10:45 | NUR ---
PLACED CALL TO [phone] FOR VASCULAR ACCESS NURSE LEFT SECOND MESSAGE FOR RETURN CALL UNABLE TO REACH THROUGH ER
--- NOTE | 2019-05-19 12:04 | NUR ---
FSBS 254 HUMALOG 10 UNITS GIVEN SQ LT ARM
[2019-05-19 13:14] VITALS: BP 170/68
--- NOTE | 2019-05-19 14:31 | EC ---
PATIENT:RONEN PALOMO DATE OF SERVICE: 05/18/19 SEX: F MEDICAL RECORD: [id number] DATE OF : [birth year] LOCATION:D.M2 D.211 AGE OF PATIENT: 64 ADMISSION DATE: 05/18/19 REFERRING PHYSICIAN: INTERPRETING PHYSICIAN: MARIAH GRADY MD ECHOCARDIOGRAM REPORT ECHO CHARGES 4 ECHO COMPLETE Date: 05/18/19 CLINICAL DIAGNOSIS: CP ECHOCARDIOGRAPHIC MEASUREMENTS (adult normal given) AC root (d.<3.7cm) 3.2 cm LV Septum d (<1.2 cm> 1.7 cm Valve Excursion 2.0 cm LV Septum (systole) 2.1 cm Left Atria (s.<4.0cm> 3.4 cm LVPW d(<1.2cm) 1.3 cm RV (d.<2.3cm) 2.3 cm LVPW (sytole) 2.0 cm LV diastole(<5.6CM) 4.8 cm MV E-F(>70mm/sec) cm LV systole 2.8 cm LVOT Diameter 1.8 cm MV exc.(>10mm) cm Est.ejection fraction (50-75%) % DOPPLER: LVIT cm/sec A 85.0 cm/sec E 58.0 cm/sec LA cm/sec RVSP 28.3 mmHg LVOT 112 cm/sec AOP1/2T m/s Asc. Ao 147 cm/sec RVOT 87.0 cm/sec RA cm/sec PA 121 cm/sec AV Gradient Peak 8.7 mmHg AV Mean 4.7 mmHg AV Area 1.5 cm MV Gradient Peak 6.3 mmHg MV Mean 2.4 mmHg MV Area cm COMMENTS: Rack Room Worker: Vanessa FORTE Needle Punch Machine Operator: 3 Dr. Morales TAPE# PACS Pericardial Effusion N DATE OF SERVICE: 05/18/2019 FINDINGS: 1. Left ventricular chamber size is within normal limits. Left ventricular systolic function is normal at 55%. 2. Left atrium is within normal limits at 3.4 cm. Right atrium and right ventricular chamber sizes are mildly dilated. 3. Valvular structures have normal structure and motion. 4. Doppler interrogation reveals trace mitral regurgitation, no other valvular insufficiency or stenosis. Pulmonary systolic pressure is estimated at 28 mmHg. ECHOCARDIOGRAM REPORT [id number] RONEN PALOMO 5. No evidence of pericardial effusion or left ventricular thrombus. TRANSINT:[id number] Voice Confirmation ID: [id number] DOCUMENT ID: [id number] MARIAH GRADY MD at 1431 CC: [id number] DICTATION DATE: 05/18/19 170 LOGISTICS COORDINATOR: 05/18/19 2329 ADM IN [facility] [address] [place] [address]
--- NOTE | 2019-05-19 16:04 | NUR ---
PT REQUEST THAT DR COLLINS BE NOTIFIED OF WORSENING PLURAL CHEST PAIN AND NOT FEELING GOOD SPOKE WITH DR COLLINS HE STATED ABSOLUTLEY NOT PT IS TO BE DISCHARGED PT INFORMED
--- NOTE | 2019-05-19 16:36 | NUR ---
ADMININISTERED TESSALON PERLE TO PT FOUND SALINE LOCK ON OVERBED TABLE WITH IV CATHETER INTACT PT STATES SHE TOUCH IT OUT BECAUSE IT WAS NOT IN THE VEIN SITE FREE OF REDNESS OR EDEMA
--- NOTE | 2019-05-19 17:23 | MORECARE ---
CASE MANAGEMENT DISCHARGE SUMMARY PATIENT: RONEN PALOMO UNIT: [id number] ADM DATE: 05/18/19 AGE: 64 : 57 SEX: F ROOM/BED: D.6605 AUTHOR: YONATAN NEW PHYSICIAN: REFERRING PHYSICIAN: RADAMES COLLINS MD DATE OF SERVICE: 05/19/19 Discharge Plan Patient Name: RONEN PALOMO [facility] [facility] 1955 Planned Disposition: Home Anticipated Discharge Date: 05/19/19 Discharge Date: Expected LOS: 1 Initial Reviewer: [email or web address] Initial Review Date: 05/19/2019 Generated: 05/19/19 6:23 pm DCPIA - Discharge Planning Initial Assessment Updated by [email or web address]: Jose Armando Lowe on 05/19/19 5:22 pm * Is the patient Alert and Oriented? Yes * How many steps to enter\exit or inside your home? NONE * PCP DR. GARCIA * Pharmacy [facility] * Preadmission Environment Home with Family * ADLs Independent * Equipment Bedside Commode Grab Bars Nebulizer Oxygen Shower Chair Walker Wheelchair * Other Equipment HOME AND PORTABLE OXYGEN, [facility] * List name and contact numbers for known caregivers / representatives who currently or will assist patient after discharge: VIKI PALOMO, SPOUSE, * Verbal permission to speak to the caregivers and representatives has been obtained from the patient. N/A * Community resources currently utilized None * Please name any agencies selected above. NONE * Additional services required to return to the preadmission environment? No * Can the patient safely return to the preadmission environment? Yes * Has this patient been hospitalized within the prior 30 days at any hospital? No Patient Name: RONEN PALOMO Page [phone] at 1723 All edits/amendments must be made on the electronic document DICTATION DATE: 05/19/191722 RN OCCUPATIONAL HEALTH: RNA 05/19/191722 RPT#: [id number] DC DATE: STATUS: ADM IN [facility] [address] [place] [address] END OF REPORT
--- NOTE | 2019-05-19 17:32 | MORECARE ---
CASE MANAGEMENT DISCHARGE SUMMARY PATIENT: RONEN PALOMO UNIT: [id number] ADM DATE: 05/18/19 AGE: 64 : 57 SEX: F ROOM/BED: D.5325 AUTHOR: VIRGEN,DOC PHYSICIAN: REFERRING PHYSICIAN: RADAMES COLLINS MD DATE OF SERVICE: 05/19/19 Discharge Plan Patient Name: RONEN PALOMO Facility: [facility]:[place] : 1955 Planned Disposition: Home Anticipated Discharge Date: 05/19/19 Discharge Date: Expected LOS: 1 Initial Reviewer: [email or web address] Initial Review Date: 05/19/2019 Generated: 05/19/19 6:32 pm Comments DCP- Discharge Planning Updated by [email or web address]: Jose Armando Lowe on 05/19/19 4:[address] Patient Name: RONEN PALOMO Admission Status: Elective Accout number: [id number] Admission Date: 05-18-2019 : 1955 Admission Diagnosis: Attending: RADAMES COLLINS Current LOS: 1 Anticipated DC Date: 05-19-2019 Planned Disposition: Home Primary Insurance: MEDICAID [place] Discharge Planning Comments: CM MET WITH PT IN ROOM TO DISCUSS DISCHARGE PLANNING AND NEEDS. PT REPORTS LIVING AT HOME INDEPENDENTLY WITH HER SPOUSE. PT HAS ALL NEEDED MEDICAL EQUIPMENT TO INCLUDE OXYGEN FROM [facility]. PT HAS NO CURRENT OUTSIDE SERVICES ASSISTING IN THE HOME.PT HAS FIRED THE [facility] [address] WHO WAS PROVIDING 36 HOURS OF PERSONAL CARE PER WEEK, PT IS IN PROCESS OF GETTING [facility]. CM DISCUSSED AVAILABILITY OF HOME HEALTH, REHAB SERVICES AND MEDICAL EQUIPMENT. PT DENIES DISCHARGE NEEDS,, DOES NOT WANT HOME HEALTH SHE HAD [facility] IN THE PAST AND FOUND THEM TO BE OF "NO HELP AND DON'T DO WHAT I NEED DONE. " PT REPORTS HER SPOUSE WILL PICK HER UP FOR DISCHARGE HOME. PT STATES THAT CM CAN CALL [facility] AND CANCEL THEM SHE DOES NOT WANT THEM. CHOICE SIGNED. CM CALLED AND SPOKE PURNIMA AT [facility], , WHO EXPLAINED THAT PT WAS REFERRED IN ERROR AFTER HER LAST VISIT AND DOES NOT HAVE HOME HEALTH (THEY HAVE ANOTHER PATIENT WITH THE SAME NAME THAT WAS MISTAKEN FOR THIS PATIENT). PT DID NOT WANT HOME HEALTH AFTER LAST HOSPITAL ADMISSION. Consulting Services Manager: Jose Armando Lowe DCPIA - Discharge Planning Initial Assessment Updated by [email or web address]: Jose Armando Lowe on 05/19/19 5:22 pm * Is the patient Alert and Oriented? Yes * How many steps to enter\\exit or inside your home? NONE * PCP DR. GARCIA * Pharmacy [facility] * Preadmission Environment Home with Family * ADLs Independent * Equipment Bedside Commode Grab Bars Nebulizer Oxygen Shower Chair Walker Wheelchair * Other Equipment HOME AND PORTABLE OXYGEN, [facility] * List name and contact numbers for known caregivers / representatives who currently or will assist patient after discharge: VIKI PALOMO, SPOUSE, * Verbal permission to speak to the caregivers and representatives has been obtained from the patient. N/A * Community resources currently utilized None * Please name any agencies selected above. NONE * Additional services required to return to the preadmission environment? No * Can the patient safely return to the preadmission environment? Yes * Has this patient been hospitalized within the prior 30 days at any hospital? No Last DP export: 05/19/19 4:23 p Patient Name: RONEN PALOMO Page 05211 at 1732 All edits/amendments must be made on the electronic document DICTATION DATE: 05/19/191731 STRESS ENGINEER: RAN 05/19/191731 RPT#: [id number] DC DATE: STATUS: ADM IN [facility] [address] [place] [address] END OF REPORT
--- NOTE | 2019-05-19 18:03 | NUR ---
REVIEWED DISCHARGE INSTRUCTIONS WITH PT STATES UNDERSTANDING COPY GIVEN PT DISCHARGED HOME IN STABLE CONDITION DENIES ANY PAIN AT THIS TIME LEFT UNIT VIA W/C WITH ALL PERSONAL BELONGINGS
--- NOTE | 2019-05-20 08:45 | CN ---
PATIENT NAME:RONEN PALOMO MEDICAL RECORD: [id number] : 57 LOCATION:D. D.2115 ADMIT DATE: 05/18/19 ACCOUNT: [id number] CONSULTING PHYSICIAN: DARLENE IZQUIERDO MD REFERRING PHYSICIAN: RADAMES COLLINS MD DATE OF CONSULTATION: 05/19/2019 HISTORY OF PRESENT ILLNESS: A 64-year-old lady with no known history of coronary artery disease. She actually had diagnostic angiography within the last year with no evidence of coronary artery disease, does have severe COPD and longstanding intermittent chest pain. We are asked to see her concerning her cardiovascular status. PAST MEDICAL HISTORY: Includes: 1. History of obstructive pulmonary disease. 2. Hypertension. 3. Diabetes mellitus. MEDICATIONS: Typically include insulin 40 units q.h.s., Glucotrol 10 mg p.o. b.i.d., Zantac 150 every day, [place] 10/325 one q.4 hours p.r.n., Effexor 300 q.h.s., trazodone 300 q.h.s., Seroquel 100 every day, diazepam 10 q.8 hours p.r.n., and Phenergan 25 every day. SOCIAL HISTORY: Nonsmoker, nondrinker. She is able to care of all her ADLs. No set exercise program. REVIEW OF SYSTEMS: The patient reports easy bruising but reports no swollen glands. The patient reports no fever, no night sweats, no significant weight gain, no significant weight loss. No significant exercise tolerance. The patient reports no dry eyes, no irritation, no vision change. Patient reports no difficulty hearing and no ear pain. Patient reports no frequent nose bleeds or nose and sinus problems. Patient reports on arm pain on exertion. No shortness of breath while lying down. No history of heart murmur. Patient reports no cough, no wheezing or coughing up blood. Patient reports no abdominal pain, no vomiting. Normal appetite. No diarrhea and not vomiting blood. No nausea and no constipation. Patient reports no incontinence. No difficulty urinating. No hematuria. No increased frequency. Patient reports no muscle aches. No weakness, no arthralgias, no back pain. No swelling of the extremities. Patient reports no abnormal mole, no jaundice, no rashes. Reports no loss of consciousness. No weakness and no numbness. No seizures, dizziness, or headaches. The patient reports no depression, no sleep disturbance, feeling safe in a relationship and no alcohol abuse. Patient reports on fatigue. Reports no runny nose or sinus pressure. No itching, no hives, and no frequent sneezing. ALLERGIES: MORPHINE, ERYTHROMYCIN. PHYSICAL EXAMINATION: GENERAL: Pleasant female, in no acute distress. VITAL SIGNS: Blood pressure 116/52, pulse 80 and regular. HEENT: Normocephalic, atraumatic. NECK: No bruits noted. HEART: Regular. No gallops. LUNGS: Slight prolonged expiratory phase, few expiratory wheezes. ABDOMEN: Soft, nontender. CONSULT REPORT [id number] RONEN PALOMO EXTREMITIES: Pulses are preserved, 2+ with no edema. NEUROLOGIC: Grossly intact. DIAGNOSTIC DATA: ECG shows minor nonspecific ST-T changes. IMPRESSION: Chest pain may be secondary to obstructive pulmonary disease. Additionally, some of this certainly has a pleuritic component. Echocardiogram studies normal. Serial enzymes negative. In view of normal ECG in the last 8 months, would not pursue any further workup from cardiovascular standpoint, have ordered a dose of Toradol in case this is a pleuritic type symptomatology, this should help with inflammation. Creatinine is normal at 0.9. Thank you for the consultation. TRANSINT:[id number] Voice Confirmation ID: [id number] DOCUMENT ID: [id number] DARLENE IZQUIERDO MD at 0845 CC: [id number] DICTATION DATE: 05/19/19817 SERVOMECHANISM ASSEMBLER: 05/19/19 1041 DIS IN 05/19/19 [id number] [place] [address]
== END 2019-05-19 18:03 | disposition home or self-care (01) | DRG 191 ==
LOC: D.M2 12:34 → D.SDCHOLD 12:34 → D.M2 12:44
PROVIDERS: ADMIT Internal Medicine Nephrology; ATTEND Internal Medicine Nephrology
DX: J44.9 Chronic obstructive pulmonary disease, unspecified (principal); J96.11 Chronic respiratory failure with hypoxia; I20.9 Angina pectoris, unspecified; D50.9 Iron deficiency anemia, unspecified; I10 Essential (primary) hypertension; E78.5 Hyperlipidemia, unspecified; E11.9 Type 2 diabetes mellitus without complications; K21.9 Gastro-esophageal reflux disease without esophagitis; Z86.73 Personal history of transient ischemic attack (TIA), and cerebral infarction without residual deficits

== ENCOUNTER 2019-06-12 20:13 | Inpatient (IN) | payer MEDICAID ==
[~2019-06-12] VITALS: Ht 165.1 cm; Wt 115.7 kg
[2019-06-12 21:07] LABS: BASOPHILS 0.3 % (0-2); EOSINOPHILS 5.3 % (0-7); HEMATOCRIT 36.1 % (36.0-48.0); IMMATURE GRANULOCYTES 0.7 % (0-5); LYMPHOCYTES 30.5 % (15-50); MCH 24.1 pg (26.0-34.0); MCHC 30.5 g/dL (31.0-37.0); MEAN PLATELET VOLUME 9.1 fL (7.4-10.4); MONOCYTES 5.7 % (2-11); NEUTROPHILS 57.5 % (40-80); PLATELET COUNT 236 10x3/uL (130-400); RBC 4.57 10x6/uL (4.00-5.40); RDW 16.4 % (11.5-14.5); WBC 10.5 10x3/uL (4.8-10.8)
[2019-06-12 21:11] LABS: INR 1.02 (0.85-1.17); PROTIME 12.9 SECONDS (11.6-15.0)
[2019-06-12 21:24] LABS: ALKALINE PHOSPHATASE 146 U/L (46-116); ALT (SGPT) 19 U/L (10-68); BILIRUBIN - TOTAL 0.21 mg/dL (0.2-1.3); CALC OSMOLALITY 282 mosm/kg (275-300); CALCIUM 8.4 mg/dL (8.5-10.1); CARBON DIOXIDE 27.1 mmol/L (21.0-32.0); CHLORIDE - SERUM 104 mmol/L (98-107); CREATININE - SERUM 0.9 mg/dL (0.6-1.3); POTASSIUM - SERUM 3.8 mmol/L (3.5-5.1); PROTEIN - SERUM 7.5 g/dL (6.4-8.2); SODIUM 139 mmol/L (136-145); UREA NITROGEN 11 mg/dL (7-18); eGFR NON AFRICAN AMERICAN 67 mL/min (90-120)
[2019-06-12 21:30] LABS: GLUCOSE 211 mg/dL (74-106)
[2019-06-12 21:34] LABS: CREATINE KINASE 18 UL (21-215); MAGNESIUM - SERUM 1.9 mg/dL (1.8-2.4)
[2019-06-12 21:36] LABS: TROPONIN-I < 0.017 ng/mL (0.000-0.060)
--- NOTE | 2019-06-12 22:08 | NUR ---
PT TRANSPORTED TO CT AT THIS TIME. NO DISTRESS NOTED.
[2019-06-13] VITALS (9 sets, daily range): BP systolic 113–179; BP diastolic 59–95; Ht 165.1 cm; Wt 115.7 kg
--- NOTE | 2019-06-13 00:15 | NUR ---
PT ARRIVED TO FLOOR VIA ER BED. A&0 RR EVEN AND UNLABORED. O2 3L NC. NO NEEDS EXPRESSED. CALL LIGHT IN REACH. WILL MONITOR. DD
[2019-06-13 02:06] LABS: APPEARANCE CLEAR (CLEAR); BILIRUBIN NEGATIVE (NEGATIVE); COLOR YELLOW (YELLOW); GLUCOSE NEGATIVE (NEGATIVE); KETONE NEGATIVE (NEGATIVE); NITRITE NEGATIVE (NEGATIVE); PROTEIN NEGATIVE (NEGATIVE); UROBILINOGEN NORMAL (NORMAL)
[2019-06-13 02:07] LABS: BACTERIA MODERATE /hpf (NEGATIVE); EPITHELIAL CELLS 0-5 /hpf (0-5); RED CELLS - URINE 0-5 /hpf (0-5)
[2019-06-13 02:13] LABS: UDS - AMPHET NEGATIVE QUAL (NEGATIVE); UDS - BARB NEGATIVE QUAL (NEGATIVE); UDS - BENZO POSITIVE QUAL (NEGATIVE); UDS - COCAINE NEGATIVE QUAL (NEGATIVE); UDS - OPIATE NEGATIVE QUAL (NEGATIVE); UDS - PCP NEGATIVE QUAL (NEGATIVE); UDS - THC NEGATIVE QUAL (NEGATIVE)
--- NOTE | 2019-06-13 07:15 | NUR ---
PT RESTING IN BED, SHIFT ASSESSMENT PERFORMED. DENIES ANY NEEDS AT THIS TIME, WILL CONT TO FOLLOW POC
--- NOTE | 2019-06-13 11:00 | NUR ---
PT IS REFUSING TO WEAR SCDS. EDUCATION PROVIDED TO PT ON SCD. PT STILL REFUSING TO WEAR THEM.
--- NOTE | 2019-06-13 12:15 | NUR ---
PT SITTING IN BED EATING LUNCH. DENIES ANY NEEDS AT THIS TIME. WILL CONT TO FOLLOW POC
--- NOTE | 2019-06-13 15:15 | NUR ---
PIV TO RIGHT WRIST INFILTRATED. PIV REMOVED WITH CATHETER TIP INTACT. CALL LIGHT WITHIN REACH. WILL CONT TO FOLLOW POC
--- NOTE | 2019-06-13 17:27 | NUR ---
ORTHOSTATIC BP: LAY 179/87, SITTING 172/93, STANDING 163/86
--- NOTE | 2019-06-14 08:36 | MORECARE ---
CASE MANAGEMENT DISCHARGE SUMMARY PATIENT: RONEN PALOMO UNIT: [id number] ADM DATE: 06/13/19 AGE: 64 : 57 SEX: F ROOM/BED: D.2103 AUTHOR: YONATAN NEW PHYSICIAN: REFERRING PHYSICIAN: RADAMES COLLINS MD DATE OF SERVICE: 06/14/19 Discharge Plan Patient Name: RONEN PALOMO Facility: [facility]:[place] : 1955 Planned Disposition: Left Against Medical Advice Anticipated Discharge Date: 06/13/19 Discharge Date: 06/13/2019 Expected LOS: 1 Initial Reviewer: [email or web address] Initial Review Date: 06/14/2019 Generated: 06/14/19 9:36 am Patient Name: RONEN PALOMO Page [phone] at 0836 All edits/amendments must be made on the electronic document DICTATION DATE: 06/14/1936 DX BOARD OPERATOR: RAN 06/14/19 0836 RPT#: [id number] DC DATE:06/13/19 STATUS: DIS IN [facility] [address] [place] [address] END OF REPORT
== END 2019-06-13 21:55 | disposition left against medical advice (07) | DRG 312 ==
LOC: D.ER 20:13 → D.M2 23:40 → OBSVTIME 23:40 → D.M2 06-13 17:26
PROVIDERS: Family Medicine; ADMIT Internal Medicine Nephrology; ATTEND Internal Medicine Nephrology
DX: R55 Syncope and collapse (principal); G45.9 Transient cerebral ischemic attack, unspecified; J96.11 Chronic respiratory failure with hypoxia; I10 Essential (primary) hypertension; E78.5 Hyperlipidemia, unspecified; E11.9 Type 2 diabetes mellitus without complications; J44.9 Chronic obstructive pulmonary disease, unspecified; Z86.73 Personal history of transient ischemic attack (TIA), and cerebral infarction without residual deficits; K21.9 Gastro-esophageal reflux disease without esophagitis; T50.905A Adverse effect of unspecified drugs, medicaments and biological substances, initial encounter

== ENCOUNTER 2019-06-23 23:42 | Emergency (ER) | payer MEDICAID ==
[~2019-06-23] VITALS: Ht 165.1 cm; Wt 113.6 kg
[2019-06-23 23:46] VITALS: Ht 165.1 cm; Wt 113.6 kg
[2019-06-23] MEDS ORDERED: CIPRO500 MG PO (23:48)
[2019-06-23] MEDS ORDERED: FLAGYL500 MG PO (23:48)
[2019-06-24] MEDS ORDERED: DILAUDID4 MG PO (01:27)
[2019-06-24] MEDS ORDERED: LOMOTIL 2.5-0.1 EAC1 PO (01:32)
[2019-06-24] MEDS ORDERED: ZOFRAN ODT4 MG/UDTAB PO (01:32)
[2019-06-24 01:38] LABS: ALKALINE PHOSPHATASE 162 U/L (46-116); ALT (SGPT) 19 U/L (10-68); AMYLASE - SERUM 29 U/L (25-115); BILIRUBIN - TOTAL 0.15 mg/dL (0.2-1.3); CALC OSMOLALITY 283 mosm/kg (275-300); CALCIUM 8.8 mg/dL (8.5-10.1); CARBON DIOXIDE 27.1 mmol/L (21.0-32.0); CHLORIDE - SERUM 103 mmol/L (98-107); CREATININE - SERUM 0.8 mg/dL (0.6-1.3); LIPASE 127 U/L (73-393); MAGNESIUM - SERUM 1.7 mg/dL (1.8-2.4); POTASSIUM - SERUM 3.9 mmol/L (3.5-5.1); PROTEIN - SERUM 7.3 g/dL (6.4-8.2); SODIUM 136 mmol/L (136-145); UREA NITROGEN 18 mg/dL (7-18); eGFR NON AFRICAN AMERICAN 77 mL/min (90-120)
[2019-06-24 01:39] LABS: GLUCOSE 283 mg/dL (74-106)
[2019-06-24 01:51] LABS: BASOPHILS 0.1 % (0-2); EOSINOPHILS 5.3 % (0-7); HEMATOCRIT 34.7 % (36.0-48.0); HEMOGLOBIN 10.9 g/dL (12-16); IMMATURE GRANULOCYTES 0.6 % (0-5); LYMPHOCYTES 37.1 % (15-50); MCH 24.4 pg (26.0-34.0); MCHC 31.4 g/dL (31.0-37.0); MCV 77.6 fL (80.0-100.0); MEAN PLATELET VOLUME 9.6 fL (7.4-10.4); MONOCYTES 6.1 % (2-11); NEUTROPHILS 50.8 % (40-80); RBC 4.47 10x6/uL (4.00-5.40); RDW 16.4 % (11.5-14.5); WBC 8.5 10x3/uL (4.8-10.8)
[2019-06-24 01:52] LABS: PLATELET COUNT 188 10x3/uL (130-400)
[2019-06-24 01:56] VITALS: BP 137/72
== END 2019-06-24 01:54 | disposition home or self-care (01) ==
LOC: D.ER 23:42
PROVIDERS: Emergency Medicine
DX: R10.32 Left lower quadrant pain (principal); D64.9 Anemia, unspecified; E11.9 Type 2 diabetes mellitus without complications

== ENCOUNTER 2019-06-24 16:28 | Inpatient (IN) | payer MEDICAID ==
[~2019-06-24] VITALS: Ht 165.1 cm; Wt 113.4 kg
[~2019-06-24 16:28] MED LIST changes: +CIPRO500 MG PO; +DILAUDID4 MG PO; +LOMOTIL 2.5-0.1 EAC1 PO; +ZOFRAN ODT4 MG/UDTAB PO
[2019-06-24 17:37] LABS: HEMATOCRIT 34.5 % (36.0-48.0); HEMOGLOBIN 10.7 g/dL (12-16); MCH 24.3 pg (26.0-34.0); MCV 78.2 fL (80.0-100.0); MEAN PLATELET VOLUME 10.1 fL (7.4-10.4); PLATELET COUNT 156 10x3/uL (130-400); RBC 4.41 10x6/uL (4.00-5.40); RDW 16.5 % (11.5-14.5)
[2019-06-24 17:47] LABS: CALCIUM 8.4 mg/dL (8.5-10.1); CARBON DIOXIDE 24.5 mmol/L (21.0-32.0); CHLORIDE - SERUM 103 mmol/L (98-107); CREATININE - SERUM 0.7 mg/dL (0.6-1.3); POTASSIUM - SERUM 4.3 mmol/L (3.5-5.1); SODIUM 138 mmol/L (136-145); eGFR NON AFRICAN AMERICAN 90 mL/min (90-120)
[2019-06-24 17:53] LABS: ALBUMIN 3.1 g/dL (3.4-5.0); ALKALINE PHOSPHATASE 155 U/L (46-116); ALT (SGPT) 23 U/L (10-68); AMYLASE - SERUM 26 U/L (25-115); BILIRUBIN - TOTAL 0.35 mg/dL (0.2-1.3); LIPASE 77 U/L (73-393); PROTEIN - SERUM 7.1 g/dL (6.4-8.2)
[2019-06-24 17:59] LABS: EOSINOPHILS 4 % (0-7); LYMPHOCYTES 29 % (15-50); MONOCYTES 9 % (2-11); NEUTROPHILS 58 % (40-80); PLATELET ESTIMATE NORMAL
[2019-06-24 18:00] LABS: CALC OSMOLALITY 277 mosm/kg (275-300); GLUCOSE 143 mg/dL (74-106); UREA NITROGEN 12 mg/dL (7-18)
--- NOTE | 2019-06-24 18:23 | NUR ---
22 gauge started in right hand on the second attempt. flushed without difficulty no redness or edema noted at site. secured with tegaderm and tape. saline locked with swab cap on. Abbey GREERN notified of Iv started. 1st attempt that i attempted was on the left arm, discontinued catheter with tip intact
[2019-06-24 18:27] VITALS: BP 154/74; BMI 41.6
[2019-06-24 18:35] LABS: % SATURATION 9 % (15-55); IRON 33 ug/dl (35-150); TOTAL IRON BIND CAPACITY 347 ug/dl (260-445); UNSAT IRON BIND CAPACITY 314 ug/dl (150-375)
--- NOTE | 2019-06-24 19:15 | NUR ---
PT GONE TO CT WHEN BEDSIDE REPORT GIVEN.
--- NOTE | 2019-06-24 19:35 | NUR ---
PT ALERT AND ORIENTED WHEN ENTERING THE ROOM. ASSISTED BACK TO BED FROM WHEELCHAIR FROM CT. PATIENT REQUESTING PAIN MEDICINE. ADMINISTERED PER ORDER. PATIENT HAS RIGHT HAND IV THAT IS PATENT. FLUIDS RESUMED AND FLAGYL INFUSING PER ORDER. PATIENT COMPLAINS OF ABDOMINAL PAIN. DISTENDED UPON INSPECTION. GENERALIZED PAIN TO PALPATION. ACTIVE BOWEL SOUNDS NOTED IN ALL FOUR QUADRANTS. GENERALIZED WEAKNESS NOTED. GENERALIZED EDEMA IN BILATERAL LOWER EXTREMETIES. ASKS FOR THIS NURSE TO CALL THE FLOWER MAKER TO RESTART "BIPOLAR MEDS." PATIENT WORRIED ABOUT THESE AND STATES "I CAN'T MISS A DAY." CALL TO [facility] TO RESTART. CALL LIGHT IN REACH.
[2019-06-24 19:44] VITALS: BP 135/62
[2019-06-25 02:47] LABS: APPEARANCE CLEAR (CLEAR); BILIRUBIN NEGATIVE (NEGATIVE); COLOR YELLOW (YELLOW); GLUCOSE NEGATIVE (NEGATIVE); KETONE NEGATIVE (NEGATIVE); NITRITE NEGATIVE (NEGATIVE); PROTEIN NEGATIVE (NEGATIVE); UROBILINOGEN NORMAL (NORMAL)
--- NOTE | 2019-06-25 03:00 | NUR ---
I have reviewed this patient and I concur with the Shift Assessment completed by the Licensed Practical Nurse today this shift.
[2019-06-25 05:25] VITALS: BP 95/51
--- NOTE | 2019-06-25 08:00 | NUR ---
ALERT AND ORIENTED. LUNGS CLEAR BILATERALLY IN ALL CAGE. HEART SOUNDS S1 AND S2 HEARD IN ALL CAGE. BOWEL SOUNDS ACTIVE X 4. SKIN INTACT WITHOUT REDNESS. IV TO RIGHT HAND PATENT WITHOUT REDNESS. DENIES PAIN. DENIES NEEDS. WILL CONTIUE TO MONITOR.
[2019-06-25 08:40] VITALS: BP 95/80
[2019-06-25 09:44] VITALS: BMI 41.6
--- NOTE | 2019-06-25 11:05 | NUR ---
RESTING IN BED. DENIES NEEDS. WILL CONTINUE TO MONITOR.
--- NOTE | 2019-06-25 11:28 | NUR ---
STATES IV SORE TO RIGHT WRIST. FLUSHES BUT DOES NOT DRAW BACK. NO REDNESS OR SWELLING. GETTING SECOND OPINION FROM SECOND RN.
--- NOTE | 2019-06-25 11:35 | NUR ---
IV OK TO USE BASED ON TWO RN IV ASSESSMENTS.
--- NOTE | 2019-06-25 11:40 | NUR ---
PATIENT STATES IV STARTED BURNING AFTER NURSES LEFT ROOM. NO REDNESS OR SWELLING TO SITE. STATES WANTS IV MOVED. PUMP TURNED OFF. ER CALLED TO START IV.
--- NOTE | 2019-06-25 11:45 | NUR ---
SPOKE WITH JOSE FLORES TO GET PATIENT'S INSULIN RESTARTED.
--- NOTE | 2019-06-25 12:46 | NUR ---
EDUCATION PROVIDED ON NEED FOR URINE SAMPLE AND STOOL SAMPLE. STATES HAS NOT HAD BM SINCE YESTERDAY BUT WILL CALL IF DOES. HAT IN TOILET. EDUCATION PROVIDED ON NEED TO CLEAN WELL WITH WIPE BEFORE URINATING IN SPECIMEN CUP. VERBALIZED UNDERSTANDING.
--- NOTE | 2019-06-25 13:01 | NUR ---
TECHNICAL PROJECT COORDINATOR LILIANA ATTEMPTED TO SITE IV WITHOUT SUCCESS. ER NURSE ATTEMPTING.
--- NOTE | 2019-06-25 13:28 | NUR ---
IV SITED TO [facility] BY ER NURSE.
[2019-06-25 13:46] LABS: BASOPHILS 0.3 % (0-2); EOSINOPHILS 6.9 % (0-7); HEMATOCRIT 34.1 % (36.0-48.0); HEMOGLOBIN 10.2 g/dL (12-16); IMMATURE GRANULOCYTES 0.6 % (0-5); MCH 24.3 pg (26.0-34.0); MCHC 29.9 g/dL (31.0-37.0); MEAN PLATELET VOLUME 9.2 fL (7.4-10.4); MONOCYTES 6.3 % (2-11); NEUTROPHILS 64.9 % (40-80); RDW 16.3 % (11.5-14.5); WBC 6.8 10x3/uL (4.8-10.8)
[2019-06-25 14:00] LABS: MCV 81.2 fL (80.0-100.0); PLATELET COUNT 206 10x3/uL (130-400)
[2019-06-25 14:04] LABS: ALBUMIN 2.8 g/dL (3.4-5.0); ANION GAP 10.5 mmol/L (8-16); BILIRUBIN - TOTAL 0.31 mg/dL (0.2-1.3); CALCIUM 7.9 mg/dL (8.5-10.1); CARBON DIOXIDE 27.3 mmol/L (21.0-32.0); POTASSIUM - SERUM 3.8 mmol/L (3.5-5.1); PROTEIN - SERUM 6.4 g/dL (6.4-8.2)
--- NOTE | 2019-06-25 15:20 | NUR ---
URINE CULTURE COLLECTED AND TAKEN TO LAB
--- NOTE | 2019-06-25 16:16 | NUR ---
RESTING IN BED. DENIES NEEDS. WILL CONTINUE TO MONITOR.
--- NOTE | 2019-06-25 16:43 | NUR ---
PATIENT REQUESTING HIGHER DOSE OF PAIN MEDICATION. JOSE MANCINI MUSIC WRITER PAGED.
--- NOTE | 2019-06-25 16:51 | NUR ---
SPOKE WITH JOSE MANCINI WHO STATES INCREASE DILAUDID IV TO 1.0MG Q6PRN.
--- NOTE | 2019-06-25 18:42 | NUR ---
UNABLE TO PULL CIPRO TO GIVE PATIENT. TRAVIS STATES "MEDICATION NOT IN FORMULARY, CANNOT DISPENSE MEDICATION." PUNCH PRESS OPERATOR NOTIFIED. UNABLE TO PULL MEDICATION. WILL CONTACT PHARMACY IN MORNING. NO PHARMACY HERE AT THIS TIME.
--- NOTE | 2019-06-25 18:43 | NUR ---
RESTING IN BED. DENIES NEEDS. BED LOW. CALL JUAN AND PERSONAL ITEMS IN REACH.
[2019-06-25 19:00] VITALS: BP 133/60
--- NOTE | 2019-06-25 19:15 | NUR ---
PT ALERT AND ORIENTED WHEN ENTERING THE ROOM. HOB ELEVATED TO 30 DEGREE ANGLE. WEARING 2L NC. LEFT UPPER AREM IV THAT IS INFUSING NS @ 100. PATIENT DENIES PAIN AT THIS TIME. HAS CALL LIGHT IN REACH. CPOC.
--- NOTE | 2019-06-25 21:20 | NUR ---
FSBS 174. ADMINSITERED HS MEDICATIONS. TOLERATED WELL.
[2019-06-26] VITALS: BP 130/72
--- NOTE | 2019-06-26 01:15 | NUR ---
I have reviewed this patient and I concur with the Shift Assessment completed by the Licensed Practical Nurse today this shift.
[2019-06-26 04:00] VITALS: BP 99/46
[2019-06-26 06:58] LABS: BASOPHILS 0.2 % (0-2); EOSINOPHILS 5.8 % (0-7); HEMATOCRIT 31.6 % (36.0-48.0); HEMOGLOBIN 9.3 g/dL (12-16); IMMATURE GRANULOCYTES 0.3 % (0-5); LYMPHOCYTES 25.8 % (15-50); MCHC 29.4 g/dL (31.0-37.0); MCV 81.4 fL (80.0-100.0); MEAN PLATELET VOLUME 9.5 fL (7.4-10.4); MONOCYTES 6.3 % (2-11); NEUTROPHILS 61.6 % (40-80); PLATELET COUNT 172 10x3/uL (130-400); RBC 3.88 10x6/uL (4.00-5.40); RDW 16.4 % (11.5-14.5); WBC 6.2 10x3/uL (4.8-10.8)
[2019-06-26 07:00] VITALS: BP 91/50
[2019-06-26 07:12] LABS: ALBUMIN 2.4 g/dL (3.4-5.0); ALKALINE PHOSPHATASE 127 U/L (46-116); ALT (SGPT) 18 U/L (10-68); BILIRUBIN - TOTAL 0.27 mg/dL (0.2-1.3); CALC OSMOLALITY 283 mosm/kg (275-300); CALCIUM 7.7 mg/dL (8.5-10.1); CHLORIDE - SERUM 109 mmol/L (98-107); CREATININE - SERUM 0.8 mg/dL (0.6-1.3); POTASSIUM - SERUM 3.9 mmol/L (3.5-5.1); PROTEIN - SERUM 6.1 g/dL (6.4-8.2); SODIUM 141 mmol/L (136-145); UREA NITROGEN 8 mg/dL (7-18); eGFR NON AFRICAN AMERICAN 77 mL/min (90-120)
[2019-06-26 07:13] LABS: GLUCOSE 187 mg/dL (74-106)
--- NOTE | 2019-06-26 07:31 | NUR ---
PT IS RESTING IN BED WITH EYES CLOSED. RESPIRATIONS ARE EVEN AND UNLABORED. PT IS EASILY AROUSED WITH VERBAL STIMULATION. PT IS AAO X 4 UPON AROUSAL. PIV TO RIGHT HAND INFUSING WITHOUT DIFFICULTY. PT REPORTS PAIN TO ABDOMEN. WILL ADDRESS. SEE EMAR. PT DENIES PRESENCE OF VOMITING BUT REPORTS SLIGHT NAUSEA. BED IS IN THE LOWEST POSITION. CALL LIGHT AND BEDSIDE TABLE ARE WITHIN REACH. SIDE RAILS X 2. PT DENIES FURTHER NEEDS. WILL CONT TO MONITOR.
--- NOTE | 2019-06-26 07:44 | NUR ---
PHARMACY NOTIFIED OF NEED FOR CIPRO MEDICATION. WILL WAIT FOR PHARMACY TO BRING MED TO ADMINISTER.
--- NOTE | 2019-06-26 11:30 | NUR ---
PIV TO RIGHT HAND RED AND HARD. PIV REMOVED WITH CATHETER TIP INTACT. PIV RESITE TO LEFT CHEST. PT TOLERATED WELL.
[2019-06-26 16:58] VITALS: BP 111/54
--- NOTE | 2019-06-26 18:27 | NUR ---
PT WITH RED AREA TO AXILLARY/ARM JUNCTION. PT REPORTS THAT IT IS ITCHY AND REQUESTS SOMETHING TO HELP WITH ITCH. ADDIS PERRY PAGED TO NOTIFY.
--- NOTE | 2019-06-26 18:34 | NUR ---
ADDIS PERRY RETURN PAGE. TELEPHONE ORDERS RECD ARE NYSTATIN POWDER TO AREA BID AND BENADRYL 25MG PO Q6 HOURS PRN. WILL PLACE ORDER.
--- NOTE | 2019-06-26 19:35 | NUR ---
LYING IN BED. ALERT AND ORIENTED X4. RATES PAIN IN LLQ 5. DENIES DIARRHEA TODAY. RESP SHALLOW NONLABORED. O2 @ 2L/NC. BS ARE HYPERACTIVE X4 QUADS. 1+ EDEMA NOTED TO BLE. PEDAL PULSES STRONG. RED RASH NOTED TO LT AXILLARY. NS @ 20 ML/HR INFUSING IN LT BREAST/CHEST AREA. SR ELEVATED X2. CL IN REACH.
[2019-06-26 20:00] VITALS: BP 118/64
--- NOTE | 2019-06-26 21:30 | NUR ---
OFFERED BEDTIME SNACK. PT ON FULL LIQ DIET AND REQUESTED PUDDING. OPTIONS ARE LIMITED.
--- NOTE | 2019-06-26 22:37 | NUR ---
MEDICATED WITH DILAUDID FOR C/O LLQ PAIN. CL IN REACH.
[2019-06-27] VITALS: BP 116/64
--- NOTE | 2019-06-27 01:19 | NUR ---
LYING IN BED WITH EYES CLOSED. SNORING. NO DISTRESS. CL IN REACH.
[2019-06-27 04:00] VITALS: BP 130/61
--- NOTE | 2019-06-27 04:40 | NUR ---
MEDICATED WITH DILAUDID FOR C/O LLQ PAIN. CL IN REACH.
--- NOTE | 2019-06-27 05:30 | NUR ---
C/O H/A. REQUESTS TYLENOL. MEDICATED WITH TYLENOL ORDERED. CL IN REACH
[2019-06-27 05:49] LABS: BASOPHILS 0.3 % (0-2); EOSINOPHILS 5.7 % (0-7); HEMATOCRIT 31.8 % (36.0-48.0); HEMOGLOBIN 9.5 g/dL (12-16); IMMATURE GRANULOCYTES 0.3 % (0-5); LYMPHOCYTES 25.3 % (15-50); MCH 23.9 pg (26.0-34.0); MCHC 29.9 g/dL (31.0-37.0); MCV 80.1 fL (80.0-100.0); MEAN PLATELET VOLUME 9.4 fL (7.4-10.4); MONOCYTES 6.7 % (2-11); NEUTROPHILS 61.7 % (40-80); RBC 3.97 10x6/uL (4.00-5.40); RDW 16.2 % (11.5-14.5); WBC 6.5 10x3/uL (4.8-10.8)
[2019-06-27 05:50] LABS: PLATELET COUNT 207 10x3/uL (130-400)
[2019-06-27 06:20] LABS: ALBUMIN 2.5 g/dL (3.4-5.0); ALKALINE PHOSPHATASE 129 U/L (46-116); ALT (SGPT) 17 U/L (10-68); CALC OSMOLALITY 282 mosm/kg (275-300); CALCIUM 8.2 mg/dL (8.5-10.1); CARBON DIOXIDE 26.7 mmol/L (21.0-32.0); CHLORIDE - SERUM 107 mmol/L (98-107); CREATININE - SERUM 0.8 mg/dL (0.6-1.3); GLUCOSE 175 mg/dL (74-106); POTASSIUM - SERUM 3.9 mmol/L (3.5-5.1); PROTEIN - SERUM 6.3 g/dL (6.4-8.2); SODIUM 141 mmol/L (136-145); UREA NITROGEN 6 mg/dL (7-18); eGFR NON AFRICAN AMERICAN 77 mL/min (90-120)
--- NOTE | 2019-06-27 07:42 | NUR ---
PT RESTING QUIETLY IN BED. RESP EVEN AND UNLABORED. O2 @ 2L NC IN PLACE. PT REPORTS PAIN 4/10 AT THIS TIME. IV TO LEFT BREAST WITH NS @ 20ML/HR INFUSING VIA PUMP. SITE WITHOUT REDNESS OR EDEMA. PT DENIES FURTHER NEEDS AT THIS TIME. CL WITHIN REACH. ENCOURAGED TO CALL WITH NEEDS. CONTINUE POC
[2019-06-27 08:36] VITALS: BP 117/67
[2019-06-27 12:12] VITALS: Ht 165.1 cm; Wt 113.4 kg
[2019-06-27 12:48] VITALS: BP 130/77
--- NOTE | 2019-06-27 14:53 | MORECARE ---
CASE MANAGEMENT DISCHARGE SUMMARY PATIENT: RONEN PALOMO UNIT: [id number] ADM DATE: 06/25/19 AGE: 64 : 57 SEX: F ROOM/BED: D.2214 AUTHOR: VIRGEN,DOC PHYSICIAN: REFERRING PHYSICIAN: MAYRA MACKAY MD DATE OF SERVICE: 06/27/19 Discharge Plan Patient Name: RONEN PALOMO Facility: [facility]:[place] : 1955 Planned Disposition: Home with Home Health Anticipated Discharge Date: Discharge Date: Expected LOS: Initial Reviewer: [email or web address] Initial Review Date: 06/24/2019 Generated: 06/27/19 3:53 pm Comments DCP- Discharge Planning Updated by [email or web address]: Shereen Cyr on 06/27/19 1:[address] Patient Name: RONEN PALOMO Admission Status: Urgent Accout number: [id number] Admission Date: 06-25-2019 : 1955 Admission Diagnosis: Attending: LANG Current LOS: 2 Anticipated DC Date: Planned Disposition: Home with Home Health Primary Insurance: MEDICAID [place] Discharge Planning Comments: CM met with patient to complete initial dc planning assessment. CM educated patient on the CM role and verbal consent given by patient to complete assessment. Patient lives at home with her spouse where she is independent with her care. At discharge patient plans to return home and feels this is a safe discharge. CM discussed availability of home health, rehab services, and medical equipment. She is current with [facility] and has all the DME that she could need. She has a nebulizer, home o2, walker, grab bar, BSC, wheelchair, shower chair at home. Patient denied known discharge needs at this time. CM will continue to follow and will assist as needed with dc plans/needs. Engineering Mechanic: Shereen Cyr DCPIA - Discharge Planning Initial Assessment Updated by [email or web address]: Shereen Cyr on 06/27/19 2:46 pm * Is the patient Alert and Oriented? Yes * PCP DR BRINK * Pharmacy [facility] * Preadmission Environment Home with Family * ADLs Independent * Equipment Bedside Commode Grab Bars Nebulizer Oxygen Rolling Walker Shower Chair Walker Wheelchair * List name and contact numbers for known caregivers / representatives who currently or will assist patient after discharge: VIKI (SPOUSE )[phone] * Verbal permission to speak to the caregivers and representatives has been obtained from the patient. N/A * Community resources currently utilized Home Health * Please name any agencies selected above. [facility] * Additional services required to return to the preadmission environment? Yes * Can the patient safely return to the preadmission environment? Yes * Has this patient been hospitalized within the prior 30 days at any hospital? Yes Patient Name: RONEN PALOMO Page [id number] at 1453 All edits/amendments must be made on the electronic document DICTATION DATE: 06/27/191452 LEAN CONSULTANT: RAN 06/27/191452 RPT#: [id number] DC DATE: STATUS: ADM IN [facility] [address] [place] [address] END OF REPORT
[2019-06-27 16:30] VITALS: BP 153/71
--- NOTE | 2019-06-27 16:40 | NUR ---
PT DISCHARGE PAPERS PROVIDED. DISCUSSED PT EDUCATION AND CONTINUATION OF HOME MEDICATIONS. PT VOICES UNDERSTANDING. IV D/C'D FROM LEFT BREAST, CATH INTACT. PT TAKEN OUT VIA W/C TO PRIVATE VEHICLE WITH ALL PERSONAL BELONGINGS.
--- NOTE | 2019-06-28 16:33 | MORECARE ---
CASE MANAGEMENT DISCHARGE SUMMARY PATIENT: RONEN PALOMO UNIT: [id number] ADM DATE: 06/25/19 AGE: 64 : 57 SEX: F ROOM/BED: D.2214 AUTHOR: VIRGEN,DOC PHYSICIAN: REFERRING PHYSICIAN: MAYRA MACKAY MD DATE OF SERVICE: 06/28/19 Discharge Plan Patient Name: RONEN PALOMO Facility: [facility]:[place] : 1955 Planned Disposition: Home with Home Health Anticipated Discharge Date: Discharge Date: 06/27/2019 Expected LOS: 0 Initial Reviewer: [email or web address] Initial Review Date: 06/24/2019 Generated: 06/28/19 5:32 pm Comments DCP- Discharge Planning Updated by [email or web address]: Shereen Cyr on 06/27/19 1:[address] Patient Name: RONEN PALOMO Admission Status: Urgent Accout number: [id number] Admission Date: 06-25-2019 : 1955 Admission Diagnosis: Attending: LANG Current LOS: 2 Anticipated DC Date: Planned Disposition: Home with Home Health Primary Insurance: MEDICAID [place] Discharge Planning Comments: CM met with patient to complete initial dc planning assessment. CM educated patient on the CM role and verbal consent given by patient to complete assessment. Patient lives at home with her spouse where she is independent with her care. At discharge patient plans to return home and feels this is a safe discharge. CM discussed availability of home health, rehab services, and medical equipment. She is current with [facility] and has all the DME that she could need. She has a nebulizer, home o2, walker, grab bar, BSC, wheelchair, shower chair at home. Patient denied known discharge needs at this time. CM will continue to follow and will assist as needed with dc plans/needs. Supervisor Special Education: Shereen Cyr DCPIA - Discharge Planning Initial Assessment Updated by [email or web address]: Shereen Cyr on 06/27/19 2:46 pm * Is the patient Alert and Oriented? Yes * PCP DR BRINK * [facility] * Preadmission Environment Home with Family * ADLs Independent * Equipment Bedside Commode Grab Bars Nebulizer Oxygen Rolling Walker Shower Chair Walker Wheelchair * List name and contact numbers for known caregivers / representatives who currently or will assist patient after discharge: VIKI (SPOUSE )[phone] * Verbal permission to speak to the caregivers and representatives has been obtained from the patient. N/A * Community resources currently utilized Home Health * Please name any agencies selected above. [facility] * Additional services required to return to the preadmission environment? Yes * Can the patient safely return to the preadmission environment? Yes * Has this patient been hospitalized within the prior 30 days at any hospital? Yes Last DP export: 06/27/19 1:53 Patient Name: RONEN PALOMO Page [id number] at 1633 All edits/amendments must be made on the electronic document DICTATION DATE: 06/28/191631 BUREAU DIRECTOR: RAN 06/28/191631 RPT#: [id number] DC DATE:06/27/19 STATUS: DIS IN [facility] [address] [place] [address] END OF REPORT
== END 2019-06-27 17:05 | disposition home health service (06) | DRG 392 ==
LOC: D.MS 16:28 → OBSVTIME 16:29 → D.MS 06-25 13:23
PROVIDERS: Family Medicine; ADMIT Family Medicine; ATTEND Family Medicine
DX: R10.32 Left lower quadrant pain (principal); I48.20 Chronic atrial fibrillation, unspecified; I25.10 Atherosclerotic heart disease of native coronary artery without angina pectoris; I25.2 Old myocardial infarction; Z86.73 Personal history of transient ischemic attack (TIA), and cerebral infarction without residual deficits; E11.65 Type 2 diabetes mellitus with hyperglycemia; M19.90 Unspecified osteoarthritis, unspecified site; I50.9 Heart failure, unspecified; D64.9 Anemia, unspecified; Z86.59 Personal history of other mental and behavioral disorders

== ENCOUNTER 2019-07-13 15:24 | Emergency (ER) | payer MEDICAID ==
[~2019-07-13] VITALS: Ht 165.1 cm; Wt 113.6 kg
[2019-07-13 16:07] VITALS: Ht 165.1 cm; Wt 113.6 kg
[2019-07-13 16:57] LABS: BASOPHILS 0.2 % (0-2); EOSINOPHILS 5.9 % (0-7); HEMATOCRIT 37.1 % (36.0-48.0); HEMOGLOBIN 11.3 g/dL (12-16); IMMATURE GRANULOCYTES 0.5 % (0-5); LYMPHOCYTES 25.6 % (15-50); MCH 24.2 pg (26.0-34.0); MCHC 30.5 g/dL (31.0-37.0); MCV 79.4 fL (80.0-100.0); MEAN PLATELET VOLUME 8.9 fL (7.4-10.4); MONOCYTES 5.9 % (2-11); NEUTROPHILS 61.9 % (40-80); RBC 4.67 10x6/uL (4.00-5.40); RDW 16.3 % (11.5-14.5); WBC 9.4 10x3/uL (4.8-10.8)
[2019-07-13 17:08] LABS: APTT 28.2 SECONDS (22.8-39.4); CALC OSMOLALITY 284 mosm/kg (275-300); CALCIUM 8.5 mg/dL (8.5-10.1); CARBON DIOXIDE 28.5 mmol/L (21.0-32.0); CHLORIDE - SERUM 102 mmol/L (98-107); CREATININE - SERUM 0.7 mg/dL (0.6-1.3); GLUCOSE 217 mg/dL (74-106); INR 1.02 (0.85-1.17); POTASSIUM - SERUM 3.7 mmol/L (3.5-5.1); PROTIME 12.9 SECONDS (11.6-15.0); SODIUM 140 mmol/L (136-145); UREA NITROGEN 11 mg/dL (7-18); eGFR NON AFRICAN AMERICAN 90 mL/min (90-120)
[2019-07-13 17:32] LABS: PLATELET COUNT 259 10x3/uL (130-400)
[2019-07-13 17:39] LABS: ALBUMIN 3.1 g/dL (3.4-5.0); ALKALINE PHOSPHATASE 149 U/L (46-116); ALT (SGPT) 24 U/L (10-68); BILIRUBIN - TOTAL 0.26 mg/dL (0.2-1.3); CREATINE KINASE 23 UL (21-215); PRO BNP 45 pg/mL (0-125); PROTEIN - SERUM 7.3 g/dL (6.4-8.2)
[2019-07-13 17:43] LABS: TROPONIN-I < 0.017 ng/mL (0.000-0.060)
[2019-07-13 18:15] VITALS: BP 166/88
[2019-07-13] MEDS ORDERED: ULTRAM50 MG PO (18:38)
[2019-07-13] MEDS ORDERED: SEROQUEL100 MG PO (18:38)
== END 2019-07-13 19:11 | disposition home or self-care (01) ==
LOC: D.ER 15:24
PROVIDERS: Emergency Medicine
DX: R06.09 Other forms of dyspnea (principal); R09.1 Pleurisy

== ENCOUNTER 2019-07-30 17:13 | Emergency (ER) | payer MEDICAID ==
[~2019-07-30] VITALS: Ht 165.1 cm; Wt 113.6 kg
[2019-07-30 17:15] VITALS: Ht 165.1 cm; Wt 113.6 kg
[2019-07-30] MEDS ORDERED: PREDNISONE20 MG PO (17:48)
[2019-07-30] MEDS ORDERED: VOLTAREN75 MG PO (17:48)
[2019-07-30] MEDS ORDERED: OMNICEF300 MG PO (17:48)
[2019-07-30 18:37] LABS: BASOPHILS 0.1 % (0-2); EOSINOPHILS 5.1 % (0-7); HEMATOCRIT 38.4 % (36.0-48.0); HEMOGLOBIN 11.9 g/dL (12-16); IMMATURE GRANULOCYTES 0.5 % (0-5); MCV 77.4 fL (80.0-100.0); MEAN PLATELET VOLUME 9.1 fL (7.4-10.4); MONOCYTES 4.9 % (2-11); NEUTROPHILS 60.4 % (40-80); PLATELET COUNT 256 10x3/uL (130-400); RBC 4.96 10x6/uL (4.00-5.40); RDW 16.3 % (11.5-14.5); WBC 10.9 10x3/uL (4.8-10.8)
[2019-07-30 18:43] LABS: CALC OSMOLALITY 281 mosm/kg (275-300); CARBON DIOXIDE 27.8 mmol/L (21.0-32.0); CHLORIDE - SERUM 102 mmol/L (98-107); CREATININE - SERUM 0.8 mg/dL (0.6-1.3); GLUCOSE 197 mg/dL (74-106); POTASSIUM - SERUM 3.9 mmol/L (3.5-5.1); SODIUM 138 mmol/L (136-145); UREA NITROGEN 14 mg/dL (7-18); eGFR NON AFRICAN AMERICAN 77 mL/min (90-120)
[2019-07-30 18:44] LABS: APTT 20.5 SECONDS (22.8-39.4); INR 1.01 (0.85-1.17); PROTIME 12.8 SECONDS (11.6-15.0)
[2019-07-30 18:45] LABS: D-DIMER-QUANTITATIVE < 0.27 ug/mLFEU (0.20-0.54)
[2019-07-30 18:59] LABS: ALBUMIN 3.2 g/dL (3.4-5.0); ALKALINE PHOSPHATASE 177 U/L (46-116); ALT (SGPT) 22 U/L (10-68); BILIRUBIN - TOTAL 0.32 mg/dL (0.2-1.3); CREATINE KINASE 15 UL (21-215); MAGNESIUM - SERUM 1.9 mg/dL (1.8-2.4); PROTEIN - SERUM 7.6 g/dL (6.4-8.2); TROPONIN-I < 0.017 ng/mL (0.000-0.060)
[2019-07-30 19:44] VITALS: BP 166/96
== END 2019-07-30 19:44 | disposition home or self-care (01) ==
LOC: D.ER 17:13
PROVIDERS: Emergency Medicine
DX: R05 Cough (principal); R07.89 Other chest pain; Z86.73 Personal history of transient ischemic attack (TIA), and cerebral infarction without residual deficits; E11.9 Type 2 diabetes mellitus without complications; Z79.84 Long term (current) use of oral hypoglycemic drugs; J44.9 Chronic obstructive pulmonary disease, unspecified; Z99.81 Dependence on supplemental oxygen; I50.9 Heart failure, unspecified; I25.2 Old myocardial infarction

== ENCOUNTER 2019-08-06 19:23 | Emergency (ER) | payer MEDICAID ==
[~2019-08-06] VITALS: Ht 165.1 cm; Wt 116.4 kg
[~2019-08-06 19:23] MED LIST changes: +PREDNISONE20 MG PO
[2019-08-06 20:07] VITALS: Ht 165.1 cm; Wt 116.4 kg
[2019-08-06 20:28] LABS: BASOPHILS 0.2 % (0-2); EOSINOPHILS 4.6 % (0-7); HEMATOCRIT 37.6 % (36.0-48.0); HEMOGLOBIN 11.7 g/dL (12-16); IMMATURE GRANULOCYTES 0.3 % (0-5); LYMPHOCYTES 23.5 % (15-50); MCH 24.3 pg (26.0-34.0); MCHC 31.1 g/dL (31.0-37.0); MEAN PLATELET VOLUME 9.1 fL (7.4-10.4); MONOCYTES 4.7 % (2-11); NEUTROPHILS 66.7 % (40-80); PLATELET COUNT 270 10x3/uL (130-400); RBC 4.82 10x6/uL (4.00-5.40); RDW 16.5 % (11.5-14.5); WBC 11.2 10x3/uL (4.8-10.8)
[2019-08-06 20:40] LABS: APTT 26.6 SECONDS (22.8-39.4); INR 1.01 (0.85-1.17); PROTIME 12.8 SECONDS (11.6-15.0)
[2019-08-06 20:50] LABS: CALC OSMOLALITY 278 mosm/kg (275-300); CHLORIDE - SERUM 101 mmol/L (98-107); CREATININE - SERUM 0.8 mg/dL (0.6-1.3); GLUCOSE 239 mg/dL (74-106); POTASSIUM - SERUM 3.6 mmol/L (3.5-5.1); SODIUM 136 mmol/L (136-145); UREA NITROGEN 10 mg/dL (7-18); eGFR NON AFRICAN AMERICAN 77 mL/min (90-120)
[2019-08-06 20:58] LABS: ALBUMIN 3.1 g/dL (3.4-5.0); ALKALINE PHOSPHATASE 184 U/L (46-116); ALT (SGPT) 26 U/L (10-68); BILIRUBIN - TOTAL 0.35 mg/dL (0.2-1.3); CREATINE KINASE 15 UL (21-215); PRO BNP 14 pg/mL (0-125); PROTEIN - SERUM 7.5 g/dL (6.4-8.2)
[2019-08-06 20:59] LABS: TROPONIN-I < 0.017 ng/mL (0.000-0.060)
[2019-08-06 21:50] VITALS: BP 155/80
== END 2019-08-06 21:50 | disposition home or self-care (01) ==
LOC: D.ER 19:23
PROVIDERS: Emergency Medicine
DX: R06.00 Dyspnea, unspecified (principal); D64.9 Anemia, unspecified; E11.65 Type 2 diabetes mellitus with hyperglycemia; Z79.84 Long term (current) use of oral hypoglycemic drugs; I50.9 Heart failure, unspecified; I25.2 Old myocardial infarction; I48.91 Unspecified atrial fibrillation; I25.10 Atherosclerotic heart disease of native coronary artery without angina pectoris; J44.9 Chronic obstructive pulmonary disease, unspecified; K57.92 Diverticulitis of intestine, part unspecified, without perforation or abscess without bleeding; M81.0 Age-related osteoporosis without current pathological fracture

== ENCOUNTER 2019-08-13 15:29 | Inpatient (IN) | payer MEDICAID ==
[~2019-08-13] VITALS: Ht 165.1 cm; Wt 113.4 kg
[2019-08-13 16:28] LABS: BASOPHILS 0.1 % (0-2); EOSINOPHILS 4.2 % (0-7); HEMATOCRIT 35.5 % (36.0-48.0); HEMOGLOBIN 10.9 g/dL (12-16); IMMATURE GRANULOCYTES 0.3 % (0-5); LYMPHOCYTES 25.7 % (15-50); MCHC 30.7 g/dL (31.0-37.0); MONOCYTES 5.2 % (2-11); NEUTROPHILS 64.5 % (40-80); PLATELET COUNT 264 10x3/uL (130-400); RBC 4.55 10x6/uL (4.00-5.40); RDW 16.7 % (11.5-14.5); WBC 9.3 10x3/uL (4.8-10.8)
[2019-08-13 16:41] LABS: CALC OSMOLALITY 282 mosm/kg (275-300); CALCIUM 8.9 mg/dL (8.5-10.1); CARBON DIOXIDE 26.1 mmol/L (21.0-32.0); CHLORIDE - SERUM 104 mmol/L (98-107); CREATININE - SERUM 0.9 mg/dL (0.6-1.3); POTASSIUM - SERUM 3.9 mmol/L (3.5-5.1); SODIUM 140 mmol/L (136-145); UREA NITROGEN 11 mg/dL (7-18); eGFR NON AFRICAN AMERICAN 67 mL/min (90-120)
[2019-08-13 16:53] LABS: GLUCOSE 187 mg/dL (74-106)
[2019-08-13 17:02] LABS: ALBUMIN 3.1 g/dL (3.4-5.0); ALKALINE PHOSPHATASE 166 U/L (46-116); ALT (SGPT) 24 U/L (10-68); BILIRUBIN - TOTAL 0.34 mg/dL (0.2-1.3); CKMB 0.2 U/L (0.0-3.6); CREATINE KINASE 28 UL (21-215); PRO BNP 28 pg/mL (0-125); PROTEIN - SERUM 7.3 g/dL (6.4-8.2)
[2019-08-13 17:03] LABS: TROPONIN-I < 0.017 ng/mL (0.000-0.060)
[2019-08-13] MEDS ORDERED: PROTONIX40 MG PO (19:22)
--- NOTE | 2019-08-13 19:30 | NUR ---
RECEIVED TO ROOM FROM ER VIA [employer]. ALERT.ORIENTED.NO DISTRESS NOTED. SL TO RFA INTACT WITHOUT REDNESS OR EDEMA NOTED. ORIENTED TO ROOM. CL IN REACH
[2019-08-13 19:41] VITALS: BP 120/60
[2019-08-13 22:54] VITALS: BP 130/70
[2019-08-14 00:42] VITALS: BP 147/72
--- NOTE | 2019-08-14 02:59 | NUR ---
I have reviewed this patient and I concur with the Shift Assessment completed by the Licensed Practical Nurse today this shift.
[2019-08-14 04:48] VITALS: BP 117/67
--- NOTE | 2019-08-14 07:40 | NUR ---
PT RESTING IN BED WITH EYES CLOSED, EASILY AROUSED TO SPEECH. IV LOCATED TO RIGHT AC, CURRENTLY SL. NO S/S OF DISTRESS AND DENIES NEEDS AT THIS TIME. WILL CONT TO MONITOR.
[2019-08-14 08:04] VITALS: BP 124/65
--- NOTE | 2019-08-14 11:30 | NUR ---
PT UP TO BATHROOM WITH DIARHEA, WILL CONT TO MONITOR.
--- NOTE | 2019-08-14 11:57 | NUR ---
FSBS 297, TREATED WITH 6 UNITS.
[2019-08-14 12:28] VITALS: BP 118/66
--- NOTE | 2019-08-14 12:49 | NUR ---
CALLED SURGICAL SERVICES TECH TO REQUEST TELEMETRY.
[2019-08-14 13:18] LABS: BASOPHILS 0.1 % (0-2); EOSINOPHILS 3.5 % (0-7); HEMATOCRIT 34.9 % (36.0-48.0); HEMOGLOBIN 10.7 g/dL (12-16); IMMATURE GRANULOCYTES 0.7 % (0-5); LYMPHOCYTES 27.6 % (15-50); MCHC 30.7 g/dL (31.0-37.0); MCV 78.4 fL (80.0-100.0); MONOCYTES 5.2 % (2-11); NEUTROPHILS 62.9 % (40-80); PLATELET COUNT 214 10x3/uL (130-400); RBC 4.45 10x6/uL (4.00-5.40); RDW 16.5 % (11.5-14.5); WBC 6.9 10x3/uL (4.8-10.8)
[2019-08-14 13:24] LABS: CALC OSMOLALITY 285 mosm/kg (275-300); CALCIUM 8.8 mg/dL (8.5-10.1); CARBON DIOXIDE 25.4 mmol/L (21.0-32.0); CHLORIDE - SERUM 105 mmol/L (98-107); CREATININE - SERUM 0.8 mg/dL (0.6-1.3); GLUCOSE 217 mg/dL (74-106); MAGNESIUM - SERUM 1.8 mg/dL (1.8-2.4); SODIUM 139 mmol/L (136-145); eGFR NON AFRICAN AMERICAN 77 mL/min (90-120)
[2019-08-14 13:25] LABS: UREA NITROGEN 16 mg/dL (7-18)
--- NOTE | 2019-08-14 15:30 | NUR ---
PT REQUESTING SOME IMMODIUM.
--- NOTE | 2019-08-14 16:40 | NUR ---
SPOKE WITH ABOUT IMMODIUM FOR PT, GAVE VERBAL ORDERS.
[2019-08-14 16:57] VITALS: BP 140/65
[2019-08-14 20:42] VITALS: BP 142/70
--- NOTE | 2019-08-14 21:15 | NUR ---
WATCHING TV QUIELTY WITH NO DISTRESS NOTED. RESP EVEN AND UNLABORED. SL TO RAC WITHOUT REDNESS OR EDEMA NOTED. NO COMPLAINTS VOICED.CL IN REACH
[2019-08-15 01:34] VITALS: BP 157/64
--- NOTE | 2019-08-15 04:03 | NUR ---
I have reviewed this patient and I concur with the Shift Assessment completed by the Licensed Practical Nurse today this shift.
[2019-08-15 05:12] VITALS: BP 122/75
[2019-08-15 06:03] LABS: BASOPHILS 0.2 % (0-2); EOSINOPHILS 4.2 % (0-7); HEMATOCRIT 32.9 % (36.0-48.0); IMMATURE GRANULOCYTES 0.6 % (0-5); LYMPHOCYTES 33.7 % (15-50); MCH 23.8 pg (26.0-34.0); MCHC 30.4 g/dL (31.0-37.0); MCV 78.1 fL (80.0-100.0); MEAN PLATELET VOLUME 8.8 fL (7.4-10.4); NEUTROPHILS 55.3 % (40-80); PLATELET COUNT 208 10x3/uL (130-400); RBC 4.21 10x6/uL (4.00-5.40); RDW 16.8 % (11.5-14.5); WBC 6.2 10x3/uL (4.8-10.8)
[2019-08-15 06:23] LABS: CALC OSMOLALITY 293 mosm/kg (275-300); CALCIUM 8.3 mg/dL (8.5-10.1); CARBON DIOXIDE 26.1 mmol/L (21.0-32.0); CHLORIDE - SERUM 107 mmol/L (98-107); CREATININE - SERUM 0.7 mg/dL (0.6-1.3); GLUCOSE 237 mg/dL (74-106); MAGNESIUM - SERUM 1.7 mg/dL (1.8-2.4); POTASSIUM - SERUM 4.2 mmol/L (3.5-5.1); SODIUM 143 mmol/L (136-145); UREA NITROGEN 16 mg/dL (7-18); eGFR NON AFRICAN AMERICAN 90 mL/min (90-120)
--- NOTE | 2019-08-15 07:15 | NUR ---
REC'D IN BED WITH EYES CLOSED EASILY TO AROUSED WHEN NAME IS CALLED. RESP EVEN AND UNLABORED WITH NO DISTRESS NOTED. NO C/O NOTED OR VOICED. ASSESSMENT COMPLETED. C/L IN REACH AT BEDSIDE.
[2019-08-15 07:44] VITALS: BP 123/104
--- NOTE | 2019-08-15 09:51 | NUR ---
I spoke with physicians office regarding whooping cough. The patient was tested for pertussis but test was negative. Was treated in office for COPD.
[2019-08-15 11:52] VITALS: BP 146/71
--- NOTE | 2019-08-15 13:49 | NUR ---
I have reviewed this patient and I concur with the Shift Assessment completed by the Licensed Practical Nurse today this shift.
[2019-08-15 14:06] VITALS: Ht 165.1 cm; Wt 113.4 kg
--- NOTE | 2019-08-15 14:55 | NUR ---
OT NOTE: PT COMPLETED SUPINE TO SIT WITH CGA. PT COMPLETED ADL MOB WITH CGA. PT COMPLETED TOILETING TASKS WITH SBA. PT STATES SHE HAS SCIATIC PAIN. NURSING AWARE. THANK YOU, NAJMA DURANT
[2019-08-15 17:04] VITALS: BP 162/81
--- NOTE | 2019-08-15 17:12 | NUR ---
MEDICATED WITH OXY PER ORDERS FOR C/O PAIN RATING 8/10 ON PAIN SCALE. C/L IN REACH AT BEDSIDE.
[2019-08-15 21:08] VITALS: BP 134/64
[2019-08-16 01:05] VITALS: BP 150/70
[2019-08-16 04:38] VITALS: BP 105/56
[2019-08-16 06:48] LABS: CALC OSMOLALITY 284 mosm/kg (275-300); CALCIUM 8.5 mg/dL (8.5-10.1); CARBON DIOXIDE 27.2 mmol/L (21.0-32.0); CHLORIDE - SERUM 105 mmol/L (98-107); CREATININE - SERUM 0.7 mg/dL (0.6-1.3); GLUCOSE 220 mg/dL (74-106); MAGNESIUM - SERUM 1.8 mg/dL (1.8-2.4); POTASSIUM - SERUM 4.2 mmol/L (3.5-5.1); SODIUM 138 mmol/L (136-145); UREA NITROGEN 18 mg/dL (7-18); eGFR NON AFRICAN AMERICAN 90 mL/min (90-120)
[2019-08-16 07:15] LABS: BASOPHILS 0.2 % (0-2); EOSINOPHILS 4.5 % (0-7); HEMATOCRIT 34.1 % (36.0-48.0); HEMOGLOBIN 10.2 g/dL (12-16); IMMATURE GRANULOCYTES 0.9 % (0-5); LYMPHOCYTES 33.3 % (15-50); MCH 23.6 pg (26.0-34.0); MCHC 29.9 g/dL (31.0-37.0); MCV 78.9 fL (80.0-100.0); NEUTROPHILS 54.1 % (40-80); PLATELET COUNT 236 10x3/uL (130-400); RBC 4.32 10x6/uL (4.00-5.40); RDW 16.6 % (11.5-14.5); WBC 6.5 10x3/uL (4.8-10.8)
--- NOTE | 2019-08-16 07:16 | NUR ---
I have reviewed this patient and I concur with the Shift Assessment completed by the Licensed Practical Nurse today this shift.
--- NOTE | 2019-08-16 07:30 | NUR ---
REC'D IN BED AWAKE AND ALERT. RESP EVEN AND UNLABORED WITH NO DISTRESS NOTED. CAN EXPRESS NEEDS AND WANTS. TURN AND REPOSITION SELF AB NAYELI. ASSESSMENT COMPLETED. C/L IN REACH AT BEDSIDE.
[2019-08-16 08:37] VITALS: BP 118/49
--- NOTE | 2019-08-16 10:42 | NUR ---
I have reviewed this patient and I concur with the Shift Assessment completed by the Licensed Practical Nurse today this shift.
[2019-08-16] MEDS ORDERED: OMNICEF300 MG PO (11:58)
[2019-08-16] MEDS ORDERED: PERCOCET 10-321 EAC1 PO (12:00)
[2019-08-16] MEDS ORDERED: PREDNISONE10 MG PO (12:00)
[2019-08-16 13:27] VITALS: BP 122/62
--- NOTE | 2019-08-16 14:09 | MORECARE ---
CASE MANAGEMENT DISCHARGE SUMMARY PATIENT: RONEN PALOMO UNIT: [id number] ADM DATE: 08/13/19 AGE: 64 : 57 SEX: F ROOM/BED: D.2229 AUTHOR: YONATAN NEW PHYSICIAN: REFERRING PHYSICIAN: RADAMES COLLINS MD DATE OF SERVICE: 08/16/19 Discharge Plan Patient Name: RONEN PALOMO [facility] [facility] 1955 Planned Disposition: Home with Home Health Anticipated Discharge Date: 08/16/19 Discharge Date: Expected LOS: 3 Initial Reviewer: [email or web address] Initial Review Date: 08/16/2019 Generated: 08/16/19 3:08 pm Patient Name: RONEN PALOMO Page [phone] at 1409 All edits/amendments must be made on the electronic document DICTATION DATE: 08/16/191407 STONE UNLOADER: RAN 08/16/191407 RPT#: [id number] DC DATE: STATUS: ADM IN [facility] [address] [place] [address] END OF REPORT
--- NOTE | 2019-08-16 14:13 | NUR ---
OT NOTE: CONT TO REPORT SEVERE PAIN; ABLE TO AMB IN ROOM WITH SBA; TOILETING WITH SBA; SINK HYGIENE WITH SBA LULU DASILVA OTR/L
--- NOTE | 2019-08-16 14:18 | MORECARE ---
CASE MANAGEMENT DISCHARGE SUMMARY PATIENT: RONEN PALOMO UNIT: [id number] ADM DATE: 08/13/19 AGE: 64 : 57 SEX: F ROOM/BED: D.2229 AUTHOR: VIRGEN,DOC PHYSICIAN: REFERRING PHYSICIAN: RADAMES COLLINS MD DATE OF SERVICE: 08/16/19 Discharge Plan Patient Name: RONEN PALOMO Facility: [facility]:[place] : 1955 Planned Disposition: Home with Home Health Anticipated Discharge Date: 08/16/19 Discharge Date: Expected LOS: 3 Initial Reviewer: [email or web address] Initial Review Date: 08/16/2019 Generated: 08/16/19 3:18 pm Comments DCP- Discharge Planning Updated by [email or web address]: Jessica Nuñez on 08/16/19 1:[address] Patient Name: RONEN PALOMO Admission Status: ER Accout number: [id number] Admission Date: 08-13-2019 : 1955 Admission Diagnosis: Attending: RADAMES COLLINS Current LOS: 3 Anticipated DC Date: 08-16-2019 Planned Disposition: Home with Home Health Primary Insurance: MEDICAID [place] Discharge Planning Comments: CM met with patient to complete initial dc planning assessment. CM educated patient on the CM role and verbal consent given by patient to complete assessment. Patient lives at home with her . At discharge patient plans to return and feels this is a safe discharge. States her will transport her home. CM discussed availability of home health, rehab services, and medical equipment. Patient states she has [facility] and would like it resumed on discharge. She has home oxygen with [facility] and would like to see if she qualifies for portable oxygen. CM will continue to follow and will assist as needed with dc plans/needs. Prison Keeper: Jessica Nuñez DCPIA - Discharge Planning Initial Assessment Updated by [email or web address]: Jessica Nuñez on 08/16/19 2:11 pm * Is the patient Alert and Oriented? Yes * How many steps to enter\exit or inside your home? 6/0 * PCP Dr. Lopez * Pharmacy [facility] * Preadmission Environment Home with Family * ADLs Partial Dependent * Partial ADLs (Assistance needed) Ambulation * Equipment Bedside Commode Nebulizer Other Oxygen Shower Chair Walker Wheelchair * List name and contact numbers for known caregivers / representatives who currently or will assist patient after discharge: Gordon curry - [phone] * Verbal permission to speak to the caregivers and representatives has been obtained from the patient. Yes * Community resources currently utilized Home Health * Please name any agencies selected above. [facility] * Additional services required to return to the preadmission environment? No * Can the patient safely return to the preadmission environment? Yes * Has this patient been hospitalized within the prior 30 days at any hospital? No Last DP export: 08/16/19 1:09 Patient Name: RONEN PALOMO Page 84395 at 1418 All edits/amendments must be made on the electronic document DICTATION DATE: 08/16/191417 HEARING STENOGRAPHER: RAN 08/16/191417 RPT#: [id number] [place] DATE: STATUS: ADM IN [facility] [address] [place] [address] END OF REPORT
--- NOTE | 2019-08-16 14:27 | MORECARE ---
CASE MANAGEMENT DISCHARGE SUMMARY PATIENT: RONEN PALOMO UNIT: [id number] ADM DATE: 08/13/19 AGE: 64 : 57 SEX: F ROOM/BED: D.2229 AUTHOR: VIRGEN,DOC PHYSICIAN: REFERRING PHYSICIAN: RADAMES COLLINS MD DATE OF SERVICE: 08/16/19 Discharge Plan Patient Name: RONEN PALOMO Facility: [facility]:[place] : 1955 Planned Disposition: Home with Home Health Anticipated Discharge Date: 08/16/19 Discharge Date: Expected LOS: 3 Initial Reviewer: [email or web address] Initial Review Date: 08/16/2019 Generated: 08/16/19 3:27 pm Comments DCP- Discharge Planning Updated by [email or web address]: Jessica Nuñez on 08/16/19 1:[address] Patient Name: RONEN PALOMO Admission Status: ER Accout number: [id number] Admission Date: 08-13-2019 : 1955 Admission Diagnosis: Attending: RADAMES COLLINS Current LOS: 3 Anticipated DC Date: 08-16-2019 Planned Disposition: Home with Home Health Primary Insurance: MEDICAID [place] Discharge Planning Comments: CM met with patient to complete initial dc planning assessment. CM educated patient on the CM role and verbal consent given by patient to complete assessment. Patient lives at home with her . At discharge patient plans to return and feels this is a safe discharge. States her will transport her home. CM discussed availability of home health, rehab services, and medical equipment. Patient states she has [facility] and would like it resumed on discharge. She has home oxygen with [facility] and would like to see if she qualifies for portable oxygen. CM will continue to follow and will assist as needed with dc plans/needs. Welding Machine Operator Submerged Arc: Jessica Nuñez DCPIA - Discharge Planning Initial Assessment Updated by [email or web address]: Jessica Nuñez on 08/16/19 2:11 pm * Is the patient Alert and Oriented? Yes * How many steps to enter\exit or inside your home? 6/0 * PCP Dr. Lopez * [facility]acy [facility] * Preadmission Environment Home with Family * ADLs Partial Dependent * Partial ADLs (Assistance needed) Ambulation * Equipment Bedside Commode Nebulizer Other Oxygen Shower Chair Walker Wheelchair * List name and contact numbers for known caregivers / representatives who currently or will assist patient after discharge: Gordon curry - [phone] * Verbal permission to speak to the caregivers and representatives has been obtained from the patient. Yes * Community resources currently utilized Home Health * Please name any agencies selected above. [facility] * Additional services required to return to the preadmission environment? No * Can the patient safely return to the preadmission environment? Yes * Has this patient been hospitalized within the prior 30 days at any hospital? No External Providers External Provider: Kristen Farah Contact Date: Service Request Date: Service Type: Resolution: Reviewer: Comments: Last DP export: 08/16/19 1:18 Patient Name: RONEN PALOMO Page [id number] at 1427 All edits/amendments must be made on the electronic document DICTATION DATE: 08/16/191426 SLEEP MANAGER: RAN 08/16/191426 RPT#: [id number] DC DATE: STATUS: ADM IN [facility] [address] [place] [address] END OF REPORT
[2019-08-16 16:28] VITALS: BP 130/79
--- NOTE | 2019-08-16 19:20 | NUR ---
DC HOME VOICE UNDERSTANDING OF DC INSTRUCTION. IV DC AT THIS TIME WITH TIP INTACT.
== END 2019-08-16 19:23 | disposition home health service (06) | DRG 191 ==
LOC: D.ER 15:29 → D.MS 18:18 → OBSVTIME 18:18 → D.MS 18:18 → D.ER 18:41 → D.MS 19:49
PROVIDERS: Emergency Medicine; ADMIT Internal Medicine Nephrology; ATTEND Internal Medicine Nephrology
DX: J44.1 Chronic obstructive pulmonary disease with (acute) exacerbation (principal); Z68.41 Body mass index [BMI] 40.0-44.9, adult; J96.10 Chronic respiratory failure, unspecified whether with hypoxia or hypercapnia; D50.9 Iron deficiency anemia, unspecified; I10 Essential (primary) hypertension; E78.5 Hyperlipidemia, unspecified; F31.9 Bipolar disorder, unspecified; M81.0 Age-related osteoporosis without current pathological fracture; K21.9 Gastro-esophageal reflux disease without esophagitis; E66.9 Obesity, unspecified; E11.65 Type 2 diabetes mellitus with hyperglycemia

== ENCOUNTER 2019-09-07 16:18 | Emergency (ER) | payer MEDICAID ==
[~2019-09-07] VITALS: Ht 165.1 cm; Wt 113.4 kg
[~2019-09-07 16:18] MED LIST changes: +PERCOCET 10-321 EAC1 PO
[2019-09-07 16:22] VITALS: Ht 165.1 cm; Wt 113.4 kg
[2019-09-07 17:01] LABS: BASOPHILS 0.1 % (0-2); EOSINOPHILS 6.1 % (0-7); HEMATOCRIT 35.8 % (36.0-48.0); HEMOGLOBIN 11.1 g/dL (12-16); IMMATURE GRANULOCYTES 0.3 % (0-5); LYMPHOCYTES 17.4 % (15-50); MCH 23.9 pg (26.0-34.0); MEAN PLATELET VOLUME 8.6 fL (7.4-10.4); MONOCYTES 6.6 % (2-11); NEUTROPHILS 69.5 % (40-80); PLATELET COUNT 239 10x3/uL (130-400); RBC 4.65 10x6/uL (4.00-5.40); RDW 16.4 % (11.5-14.5); WBC 7.9 10x3/uL (4.8-10.8)
[2019-09-07 17:17] LABS: CALC OSMOLALITY 282 mosm/kg (275-300); CARBON DIOXIDE 26.4 mmol/L (21.0-32.0); CHLORIDE - SERUM 104 mmol/L (98-107); CREATININE - SERUM 0.9 mg/dL (0.6-1.3); SODIUM 141 mmol/L (136-145); UREA NITROGEN 13 mg/dL (7-18); eGFR NON AFRICAN AMERICAN 67 mL/min (90-120)
[2019-09-07 17:30] LABS: ALBUMIN 3.1 g/dL (3.4-5.0); ALKALINE PHOSPHATASE 181 U/L (46-116); ALT (SGPT) 26 U/L (10-68); BILIRUBIN - TOTAL 0.18 mg/dL (0.2-1.3); PRO BNP 40 pg/mL (0-125); TROPONIN-I < 0.017 ng/mL (0.000-0.060)
[2019-09-07 17:37] LABS: GLUCOSE 134 mg/dL (74-106)
[2019-09-07] MEDS ORDERED: STERAPRED 5MG 125 MG PO (19:03)
[2019-09-07 19:16] VITALS: BP 145/95
== END 2019-09-07 19:17 | disposition home or self-care (01) ==
LOC: D.ER 16:18
PROVIDERS: Emergency Medicine
DX: J98.11 Atelectasis (principal); J44.9 Chronic obstructive pulmonary disease, unspecified; Z86.73 Personal history of transient ischemic attack (TIA), and cerebral infarction without residual deficits; E11.9 Type 2 diabetes mellitus without complications; I25.2 Old myocardial infarction; I48.91 Unspecified atrial fibrillation; I25.10 Atherosclerotic heart disease of native coronary artery without angina pectoris; Z79.4 Long term (current) use of insulin; Z79.84 Long term (current) use of oral hypoglycemic drugs

== ENCOUNTER 2019-09-10 17:52 | Inpatient (IN) | payer MEDICAID ==
[~2019-09-10] VITALS: Ht 165.1 cm; Wt 113.4 kg
[~2019-09-10 17:52] MED LIST changes: +STERAPRED 5MG 125 MG PO
[2019-09-10 18:42] LABS: BASOPHILS 0.2 % (0-2); EOSINOPHILS 4.9 % (0-7); HEMATOCRIT 35.3 % (36.0-48.0); HEMOGLOBIN 10.9 g/dL (12-16); IMMATURE GRANULOCYTES 0.3 % (0-5); MCH 23.9 pg (26.0-34.0); MCHC 30.9 g/dL (31.0-37.0); MCV 77.2 fL (80.0-100.0); MEAN PLATELET VOLUME 8.8 fL (7.4-10.4); MONOCYTES 5.3 % (2-11); NEUTROPHILS 70.3 % (40-80); PLATELET COUNT 233 10x3/uL (130-400); RBC 4.57 10x6/uL (4.00-5.40); RDW 16.2 % (11.5-14.5); WBC 8.8 10x3/uL (4.8-10.8)
[2019-09-10 18:50] LABS: CALC OSMOLALITY 279 mosm/kg (275-300); CALCIUM 8.2 mg/dL (8.5-10.1); CARBON DIOXIDE 26.4 mmol/L (21.0-32.0); CHLORIDE - SERUM 100 mmol/L (98-107); CREATININE - SERUM 0.8 mg/dL (0.6-1.3); POTASSIUM - SERUM 3.6 mmol/L (3.5-5.1); SODIUM 135 mmol/L (136-145); UREA NITROGEN 11 mg/dL (7-18); eGFR NON AFRICAN AMERICAN 77 mL/min (90-120)
[2019-09-10 18:51] LABS: APTT 27.4 SECONDS (22.8-39.4); INR 0.98 (0.85-1.17); PROTIME 12.5 SECONDS (11.6-15.0)
[2019-09-10 18:53] LABS: GLUCOSE 298 mg/dL (74-106)
[2019-09-10 19:08] LABS: ALBUMIN 2.9 g/dL (3.4-5.0); ALKALINE PHOSPHATASE 172 U/L (46-116); ALT (SGPT) 29 U/L (10-68); BILIRUBIN - TOTAL 0.13 mg/dL (0.2-1.3); CREATINE KINASE 19 UL (21-215); PRO BNP 46 pg/mL (0-125); PROTEIN - SERUM 6.9 g/dL (6.4-8.2)
[2019-09-10 19:09] LABS: TROPONIN-I < 0.017 ng/mL (0.000-0.060)
--- NOTE | 2019-09-10 21:12 | NUR ---
RECIEVED REPORT FROM WIL ROMERO
--- NOTE | 2019-09-10 21:13 | NUR ---
PT TRANSPORTED TO CT AT THIS TIME.
--- NOTE | 2019-09-10 22:00 | NUR ---
PT RETURNED FROM CT AT THIS TIME.
[2019-09-10 23:17] VITALS: BP 156/78
[2019-09-11] VITALS (7 sets, daily range): BP systolic 111–169; BP diastolic 58–88; BMI 41.6
--- NOTE | 2019-09-11 00:02 | NUR ---
PATIENT TO FLOOR. ADMISSION HISTORY COMPLETE. RESITED IV TO THE LEFT FOREARM. 22G X1 ATTEMPT.
--- NOTE | 2019-09-11 01:30 | NUR ---
PATIENT REFUSES VIBRAMYCIN. STATES "IM ALLERGIC". PROVIDED EDUCATION TO PATIENT PER ER DOCTOR THAT THIS MEDICATION IS NOT CONSIDERED TO BE THE SAME CLASSIFICATION OTHERS SHE STATES SHE IS ALLERGIC TO. PATIENT STILL REFUSED.
--- NOTE | 2019-09-11 07:48 | NUR ---
PATIENT SLEEPING ON LEFT SIDE. FAN ON. STATES PAIN IS AN 8 OUT OF 10 ON THE PAIN SCALE. REQUESTS DOOR TO BE SHUT. CL IN REACH. TM
[2019-09-11 08:26] LABS: ANION GAP 15.3 mmol/L (8-16); CALCIUM 8.7 mg/dL (8.5-10.1); CARBON DIOXIDE 22.6 mmol/L (21.0-32.0); MAGNESIUM - SERUM 2.1 mg/dL (1.8-2.4); PHOSPHOROUS 3.8 mg/dL (2.5-4.9)
[2019-09-11 08:29] LABS: POTASSIUM - SERUM 4.9 mmol/L (3.5-5.1)
[2019-09-11 14:02] LABS: BASOPHILS 0.3 % (0-2); EOSINOPHILS 0.2 % (0-7); HEMATOCRIT 35.2 % (36.0-48.0); IMMATURE GRANULOCYTES 1.5 % (0-5); LYMPHOCYTES 10.3 % (15-50); MCH 23.8 pg (26.0-34.0); MCHC 31.3 g/dL (31.0-37.0); MEAN PLATELET VOLUME 9.2 fL (7.4-10.4); MONOCYTES 2.8 % (2-11); NEUTROPHILS 84.9 % (40-80); PLATELET COUNT 241 10x3/uL (130-400); RBC 4.63 10x6/uL (4.00-5.40); WBC 10.5 10x3/uL (4.8-10.8)
--- NOTE | 2019-09-11 19:15 | NUR ---
PATIENT IN BED AWAKE AND SITTING UP. NO S/S OF DISTRESS. NO C/O AT THIS TIME. IV IS OUT AND NEEDS TO BE PLACED. PATIENT IS Q4 HR FSBS ON LOW-RESISTENCE SCALE. PATIENT IS ON TELEMTRY 150 SINUS TACH. PATIENT O2 NASAL CANNULA @ 2L. CALL LIGHT IN PLACE. WILL CONTINUE TO MONITOR.
--- NOTE | 2019-09-11 20:10 | NUR ---
PATIENT IV RESITIED BY PAMELA, AND OLD IV TAKEN OUT. CALL LIGHT IN PLACE. WILL CONTINUE TO MONITOR.
[2019-09-12] VITALS: BP 119/62
--- NOTE | 2019-09-12 03:11 | NUR ---
I have reviewed this patient and I concur with the Shift Assessment completed by the Licensed Practical Nurse today this shift.
[2019-09-12 04:00] VITALS: BP 136/72
[2019-09-12 06:20] LABS: BASOPHILS 0.1 % (0-2); EOSINOPHILS 0 % (0-7); HEMATOCRIT 33.3 % (36.0-48.0); HEMOGLOBIN 10.2 g/dL (12-16); IMMATURE GRANULOCYTES 0.6 % (0-5); LYMPHOCYTES 8.6 % (15-50); MCH 23.6 pg (26.0-34.0); MCHC 30.6 g/dL (31.0-37.0); MCV 77.1 fL (80.0-100.0); MEAN PLATELET VOLUME 9.3 fL (7.4-10.4); MONOCYTES 4.1 % (2-11); NEUTROPHILS 86.6 % (40-80); PLATELET COUNT 238 10x3/uL (130-400); RBC 4.32 10x6/uL (4.00-5.40); RDW 16.1 % (11.5-14.5); WBC 12.3 10x3/uL (4.8-10.8)
[2019-09-12 06:41] LABS: ALBUMIN 2.7 g/dL (3.4-5.0); ANION GAP 12.4 mmol/L (8-16); BILIRUBIN - TOTAL 0.19 mg/dL (0.2-1.3); CREATININE - SERUM 0.9 mg/dL (0.6-1.3); POTASSIUM - SERUM 4.4 mmol/L (3.5-5.1)
--- NOTE | 2019-09-12 07:14 | NUR ---
PT RESTING PEACEFULLY WHEN I ENTERED THE ROOM. EYES CLOSED, BREATHS EVEN/REGULAR AND UNLABORED. NO SIGNS OR SYMTPOMS OF ACUTE DISTRESS NOTED AT THIS TIME. CL IN REACH, SRX2.
[2019-09-12 08:11] VITALS: BP 126/77
--- NOTE | 2019-09-12 10:02 | NUR ---
PT AWAKE ANDN ORIENTED, C/O IV HURTING DURING HER ANTIBIOTIC LAST EVENING. FLUSHES WELL, NO SWELLING OR KNOT NOTED. STATES SHE'S WANTTING A NEW I/V. CL IN REACH, SRX2. NO FAMLY PRESENT AT BEDSIDE.
--- NOTE | 2019-09-12 10:48 | NUR ---
I have reviewed this patient and I concur with the Shift Assessment completed by the Licensed Practical Nurse today this shift.
[2019-09-12 13:38] VITALS: Ht 165.1 cm; Wt 113.4 kg
[2019-09-12 14:04] VITALS: BP 175/84
--- NOTE | 2019-09-12 14:11 | NUR ---
PT AWAKE AND ORIENTED, /CO IV HURTING JUST BY BEING THERE. PUT IN VASCULAR ACCESS CONSYULT PT IS DIFFICULT STICK AN DCURRENTLY UNABLE TO OBTAIN A NEW I/V. LEFT OLD I/V IN IT DOES STILL FLUSH WITHOUT SIGNS OF INFILTRATION. CL IN REACH, SRX2.
[2019-09-12 16:18] VITALS: BP 143/75
--- NOTE | 2019-09-12 19:00 | NUR ---
BEDSIDE REPORT RECEIVED AND CARE OF PT ASSUMED. PT LYING IN LOW DAVID'S POSITION WITH EYES CLOSED. O2 IN USE VIA NC AT 2L. TELEMETRY IN PLACE PER ORDER. IV TO LEFT AC SALINE LOCKED.
--- NOTE | 2019-09-12 19:45 | NUR ---
GAVE TYLENOL FOR C/O HEADACHE.
[2019-09-12 20:00] VITALS: BP 162/81
--- NOTE | 2019-09-12 21:44 | NUR ---
HS MEDICATIONS GIVEN TO INCLUDE NORCO PO PER REQUEST FOR PAIN. FSBS 429 THIS CHECK REQUIRING COVERAGE WITH 28 UNITS OF HUMALOG PER SLIDING SCALE. 60 UNITS OF LANTUS GIVEN PER ORDER. WILL MONITOR KIRSTEN.
[2019-09-13] VITALS: BP 133/67
--- NOTE | 2019-09-13 04:07 | NUR ---
GAVE NORCO PO PER REQUEST FOR PAIN...PT ALWAYS STATES PAIN IS A "10 / 10" IN SEVERITY. WILL MONITOR FOR EFFECTIVENESS.
[2019-09-13 05:16] VITALS: BP 130/80
[2019-09-13 07:13] LABS: ALBUMIN 2.7 g/dL (3.4-5.0); ALKALINE PHOSPHATASE 147 U/L (46-116); ALT (SGPT) 21 U/L (10-68); CALCIUM 8.6 mg/dL (8.5-10.1); CARBON DIOXIDE 27.1 mmol/L (21.0-32.0); CHLORIDE - SERUM 104 mmol/L (98-107); CREATININE - SERUM 0.7 mg/dL (0.6-1.3); POTASSIUM - SERUM 4.4 mmol/L (3.5-5.1); PROTEIN - SERUM 6.5 g/dL (6.4-8.2); SODIUM 140 mmol/L (136-145); UREA NITROGEN 21 mg/dL (7-18); eGFR NON AFRICAN AMERICAN 90 mL/min (90-120)
[2019-09-13 07:22] LABS: BASOPHILS 0.1 % (0-2); BILIRUBIN - TOTAL 0.07 mg/dL (0.2-1.3); CALC OSMOLALITY 292 mosm/kg (275-300); EOSINOPHILS 0.1 % (0-7); GLUCOSE 291 mg/dL (74-106); HEMOGLOBIN 10.3 g/dL (12-16); IMMATURE GRANULOCYTES 1.2 % (0-5); LYMPHOCYTES 11.8 % (15-50); MCH 23.8 pg (26.0-34.0); MCHC 31.2 g/dL (31.0-37.0); MCV 76.4 fL (80.0-100.0); MEAN PLATELET VOLUME 9.5 fL (7.4-10.4); MONOCYTES 3.7 % (2-11); NEUTROPHILS 83.1 % (40-80); PLATELET COUNT 260 10x3/uL (130-400); RBC 4.32 10x6/uL (4.00-5.40); RDW 16.1 % (11.5-14.5); WBC 13.9 10x3/uL (4.8-10.8)
[2019-09-13 07:54] VITALS: BP 149/81
--- NOTE | 2019-09-13 07:54 | NUR ---
ALERT AND ORIENTED. LUNGS DIMINISHED BILATERALLY. HEART SOUNDS S1 AND S2 HEARD IN ALL CAGE. BOWEL SOUDS ACTIVE X 4. SKIN INTACT WITHOUT REDNESS. IV TO LEFT AC PATENT WITHOUT REDNESS. BED LOW. CALL JUAN AND PERSONAL ITEMS IN REACH. WILL CONTINUE TO MONITOR.
--- NOTE | 2019-09-13 12:38 | NUR ---
PATIENT SLEEPING. WILL CONTINUE TO MONITOR.
[2019-09-13 13:57] VITALS: BP 154/57
--- NOTE | 2019-09-13 14:51 | MORECARE ---
CASE MANAGEMENT DISCHARGE SUMMARY PATIENT: RONEN PALOMO UNIT: [id number] ADM DATE: 09/10/19 AGE: 64 : 57 SEX: F ROOM/BED: D.2227 AUTHOR: YONATAN NEW PHYSICIAN: REFERRING PHYSICIAN: ELISEO PADILLA MD DATE OF SERVICE: 09/13/19 Discharge Plan Patient Name: RONEN PALOMO [facility] [facility] 1955 Planned Disposition: Home Anticipated Discharge Date: Discharge Date: Expected LOS: Initial Reviewer: [email or web address] Initial Review Date: 09/13/2019 Generated: 09/13/19 3:50 pm External Providers External Provider: Kristen Next Contact Date: Service Request Date: Service Type: Resolution: Reviewer: Comments: Patient Name: RONEN PALOMO Page 68493 at 1451 All edits/amendments must be made on the electronic document DICTATION DATE: 09/13/19 1450 HOSE TESTER: DM 09/13/19 1450 RPT#: [id number] DC DATE: STATUS: ADM IN [facility] [address] [place] [address] END OF REPORT
--- NOTE | 2019-09-13 15:00 | MORECARE ---
CASE MANAGEMENT DISCHARGE SUMMARY PATIENT: RONEN WELLS UNIT: [id number] ADM DATE: 09/10/19 AGE: 64 : 57 SEX: F ROOM/BED: D.2227 AUTHOR: VIRGEN,DOC PHYSICIAN: REFERRING PHYSICIAN: ELISEO PADILLA MD DATE OF SERVICE: 09/13/19 Discharge Plan Patient Name: RONEN WELLS Facility: [facility]:[place] : 1955 Planned Disposition: Home Anticipated Discharge Date: Discharge Date: Expected LOS: Initial Reviewer: [email or web address] Initial Review Date: 09/13/2019 Generated: 09/13/19 4:00 pm Comments DCP- Discharge Planning Updated by [email or web address]: Jessica Nuñez on 09/13/19 1:[address] Patient Name: RONEN WELLS Admission Status: ER Accout number: [id number] Admission Date: 09-10-2019 : 1955 Admission Diagnosis: Attending: ELISEO PADILLA Current LOS: 3 Anticipated DC Date: Planned Disposition: Home Primary Insurance: MEDICAID [place] Discharge Planning Comments: CM met with patient to complete initial dc planning assessment. CM educated patient on the CM role and verbal consent given by patient to complete assessment. Patient lives at home with her spouse. At discharge patient plans to return and feels this is a safe discharge. CM discussed availability of home health, rehab services, and medical equipment. Patient states she would like to get a new wheelchair if insurance will pay for it. States her other wheelchair came from [employer]. I called [facility] and a face sheet faxed to see if she was eligible for a replacement wheelchair. She states she [place] [facility] for Meals on Wheels. I called [employer] and she will need to fill out an application for [employer] to qualify for mom's meals. I informed her of this and she states her daughter can get the application for her at [facility]. Patient declines need for rehab or home health. States she has an aide from [employer] 5 days a week. CM will continue to follow and will assist as needed with dc plans/needs. Metrology Engineer: Jessica Nuñez DCPIA - Discharge Planning Initial Assessment Updated by [email or web address]: Jessica Nuñez on 09/13/19 2:54 pm * Is the patient Alert and Oriented? Yes * How many steps to enter\exit or inside your home? 6/0 * PCP Dr. Freitas * Pharmacy [facility] * Preadmission Environment Home with Family * ADLs Partial Dependent * Partial ADLs (Assistance needed) Bathing Dressing Medication Management * Equipment Bedside Commode Glucometer Other Oxygen Shower Chair Walker Wheelchair * Other Equipment Portable oxygen Pulse ox * List name and contact numbers for known caregivers / representatives who currently or will assist patient after discharge: Gordon Wells - spouse - [phone] * Verbal permission to speak to the caregivers and representatives has been obtained from the patient. Yes * Community resources currently utilized Other * Please name any agencies selected above. Nurses aide with [facility] * Additional services required to return to the preadmission environment? No * Can the patient safely return to the preadmission environment? Yes * Has this patient been hospitalized within the prior 30 days at any hospital? Yes Last DP export: 09/13/19 1:51 pm Patient Name: RONEN WELLS Page [id number] at 1500 All edits/amendments must be made on the electronic document DICTATION DATE: 09/13/19 1500 HEMMER AUTOMATIC: RAN 09/13/19 1500 RPT#: [id number] DC DATE: STATUS: ADM IN [facility] [address] [place] [address] END OF REPORT
--- NOTE | 2019-09-13 15:38 | NUR ---
PATIENT STATES IV HURTING TO LFA. SITE SLIGHTLY RED AROUND INSERTION POINT. DOES NOT DRAW BACK. PAIN WITH FLUSHING. IV REMOVED WITH TIP INTACT. WARM COMPRESS GIVEN. VASCULAR ACCESS [facility] CALLED AND STATES WILL COME.
[2019-09-13 17:53] VITALS: BP 160/86
--- NOTE | 2019-09-13 18:10 | NUR ---
RESTING IN BED. DENIES NEEDS. WILL CONTINUE TO MONITOR.
--- NOTE | 2019-09-13 18:41 | NUR ---
RESTING IN BED. DENIES NEEDS. BED LOW. CALL JUAN AND PERSONAL ITEMS IN REACH. WILL CONTINUE TO MONITOR.
--- NOTE | 2019-09-13 21:00 | NUR ---
FSBS 382 LANTUS 60 UNITS 24 UNITS OF REGULAR PER SS.
[2019-09-13 22:05] VITALS: BP 166/73
--- NOTE | 2019-09-14 01:12 | NUR ---
I have reviewed this patient and I concur with the Shift Assessment completed by the Licensed Practical Nurse today this shift.
[2019-09-14 01:30] VITALS: BP 142/70
--- NOTE | 2019-09-14 02:05 | NUR ---
PT RESTING IN BED. EYES CLOSED. AROUSES TO VERBAL STIMULI. PT STATES NO PROBLEMS AT THIS TIME. IV SITE RT UPPER ARM MIDLINE. DRESSING CLEAN DRY AND INTACT. NO SIGNS OF INFECTION. BOWEL SOUNDS ACTIVE. 4LO2 NASAL CANNULA. SKIN CLEAN DRY AND INTACT. NO LOWER LEG SWELLING PRESENT. WILL CONTINUE PLAN OF CARE. CALL LIGHT IN REACH. BED LOWERED AMD LOCKED. BED RAILS UPX2.
[2019-09-14 05:14] VITALS: BP 113/66
[2019-09-14 07:24] LABS: ALBUMIN 2.5 g/dL (3.4-5.0); ALKALINE PHOSPHATASE 125 U/L (46-116); ALT (SGPT) 20 U/L (10-68); CALC OSMOLALITY 290 mosm/kg (275-300); CALCIUM 8.1 mg/dL (8.5-10.1); CARBON DIOXIDE 29.1 mmol/L (21.0-32.0); CHLORIDE - SERUM 103 mmol/L (98-107); CREATININE - SERUM 0.7 mg/dL (0.6-1.3); GLUCOSE 245 mg/dL (74-106); POTASSIUM - SERUM 4.4 mmol/L (3.5-5.1); PROTEIN - SERUM 6.1 g/dL (6.4-8.2); SODIUM 141 mmol/L (136-145); UREA NITROGEN 18 mg/dL (7-18); eGFR NON AFRICAN AMERICAN 90 mL/min (90-120)
[2019-09-14 07:32] VITALS: BP 127/72
[2019-09-14 07:38] LABS: BILIRUBIN - TOTAL 0.09 mg/dL (0.2-1.3)
--- NOTE | 2019-09-14 08:12 | MORECARE ---
CASE MANAGEMENT DISCHARGE SUMMARY PATIENT: RONEN WELLS UNIT: [id number] ADM DATE: 09/10/19 AGE: 64 : 57 SEX: F ROOM/BED: D.2227 AUTHOR: VIRGENDOC PHYSICIAN: REFERRING PHYSICIAN: ELISEO PADILLA MD DATE OF SERVICE: 09/14/19 Discharge Plan Patient Name: RONEN WELLS Facility: [facility]:[place] : 1955 Planned Disposition: Home Anticipated Discharge Date: Discharge Date: Expected LOS: Initial Reviewer: [email or web address] Initial Review Date: 09/13/2019 Generated: 09/14/19 9:11 am Comments DCP- Discharge Planning Updated by [email or web address]: Jessica Nuñez on 09/14/19 7:[address] [facility] called and states patient received her wheelchair in May of 2015 and will be eligible for a replacement in May 2020, patient informed. CM will continue to follow and assist with discharge planning/needs. DCP- Discharge Planning Updated by [email or web address]: Jessica Nuñez on 09/13/19 1:[address] Patient Name: RONEN WELLS Admission Status: ER Accout number: [id number] Admission Date: 09-10-2019 : 1955 Admission Diagnosis: Attending: ELISEO PADILLA Current LOS: 3 Anticipated DC Date: Planned Disposition: Home Primary Insurance: MEDICAID [place] Discharge Planning Comments: CM met with patient to complete initial dc planning assessment. CM educated patient on the CM role and verbal consent given by patient to complete assessment. Patient lives at home with her spouse. At discharge patient plans to return and feels this is a safe discharge. CM discussed availability of home health, rehab services, and medical equipment. Patient states she would like to get a new wheelchair if insurance will pay for it. States her other wheelchair came from [employer]. I called [facility] and a face sheet faxed to see if she was eligible for a replacement wheelchair. She states she lives [place] far [place] [facility] for Meals on Wheels. I called [employer] and she will need to fill out an application for [employer] to qualify for mom's meals. I informed her of this and she states her daughter can get the application for her at [facility]. Patient declines need for rehab or home health. States she has an aide from [employer] come 5 days a week. CM will continue to follow and will assist as needed with dc plans/needs. Pet Care Assistant: Jessicapreeti Nuñez DCPIA - Discharge Planning Initial Assessment Updated by [email or web address]: Jessica Nuñez on 09/13/19 2:54 pm * Is the patient Alert and Oriented? Yes * How many steps to enter\exit or inside your home? 6/0 * PCP Dr. Freitas * [facility]acy [facility] * Preadmission Environment Home with Family * ADLs Partial Dependent * Partial ADLs (Assistance needed) Bathing Dressing Medication Management * Equipment Bedside Commode Glucometer Other Oxygen Shower Chair Walker Wheelchair * Other Equipment Portable oxygen Pulse ox * List name and contact numbers for known caregivers / representatives who currently or will assist patient after discharge: Grodon Wells - [facility] - [phone] * Verbal permission to speak to the caregivers and representatives has been obtained from the patient. Yes * Community resources currently utilized Other * Please name any agencies selected above. Nurses aide with [facility] * Additional services required to return to the preadmission environment? No * Can the patient safely return to the preadmission environment? Yes * Has this patient been hospitalized within the prior 30 days at any hospital? Yes Coverage Notice Reviewer: [id number] - Jessica Nuñez Notice Issued Date-Time: 09/13/2019 15:01 Notice Type: Patient Choice Letter Notice Delivered To: Patient Relationship to Patient: Self Chemical Laboratory Scientist Name: Delivery Method: HAND - Hand Delivered Ella Days: Prior Verbal Notification: Recipient Understood Notice: Yes Recipient Signature: Yes Med Rec Note Co-signed by Attending: Coverage Notice Comment: VICKY for Sayra Last DP export: 09/13/19 2:00 pm Patient Name: RONEN WELLS Page 86811 at 0812 All edits/amendments must be made on the electronic document DICTATION DATE: 09/14/19810 [employer] MANAGER: RAN 09/14/19810 RPT#: [id number] DC DATE: STATUS: ADM IN [facility] [address] [place] [address] END OF REPORT
[2019-09-14 08:15] LABS: BASOPHILS 0.1 % (0-2); EOSINOPHILS 0 % (0-7); HEMATOCRIT 32.5 % (36.0-48.0); HEMOGLOBIN 10.1 g/dL (12-16); IMMATURE GRANULOCYTES 1.7 % (0-5); LYMPHOCYTES 19.2 % (15-50); MCH 23.7 pg (26.0-34.0); MCHC 31.1 g/dL (31.0-37.0); MCV 76.1 fL (80.0-100.0); MEAN PLATELET VOLUME 9.3 fL (7.4-10.4); MONOCYTES 7.7 % (2-11); NEUTROPHILS 71.3 % (40-80); PLATELET COUNT 255 10x3/uL (130-400); RBC 4.27 10x6/uL (4.00-5.40); WBC 14.7 10x3/uL (4.8-10.8)
--- NOTE | 2019-09-14 10:45 | NUR ---
ALERT AND ORIENTED. HEART SOUNDS S1 AND S2 HEARD IN ALL CAGE. BOWEL SOUNDS ACTIVE X 4. SKIN INTACT WITHOUT REDNESS. CRUZ MIDLINE PATENT. WILL CHANGE DRSG TODAY. LUNGS WITH RUL CRACKLES AND SATURNINO WHEEZES. DIMINISHED THROUGHOUT. DENIES NEEDS. BED LOW. CALL JUAN AND PERSONAL ITEMS IN REACH. WILL CONTINUE TO MONITOR.
--- NOTE | 2019-09-14 13:54 | NUR ---
DRSG CHANGED TO CRUZ MIDLINE.
[2019-09-14 16:05] VITALS: BP 161/107
[2019-09-14 19:30] VITALS: BP 177/86
[2019-09-15 00:30] VITALS: BP 171/78
--- NOTE | 2019-09-15 05:26 | NUR ---
I have reviewed this patient and I concur with the Shift Assessment completed by the Licensed Practical Nurse today this shift.
[2019-09-15 05:29] LABS: BASOPHILS 0.1 % (0-2); EOSINOPHILS 0.1 % (0-7); HEMATOCRIT 34.9 % (36.0-48.0); HEMOGLOBIN 10.6 g/dL (12-16); IMMATURE GRANULOCYTES 3.5 % (0-5); LYMPHOCYTES 19.8 % (15-50); MCH 23.4 pg (26.0-34.0); MCHC 30.4 g/dL (31.0-37.0); MEAN PLATELET VOLUME 9.1 fL (7.4-10.4); MONOCYTES 6.4 % (2-11); NEUTROPHILS 70.1 % (40-80); PLATELET COUNT 241 10x3/uL (130-400); RBC 4.53 10x6/uL (4.00-5.40); RDW 16.2 % (11.5-14.5); WBC 11.3 10x3/uL (4.8-10.8)
[2019-09-15 05:30] VITALS: BP 155/71
[2019-09-15 05:49] LABS: ALBUMIN 2.5 g/dL (3.4-5.0); BILIRUBIN - TOTAL 0.21 mg/dL (0.2-1.3); CALCIUM 8.4 mg/dL (8.5-10.1); CARBON DIOXIDE 30.8 mmol/L (21.0-32.0); POTASSIUM - SERUM 3.8 mmol/L (3.5-5.1); PROTEIN - SERUM 6.5 g/dL (6.4-8.2)
[2019-09-15 05:57] LABS: CREATININE - SERUM 0.9 mg/dL (0.6-1.3)
--- NOTE | 2019-09-15 06:02 | NUR ---
PT RESTING IN BED. EYES CLOSED. NO SIGNS OF DISTRESS. BREATHING EVEN AND UNLABORED. 4L02 NASAL CANNULA. SKIN CLEAN DRY AND INTACT. IV SITE RT UPPER ARM MIDLINE. DRESSING CLEAN DRY AND INTACT. WILL CONTINUE PLAN OF CARE. CALL LIGHT IN REACH. BED LOWERED AND LOCKED. BED RAILS UPX2.
--- NOTE | 2019-09-15 08:04 | NUR ---
PATIENT RECIEVED RESTING IN BED WITH BREATHING TX IN PROGRESS. PATIENT DENIES NEEDS AT THIS TIME. CL IN REACH
[2019-09-15 09:20] VITALS: BP 154/76
[2019-09-15 12:31] VITALS: BP 149/65
[2019-09-15] MEDS ORDERED: TESSALON PERLE100 MG PO (14:47)
[2019-09-15] MEDS ORDERED: Tessalon Perle PO (14:47)
[2019-09-15] MEDS ORDERED: SINGULAIR10 MG PO (14:48)
[2019-09-15] MEDS ORDERED: PULMICORT0.5 MG/21 UPD (14:48)
[2019-09-15] MEDS ORDERED: COLACE100 MG PO (14:48)
[2019-09-15] MEDS ORDERED: MUCINEX600 MG PO (14:48)
[2019-09-15] MEDS ORDERED: FLUTICASONE PRO16 GM NASAL (14:48)
[2019-09-15] MEDS ORDERED: VIBRAMYCIN 100100 MG PO (14:49)
[2019-09-15] MEDS ORDERED: BROVANA15 MCG/2 M INH (14:49)
[2019-09-15] MEDS ORDERED: OMNICEF300 MG PO (14:49)
--- NOTE | 2019-09-15 15:17 | MORECARE ---
CASE MANAGEMENT DISCHARGE SUMMARY PATIENT: RONEN WELLS UNIT: [id number] ADM DATE: 09/10/19 AGE: 64 : 57 SEX: F ROOM/BED: D.2227 AUTHOR: YONATAN NEW PHYSICIAN: REFERRING PHYSICIAN: ELISEO PADILLA MD DATE OF SERVICE: 09/15/19 Discharge Plan Patient Name: RONEN WELLS Facility: [facility]:[place] : 1955 Planned Disposition: Home Anticipated Discharge Date: Discharge Date: Expected LOS: Initial Reviewer: [email or web address] Initial Review Date: 09/13/2019 Generated: 09/15/19 4:17 pm Comments DCP- Discharge Planning Updated by [email or web address]: Jessica Savannah on 09/15/19 2:[address] Discharge orders received. States her spouse will pick her up after he gets off work. Declines home health. States she just wants to continue her aide through [facility]. I called [facility] and they will resume care. CM will continue to follow and assist with discharge planning/needs. DCP- Discharge Planning Updated by [email or web address]: Jessica Nuñez on 09/14/19 7:[address] [facility] called and states patient received her wheelchair in May of 2015 and will be eligible for a replacement in May 2020, patient informed. CM will continue to follow and assist with discharge planning/needs. DCP- Discharge Planning Updated by [email or web address]: Jessica Savannah on 09/13/19 1:[address] Patient Name: RONEN WELLS Admission Status: ER Accout number: [id number] Admission Date: 09-10-2019 : 1955 Admission Diagnosis: Attending: ELISEO PADILLA Current LOS: 3 Anticipated DC Date: Planned Disposition: Home Primary Insurance: MEDICAID [place] Discharge Planning Comments: CM met with patient to complete initial dc planning assessment. CM educated patient on the CM role and verbal consent given by patient to complete assessment. Patient lives at home with her spouse. At discharge patient plans to return and feels this is a safe discharge. CM discussed availability of home health, rehab services, and medical equipment. Patient states she would like to get a new wheelchair if insurance will pay for it. States her other wheelchair came from [employer]. I called [facility] and a face sheet faxed to see if she was eligible for a replacement wheelchair. She [place] for Meals on [place]els. I called [employer] and she will need to fill out an application for [employer] to qualify for mom's meals. I informed her of this and she states her daughter can get the application for her at [facility]. Patient declines need for rehab or home health. States she has an aide from [facility] 5 days a week. CM will continue to follow and will assist as needed with dc plans/needs. Utility Lineman: Jessica Nuñez DCPIA - Discharge Planning Initial Assessment Updated by [email or web address]: Jessica Nuñez on 09/13/19 2:54 pm * Is the patient Alert and Oriented? Yes * How many steps to enter\exit or inside your home? 6/0 * PCP Dr. Freitas * [facility]acy [facility] * Preadmission Environment Home with Family * ADLs Partial Dependent * Partial ADLs (Assistance needed) Bathing Dressing Medication Management * Equipment Bedside Commode Glucometer Other Oxygen Shower Chair Walker Wheelchair * Other Equipment Portable oxygen Pulse ox * List name and contact numbers for known caregivers / representatives who currently or will assist patient after discharge: Gordon Wells - spouse - [phone] * Verbal permission to speak to the caregivers and representatives has been obtained from the patient. Yes * Community resources currently utilized Other * Please name any agencies selected above. Nurses aide with [facility] * Additional services required to return to the preadmission environment? No * Can the patient safely return to the preadmission environment? Yes * Has this patient been hospitalized within the prior 30 days at any hospital? Yes Coverage Notice Reviewer: [id number] - Jessica Nuñez Notice Issued Date-Time: 09/13/2019 15:01 Notice Type: Patient Choice Letter Notice Delivered To: Patient Relationship to Patient: Self Expenditure Requisition Clerk Name: Delivery Method: HAND - Hand Delivered Ella Days: Prior Verbal Notification: Recipient Understood Notice: Yes Recipient Signature: Yes Med Rec Note Co-signed by Attending: Coverage Notice Comment: VICKY for Sayra Hilton DP export: 09/14/19 7:11 am Patient Name: RONEN WELLS Page 09476 at 1517 All edits/amendments must be made on the electronic document DICTATION DATE: 09/15/191516 SHOE LASTER: RAN 09/15/191516 RPT#: [id number] DC DATE: STATUS: ADM IN [address] [place] [address] END OF REPORT
[2019-09-15 17:36] VITALS: BP 155/95
--- NOTE | 2019-09-15 18:53 | NUR ---
MIDLINE REMOVED WITH NO BLEEDING, REDNESS OR EDEMA. DISCHARGE INSTRUCTIONS GIVEN WITH PATIENT VOICING UNDERSTANDING. PATIENT TAKEN BY WHEELCHAIR TO PRIVATE CAR
--- NOTE | 2019-09-18 12:30 | MORECARE ---
CASE MANAGEMENT DISCHARGE SUMMARY PATIENT: RONEN WELLS UNIT: [id number] ADM DATE: 09/10/19 AGE: 64 : 57 SEX: F ROOM/BED: D.2227 AUTHOR: YONATAN NEW PHYSICIAN: REFERRING PHYSICIAN: ELISEO PADILLA MD DATE OF SERVICE: 09/18/19 Discharge Plan Patient Name: RONEN WELLS Facility: [facility] [place] : 1955 Planned Disposition: Home Anticipated Discharge Date: Discharge Date: 09/15/2019 Expected LOS: Initial Reviewer: [email or web address] Initial Review Date: 09/13/2019 Generated: 09/18/19 1:30 pm Comments DCP- Discharge Planning Updated by [email or web address]: Jessica Nuñez on 09/15/19 2:[address] Discharge orders received. States her spouse will pick her up after he gets off work. Declines home health. States she just wants to continue her aide through [facility]. I called [facility] and they will resume care. CM will continue to follow and assist with discharge planning/needs. DCP- Discharge Planning Updated by [email or web address]: Jessica Nuñez on 09/14/19 7:[address] [facility] called and states patient received her wheelchair in May of 2015 and will be eligible for a replacement in May 2020, patient informed. CM will continue to follow and assist with discharge planning/needs. DCP- Discharge Planning Updated by [email or web address]: Jessica Nuñez on 09/13/19 1:[address] Patient Name: RONEN WELLS Admission Status: ER Accout number: [id number] Admission Date: 09-10-2019 : 1955 Admission Diagnosis: Attending: ELISEO PADILLA Current LOS: 3 Anticipated DC Date: Planned Disposition: Home Primary Insurance: MEDICAID [place] Discharge Planning Comments: CM met with patient to complete initial dc planning assessment. CM educated patient on the CM role and verbal consent given by patient to complete assessment. Patient lives at home with her spouse. At discharge patient plans to return and feels this is a safe discharge. CM discussed availability of home health, rehab services, and medical equipment. Patient states she would like to get a new wheelchair if insurance will pay for it. States her other wheelchair came from [employer]. I called [facility] and a face sheet faxed to see if she was eligible for a replacement wheelchair. She [place] Meals on Wheels. I called [employer] and she will need to fill out an application for [employer] to qualify for mom's meals. I informed her of this and she states her daughter can get the application for her at [facility]. Patient declines need for rehab or home health. States she has an aide from [facility] 5 days a week. CM will continue to follow and will assist as needed with dc plans/needs. Dry Transfer Worker: Jessica Nuñez DCPIA - Discharge Planning Initial Assessment Updated by [email or web address]: Jessica Nuñez on 09/13/19 2:54 pm * Is the patient Alert and Oriented? Yes * How many steps to enter\exit or inside your home? 6/0 * PCP Dr. Freitas * Pharmacy [facility] * Preadmission Environment Home with Family * ADLs Partial Dependent * Partial ADLs (Assistance needed) Bathing Dressing Medication Management * Equipment Bedside Commode Glucometer Other Oxygen Shower Chair Walker Wheelchair * Other Equipment Portable oxygen Pulse ox * List name and contact numbers for known caregivers / representatives who currently or will assist patient after discharge: [facility] - [phone] * Verbal permission to speak to the caregivers and representatives has been obtained from the patient. Yes * Community resources currently utilized Other * Please name any agencies selected above. Nurses aide with [facility] * Additional services required to return to the preadmission environment? No * Can the patient safely return to the preadmission environment? Yes * Has this patient been hospitalized within the prior 30 days at any hospital? Yes Coverage Notice Reviewer: [email or web address] Markus Nuñez Notice Issued Date-Time: 09/13/2019 15:01 Notice Type: Patient Choice Letter Notice Delivered To: Patient Relationship to Patient: Self Estate Agent Name: Delivery Method: HAND - Hand Delivered Ella Days: Prior Verbal Notification: Recipient Understood Notice: Yes Recipient Signature: Yes Med Rec Note Co-signed by Attending: Coverage Notice Comment: [facility] sukhi Colbert Reviewer: [id number] Markus Nuñez Notice Issued Date-Time: 09/15/2019 15:16 Notice Type: Patient Choice Letter Notice Delivered To: Patient Relationship to Patient: Self Estate Agent Name: Delivery Method: HAND - Hand Delivered Ella Days: Prior Verbal Notification: Recipient Understood Notice: Yes Recipient Signature: Yes Med Rec Note Co-signed by Attending: Coverage Notice Comment: Declines HHS Last DP export: 09/15/19 2:17 pm Patient Name: RONEN WELLS Page 93824 at 1230 All edits/amendments must be made on the electronic document DICTATION DATE: 09/18/19 1230 COIN PURSE FRAMER: RAN 09/18/19 1230 RPT#: [id number] DC DATE:09/15/19 STATUS: DIS IN [facility] [address] [place] [address] END OF REPORT
== END 2019-09-15 18:55 | disposition home or self-care (01) | DRG 193 ==
LOC: D.ER 17:52 → D.MS 20:16
PROVIDERS: Family Medicine; ADMIT Emergency Medicine; ATTEND Emergency Medicine
PROC: 05HB33Z Insertion of Infusion Device into Right Basilic Vein, Percutaneous Approach (ICD-10-PCS; principal; 2019-09-13)
DX: J18.9 Pneumonia, unspecified organism (principal); J96.21 Acute and chronic respiratory failure with hypoxia; J44.0 Chronic obstructive pulmonary disease with (acute) lower respiratory infection; I48.20 Chronic atrial fibrillation, unspecified; J44.1 Chronic obstructive pulmonary disease with (acute) exacerbation; J20.9 Acute bronchitis, unspecified; K76.0 Fatty (change of) liver, not elsewhere classified; E11.65 Type 2 diabetes mellitus with hyperglycemia; K75.9 Inflammatory liver disease, unspecified; I25.10 Atherosclerotic heart disease of native coronary artery without angina pectoris; K57.90 Diverticulosis of intestine, part unspecified, without perforation or abscess without bleeding; M19.90 Unspecified osteoarthritis, unspecified site; M81.0 Age-related osteoporosis without current pathological fracture; F31.9 Bipolar disorder, unspecified; I25.2 Old myocardial infarction; R91.1 Solitary pulmonary nodule; E78.5 Hyperlipidemia, unspecified; K21.9 Gastro-esophageal reflux disease without esophagitis; I11.0 Hypertensive heart disease with heart failure; I50.9 Heart failure, unspecified

== ENCOUNTER 2019-11-26 23:34 | Emergency (ER) | payer MEDICAID ==
[~2019-11-26] VITALS: Ht 165.1 cm; Wt 115.9 kg
[~2019-11-26 23:34] MED LIST changes: +BROVANA15 MCG/2 M INH; +COLACE100 MG PO; +Tessalon Perle PO; +VIBRAMYCIN 100100 MG PO
[2019-11-26 23:38] VITALS: Ht 165.1 cm; Wt 115.9 kg
[2019-11-27 00:13] LABS: BASOPHILS 0.1 % (0-2); EOSINOPHILS 3.1 % (0-7); HEMATOCRIT 40.1 % (36.0-48.0); HEMOGLOBIN 12.3 g/dL (12-16); IMMATURE GRANULOCYTES 0.3 % (0-5); MCH 23.9 pg (26.0-34.0); MCHC 30.7 g/dL (31.0-37.0); MCV 77.9 fL (80.0-100.0); MONOCYTES 4.7 % (2-11); NEUTROPHILS 60.8 % (40-80); PLATELET COUNT 231 10x3/uL (130-400); RBC 5.15 10x6/uL (4.00-5.40); RDW 16.2 % (11.5-14.5); WBC 9.4 10x3/uL (4.8-10.8)
[2019-11-27 00:20] LABS: CALCIUM 8.8 mg/dL (8.5-10.1); CARBON DIOXIDE 25.9 mmol/L (21.0-32.0); CREATININE - SERUM 0.9 mg/dL (0.6-1.3); POTASSIUM - SERUM 3.9 mmol/L (3.5-5.1)
[2019-11-27 00:26] LABS: ALBUMIN 3.1 g/dL (3.4-5.0); BILIRUBIN - TOTAL 0.24 mg/dL (0.2-1.3); PROTEIN - SERUM 7.5 g/dL (6.4-8.2)
--- NOTE | 2019-11-27 01:20 | NUR ---
DR ORTIZ NOTIFIED AND REVIEWED PT'S BEHAVIOR AND ASSESSMENT RESULTS. PT IS A LOW RISK PER DR ORTIZ. DR ORTIZ STATED TO GIVE RESOURCES TO PT AT TIME OF DISCHARGE. NO FURTHER ORDERS AT THIS TIME. RESOURCES REVIEWED WITH PT AND SHE VERBALIZED UNDERSTANDING.
[2019-11-27 03:57] VITALS: BP 135/76
== END 2019-11-27 03:58 | disposition home or self-care (01) ==
LOC: D.ER 23:34
PROVIDERS: Emergency Medicine
DX: J44.9 Chronic obstructive pulmonary disease, unspecified (principal); E11.9 Type 2 diabetes mellitus without complications; Z79.4 Long term (current) use of insulin; I50.9 Heart failure, unspecified; I25.2 Old myocardial infarction; I48.91 Unspecified atrial fibrillation

== ENCOUNTER 2019-12-14 18:19 | Emergency (ER) | payer MEDICAID ==
[~2019-12-14] VITALS: Ht 165.1 cm; Wt 113.6 kg
[2019-12-14 18:45] VITALS: Ht 165.1 cm; Wt 113.6 kg
[2019-12-14 21:45] LABS: BASOPHILS 0.2 % (0-2); EOSINOPHILS 2.8 % (0-7); HEMATOCRIT 37.7 % (36.0-48.0); HEMOGLOBIN 11.6 g/dL (12-16); IMMATURE GRANULOCYTES 0.8 % (0-5); LYMPHOCYTES 29.2 % (15-50); MCH 24.1 pg (26.0-34.0); MCHC 30.8 g/dL (31.0-37.0); MCV 78.2 fL (80.0-100.0); MEAN PLATELET VOLUME 9.4 fL (7.4-10.4); PLATELET COUNT 207 10x3/uL (130-400); RBC 4.82 10x6/uL (4.00-5.40); RDW 16.5 % (11.5-14.5); WBC 6.4 10x3/uL (4.8-10.8)
[2019-12-14 21:55] LABS: APTT 20.8 SECONDS (22.8-39.4); INR 0.93 (0.85-1.17); PROTIME 12.4 SECONDS (11.6-15.0)
[2019-12-14 22:07] LABS: CALC OSMOLALITY 279 mosm/kg (275-300); CALCIUM 8.8 mg/dL (8.5-10.1); CARBON DIOXIDE 25.1 mmol/L (21.0-32.0); CHLORIDE - SERUM 97 mmol/L (98-107); CREATININE - SERUM 0.9 mg/dL (0.6-1.3); GLUCOSE 283 mg/dL (74-106); POTASSIUM - SERUM 4.1 mmol/L (3.5-5.1); SODIUM 135 mmol/L (136-145); UREA NITROGEN 12 mg/dL (7-18); eGFR NON AFRICAN AMERICAN 67 mL/min (90-120)
[2019-12-14 22:25] LABS: ALBUMIN 3.1 g/dL (3.4-5.0); ALKALINE PHOSPHATASE 178 U/L (30-120); ALT (SGPT) 31 U/L (10-68); BILIRUBIN - TOTAL 0.34 mg/dL (0.2-1.3); C-REACTIVE PROTEIN 4.1 mg/dL (0.0-0.9); CREATINE KINASE 46 UL (21-215); FERRITIN 23 ng/mL (3-244); PRO BNP 23 pg/mL (0-125); PROTEIN - SERUM 7.5 g/dL (6.4-8.2)
[2019-12-14 22:29] LABS: TROPONIN-I < 0.017 ng/mL (0.000-0.060)
[2019-12-14] MEDS ORDERED: STERAPRED DS 1010 MG PO (22:55)
[2019-12-14 23:26] VITALS: BP 137/84
== END 2019-12-14 23:26 | disposition home or self-care (01) ==
LOC: D.ER 18:19
PROVIDERS: Emergency Medicine
DX: J44.9 Chronic obstructive pulmonary disease, unspecified (principal); Z20.828 Contact with and (suspected) exposure to other viral communicable diseases; Z76.5 Malingerer [conscious simulation]

== ENCOUNTER 2019-12-23 14:56 | Inpatient (IN) | payer MEDICAID ==
[~2019-12-23] VITALS: Ht 165.1 cm; Wt 115.7 kg
--- NOTE | ~2019-12-23 | HEMODYNAMI ---
PATIENT:RONEN PALOMO MEDICAL RECORD: [id number] : 57 [id number] ADMISSION DATE: 12/23/19 Generatedon:12/26/201913:57 Patient name: RONEN PALOMO Patient #: [id number] SSN: [id number] : 1955 Date of study: 12/26/2019 Page: Of Hemodynamic Procedure Report Patient Data Patient Demographics Procedure consent was obtained First Name: RONEN Gender: Female Last Name: DEWEY : 1955 Middle Initial: ANGIE Age: 64 year(s) Patient #: [id number] Race: SSN: [id number] Additional ID: [id number] Contact details Address: [address] [place] [address] State: [place] City: [facility] [place] [place] Zip code: [address] Past Medical History Allergies Allergen Reaction Date Comments Reported Other allergy 12/26/2019 Morphine, erythromycin, neomycin, bacitracin, mepridine, polymyxin b, levofloxacin Admission Admission Data Admission Date: 12/23/2019 Admission Time: 14:56 Arrival Date: 12/26/2019 Arrival Time: 0:00 Admit Source: Other Insurance Payor: Medicaid Room #: D.2102 [facility] #: [id number] Height (in.): 65 BSA: 2.21 (m2) Height (cm.): 165.1 BMI: 43.29 (kg/m2) Weight (lbs.): 260.15 Weight (kg.): 118 Lab Results Lab Result Date: 12/26/2019 Lab Result Time: 0:00 Biochemistry Name Units Result Min Max BUN mg/dl 20 --(----)*- 7 18 Creatinine mg/dl 0.8 --(-*--)-- 0.6 1.3 eGFR ml/min 76.17663 *-(----)-- 90 120 AM CBC Name Units Result Min Max Hemoglobin g/dl 11 *-(----)-- 13.5 17.5 Procedure Procedure Types Cath Procedure Diagnostic Procedure [facility] w/Coronaries Sedation Charges Procedure Description Procedure Date Procedure Date: 12/26/2019 Procedure Start Time: 13:46 Procedure End Time: 13:54 Procedure Staff Name Function Nitsih Owen MD Performing Physician Eneida Yin RT Monitor Arin Beltran RT Scrub Emy Luz RN Nurse Procedure Data Cath Procedure Fluoroscopy Diagnostic fluoroscopy Total fluoroscopy Time: 1.1 time: 1.1 min min Diagnostic fluoroscopy Total fluoroscopy dose: 446 dose: 446 mGy mGy Contrast Material Contrast Material Type Amount (ml) Isovue 300 54 Entry Location Entry Primary Successful Side Size Upsize Upsize Entry Closure Succes sful Closure Location (Fr) 1 (Fr) 2 (Fr) Remarks Device Remarks Femoral Right 5 Fr Exoseal artery Estimated blood loss: 5 ml Diagnostic catheters Device Type Used For End Catheter Placement MULTIPACK JL 4.0 5Fr Left Coronary catheter Angiography MULTIPACK 3DRC 5Fr Right Coronary catheter Angiography MULTIPACK Pigtail 5 Fr LV Angiography catheter Procedure Complications No complications Procedure Medications Medication Administration Route Dosage Phenergan 25 mg Oxygen etCO2 Nasal cannula 3 l/min Lidocaine 2% added to field 20 Heparin Flush Bag added to field 2 bags (1000units/500ml NS) 0.9% NaCl I.V. 100 ml/hr Versed I.V. 2 mg Fentanyl I.V. 100 mcg Versed I.V. 1 mg Fentanyl I.V. 100 mcg Hemodynamics Rest BSA: 2.21 (m2) HGB: 11 (g/dl) O2 Consumption: Estimated: 214.65 (ml/min) O2 Cons umption indexed: Estimated:97.13 (ml/min/m) Heart Rate: 78 (bpm) Pressure Samples Time Site Value (mmHg) Purpose Heart Use Rate(bpm) 13:51 LV 122/15,18 Snapshot 77 Gradients Valve Time Site Site Mean SEP/DFP Peak To Heart Use 1 2 (mmHg) (sec/min) Peak Rate (mmHg) (bpm) Aortic 13:52 LV AO 84 Snapshots Pre Cath Intra NCS Post Cath Vital Signs Time Heart Resp SPO2 etCO2 NIBP (mmHg) Rhythm Pain Sedation Rate (ipm) (%) (mmHg) Status Level (bpm) 13:42:10 72 21 94 44.1 137/74(95) NSR 0 (11) 10(A) , No pain 13:46:29 75 20 93 42.6 109/79(98) NSR 0 (11) 10(A) , No pain 13:50:45 71 19 92 15.6 125/62(103) NSR 0 (11) 9(A) , No pain 13:55:03 78 19 97 23.1 104/74(93) NSR 0 (11) 10(A) , No pain Medications Time Medication Route Dose Verified Delivered Reason Notes Eff ectiveness by by 13:36:01 Phenergan IM to 25 mg Nitish Buffie Per rt gm St Jerson Luz RN physician 13:38:14 Oxygen etCO2 3 Nitish Buffie used for Nasal l/min St Jerson Luz human resources services specialist cannula 13:38:21 Lidocaine 2% added 20ml Nitish Nitish for local to vial Count Includes [facility] anesthetic field MD HAILE 13:38:26 Heparin Flush added 2 Nitish Nitish used for Bag to bags Count Includes [facility] procedure (1000units/500ml field MD HAILE NS) 13:38:47 0.9% NaCl I.V. 100 Nitish Buffie Per ml/hr St Jerson Luz RN physician 13:40:01 Fentanyl I.V. 100 [address]ish [address] for mcg [address] Jerson Luz RN sedation 13:40:53 Versed I.V. 2 mg Nitish Buffie for St Jerson Luz RN sedation 13:45:42 Versed I.V. 1 mg Nitish Buffie for [address] Jerson Luz RN sedation 13:45:48 Fentanyl I.V. 100 Nitish Buffie for mcg Brayden Luz RN sedation Procedure Log Time Note 11:35:16 Admit Source: Other 11:35:18 Arrival Date: 12/26/2019 12:00:00 AM 11:35:35 Insurance Payor : Medicaid 11:35:44 Patient Height : 65 inches 11:35:52 Patient Weight : 260.15 lbs 11:36:34 Lab Result : Hemoglobin 11 g/dl 11:36:34 Lab Result : eGFR AM 76.35982 ml/min 11:36:34 Lab Result : BUN 20 mg/dl 11:36:34 Lab Result : Creatinine 0.8 mg/dl 11:36:47 Procedure type changed to Cath procedure, Diagnostic procedure, LHC, LHC w/Coronaries, Sedation Charges 11:39:37 Procedure Status Urgent Heart Cath (IP). 12:10:30 Time tracking: Regular hours (M-F 7:00 - 5:00) 12:10:36 Plan of Care:Hemodynamics will remain stable., Cardiac rhythm will remain stable., Comfort level will be maintained., Respiratory function will remain adequate., Patient/ family verbilizes understanding of procedure., Procedure tolerated without complication., Recovers from procedure without complications.. 12:10:43 Patient received from Med II to CCL 2 Alert and oriented. Tansferred to table in Supine position. 12:10:59 H&P Date Dictated: 12/24/2019 Within 30 days and on chart., H&P Addendum completed by physician on day of procedure. (MUST COMPLETE FOR ALL OUTPATIENTS). 12:50:12 Informed consent obtained and on chart 12:51:03 Pre-procedure instructions explained to patient. 12:51:03 Pre-op teaching completed and patient verbalized understanding. 12:51:05 Family unavailable. 12:51:07 Patient NPO since Midnight. 12:54:09 Patient allergic to Other allergyMorphine, erythromycin, neomycin, bacitracin, mepridine, polymyxin b, levofloxacin 12:54:13 Is the patient allergic to Iodine/contrast media? No. 12:54:16 Was the patient premedicated? N/A 12:54:22 Lab results completed and on chart. 12:54:25 Stress Test: no; N/A ? 12:54:27 Alarms reviewed by R. N. 12:54:27 Sharps counted by scrub and verified by R.N. 13:02:31 Risk of Mortality: 1.8 13:02:36 Risk of blood transfusion: 2.1 13:02:38 Risk of PIETRO: 3.2 13:02:45 Emy Luz RN sent for patient. Start room use. 13:14:39 Warm blankets applied, and racquel hugger turned on for patient comfort. 13:14:40 Correct patient and procedure confirmed by team. 13:14:40 ECG and BP/O2 sat monitors applied to patient. 13:15:52 Is patient on blood thinner?No 13:15:53 Patient diabetic? Yes. 13:16:02 If diabetic: On Metformin? No 13:16:04 Previous problem with sedation/anesthesia? No ? 13:16:05 Snore? Yes 13:16:06 Sleep apnea? Yes 13:16:07 Deviated septum? No 13:16:08 Opens mouth fully? Yes 13:16:09 Sticks out tongue? Yes 13:16:16 Airway obstruction? Yes copd asthma 13:16:24 Dentures? Yes in tight 13:16:28 Pre procedure: right dorsailis pedis pulse 2+ Normal; easily identifiable; not easily obliterated 13:16:30 Pre procedure: left dorsailis pedis pulse 2+ Normal; easily identifiable; not easily obliterated 13:16:32 Patient pain scale 0/10 ?. 13:36:01 Phenergan 25 mg IM to rt gm was administered by Emy Luz RN; Per physician; Verbal order read back and verified. 13:38:14 Oxygen 3 l/min etCO2 Nasal cannula was administered by Emy Luz RN; used for procedure; Verbal order read back and verified. 13:38:21 Lidocaine 2% 20ml vial added to field was administered by Nitish Owen MD; for local anesthetic; Verbal order read back and verified. 13:38:22 Physician arrived 13:38:23 --------ALL STOP TIME OUT------ 13:38:24 Final Timeout: patient, procedure, and site verified with staff and physician. All members of the team are in agreement. 13:38:26 Heparin Flush Bag (1000units/500ml NS) 2 bags added to field was administered by Nitish Owen MD; used for procedure; Verbal order read back and verified. 13:38:26 Right groin site verified by team. 13:38:30 Fire Safety Assessment: A--An alcohol-based skin anteseptic being used preoperatively., C--Open oxygen or nitrous oxide is being used., D--An ESU, laser, or fiber-optic light is being used. 13:38:33 Physical assessment completed. ASA score P 2 - A patient with mild systemic disease as per Nitish Owen MD. 13:38:47 0.9% NaCl 100 ml/hr I.V. was administered by Emy Luz RN; Per physician; Verbal order read back and verified. 13:38:50 2) 60-89 Mildly reduced kidney function, and other findings (as for stage 1) point to kidney disease. 13:40:01 Fentanyl 100 mcg I.V. was administered by Emy Luz RN; for sedation; Verbal order read back and verified. 13:40:36 Maximum allowable contrast dose (3.7 X eGFR X 0.75)213 ml. 13:40:41 Sedation plan: IV Moderate Sedation Medication:Versed, Fentanyl 13:40:46 Vital chart was started 13:40:47 Baseline sample Acquired. 13:40:52 Rhythm: sinus tachycardia 13:40:53 Versed 2 mg I.V. was administered by Emy Luz RN; for sedation; Verbal order read back and verified. 13:40:54 Full Disclosure recording started 13:40:58 Use device set Femoral Dx 13:41:00 ACIST Syringe (72865) opened to sterile field. 13:41:00 Bag Decanter (2002S) opened to sterile field. 13:41:01 Medline Cath Pack ([id number]) opened to sterile field. 13:41:02 ACIST Hand Control (93038) opened to sterile field. 13:41:02 ACIST Manifold (53590) opened to sterile field. 13:41:03 DIAGNOSTIC Multipack 5Fr catheter set (TN0966) opened to sterile field. 13:41:04 Tegaderm 4 x 4 (1626W) opened to sterile field. 13:41:05 SHEATH 5FR Hamburg (HXT238) opened to sterile field. 13:41:06 EMERALD Guide Wire (052-842) opened to sterile field. 13:45:15 Zero performed for pressure channel P1 13:45:42 Versed 1 mg I.V. was administered by Emy Luz RN; for sedation; Verbal order read back and verified. 13:45:48 Fentanyl 100 mcg I.V. was administered by Emy Luz RN; for sedation; Verbal order read back and verified. 13:46:29 Procedure started. 13:46:32 Local anesthetic to right femoral artery with Lidocaine 2% by Nitish Owen MD.INITIAL ACCESS ONLY 13:47:06 A 5 Fr sheath was inserted into the Right Femoral artery 13:47:38 A MULTIPACK JL 4.0 5Fr catheter was advanced over the wire and used for Left Coronary Angiography. 13:47:56 LCA angiography performed. 13:47:59 Injector settings: Ml/sec: 3, Volume: 6, 13:49:39 Catheter removed. 13:49:43 A MULTIPACK 3DRC 5Fr catheter was advanced over the wire and used for Right Coronary Angiography. 13:50:37 RCA angiography performed. 13:50:42 Injector settings: Ml/sec: 3, Volume: 6, 13:50:44 Catheter removed. 13:50:51 A MULTIPACK Pigtail 5 Fr catheter was advanced over the wire and used for LV Angiography. 13:51:49 LV hemodynamics recorded. 13:51:50 LV gram done using GAINES 13:51:53 Injector settings: Ml/sec: 5, Volume: 15, 13:52:28 EF : 55 % 13:52:39 Catheter removed. 13:52:41 EXOSEAL 5Fr (EX500) opened to sterile field. 13:53:02 Sheath removed intact; hemostasis achieved with Exoseal to the Right Femoral artery. 13:53:03 Procedure ended.(Physican Out) 13:53:35 Fluoroscopy time 01.10 minutes. 13:53:39 Flurop Dose total: 446 13:53:39 Fluoroscopy dose: 446 mGy 13:53:44 Dose Area Product 33618 mGy/cm. 13:53:48 Contrast amount:Isovue 300 54ml. 13:53:50 Maximum allowable dose exceeded? No. 13:53:51 Sharps counted by scrub and verified by R.N. 13:53:52 Insertion/operative site no bleeding no hematoma. 13:53:56 Post-op/insertion site Right Femoral artery dressed using a 4 x 4 and Tegaderm. 13:54:00 Post procedure rhythm: unchanged. 13:54:02 Estimated blood loss: 5 ml 13:54:04 Post procedure instruction explained to patient.Patient verbalizes understanding. 13:54:04 Patient needs reinforcement of post procedure teaching. 13:54:05 Procedure and supply charges have been captured, reviewed, submitted and are correct. 13:54:09 Procedure Complication : No complications 13:54:14 Vital chart was stopped 13:54:17 [facility] Findings: mild to moderate CAD (<70%) 13:54:18 Operative report dictated upon procedure completion. 13:54:18 See physician's report for complete and final results. 13:54:20 Report given to Med II. 13:54:29 Procedure ended. 13:54:29 Full Disclosure recording stopped 13:54:35 End room use (Document Last) 13:56:00 End room use (Document Last) 13:57:07 End room use (Document Last) Device Usage Item Name Manufacture Quantity Catalog Hospital Part Current Minimal L ot# / Number Charge Number Stock Stock Serial# Code ACIST Acist 1 12490 530080 173936 750263 20 Syringe Medical (52662) Systems Inc Bag Microtek 1 324869 41748 385621 5 Decanter Medical Inc. () Medline Medline 1 [id number] 616386 56646 536505 5 Cath Pack ([id number]) ACIST Hand Acist 1 32929 470773 956753 444906 5 Control Medical (87263) Systems Inc ACIST Acist 1 91423 512723 512741 677857 5 Manifold Medical (23455) Systems Inc DIAGNOSTIC Cardinal 1 [id number] 016694 56758 904565 30 Multipack Health 5Fr catheter set (ZO6112) Tegaderm 4 3M 1 1626W 947749 290341 258486 5 x 4 (1626W) SHEATH 5FR Terumo 1 MAS144 988924 563195 109241 5 Hamburg (QCA857) EMERALD Cardinal 1 157-467 599101 886052 517358 5 Guide Wire Health (502-236) MULTIPACK Cardinal 1 592619 5 JL 4.0 5Fr Health catheter MULTIPACK Cardinal 1 373778 5 3DRC 5Fr Health catheter MULTIPACK Cardinal 1 880317 5 Pigtail 5 Health Fr catheter EXOSEAL 5Fr Cardinal 1 EX500 824081 070888 449507 10 (EX500) Health Signature Audit Irons Stage Time Signature Unsigned Intra-Procedure 12/26/2019 Eneida Yin 1:56:00 PM RT(R) Intra-Procedure 12/26/2019 Emy Luz RN 1:57:07 PM Intra-Procedure 12/26/2019 Nitish Hernandez 1:57:30 PM Jerson HAILE Signatures Performing Physician : Signature : Nitish Owen MD Date : Time : Monitor : Eneida Humphrey RT Signature : Date : Time : Nurse : Careyie Luz RN Signature : Date : Time : [address] [place] [address]
[~2019-12-23 14:56] MED LIST changes: +STERAPRED DS 1010 MG PO
[2019-12-23 17:58] VITALS: BMI 43.5
[2019-12-23 18:10] VITALS: BP 148/73
[2019-12-23 18:44] LABS: BASOPHILS 0.3 % (0-2); EOSINOPHILS 2.3 % (0-7); HEMATOCRIT 37.9 % (36.0-48.0); HEMOGLOBIN 11.5 g/dL (12-16); IMMATURE GRANULOCYTES 0.8 % (0-5); LYMPHOCYTES 29.4 % (15-50); MCHC 30.3 g/dL (31.0-37.0); MONOCYTES 6.4 % (2-11); NEUTROPHILS 60.8 % (40-80); PLATELET COUNT 228 10x3/uL (130-400); RDW 16.7 % (11.5-14.5)
[2019-12-23 18:58] LABS: INR 1.02 (0.85-1.17); PROTIME 13.3 SECONDS (11.6-15.0)
[2019-12-23 19:00] LABS: D-DIMER-QUANTITATIVE < 0.27 ug/mLFEU (0.20-0.54)
[2019-12-23 19:30] LABS: ALBUMIN 3.1 g/dL (3.4-5.0); ALKALINE PHOSPHATASE 169 U/L (30-120); ALT (SGPT) 31 U/L (10-68); BILIRUBIN - TOTAL 0.33 mg/dL (0.2-1.3); C-REACTIVE PROTEIN 5.6 mg/dL (0.0-0.9); CALC OSMOLALITY 284 mosm/kg (275-300); CALCIUM 8.6 mg/dL (8.5-10.1); CARBON DIOXIDE 25.8 mmol/L (21.0-32.0); CHLORIDE - SERUM 99 mmol/L (98-107); CREATINE KINASE 15 UL (21-215); CREATININE - SERUM 0.9 mg/dL (0.6-1.3); FERRITIN 27 ng/mL (3-244); GLUCOSE 296 mg/dL (74-106); LDH 139 U/L (81-234); MAGNESIUM - SERUM 1.6 mg/dL (1.8-2.4); POTASSIUM - SERUM 4.1 mmol/L (3.5-5.1); PROTEIN - SERUM 6.7 g/dL (6.4-8.2); SODIUM 137 mmol/L (136-145); UREA NITROGEN 12 mg/dL (7-18); eGFR NON AFRICAN AMERICAN 67 mL/min (90-120)
[2019-12-23 19:31] LABS: TROPONIN-I < 0.017 ng/mL (0.000-0.060)
[2019-12-24 00:07] VITALS: BP 146/72
[2019-12-24 01:31] LABS: BILIRUBIN NEGATIVE (NEGATIVE); GLUCOSE 500 mg/dL (NEGATIVE); KETONE NEGATIVE (NEGATIVE); NITRITE NEGATIVE (NEGATIVE); UROBILINOGEN NORMAL (NORMAL)
[2019-12-24 01:50] LABS: CREATINE KINASE 18 UL (21-215)
[2019-12-24 01:51] LABS: TROPONIN-I < 0.017 ng/mL (0.000-0.060)
[2019-12-24 04:59] VITALS: BP 123/58
[2019-12-24 06:38] LABS: BASOPHILS 0.1 % (0-2); EOSINOPHILS 2.5 % (0-7); HEMATOCRIT 36.1 % (36.0-48.0); HEMOGLOBIN 10.9 g/dL (12-16); IMMATURE GRANULOCYTES 0.8 % (0-5); LYMPHOCYTES 37.1 % (15-50); MCH 23.7 pg (26.0-34.0); MCHC 30.2 g/dL (31.0-37.0); MCV 78.6 fL (80.0-100.0); MEAN PLATELET VOLUME 9.1 fL (7.4-10.4); NEUTROPHILS 52.5 % (40-80); PLATELET COUNT 222 10x3/uL (130-400); RBC 4.59 10x6/uL (4.00-5.40); RDW 16.9 % (11.5-14.5); WBC 7.5 10x3/uL (4.8-10.8)
[2019-12-24 07:03] LABS: ALKALINE PHOSPHATASE 156 U/L (30-120); CARBON DIOXIDE 26.3 mmol/L (21.0-32.0); MAGNESIUM - SERUM 1.7 mg/dL (1.8-2.4); POTASSIUM - SERUM 3.6 mmol/L (3.5-5.1); SODIUM 137 mmol/L (136-145)
[2019-12-24 07:29] LABS: ALT (SGPT) 29 U/L (10-68); BILIRUBIN - TOTAL 0.28 mg/dL (0.2-1.3); CALCIUM 8.5 mg/dL (8.5-10.1); CHLORIDE - SERUM 102 mmol/L (98-107); CREATINE KINASE 13 UL (21-215); CREATININE - SERUM 0.8 mg/dL (0.6-1.3); PROTEIN - SERUM 6.7 g/dL (6.4-8.2); TROPONIN-I < 0.017 ng/mL (0.000-0.060); eGFR NON AFRICAN AMERICAN 77 mL/min (90-120)
[2019-12-24 07:37] LABS: ALBUMIN 2.9 g/dL (3.4-5.0); CALC OSMOLALITY 284 mosm/kg (275-300); GLUCOSE 279 mg/dL (74-106); UREA NITROGEN 14 mg/dL (7-18)
[2019-12-24 09:14] VITALS: Ht 165.1 cm; Wt 115.7 kg
[2019-12-24 12:37] VITALS: BP 140/88
[2019-12-24 17:44] VITALS: BP 137/77
[2019-12-24 20:36] VITALS: BP 146/84
[2019-12-25 06:05] VITALS: BP 114/62
[2019-12-25 08:42] VITALS: BP 146/66
[2019-12-25 10:41] LABS: BASOPHILS 0.1 % (0-2); EOSINOPHILS 0.4 % (0-7); HEMATOCRIT 36.4 % (36.0-48.0); HEMOGLOBIN 11.2 g/dL (12-16); IMMATURE GRANULOCYTES 0.6 % (0-5); MCH 24.2 pg (26.0-34.0); MCHC 30.8 g/dL (31.0-37.0); MCV 78.8 fL (80.0-100.0); MEAN PLATELET VOLUME 9.5 fL (7.4-10.4); NEUTROPHILS 84.9 % (40-80); PLATELET COUNT 222 10x3/uL (130-400); RBC 4.62 10x6/uL (4.00-5.40); RDW 16.8 % (11.5-14.5); WBC 9.9 10x3/uL (4.8-10.8)
[2019-12-25 10:57] LABS: ALBUMIN 2.9 g/dL (3.4-5.0); BILIRUBIN - TOTAL 0.34 mg/dL (0.2-1.3); CALCIUM 8.9 mg/dL (8.5-10.1); CARBON DIOXIDE 26.8 mmol/L (21.0-32.0); CREATININE - SERUM 0.9 mg/dL (0.6-1.3); MAGNESIUM - SERUM 1.8 mg/dL (1.8-2.4); PROTEIN - SERUM 7.1 g/dL (6.4-8.2)
[2019-12-25 11:13] LABS: ANION GAP 12.6 mmol/L (8-16); POTASSIUM - SERUM 4.4 mmol/L (3.5-5.1)
[2019-12-25 20:00] VITALS: BP 136/59
[2019-12-26] VITALS: BP 103/67
[2019-12-26 04:00] VITALS: BP 129/64
[2019-12-26 06:33] LABS: BASOPHILS 0.1 % (0-2); EOSINOPHILS 0.1 % (0-7); HEMATOCRIT 36.6 % (36.0-48.0); IMMATURE GRANULOCYTES 0.7 % (0-5); LYMPHOCYTES 20.3 % (15-50); MCH 23.5 pg (26.0-34.0); MCHC 30.1 g/dL (31.0-37.0); MCV 78.2 fL (80.0-100.0); MEAN PLATELET VOLUME 9.4 fL (7.4-10.4); MONOCYTES 5.7 % (2-11); NEUTROPHILS 73.1 % (40-80); RBC 4.68 10x6/uL (4.00-5.40); RDW 16.7 % (11.5-14.5)
[2019-12-26 06:45] LABS: ALKALINE PHOSPHATASE 145 U/L (30-120); ALT (SGPT) 30 U/L (10-68); BILIRUBIN - TOTAL 0.22 mg/dL (0.2-1.3); CALC OSMOLALITY 285 mosm/kg (275-300); CALCIUM 8.8 mg/dL (8.5-10.1); CARBON DIOXIDE 26.1 mmol/L (21.0-32.0); CHLORIDE - SERUM 102 mmol/L (98-107); CREATININE - SERUM 0.8 mg/dL (0.6-1.3); GLUCOSE 264 mg/dL (74-106); MAGNESIUM - SERUM 2.2 mg/dL (1.8-2.4); POTASSIUM - SERUM 4.3 mmol/L (3.5-5.1); PROTEIN - SERUM 6.7 g/dL (6.4-8.2); SODIUM 137 mmol/L (136-145); UREA NITROGEN 20 mg/dL (7-18); eGFR NON AFRICAN AMERICAN 77 mL/min (90-120)
[2019-12-26 07:02] LABS: PLATELET COUNT 268 10x3/uL (130-400); WBC 13.7 10x3/uL (4.8-10.8)
[2019-12-26 08:00] VITALS: BP 97/55
[2019-12-26 08:44] LABS: CHOL - HDL RATIO 6.6 ratio (2.3-4.1); LDL-HDL RATIO 4.7 ratio (1.5-3.5)
--- NOTE | 2019-12-26 09:57 | CN ---
PATIENT NAME:RONEN PALOMO MEDICAL RECORD: [id number] : 57 LOCATION:D.Es D.2102 ADMIT DATE: 12/23/19 ACCOUNT: [id number] CONSULTING PHYSICIAN: DARLENE IZQUIERDO MD REFERRING PHYSICIAN: CORIE MCDUFFIE DO DATE OF CONSULTATION: 12/24/2019 HISTORY OF PRESENT ILLNESS: A 64-year-old female with no known history of coronary artery disease. She has a history of hypertension and hyperlipidemia as well as diabetes mellitus, intermittent chest pain. She has been also noticing some increasing dyspnea on exertion prior to admission. Has a remote history of DC as well as obstructive sleep apnea. We are asked to see her concerning her cardiovascular status. PAST MEDICAL HISTORY: Includes; 1. History of hypertension. 2. Obstructive pulmonary disease, on home O2. 3. Cerebrovascular disease status post cerebrovascular accident. 4. Atrial fibrillation. 5. Bipolar disorder. ALLERGIES: MORPHINE, ERYTHROMYCIN. HOME MEDICATIONS: Include Brovana updrafts 15 mcg b.i.d., Valium 10 p.o. every 8 hours, Seroquel 100 at bedtime, Effexor 300 at bedtime, trazodone 300 at bedtime, insulin per scale, Glucotrol 10 mg p.o. b.i.d. SOCIAL HISTORY: Nonsmoker, nondrinker. Typically, is able to take care of her ADLs. REVIEW OF SYSTEMS: The patient reports easy bruising but reports no swollen glands. The patient reports no fever, no night sweats, no significant weight gain, no significant weight loss. No significant exercise tolerance. The patient reports no dry eyes, no irritation, no vision change. Patient reports no difficulty hearing and no ear pain. Patient reports no frequent nose bleeds or nose and sinus problems. Patient reports on arm pain on exertion. No shortness of breath while lying down. No history of heart murmur. Patient reports no cough, no wheezing or coughing up blood. Patient reports no abdominal pain, no vomiting. Normal appetite. No diarrhea and not vomiting blood. No nausea and no constipation. Patient reports no incontinence. No difficulty urinating. No hematuria. No increased frequency. Patient reports no muscle aches. No weakness, no arthralgias, no back pain. No swelling of the extremities. Patient reports no abnormal mole, no jaundice, no rashes. Reports no loss of consciousness. No weakness and no numbness. No seizures, dizziness, or headaches. The patient reports no depression, no sleep disturbance, feeling safe in a relationship and no alcohol abuse. Patient reports on fatigue. Reports no runny nose or sinus pressure. No itching, no hives, and no frequent sneezing. PHYSICAL EXAMINATION: GENERAL: A middle-aged female in no acute distress, appears stated age. VITAL SIGNS: Blood pressure 123/58, pulse 85 and regular. HEENT: Normocephalic, atraumatic. NECK: No JVD or bruit. HEART: Regular. A II/ systolic ejection murmur. CONSULT REPORT [id number] RONEN PALOMO LUNGS: Good air excursion. ABDOMEN: Soft, nontender. EXTREMITIES: Pulses 2+. No edema. IMPRESSION AND PLAN: Angina, this could be secondary to underlying respiratory symptomology and demand ischemia. Given multiple risk factors, we will plan for angiography as other symptomology improve. Further recommendations based on the above. TRANSINT:[id number] Voice Confirmation ID: [id number] DOCUMENT ID: [id number] DARLENE IZQUIERDO MD at 0957 CC: [id number] DICTATION DATE: 12/24/19 1002 MARKETING DESIGNER: 12/24/19 1229 ADM IN [facility] [address] [place] [address]
[2019-12-26 22:09] VITALS: BP 133/54
[2019-12-27 00:54] VITALS: BP 99/69
[2019-12-27 05:05] VITALS: BP 105/49
[2019-12-27 05:37] LABS: ALBUMIN 2.8 g/dL (3.4-5.0); ALKALINE PHOSPHATASE 125 U/L (30-120); ALT (SGPT) 31 U/L (10-68); BILIRUBIN - TOTAL 0.28 mg/dL (0.2-1.3); CALCIUM 7.9 mg/dL (8.5-10.1); CHLORIDE - SERUM 105 mmol/L (98-107); CREATININE - SERUM 0.7 mg/dL (0.6-1.3); MAGNESIUM - SERUM 2.1 mg/dL (1.8-2.4); POTASSIUM - SERUM 4.3 mmol/L (3.5-5.1); PROTEIN - SERUM 6.1 g/dL (6.4-8.2); SODIUM 139 mmol/L (136-145); UREA NITROGEN 24 mg/dL (7-18); eGFR NON AFRICAN AMERICAN 90 mL/min (90-120)
[2019-12-27 06:07] LABS: CALC OSMOLALITY 284 mosm/kg (275-300); GLUCOSE 152 mg/dL (74-106)
[2019-12-27 06:18] LABS: BASOPHILS 0.2 % (0-2); EOSINOPHILS 1.6 % (0-7); HEMATOCRIT 35.7 % (36.0-48.0); HEMOGLOBIN 10.6 g/dL (12-16); IMMATURE GRANULOCYTES 0.7 % (0-5); LYMPHOCYTES 38.9 % (15-50); MCH 23.7 pg (26.0-34.0); MCHC 29.7 g/dL (31.0-37.0); MCV 79.9 fL (80.0-100.0); MEAN PLATELET VOLUME 9.5 fL (7.4-10.4); MONOCYTES 5.2 % (2-11); NEUTROPHILS 53.4 % (40-80); RBC 4.47 10x6/uL (4.00-5.40); RDW 17.1 % (11.5-14.5)
[2019-12-27 06:28] LABS: PLATELET COUNT 182 10x3/uL (130-400); WBC 9.8 10x3/uL (4.8-10.8)
[2019-12-27] MEDS ORDERED: STERAPRED DS 1010 MG PO (07:46)
[2019-12-27] MEDS ORDERED: OMNICEF300 MG PO (07:46)
[2019-12-27] MEDS ORDERED: PULMICORT0.5 MG/21 UPD (07:47)
[2019-12-27] MEDS ORDERED: TESSALON PERLE100 MG PO (07:47)
--- NOTE | 2019-12-27 08:51 | MORECARE ---
CASE MANAGEMENT DISCHARGE SUMMARY PATIENT: RONEN PALOMO UNIT: [id number] ADM DATE: 12/23/19 AGE: 64 : 57 SEX: F ROOM/BED: D.2102 AUTHOR: YONATAN NEW PHYSICIAN: REFERRING PHYSICIAN: CORIE MCDUFFIE DO DATE OF SERVICE: 12/27/19 Discharge Plan Patient Name: RONEN PALOMO [facility] [facility] 1955 Planned Disposition: Home Anticipated Discharge Date: 12/27/19 Discharge Date: Expected LOS: 4 Initial Reviewer: [email or web address] Initial Review Date: 12/27/2019 Generated: 12/27/19 9:51 am Patient Name: RONEN PALOMO Page 99290 at 0851 All edits/amendments must be made on the electronic document DICTATION DATE: 12/27/19850 SOAKING ROOM OPERATOR: RAN 12/27/1950 RPT#: [id number] DC DATE: STATUS: ADM IN [facility] [address] [place] [address] END OF REPORT
--- NOTE | 2019-12-27 08:58 | MORECARE ---
CASE MANAGEMENT DISCHARGE SUMMARY PATIENT: RONEN PALOMO UNIT: [id number] ADM DATE: 12/23/19 AGE: 64 : 57 SEX: F ROOM/BED: D.2108 AUTHOR: VIRGENDOC PHYSICIAN: REFERRING PHYSICIAN: CORIE MCDUFFIE DO DATE OF SERVICE: 12/27/19 Discharge Plan Patient Name: RONEN PALOMO Facility: [facility]:[place] : 1955 Planned Disposition: Home Anticipated Discharge Date: 12/27/19 Discharge Date: Expected LOS: 4 Initial Reviewer: [email or web address] Initial Review Date: 12/27/2019 Generated: 12/27/19 9:58 am Comments DCP- Discharge Planning Updated by [email or web address]: Jessica Nuñez on 12/27/19 7:[address] Patient Name: RONEN PALOMO Admission Status: Urgent Accout number: [id number] Admission Date: 12-23-2019 : 1955 Admission Diagnosis:ACUTE AND CHRONIC RESPIRATORY FAILURE WITH HYPOXIA Attending: CORIE MCDUFFIE Current LOS: 4 Anticipated DC Date: 12-27-2019 Planned Disposition: Home Primary Insurance: MEDICAID [place] Discharge Planning Comments: CM met with patient to complete initial dc planning assessment. CM educated patient on the CM role and verbal consent given by patient to complete assessment. Patient lives at home with her spouse, states he will pick her up when discharged. At discharge patient plans to return and feels this is a safe discharge. CM discussed availability of home health, rehab services, and medical equipment. Patient denied known discharge needs at this time. She has a private senior caregiver come out to assist with bathing from [place]. CM will continue to follow and will assist as needed with dc plans/needs. Wardrobe Specialist: Jessica Nuñez DCPIA - Discharge Planning Initial Assessment Updated by [email or web address]: Jessica Nuñez on 12/27/19 8:54 am * Is the patient Alert and Oriented? Yes * How many steps to enter\exit or inside your home? 6/0 * PCP Dr. Lopez * Pharmacy [facility] * Preadmission Environment Home with Family * ADLs Partial Dependent * Partial ADLs (Assistance needed) Ambulation Bathing Dressing Medication Management * Equipment Bedside Commode Glucometer Nebulizer Other Oxygen Shower Chair Walker Wheelchair * Other Equipment Portable oxygen Pulse ox * List name and contact numbers for known caregivers / representatives who currently or will assist patient after discharge: Gordon - spouse - [phone] Fifi Richardson - DTR - [phone] * Verbal permission to speak to the caregivers and representatives has been obtained from the patient. Yes * Community resources currently utilized Private Duty Care * Please name any agencies selected above. [facility] * Additional services required to return to the preadmission environment? No * Can the patient safely return to the preadmission environment? Yes * Has this patient been hospitalized within the prior 30 days at any hospital? No Last DP export: 12/27/19 7:52 a Patient Name: RONEN PALOMO Page [id number] at 0858 All edits/amendments must be made on the electronic document DICTATION DATE: 12/27/19857 NEIGHBORHOOD AIDE: RAN 12/27/19857 RPT#: [id number] DC DATE: STATUS: ADM IN [facility] [address] [place] [address] END OF REPORT
[2019-12-27 09:31] VITALS: BP 106/54
--- NOTE | 2019-12-27 13:09 | OP ---
PATIENT NAME: RONEN PALOMO MEDICAL RECORD: [id number] :57 LOCATION:D.M2 D.2102 ADMISSION DATE:12/23/19 SURGEON: DARLENE IZQUIERDO MD DATE OF OPERATION: 12/26/2019 PROCEDURE: Left heart catheterization, selective coronary angiography, right femoral artery approach. CATHETERS: A 5-Cypriot sheath, 5/4 left and right Arti, 5/4 pig. The procedure was well tolerated. The patient was returned to horn. Sheath removed. ExoSeal device placed. FINDINGS: Left ventriculography in 30-degree GAINES view; normal wall motion and normal systolic function. CORONARY ANATOMY: LEFT MAIN: Left main is free of disease. LAD: LAD is free of disease in the diagonal system. CIRCUMFLEX: Circumflex is free of disease in the marginal system. RIGHT CORONARY ARTERY: Dominant artery, gives rise to PDA, free of disease. IMPRESSION: Normal left ventricular systolic function, normal coronary anatomy. TRANSINT:[id number] Voice Confirmation ID: [id number] DOCUMENT ID: [id number] DARLENE IZQUIERDO MD at 1309 CC: [id number] DICTATION DATE: 12/26/19 1359 MENTAL HEALTH THERAPIST: 12/26/19 1414 DIS IN 12/27/19 [id number] [place] [address]
--- NOTE | 2019-12-28 16:43 | MORECARE ---
CASE MANAGEMENT DISCHARGE SUMMARY PATIENT: RONEN PALOMO UNIT: [id number] ADM DATE: 12/23/19 AGE: 64 : 57 SEX: F ROOM/BED: D.210 AUTHOR: VIRGENDOC PHYSICIAN: REFERRING PHYSICIAN: CORIE MCDUFFIE DO DATE OF SERVICE: 12/28/19 Discharge Plan Patient Name: RONEN PALOMO Facility: [facility]:[place] : 1955 Planned Disposition: Home Anticipated Discharge Date: 12/27/19 Discharge Date: 12/27/2019 Expected LOS: 4 Initial Reviewer: [email or web address] Initial Review Date: 12/27/2019 Generated: 12/28/19 5:43 pm Comments DCP- Discharge Planning Updated by [email or web address]: Jessica Nuñez on 12/27/19 7:[address] Patient Name: RONEN PALOMO Admission Status: Urgent Accout number: [id number] Admission Date: 12-23-2019 : 1955 Admission Diagnosis:ACUTE AND CHRONIC RESPIRATORY FAILURE WITH HYPOXIA Attending: CORIE MCDUFFIE Current LOS: 4 Anticipated DC Date: 12-27-2019 Planned Disposition: Home Primary Insurance: MEDICAID [place] Discharge Planning Comments: CM met with patient to complete initial dc planning assessment. CM educated patient on the CM role and verbal consent given by patient to complete assessment. Patient lives at home with her spouse, states he will pick her up when discharged. At discharge patient plans to return and feels this is a safe discharge. CM discussed availability of home health, rehab services, and medical equipment. Patient denied known discharge needs at this time. She has a private healthcare economics manager come out to assist with bathing from [place]. CM will continue to follow and will assist as needed with dc plans/needs. Rigging Supervisor: Jessica Nuñez DCPIA - Discharge Planning Initial Assessment Updated by [email or web address]: Jessica Nuñez on 12/27/19 8:54 am * Is the patient Alert and Oriented? Yes * How many steps to enter\exit or inside your home? 6/0 * PCP Dr. Lopez * Pharmacy [facility] * Preadmission Environment Home with Family * ADLs Partial Dependent * Partial ADLs (Assistance needed) Ambulation Bathing Dressing Medication Management * Equipment Bedside Commode Glucometer Nebulizer Other Oxygen Shower Chair Walker Wheelchair * Other Equipment Portable oxygen Pulse ox * List name and contact numbers for known caregivers / representatives who currently or will assist patient after discharge: Gordon - [facility] - [phone] Fifi Richardson DTR - [phone] * Verbal permission to speak to the caregivers and representatives has been obtained from the patient. Yes * Community resources currently utilized Private Duty Care * Please name any agencies selected above. [facility] * Additional services required to return to the preadmission environment? No * Can the patient safely return to the preadmission environment? Yes * Has this patient been hospitalized within the prior 30 days at any hospital? No Last DP export: 12/27/19 7:58 a Patient Name: RONEN PALOMO Page [id number] at 1643 All edits/amendments must be made on the electronic document DICTATION DATE: 12/28/191642 CUTTING DEPARTMENT SUPERVISOR: RAN 12/28/191642 RPT#: [id number] DC DATE:12/27/19 STATUS: DIS IN [facility] [address] [place] [address] END OF REPORT
== END 2019-12-27 10:33 | disposition home or self-care (01) | DRG 191 ==
LOC: D.M2 14:56
PROVIDERS: Family Medicine; Internal Medicine Interventional Cardiology; ADMIT Family Medicine; ATTEND Family Medicine
DX: J44.1 Chronic obstructive pulmonary disease with (acute) exacerbation (principal); N17.9 Acute kidney failure, unspecified; F31.30 Bipolar disorder, current episode depressed, mild or moderate severity, unspecified; I48.20 Chronic atrial fibrillation, unspecified; Z68.41 Body mass index [BMI] 40.0-44.9, adult; J98.11 Atelectasis; J44.0 Chronic obstructive pulmonary disease with (acute) lower respiratory infection; K76.0 Fatty (change of) liver, not elsewhere classified; E11.65 Type 2 diabetes mellitus with hyperglycemia; K75.9 Inflammatory liver disease, unspecified; I50.9 Heart failure, unspecified; I25.10 Atherosclerotic heart disease of native coronary artery without angina pectoris; K57.90 Diverticulosis of intestine, part unspecified, without perforation or abscess without bleeding; M81.0 Age-related osteoporosis without current pathological fracture; J20.9 Acute bronchitis, unspecified; J30.9 Allergic rhinitis, unspecified; D50.9 Iron deficiency anemia, unspecified; Z86.73 Personal history of transient ischemic attack (TIA), and cerebral infarction without residual deficits; E66.01 Morbid (severe) obesity due to excess calories

== ENCOUNTER 2020-01-13 19:48 | Emergency (ER) | payer MEDICAID ==
[~2020-01-13] VITALS: Ht 165.1 cm; Wt 113.6 kg
[2020-01-13 19:51] VITALS: Ht 165.1 cm; Wt 113.6 kg
[2020-01-13 20:43] LABS: BASOPHILS 0.2 % (0-2); EOSINOPHILS 3.5 % (0-7); HEMATOCRIT 37.6 % (36.0-48.0); HEMOGLOBIN 11.6 g/dL (12-16); IMMATURE GRANULOCYTES 0.6 % (0-5); LYMPHOCYTES 30.9 % (15-50); MCH 24.3 pg (26.0-34.0); MCHC 30.9 g/dL (31.0-37.0); MCV 78.8 fL (80.0-100.0); MONOCYTES 5.4 % (2-11); NEUTROPHILS 59.4 % (40-80); RBC 4.77 10x6/uL (4.00-5.40); RDW 16.7 % (11.5-14.5); WBC 6.7 10x3/uL (4.8-10.8)
[2020-01-13 20:53] LABS: APTT 26.6 SECONDS (22.8-39.4); INR 0.99 (0.85-1.17); PLATELET COUNT 221 10x3/uL (130-400); PROTIME 13.1 SECONDS (11.6-15.0)
[2020-01-13 20:54] LABS: D-DIMER-QUANTITATIVE 0.37 ug/mLFEU (0.20-0.54)
[2020-01-13 21:01] LABS: CALC OSMOLALITY 280 mosm/kg (275-300); CALCIUM 8.5 mg/dL (8.5-10.1); CARBON DIOXIDE 25.5 mmol/L (21.0-32.0); CHLORIDE - SERUM 98 mmol/L (98-107); CREATININE - SERUM 1.2 mg/dL (0.6-1.3); POTASSIUM - SERUM 3.4 mmol/L (3.5-5.1); SODIUM 134 mmol/L (136-145); UREA NITROGEN 12 mg/dL (7-18); eGFR NON AFRICAN AMERICAN 48 mL/min (90-120)
[2020-01-13 21:02] LABS: GLUCOSE 325 mg/dL (74-106)
[2020-01-13 21:08] LABS: ALBUMIN 3.2 g/dL (3.4-5.0); ALKALINE PHOSPHATASE 167 U/L (30-120); ALT (SGPT) 28 U/L (10-68); BILIRUBIN - TOTAL 0.33 mg/dL (0.2-1.3); CKMB 0.1 U/L (0.0-3.6); CREATINE KINASE 14 UL (21-215); LIPASE 64 U/L (73-393); MAGNESIUM - SERUM 1.6 mg/dL (1.8-2.4); PRO BNP 26 pg/mL (0-125); PROTEIN - SERUM 7.4 g/dL (6.4-8.2); THYROID STIMULATING HORMONE 1.63 uIU/mL (0.36-3.74)
[2020-01-13 21:13] LABS: TROPONIN-I < 0.017 ng/mL (0.000-0.060)
[2020-01-13 21:14] LABS: BILIRUBIN NEGATIVE (NEGATIVE); GLUCOSE 1000 mg/dL (NEGATIVE); KETONE NEGATIVE (NEGATIVE); NITRITE NEGATIVE (NEGATIVE); SPECIFIC GRAVITY 1.025 (1.005-1.020); UROBILINOGEN NORMAL (NORMAL)
[2020-01-13 21:15] LABS: BACTERIA MODERATE /hpf (NEGATIVE); EPITHELIAL CELLS 0-5 /hpf (0-5); RED CELLS - URINE 0-5 /hpf (0-5); WHITE CELLS - URINE 0-5 /hpf (NEGATIVE); YEAST >1+ /hpf (NONE SEEN)
[2020-01-13 22:14] VITALS: BP 130/58
== END 2020-01-13 22:14 | disposition home or self-care (01) ==
LOC: D.ER 19:48
PROVIDERS: Family Medicine
DX: J44.9 Chronic obstructive pulmonary disease, unspecified (principal); R07.9 Chest pain, unspecified; G89.29 Other chronic pain; E11.9 Type 2 diabetes mellitus without complications; Z86.73 Personal history of transient ischemic attack (TIA), and cerebral infarction without residual deficits; I50.9 Heart failure, unspecified; I25.2 Old myocardial infarction; Z79.4 Long term (current) use of insulin

== ENCOUNTER 2020-01-24 19:33 | Emergency (ER) | payer MEDICAID ==
[~2020-01-24] VITALS: Ht 165.1 cm; Wt 113.6 kg
[2020-01-24 20:01] VITALS: Ht 165.1 cm; Wt 113.6 kg
[2020-01-24 20:27] LABS: BASOPHILS 0.1 % (0-2); EOSINOPHILS 3.1 % (0-7); HEMATOCRIT 37.6 % (36.0-48.0); HEMOGLOBIN 11.7 g/dL (12-16); IMMATURE GRANULOCYTES 0.6 % (0-5); MCH 24.4 pg (26.0-34.0); MCHC 31.1 g/dL (31.0-37.0); MCV 78.5 fL (80.0-100.0); MEAN PLATELET VOLUME 8.7 fL (7.4-10.4); MONOCYTES 4.6 % (2-11); NEUTROPHILS 68.6 % (40-80); PLATELET COUNT 221 10x3/uL (130-400); RBC 4.79 10x6/uL (4.00-5.40); RDW 16.6 % (11.5-14.5); WBC 8.7 10x3/uL (4.8-10.8)
[2020-01-24 20:53] LABS: CALC OSMOLALITY 276 mosm/kg (275-300); CALCIUM 8.3 mg/dL (8.5-10.1); CARBON DIOXIDE 24.5 mmol/L (21.0-32.0); CHLORIDE - SERUM 99 mmol/L (98-107); CREATININE - SERUM 0.8 mg/dL (0.6-1.3); GLUCOSE 313 mg/dL (74-106); POTASSIUM - SERUM 3.5 mmol/L (3.5-5.1); SODIUM 133 mmol/L (136-145); UREA NITROGEN 11 mg/dL (7-18); eGFR NON AFRICAN AMERICAN 77 mL/min (90-120)
[2020-01-24 21:00] LABS: ALBUMIN 3.2 g/dL (3.4-5.0); ALKALINE PHOSPHATASE 168 U/L (30-120); ALT (SGPT) 23 U/L (10-68); BILIRUBIN - TOTAL 0.34 mg/dL (0.2-1.3); PRO BNP 27 pg/mL (0-125); PROTEIN - SERUM 7.5 g/dL (6.4-8.2)
[2020-01-24 21:01] LABS: TROPONIN-I < 0.017 ng/mL (0.000-0.060)
[2020-01-25 01:14] VITALS: BP 157/100
== END 2020-01-24 23:30 | disposition home or self-care (01) ==
LOC: D.ER 19:33
PROVIDERS: Family Medicine
DX: J44.1 Chronic obstructive pulmonary disease with (acute) exacerbation (principal); E11.65 Type 2 diabetes mellitus with hyperglycemia; Z86.73 Personal history of transient ischemic attack (TIA), and cerebral infarction without residual deficits; K21.9 Gastro-esophageal reflux disease without esophagitis; I50.9 Heart failure, unspecified; Z79.84 Long term (current) use of oral hypoglycemic drugs; R06.02 Shortness of breath; R05 Cough; R07.81 Pleurodynia

== ENCOUNTER 2020-01-26 17:39 | Inpatient (IN) | payer MEDICAID ==
[~2020-01-26] VITALS: Ht 165.1 cm; Wt 115.7 kg
--- NOTE | 2020-01-26 18:07 | NUR ---
PT TO ROOM FROM DR MCDUFFIE OFFICE. DIRECT ADMIT. PT EMOTIONAL AT PRESENT. MED REC REVIEWED. NPO FOR NOW FOR CT ABDOMEN. LIQUID DIET AFTER.
[2020-01-26] MEDS ORDERED: LANTUS INS100 UNITS/ SQ (18:16)
[2020-01-26 19:22] LABS: BASOPHILS 0.1 % (0-2); EOSINOPHILS 2.7 % (0-7); HEMATOCRIT 36.6 % (36.0-48.0); HEMOGLOBIN 11.3 g/dL (12-16); IMMATURE GRANULOCYTES 0.7 % (0-5); LYMPHOCYTES 21.7 % (15-50); MCH 24.2 pg (26.0-34.0); MCHC 30.9 g/dL (31.0-37.0); MCV 78.4 fL (80.0-100.0); MEAN PLATELET VOLUME 8.9 fL (7.4-10.4); MONOCYTES 5.2 % (2-11); NEUTROPHILS 69.6 % (40-80); PLATELET COUNT 221 10x3/uL (130-400); RBC 4.67 10x6/uL (4.00-5.40); RDW 16.6 % (11.5-14.5); WBC 7.5 10x3/uL (4.8-10.8)
[2020-01-26 19:41] LABS: INR 0.98 (0.85-1.17)
[2020-01-26 19:42] LABS: APTT 27.6 SECONDS (22.8-39.4)
[2020-01-26 19:43] LABS: D-DIMER-QUANTITATIVE 0.28 ug/mLFEU (0.20-0.54)
[2020-01-26 19:44] LABS: ALBUMIN 3.3 g/dL (3.4-5.0); ANION GAP 10.1 mmol/L (8-16); BILIRUBIN - TOTAL 0.32 mg/dL (0.2-1.3); CALCIUM 8.6 mg/dL (8.5-10.1); CARBON DIOXIDE 27.4 mmol/L (21.0-32.0); CREATININE - SERUM 0.9 mg/dL (0.6-1.3); MAGNESIUM - SERUM 1.6 mg/dL (1.8-2.4); POTASSIUM - SERUM 3.5 mmol/L (3.5-5.1)
[2020-01-26 20:00] VITALS: BP 178/68
[2020-01-26 22:12] VITALS: BMI 42.5
[2020-01-27 04:00] VITALS: BP 101/57
[2020-01-27 12:49] VITALS: BP 139/77
[2020-01-27 13:08] VITALS: Ht 165.1 cm; Wt 115.7 kg
[2020-01-27 13:43] LABS: THYROID STIMULATING HORMONE 2.61 uIU/mL (0.36-3.74)
[2020-01-27 16:26] LABS: BILIRUBIN NEGATIVE (NEGATIVE); GLUCOSE NEGATIVE (NEGATIVE); KETONE NEGATIVE (NEGATIVE); NITRITE NEGATIVE (NEGATIVE); SPECIFIC GRAVITY 1.025 (1.005-1.020); UROBILINOGEN NORMAL (NORMAL)
[2020-01-27 16:27] LABS: BACTERIA FEW /hpf (NEGATIVE); EPITHELIAL CELLS 0-5 /hpf (0-5); RED CELLS - URINE 0-5 /hpf (0-5)
--- NOTE | 2020-01-27 19:00 | NUR ---
REPORT RECEIVED, PT CARE ASSUMED. INTRODUCED SELF AND WROTE NAME ON BOARD. PT SITTING UP IN BED, USING TABLET, EasyRun4. REQUESTING BRIEFS, PROVIDED. DENIES ANY OTHER NEEDS AT THIS TIME. BED IN LOWEST, SR X2, CALL LIGHT WITHIN REACH. WILL CTM.
[2020-01-27 20:30] VITALS: BP 133/70
[2020-01-28 00:30] VITALS: BP 103/61
[2020-01-28 04:30] VITALS: BP 113/59
[2020-01-28 05:25] LABS: BASOPHILS 0.2 % (0-2); EOSINOPHILS 3.8 % (0-7); HEMATOCRIT 34.4 % (36.0-48.0); HEMOGLOBIN 10.1 g/dL (12-16); IMMATURE GRANULOCYTES 0.5 % (0-5); LYMPHOCYTES 26.7 % (15-50); MCH 23.7 pg (26.0-34.0); MCHC 29.4 g/dL (31.0-37.0); MEAN PLATELET VOLUME 8.8 fL (7.4-10.4); MONOCYTES 6.5 % (2-11); NEUTROPHILS 62.3 % (40-80); PLATELET COUNT 206 10x3/uL (130-400); RBC 4.27 10x6/uL (4.00-5.40); RDW 16.5 % (11.5-14.5)
[2020-01-28 05:56] LABS: MCV 80.6 fL (80.0-100.0)
[2020-01-28 06:43] LABS: ALBUMIN 2.8 g/dL (3.4-5.0); ANION GAP 10.4 mmol/L (8-16); BILIRUBIN - TOTAL 0.35 mg/dL (0.2-1.3); CALCIUM 8.1 mg/dL (8.5-10.1); CARBON DIOXIDE 29.1 mmol/L (21.0-32.0); MAGNESIUM - SERUM 1.8 mg/dL (1.8-2.4); PHOSPHOROUS 3.4 mg/dL (2.5-4.9); POTASSIUM - SERUM 3.5 mmol/L (3.5-5.1); PROTEIN - SERUM 6.6 g/dL (6.4-8.2)
--- NOTE | 2020-01-28 08:22 | NUR ---
PT SITTING UP IN BED, RR EVEN AND UNLABORED. STATES SHE IS HAVING A HEADACHE, 10/10 PAIN. TYLENOL RECIEVED PER ORDER. DENIES FURTHER NEEDS AT THIS TIME. CALL LIGHT WITHIN REACH. BED IN LOWEST POSITION. WILL CONTINUE TO MONITOR.
[2020-01-28 08:29] VITALS: BP 124/60
[2020-01-28 13:56] VITALS: BP 146/79
[2020-01-28 18:25] VITALS: BP 152/92
--- NOTE | 2020-01-28 18:30 | NUR ---
I have reviewed this patient and I concur with the Shift Assessment completed by the Licensed Practical Nurse today this shift.
--- NOTE | 2020-01-28 19:15 | NUR ---
BEDSIDE REPORT RECEIVED, PT CARE ASSUMED. WROTE NAME ON BOARD. PT SITTING UP IN BED, WATCHING TV, AAOX4. DENIES ANY NEEDS AT THIS TIME. BED IN LOWEST, SRX2, CALL LIGHT WITHIN REACH. WILL CTM.
[2020-01-28 20:30] VITALS: BP 133/84
[2020-01-29 00:30] VITALS: BP 114/69
[2020-01-29 04:30] VITALS: BP 129/58
[2020-01-29 06:35] LABS: BASOPHILS 0.2 % (0-2); EOSINOPHILS 3.5 % (0-7); HEMATOCRIT 32.5 % (36.0-48.0); HEMOGLOBIN 9.8 g/dL (12-16); IMMATURE GRANULOCYTES 0.3 % (0-5); LYMPHOCYTES 32.9 % (15-50); MCH 24.1 pg (26.0-34.0); MCHC 30.2 g/dL (31.0-37.0); MEAN PLATELET VOLUME 8.9 fL (7.4-10.4); MONOCYTES 7.1 % (2-11); PLATELET COUNT 212 10x3/uL (130-400); RBC 4.06 10x6/uL (4.00-5.40); RDW 16.5 % (11.5-14.5); WBC 5.8 10x3/uL (4.8-10.8)
[2020-01-29 06:58] LABS: ALBUMIN 2.7 g/dL (3.4-5.0); ALKALINE PHOSPHATASE 148 U/L (30-120); ALT (SGPT) 27 U/L (10-68); BILIRUBIN - TOTAL 0.38 mg/dL (0.2-1.3); CARBON DIOXIDE 29.6 mmol/L (21.0-32.0); CHLORIDE - SERUM 104 mmol/L (98-107); CREATININE - SERUM 0.8 mg/dL (0.6-1.3); MAGNESIUM - SERUM 1.8 mg/dL (1.8-2.4); PHOSPHOROUS 3.1 mg/dL (2.5-4.9); POTASSIUM - SERUM 3.5 mmol/L (3.5-5.1); PROTEIN - SERUM 6.4 g/dL (6.4-8.2); SODIUM 139 mmol/L (136-145); eGFR NON AFRICAN AMERICAN 77 mL/min (90-120)
[2020-01-29 06:59] LABS: CALC OSMOLALITY 276 mosm/kg (275-300); GLUCOSE 134 mg/dL (74-106); UREA NITROGEN 5 mg/dL (7-18)
--- NOTE | 2020-01-29 07:42 | NUR ---
PT SITTING UP IN BED, RR EVEN AND UNLABORED ON 2L NC. DENIES NEEDS OR PAIN AT THIS TIME. CALL LIGHT WITHIN REACH. BED IN LOWEST POSITION. WILL CONTINUE TO MONITOR.
[2020-01-29 08:48] VITALS: BP 143/75
[2020-01-29 12:59] VITALS: BP 138/68
--- NOTE | 2020-01-29 17:29 | NUR ---
PT ESCORTED OUT VIA WHEELCHIAR TO POV DRIVING.
--- NOTE | 2020-01-29 20:15 | MORECARE ---
CASE MANAGEMENT DISCHARGE SUMMARY PATIENT: RONEN PALOMO UNIT: [id number] ADM DATE: 01/26/20 AGE: 64 : 57 SEX: F ROOM/BED: D.2136 AUTHOR: YONATAN NEW PHYSICIAN: REFERRING PHYSICIAN: RADAMES COLLINS MD DATE OF SERVICE: 01/29/20 Discharge Plan Patient Name: RONEN PALOMO [facility] [facility] 1955 Planned Disposition: Home Anticipated Discharge Date: Discharge Date: 01/29/2020 Expected LOS: Initial Reviewer: [email or web address] Initial Review Date: 01/28/2020 Generated: 01/29/20 9:15 pm Patient Name: RONEN PALOMO Page [id number] at 2014 All edits/amendments must be made on the electronic document DICTATION DATE: 01/29/202014 CITRIX ARCHITECT: RAN 01/29/202014 RPT#: [id number] DC DATE:01/29/20 STATUS: DIS IN [facility] [address] [place] [address] END OF REPORT
--- NOTE | 2020-01-29 20:22 | MORECARE ---
CASE MANAGEMENT DISCHARGE SUMMARY PATIENT: RONEN PALOMO UNIT: [id number] ADM DATE: 01/26/20 AGE: 64 : 57 SEX: F ROOM/BED: D.9064 AUTHOR: VIRGEN,DOC PHYSICIAN: REFERRING PHYSICIAN: RADAMES COLLINS MD DATE OF SERVICE: 01/29/20 Discharge Plan Patient Name: RONEN PALOMO Facility: [facility]:[place] : 1955 Planned Disposition: Home Anticipated Discharge Date: Discharge Date: 01/29/2020 Expected LOS: Initial Reviewer: [email or web address] Initial Review Date: 01/28/2020 Generated: 01/29/20 9:21 pm Comments DCP- Discharge Planning Updated by [email or web address]: Mary Jauregui on 01/29/20 7:[address] LATE ENTRY 01/28/20 Patient Name: RONEN PALOMO Admission Status: Elective Accout number: [id number] Admission Date: 01-26-2020 : 1955 Admission Diagnosis:SHORTNESS OF BREATH Attending: RADAMES COLLINS Current LOS: 3 Anticipated DC Date: Planned Disposition: Home Primary Insurance: MEDICAID [place] Discharge Planning Comments: CM met with patient to complete initial dc planning assessment. CM educated patient on the CM role and verbal consent given by patient to complete assessment. Patient lives at home with family. Patient is independent. At discharge patient plans to return home and feels this is a safe discharge. CM discussed availability of home health, rehab services, and medical equipment. Patient stated that her Nebulizer works half the time. CM contacted Tess with [employer] and she is going to check on it for patient. Patient will have family to transport home. Patient denied known discharge needs at this time. CM will continue to follow and will assist as needed with dc plans/needs. Design Technology Teacher: Mary Jauregui DCPIA - Discharge Planning Initial Assessment Updated by [id number]: Mary Jauregui on 01/29/20 8:15 pm * Is the patient Alert and Oriented? Yes * How many steps to enter\exit or inside your home? 6-7 * PCP CODIE * Pharmacy [facility] * Preadmission Environment Home with Family * ADLs Independent * Other Equipment WALKER, W/C, SC, HOME / PORTABLE 02, NEBULIZER * List name and contact numbers for known caregivers / representatives who currently or will assist patient after discharge: VIKI PALOMO - SPOUSE - [phone] * Verbal permission to speak to the caregivers and representatives has been obtained from the patient. N/A * Community resources currently utilized None * Additional services required to return to the preadmission environment? No * Can the patient safely return to the preadmission environment? Yes * Has this patient been hospitalized within the prior 30 days at any hospital? No Last DP export: 01/29/20 7:15 p Patient Name: RONEN PALOMO Page 07830 at 2021 All edits/amendments must be made on the electronic document DICTATION DATE: 01/29/202020 GROUP ART SUPERVISOR: RAN 01/29/202020 RPT#: [id number] DC DATE:01/29/20 STATUS: DIS IN [facility] [address] [place] [address] END OF REPORT
== END 2020-01-29 17:30 | disposition home or self-care (01) | DRG 191 ==
LOC: D.M2 17:39
PROVIDERS: ADMIT Internal Medicine Nephrology; ATTEND Internal Medicine Nephrology
DX: J44.1 Chronic obstructive pulmonary disease with (acute) exacerbation (principal); Z68.41 Body mass index [BMI] 40.0-44.9, adult; J98.11 Atelectasis; E66.01 Morbid (severe) obesity due to excess calories; I10 Essential (primary) hypertension; E78.5 Hyperlipidemia, unspecified; K21.9 Gastro-esophageal reflux disease without esophagitis; F41.8 Other specified anxiety disorders; G89.4 Chronic pain syndrome; E03.9 Hypothyroidism, unspecified; I25.10 Atherosclerotic heart disease of native coronary artery without angina pectoris; R53.1 Weakness; J30.9 Allergic rhinitis, unspecified; K57.90 Diverticulosis of intestine, part unspecified, without perforation or abscess without bleeding; Z86.73 Personal history of transient ischemic attack (TIA), and cerebral infarction without residual deficits

== ENCOUNTER 2020-02-03 20:05 | Emergency (ER) | payer MEDICAID ==
[~2020-02-03] VITALS: Ht 165.1 cm; Wt 113.6 kg
[~2020-02-03 20:05] MED LIST changes: +LANTUS INS100 UNITS/ SQ
[2020-02-03 20:57] VITALS: Ht 165.1 cm; Wt 113.6 kg
[2020-02-03 21:16] LABS: BASOPHILS 0.1 % (0-2); EOSINOPHILS 2.9 % (0-7); HEMATOCRIT 35.5 % (36.0-48.0); HEMOGLOBIN 10.8 g/dL (12-16); IMMATURE GRANULOCYTES 0.6 % (0-5); MCH 23.9 pg (26.0-34.0); MCHC 30.4 g/dL (31.0-37.0); MCV 78.7 fL (80.0-100.0); MEAN PLATELET VOLUME 8.7 fL (7.4-10.4); MONOCYTES 6.5 % (2-11); NEUTROPHILS 63.9 % (40-80); PLATELET COUNT 209 10x3/uL (130-400); RBC 4.51 10x6/uL (4.00-5.40); RDW 16.2 % (11.5-14.5); WBC 8.7 10x3/uL (4.8-10.8)
[2020-02-03 21:32] LABS: CALC OSMOLALITY 275 mosm/kg (275-300); CALCIUM 8.5 mg/dL (8.5-10.1); CARBON DIOXIDE 28.1 mmol/L (21.0-32.0); CHLORIDE - SERUM 100 mmol/L (98-107); GLUCOSE 230 mg/dL (74-106); POTASSIUM - SERUM 3.6 mmol/L (3.5-5.1); SODIUM 134 mmol/L (136-145); UREA NITROGEN 14 mg/dL (7-18); eGFR NON AFRICAN AMERICAN 59 mL/min (90-120)
[2020-02-03 21:37] LABS: APTT 27.9 SECONDS (22.8-39.4); INR 1.02 (0.85-1.17); PROTIME 13.3 SECONDS (11.6-15.0)
[2020-02-03 21:46] LABS: ALBUMIN 3.2 g/dL (3.4-5.0); ALKALINE PHOSPHATASE 141 U/L (30-120); ALT (SGPT) 20 U/L (10-68); BILIRUBIN - TOTAL 0.24 mg/dL (0.2-1.3); CKMB 0.2 U/L (0.0-3.6); CREATINE KINASE 21 UL (21-215); PROTEIN - SERUM 7.4 g/dL (6.4-8.2)
[2020-02-03 22:04] LABS: PRO BNP 85 pg/mL (0-125)
[2020-02-03 22:06] LABS: TROPONIN-I < 0.017 ng/mL (0.000-0.060)
[2020-02-03 22:58] VITALS: BP 138/90
== END 2020-02-03 22:58 | disposition home or self-care (01) ==
LOC: D.ER 20:05
PROVIDERS: Family Medicine
DX: F41.9 Anxiety disorder, unspecified (principal); J44.9 Chronic obstructive pulmonary disease, unspecified; Z86.73 Personal history of transient ischemic attack (TIA), and cerebral infarction without residual deficits; E11.9 Type 2 diabetes mellitus without complications; I50.9 Heart failure, unspecified; Z79.4 Long term (current) use of insulin; R06.02 Shortness of breath

== ENCOUNTER 2020-02-13 18:26 | Emergency (ER) | payer MEDICAID ==
[~2020-02-13] VITALS: Ht 165.1 cm; Wt 113.6 kg
[2020-02-13 18:38] VITALS: Ht 165.1 cm; Wt 113.6 kg
[2020-02-13 19:50] LABS: BASOPHILS 0.1 % (0-2); EOSINOPHILS 3.4 % (0-7); HEMATOCRIT 36.8 % (36.0-48.0); HEMOGLOBIN 11.2 g/dL (12-16); IMMATURE GRANULOCYTES 0.4 % (0-5); LYMPHOCYTES 20.4 % (15-50); MCH 24.3 pg (26.0-34.0); MCHC 30.4 g/dL (31.0-37.0); MCV 79.8 fL (80.0-100.0); MEAN PLATELET VOLUME 8.7 fL (7.4-10.4); MONOCYTES 5.8 % (2-11); NEUTROPHILS 69.9 % (40-80); PLATELET COUNT 244 10x3/uL (130-400); RBC 4.61 10x6/uL (4.00-5.40); RDW 16.3 % (11.5-14.5); WBC 9.3 10x3/uL (4.8-10.8)
[2020-02-13 20:02] LABS: ANION GAP 11.9 mmol/L (8-16); CALCIUM 8.6 mg/dL (8.5-10.1); CARBON DIOXIDE 26.6 mmol/L (21.0-32.0); CREATININE - SERUM 1.1 mg/dL (0.6-1.3); POTASSIUM - SERUM 3.5 mmol/L (3.5-5.1)
[2020-02-13 20:08] LABS: ALBUMIN 3.3 g/dL (3.4-5.0); BILIRUBIN - TOTAL 0.34 mg/dL (0.2-1.3); PROTEIN - SERUM 7.6 g/dL (6.4-8.2)
[2020-02-13 20:40] LABS: MAGNESIUM - SERUM 1.8 mg/dL (1.8-2.4); PRO BNP 21 pg/mL (0-125); TROPONIN-I < 0.017 ng/mL (0.000-0.060)
[2020-02-13] MEDS ORDERED: TYLENOL W/CODEI1 TAB PO (23:11)
[2020-02-13 23:15] VITALS: BP 148/92
[2020-02-13 23:51] LABS: BILIRUBIN NEGATIVE (NEGATIVE); GLUCOSE 250 mg/dL (NEGATIVE); KETONE NEGATIVE (NEGATIVE); NITRITE NEGATIVE (NEGATIVE); UROBILINOGEN NORMAL (NORMAL)
== END 2020-02-13 23:15 | disposition home or self-care (01) ==
LOC: D.ER 18:26
PROVIDERS: Family Medicine
DX: J44.9 Chronic obstructive pulmonary disease, unspecified (principal); R06.02 Shortness of breath; Z86.73 Personal history of transient ischemic attack (TIA), and cerebral infarction without residual deficits; E11.9 Type 2 diabetes mellitus without complications; I50.9 Heart failure, unspecified; Z79.4 Long term (current) use of insulin; Z79.84 Long term (current) use of oral hypoglycemic drugs; Z99.81 Dependence on supplemental oxygen

== ENCOUNTER 2020-03-01 19:14 | Emergency (ER) | payer MEDICAID ==
[~2020-03-01] VITALS: Ht 165.1 cm; Wt 113.4 kg
[~2020-03-01 19:14] MED LIST changes: +TYLENOL W/CODEI1 TAB PO
[2020-03-01 19:15] VITALS: Ht 165.1 cm; Wt 113.4 kg
[2020-03-01 19:40] LABS: BASOPHILS 0.2 % (0-2); EOSINOPHILS 2.8 % (0-7); HEMATOCRIT 34.8 % (36.0-48.0); HEMOGLOBIN 10.7 g/dL (12-16); IMMATURE GRANULOCYTES 0.6 % (0-5); LYMPHOCYTES 23.5 % (15-50); MCH 24.3 pg (26.0-34.0); MCHC 30.7 g/dL (31.0-37.0); MCV 78.9 fL (80.0-100.0); MEAN PLATELET VOLUME 8.9 fL (7.4-10.4); MONOCYTES 5.5 % (2-11); NEUTROPHILS 67.4 % (40-80); PLATELET COUNT 248 10x3/uL (130-400); RBC 4.41 10x6/uL (4.00-5.40); WBC 8.7 10x3/uL (4.8-10.8)
[2020-03-01 19:52] LABS: CALC OSMOLALITY 278 mosm/kg (275-300); CALCIUM 8.7 mg/dL (8.5-10.1); CARBON DIOXIDE 28.2 mmol/L (21.0-32.0); CHLORIDE - SERUM 100 mmol/L (98-107); CREATININE - SERUM 1.2 mg/dL (0.6-1.3); GLUCOSE 236 mg/dL (74-106); POTASSIUM - SERUM 3.8 mmol/L (3.5-5.1); SODIUM 135 mmol/L (136-145); UREA NITROGEN 14 mg/dL (7-18); eGFR NON AFRICAN AMERICAN 48 mL/min (90-120)
[2020-03-01 20:07] LABS: ALBUMIN 3.2 g/dL (3.4-5.0); ALKALINE PHOSPHATASE 174 U/L (30-120); ALT (SGPT) 24 U/L (10-68); BILIRUBIN - TOTAL 0.28 mg/dL (0.2-1.3); MAGNESIUM - SERUM 1.8 mg/dL (1.8-2.4); PRO BNP 33 pg/mL (0-125); PROTEIN - SERUM 7.4 g/dL (6.4-8.2); TROPONIN-I < 0.017 ng/mL (0.000-0.060)
[2020-03-01 21:20] VITALS: BP 159/67
== END 2020-03-01 21:20 | disposition home or self-care (01) ==
LOC: D.ER 19:14
PROVIDERS: Family Medicine
DX: I50.9 Heart failure, unspecified (principal); J44.9 Chronic obstructive pulmonary disease, unspecified; Z86.73 Personal history of transient ischemic attack (TIA), and cerebral infarction without residual deficits; E11.9 Type 2 diabetes mellitus without complications; Z79.4 Long term (current) use of insulin; R07.9 Chest pain, unspecified

== ENCOUNTER 2020-03-20 18:59 | Emergency (ER) | payer MEDICAID ==
[~2020-03-20] VITALS: Ht 165.1 cm; Wt 113.4 kg
[2020-03-20 19:05] VITALS: Ht 165.1 cm; Wt 113.4 kg
[2020-03-20 20:43] LABS: ANION GAP 9.7 mmol/L (8-16); CALCIUM 8.8 mg/dL (8.5-10.1); CREATININE - SERUM 0.9 mg/dL (0.6-1.3); POTASSIUM - SERUM 3.7 mmol/L (3.5-5.1)
[2020-03-20 20:50] LABS: ALBUMIN 3.2 g/dL (3.4-5.0); BILIRUBIN - TOTAL 0.39 mg/dL (0.2-1.3); PROTEIN - SERUM 7.8 g/dL (6.4-8.2)
[2020-03-20 20:55] LABS: HEMATOCRIT 35.6 % (36.0-48.0); LYMPHOCYTES 28.5 % (15-50); MCH 24.4 pg (26.0-34.0); MCHC 30.9 g/dL (31.0-37.0); MCV 78.9 fL (80.0-100.0); MEAN PLATELET VOLUME 8.9 fL (7.4-10.4); NEUTROPHILS 64.9 % (40-80); PLATELET COUNT 271 10x3/uL (130-400); RBC 4.51 10x6/uL (4.00-5.40); RDW 15.4 % (11.5-14.5); WBC 9.8 10x3/uL (4.8-10.8)
[2020-03-20 21:23] LABS: BILIRUBIN NEGATIVE (NEGATIVE); GLUCOSE NEGATIVE (NEGATIVE); KETONE NEGATIVE (NEGATIVE); NITRITE NEGATIVE (NEGATIVE); SPECIFIC GRAVITY 1.025 (1.005-1.020); UROBILINOGEN NORMAL (NORMAL)
[2020-03-20 22:17] VITALS: BP 169/76
== END 2020-03-20 22:17 | disposition home or self-care (01) ==
LOC: D.ER 18:59
PROVIDERS: Family Medicine
DX: T67.5XXA Heat exhaustion, unspecified, initial encounter (principal); E11.9 Type 2 diabetes mellitus without complications; Z86.73 Personal history of transient ischemic attack (TIA), and cerebral infarction without residual deficits; J44.9 Chronic obstructive pulmonary disease, unspecified; I50.9 Heart failure, unspecified; Z79.4 Long term (current) use of insulin

== ENCOUNTER 2020-03-25 18:50 | Emergency (ER) | payer MEDICAID ==
[~2020-03-25] VITALS: Ht 165.1 cm; Wt 113.6 kg
[2020-03-25 19:34] VITALS: Ht 165.1 cm; Wt 113.6 kg
[2020-03-25 20:09] LABS: BASOPHILS 0.2 % (0-2); EOSINOPHILS 3.3 % (0-7); HEMATOCRIT 35.1 % (36.0-48.0); HEMOGLOBIN 10.9 g/dL (12-16); IMMATURE GRANULOCYTES 0.5 % (0-5); LYMPHOCYTES 27.1 % (15-50); MCH 24.8 pg (26.0-34.0); MCHC 31.1 g/dL (31.0-37.0); MEAN PLATELET VOLUME 8.8 fL (7.4-10.4); MONOCYTES 4.6 % (2-11); NEUTROPHILS 64.3 % (40-80); PLATELET COUNT 234 10x3/uL (130-400); RBC 4.39 10x6/uL (4.00-5.40); WBC 9.8 10x3/uL (4.8-10.8)
[2020-03-25 20:19] LABS: CALC OSMOLALITY 277 mosm/kg (275-300); CALCIUM 8.4 mg/dL (8.5-10.1); CARBON DIOXIDE 26.5 mmol/L (21.0-32.0); CHLORIDE - SERUM 100 mmol/L (98-107); CREATININE - SERUM 0.9 mg/dL (0.6-1.3); POTASSIUM - SERUM 3.7 mmol/L (3.5-5.1); SODIUM 134 mmol/L (136-145); UREA NITROGEN 15 mg/dL (7-18); eGFR NON AFRICAN AMERICAN 67 mL/min (90-120)
[2020-03-25 20:20] LABS: GLUCOSE 256 mg/dL (74-106)
[2020-03-25 20:31] LABS: ALKALINE PHOSPHATASE 165 U/L (30-120); ALT (SGPT) 20 U/L (10-68); AMYLASE - SERUM 26 U/L (25-115); BILIRUBIN - TOTAL 0.29 mg/dL (0.2-1.3); LIPASE 70 U/L (73-393); PRO BNP 28 pg/mL (0-125); PROTEIN - SERUM 7.5 g/dL (6.4-8.2)
[2020-03-25 20:32] LABS: TROPONIN-I < 0.017 ng/mL (0.000-0.060)
[2020-03-25 20:48] LABS: BILIRUBIN NEGATIVE (NEGATIVE); GLUCOSE 250 mg/dL (NEGATIVE); KETONE NEGATIVE (NEGATIVE); NITRITE NEGATIVE (NEGATIVE); SPECIFIC GRAVITY 1.025 (1.005-1.020); UROBILINOGEN NORMAL (NORMAL)
[2020-03-25] MEDS ORDERED: ZOFRAN ODT4 MG/UDTAB PO (20:54)
[2020-03-25 21:03] VITALS: BP 147/68
== END 2020-03-25 21:04 | disposition home or self-care (01) ==
LOC: D.ER 18:50
PROVIDERS: Family Medicine
DX: R11.2 Nausea with vomiting, unspecified (principal); R19.7 Diarrhea, unspecified; E11.9 Type 2 diabetes mellitus without complications; J44.9 Chronic obstructive pulmonary disease, unspecified; Z79.84 Long term (current) use of oral hypoglycemic drugs; R06.02 Shortness of breath

== ENCOUNTER 2020-04-04 14:33 | Emergency (ER) | payer MEDICAID ==
[~2020-04-04] VITALS: Ht 165.1 cm; Wt 113.6 kg
[2020-04-04 15:10] VITALS: Ht 165.1 cm; Wt 113.6 kg
[2020-04-04 15:54] LABS: BASOPHILS 0.3 % (0-2); HEMATOCRIT 34.2 % (36.0-48.0); HEMOGLOBIN 10.7 g/dL (12-16); IMMATURE GRANULOCYTES 0.4 % (0-5); MCH 24.9 pg (26.0-34.0); MCHC 31.3 g/dL (31.0-37.0); MCV 79.5 fL (80.0-100.0); MEAN PLATELET VOLUME 8.6 fL (7.4-10.4); MONOCYTES 4.4 % (2-11); NEUTROPHILS 62.9 % (40-80); PLATELET COUNT 222 10x3/uL (130-400); RDW 15.7 % (11.5-14.5); WBC 7.1 10x3/uL (4.8-10.8)
[2020-04-04 16:10] LABS: ANION GAP 8.2 mmol/L (8-16); CALCIUM 8.8 mg/dL (8.5-10.1); CARBON DIOXIDE 28.3 mmol/L (21.0-32.0); POTASSIUM - SERUM 3.5 mmol/L (3.5-5.1)
[2020-04-04 16:32] LABS: BILIRUBIN - TOTAL 0.26 mg/dL (0.2-1.3)
[2020-04-04] MEDS ORDERED: BUTALB-APAP-CA1 EACH PO (21:31)
[2020-04-04 21:46] LABS: BILIRUBIN NEGATIVE (NEGATIVE); GLUCOSE 100 mg/dL (NEGATIVE); KETONE NEGATIVE (NEGATIVE); NITRITE NEGATIVE (NEGATIVE); UROBILINOGEN NORMAL (NORMAL)
[2020-04-04 21:52] VITALS: BP 139/82
== END 2020-04-04 21:52 | disposition home or self-care (01) ==
LOC: D.ER 14:33
PROVIDERS: Family Medicine
DX: R51 Headache (principal); E11.9 Type 2 diabetes mellitus without complications; J44.9 Chronic obstructive pulmonary disease, unspecified; Z79.84 Long term (current) use of oral hypoglycemic drugs

== ENCOUNTER 2020-04-15 16:34 | Emergency (ER) | payer MEDICAID ==
[~2020-04-15] VITALS: Ht 165.1 cm; Wt 114.5 kg
[2020-04-15 17:00] VITALS: Ht 165.1 cm; Wt 114.5 kg
[2020-04-15 19:38] LABS: BASOPHILS 0.3 % (0-2); EOSINOPHILS 4.3 % (0-7); HEMATOCRIT 34.6 % (36.0-48.0); HEMOGLOBIN 10.6 g/dL (12-16); IMMATURE GRANULOCYTES 0.3 % (0-5); LYMPHOCYTES 28.6 % (15-50); MCH 24.4 pg (26.0-34.0); MCHC 30.6 g/dL (31.0-37.0); MCV 79.5 fL (80.0-100.0); MEAN PLATELET VOLUME 8.6 fL (7.4-10.4); MONOCYTES 5.5 % (2-11); PLATELET COUNT 211 10x3/uL (130-400); RBC 4.35 10x6/uL (4.00-5.40); RDW 15.9 % (11.5-14.5); WBC 7.5 10x3/uL (4.8-10.8)
[2020-04-15 20:13] LABS: CALC OSMOLALITY 280 mosm/kg (275-300); CALCIUM 8.8 mg/dL (8.5-10.1); CARBON DIOXIDE 28.6 mmol/L (21.0-32.0); CHLORIDE - SERUM 102 mmol/L (98-107); POTASSIUM - SERUM 3.7 mmol/L (3.5-5.1); SODIUM 139 mmol/L (136-145); UREA NITROGEN 8 mg/dL (7-18); eGFR NON AFRICAN AMERICAN 59 mL/min (90-120)
[2020-04-15 20:15] LABS: GLUCOSE 184 mg/dL (74-106)
[2020-04-15 20:18] LABS: ALBUMIN 3.1 g/dL (3.4-5.0); ALKALINE PHOSPHATASE 163 U/L (30-120); ALT (SGPT) 19 U/L (10-68); AMYLASE - SERUM 24 U/L (25-115); BILIRUBIN - TOTAL 0.32 mg/dL (0.2-1.3); LIPASE 50 U/L (73-393); PROTEIN - SERUM 7.7 g/dL (6.4-8.2)
[2020-04-15 20:23] LABS: TROPONIN-I < 0.017 ng/mL (0.000-0.060)
[2020-04-15] MEDS ORDERED: BENTYL10 MG PO (21:01)
[2020-04-15 21:36] VITALS: BP 135/78
== END 2020-04-15 21:37 | disposition home or self-care (01) ==
LOC: D.ER 16:34
PROVIDERS: Family Medicine
DX: R10.9 Unspecified abdominal pain (principal); K52.9 Noninfective gastroenteritis and colitis, unspecified; R11.10 Vomiting, unspecified; J44.9 Chronic obstructive pulmonary disease, unspecified; E11.9 Type 2 diabetes mellitus without complications; R51 Headache; Z79.84 Long term (current) use of oral hypoglycemic drugs

== ENCOUNTER 2020-04-23 18:40 | Emergency (ER) | payer MEDICAID ==
[~2020-04-23] VITALS: Ht 165.1 cm; Wt 114.3 kg
[~2020-04-23 18:40] MED LIST changes: +BENTYL10 MG PO
[2020-04-23 18:49] VITALS: Ht 165.1 cm; Wt 114.3 kg
[2020-04-23 19:42] LABS: BASOPHILS 0.1 % (0-2); EOSINOPHILS 4.4 % (0-7); HEMATOCRIT 33.6 % (36.0-48.0); HEMOGLOBIN 10.6 g/dL (12-16); IMMATURE GRANULOCYTES 0.5 % (0-5); LYMPHOCYTES 30.4 % (15-50); MCH 24.8 pg (26.0-34.0); MCHC 31.5 g/dL (31.0-37.0); MCV 78.7 fL (80.0-100.0); MEAN PLATELET VOLUME 8.7 fL (7.4-10.4); MONOCYTES 4.4 % (2-11); NEUTROPHILS 60.2 % (40-80); PLATELET COUNT 229 10x3/uL (130-400); RBC 4.27 10x6/uL (4.00-5.40); RDW 15.9 % (11.5-14.5); WBC 8.1 10x3/uL (4.8-10.8)
[2020-04-23 19:51] LABS: APTT 28.6 SECONDS (22.8-39.4); CALC OSMOLALITY 284 mosm/kg (275-300); CALCIUM 8.5 mg/dL (8.5-10.1); CARBON DIOXIDE 27.8 mmol/L (21.0-32.0); CHLORIDE - SERUM 102 mmol/L (98-107); CREATININE - SERUM 1.1 mg/dL (0.6-1.3); POTASSIUM - SERUM 3.6 mmol/L (3.5-5.1); PROTIME 13.2 SECONDS (11.6-15.0); SODIUM 138 mmol/L (136-145); UREA NITROGEN 14 mg/dL (7-18); eGFR NON AFRICAN AMERICAN 53 mL/min (90-120)
[2020-04-23 19:58] LABS: GLUCOSE 235 mg/dL (74-106)
[2020-04-23 20:23] LABS: ALKALINE PHOSPHATASE 157 U/L (30-120); ALT (SGPT) 19 U/L (10-68); BILIRUBIN - TOTAL 0.22 mg/dL (0.2-1.3); CKMB 0.4 U/L (0.0-3.6); CREATINE KINASE 86 UL (21-215); PRO BNP 57 pg/mL (0-125); PROTEIN - SERUM 7.4 g/dL (6.4-8.2)
[2020-04-23 20:25] LABS: TROPONIN-I < 0.017 ng/mL (0.000-0.060)
[2020-04-23 20:39] LABS: BILIRUBIN NEGATIVE (NEGATIVE); GLUCOSE NEGATIVE (NEGATIVE); KETONE NEGATIVE (NEGATIVE); NITRITE NEGATIVE (NEGATIVE); UROBILINOGEN NORMAL (NORMAL)
[2020-04-23] MEDS ORDERED: OMNICEF300 MG PO (21:12)
[2020-04-23 22:04] VITALS: BP 151/82
== END 2020-04-23 22:43 | disposition home or self-care (01) ==
LOC: D.ER 18:40
PROVIDERS: Family Medicine
DX: J44.1 Chronic obstructive pulmonary disease with (acute) exacerbation (principal); D64.9 Anemia, unspecified; R06.00 Dyspnea, unspecified; R79.89 Other specified abnormal findings of blood chemistry; Z79.84 Long term (current) use of oral hypoglycemic drugs; R07.89 Other chest pain

== ENCOUNTER 2020-05-01 18:54 | Emergency (ER) | payer MEDICAID ==
[~2020-05-01] VITALS: Ht 165.1 cm; Wt 114.5 kg
[2020-05-01 18:55] VITALS: Ht 165.1 cm; Wt 114.5 kg
[2020-05-01] MEDS ORDERED: MOBIC7.5 MG PO (20:51)
[2020-05-01] MEDS ORDERED: NORFLEX100 MG PO (20:52)
[2020-05-01 21:23] VITALS: BP 171/88
== END 2020-05-01 21:25 | disposition home or self-care (01) ==
LOC: D.ER 18:54
DX: M54.2 Cervicalgia (principal); V89.2XXA Person injured in unspecified motor-vehicle accident, traffic, initial encounter; Y93.9 Activity, unspecified; Y92.9 Unspecified place or not applicable; E11.9 Type 2 diabetes mellitus without complications; J44.9 Chronic obstructive pulmonary disease, unspecified; Z79.84 Long term (current) use of oral hypoglycemic drugs

== ENCOUNTER 2020-05-03 15:04 | Emergency (ER) | payer MEDICAID ==
[~2020-05-03] VITALS: Ht 165.1 cm; Wt 114.5 kg
[~2020-05-03 15:04] MED LIST changes: +NORFLEX100 MG PO
[2020-05-03 15:18] VITALS: Ht 165.1 cm; Wt 114.5 kg
[2020-05-03 15:52] LABS: BASOPHILS 0.1 % (0-2); EOSINOPHILS 5.1 % (0-7); HEMATOCRIT 36.1 % (36.0-48.0); HEMOGLOBIN 11.2 g/dL (12-16); IMMATURE GRANULOCYTES 0.4 % (0-5); LYMPHOCYTES 21.7 % (15-50); MCH 24.6 pg (26.0-34.0); MCV 79.2 fL (80.0-100.0); MEAN PLATELET VOLUME 8.8 fL (7.4-10.4); MONOCYTES 4.8 % (2-11); NEUTROPHILS 67.9 % (40-80); PLATELET COUNT 232 10x3/uL (130-400); RBC 4.56 10x6/uL (4.00-5.40); RDW 16.2 % (11.5-14.5); WBC 8.2 10x3/uL (4.8-10.8)
[2020-05-03 16:07] LABS: APTT 26.5 SECONDS (22.8-39.4); INR 0.96 (0.85-1.17); PROTIME 12.7 SECONDS (11.6-15.0)
[2020-05-03 16:08] LABS: CALC OSMOLALITY 277 mosm/kg (275-300); CALCIUM 8.6 mg/dL (8.5-10.1); CARBON DIOXIDE 25.5 mmol/L (21.0-32.0); CHLORIDE - SERUM 99 mmol/L (98-107); CREATININE - SERUM 1.1 mg/dL (0.6-1.3); POTASSIUM - SERUM 3.7 mmol/L (3.5-5.1); SODIUM 133 mmol/L (136-145); UREA NITROGEN 11 mg/dL (7-18); eGFR NON AFRICAN AMERICAN 53 mL/min (90-120)
[2020-05-03 16:09] LABS: GLUCOSE 340 mg/dL (74-106)
[2020-05-03 16:25] LABS: ALBUMIN 3.3 g/dL (3.4-5.0); ALKALINE PHOSPHATASE 183 U/L (30-120); ALT (SGPT) 22 U/L (10-68); CKMB 0.1 U/L (0.0-3.6); CREATINE KINASE 23 UL (21-215); PRO BNP 25 pg/mL (0-125); TROPONIN-I < 0.017 ng/mL (0.000-0.060)
[2020-05-03 17:36] VITALS: BP 159/66
[2020-05-03] MEDS ORDERED: ANORO ELLIPTA1 EACH INH (17:57)
== END 2020-05-03 18:23 | disposition home or self-care (01) ==
LOC: D.ER 15:04
PROVIDERS: Emergency Medicine
DX: J44.9 Chronic obstructive pulmonary disease, unspecified (principal); E11.22 Type 2 diabetes mellitus with diabetic chronic kidney disease; N18.9 Chronic kidney disease, unspecified; R79.89 Other specified abnormal findings of blood chemistry; E11.65 Type 2 diabetes mellitus with hyperglycemia; E87.1 Hypo-osmolality and hyponatremia; Z79.4 Long term (current) use of insulin; R06.02 Shortness of breath; Z99.81 Dependence on supplemental oxygen

== ENCOUNTER 2020-05-07 18:54 | Emergency (ER) | payer MEDICAID ==
[~2020-05-07] VITALS: Ht 165.1 cm; Wt 113.6 kg
[~2020-05-07 18:54] MED LIST changes: +ANORO ELLIPTA1 EACH INH
[2020-05-07 19:06] VITALS: Ht 165.1 cm; Wt 113.6 kg
[2020-05-07 20:32] LABS: D-DIMER-QUANTITATIVE 0.28 ug/mLFEU (0.20-0.54)
[2020-05-07 20:34] LABS: INR 0.86 (0.85-1.17); PROTIME 11.7 SECONDS (11.6-15.0)
[2020-05-07 21:05] LABS: CALC OSMOLALITY 277 mosm/kg (275-300); CALCIUM 8.7 mg/dL (8.5-10.1); CARBON DIOXIDE 25.9 mmol/L (21.0-32.0); CHLORIDE - SERUM 102 mmol/L (98-107); CREATININE - SERUM 0.9 mg/dL (0.6-1.3); POTASSIUM - SERUM 3.7 mmol/L (3.5-5.1); SODIUM 137 mmol/L (136-145); UREA NITROGEN 12 mg/dL (7-18); eGFR NON AFRICAN AMERICAN 67 mL/min (90-120)
[2020-05-07 21:08] LABS: GLUCOSE 170 mg/dL (74-106)
[2020-05-07 21:13] LABS: ALBUMIN 3.2 g/dL (3.4-5.0); ALKALINE PHOSPHATASE 175 U/L (30-120); ALT (SGPT) 22 U/L (10-68); BILIRUBIN - TOTAL 0.23 mg/dL (0.2-1.3); C-REACTIVE PROTEIN 5.4 mg/dL (0.0-0.9); MAGNESIUM - SERUM 1.8 mg/dL (1.8-2.4); PROTEIN - SERUM 7.4 g/dL (6.4-8.2)
[2020-05-07 21:14] LABS: TROPONIN-I < 0.017 ng/mL (0.000-0.060)
[2020-05-07 21:17] LABS: BASOPHILS 0.1 % (0-2); EOSINOPHILS 4.7 % (0-7); HEMATOCRIT 35.4 % (36.0-48.0); HEMOGLOBIN 11.3 g/dL (12-16); IMMATURE GRANULOCYTES 0.5 % (0-5); LYMPHOCYTES 26.2 % (15-50); MCH 24.9 pg (26.0-34.0); MCHC 31.9 g/dL (31.0-37.0); MCV 78.1 fL (80.0-100.0); MONOCYTES 4.7 % (2-11); NEUTROPHILS 63.8 % (40-80); PLATELET COUNT 229 10x3/uL (130-400); RBC 4.53 10x6/uL (4.00-5.40); RDW 16.3 % (11.5-14.5); WBC 8.3 10x3/uL (4.8-10.8)
[2020-05-07 21:31] VITALS: BP 146/65
[2020-05-07 21:40] LABS: UDS - AMPHET NEGATIVE QUAL (NEGATIVE); UDS - BARB NEGATIVE QUAL (NEGATIVE); UDS - BENZO POSITIVE QUAL (NEGATIVE); UDS - COCAINE NEGATIVE QUAL (NEGATIVE); UDS - OPIATE NEGATIVE QUAL (NEGATIVE)
[2020-05-07 21:43] LABS: UDS - PCP NEGATIVE QUAL (NEGATIVE); UDS - THC NEGATIVE QUAL (NEGATIVE)
[2020-05-07 23:02] LABS: BILIRUBIN NEGATIVE (NEGATIVE); KETONE NEGATIVE (NEGATIVE); NITRITE NEGATIVE (NEGATIVE); UROBILINOGEN NORMAL (NORMAL)
== END 2020-05-07 21:44 | disposition home or self-care (01) ==
LOC: D.ER 18:54
PROVIDERS: Family Medicine
DX: J44.9 Chronic obstructive pulmonary disease, unspecified (principal); G89.29 Other chronic pain; E11.9 Type 2 diabetes mellitus without complications; Z79.84 Long term (current) use of oral hypoglycemic drugs

== ENCOUNTER 2020-05-10 15:45 | Emergency (ER) | payer MEDICAID ==
[~2020-05-10] VITALS: Ht 165.1 cm; Wt 113.6 kg
[2020-05-10 16:09] VITALS: BP 122/85; Ht 165.1 cm; Wt 113.6 kg
[2020-05-10 16:59] LABS: BASOPHILS 0.2 % (0-2); HEMATOCRIT 34.9 % (36.0-48.0); HEMOGLOBIN 10.8 g/dL (12-16); IMMATURE GRANULOCYTES 0.6 % (0-5); LYMPHOCYTES 29.1 % (15-50); MCH 24.5 pg (26.0-34.0); MCHC 30.9 g/dL (31.0-37.0); MCV 79.3 fL (80.0-100.0); MEAN PLATELET VOLUME 8.9 fL (7.4-10.4); MONOCYTES 5.3 % (2-11); NEUTROPHILS 59.8 % (40-80); PLATELET COUNT 220 10x3/uL (130-400); RDW 16.2 % (11.5-14.5); WBC 8.8 10x3/uL (4.8-10.8)
[2020-05-10 17:11] LABS: APTT 27.1 SECONDS (22.8-39.4); INR 0.98 (0.85-1.17); PROTIME 12.9 SECONDS (11.6-15.0)
[2020-05-10 17:25] LABS: CALC OSMOLALITY 280 mosm/kg (275-300); CALCIUM 8.6 mg/dL (8.5-10.1); CARBON DIOXIDE 24.6 mmol/L (21.0-32.0); CHLORIDE - SERUM 103 mmol/L (98-107); GLUCOSE 197 mg/dL (74-106); POTASSIUM - SERUM 3.9 mmol/L (3.5-5.1); SODIUM 138 mmol/L (136-145); UREA NITROGEN 13 mg/dL (7-18); eGFR NON AFRICAN AMERICAN 59 mL/min (90-120)
[2020-05-10 17:42] LABS: ALKALINE PHOSPHATASE 163 U/L (30-120); ALT (SGPT) 18 U/L (10-68); BILIRUBIN - TOTAL 0.22 mg/dL (0.2-1.3); CKMB 0.4 U/L (0.0-3.6); CREATINE KINASE 23 UL (21-215); PRO BNP 63 pg/mL (0-125); PROTEIN - SERUM 7.6 g/dL (6.4-8.2); TROPONIN-I < 0.017 ng/mL (0.000-0.060)
== END 2020-05-10 17:59 | disposition home or self-care (01) ==
LOC: D.ER 15:45
PROVIDERS: Family Medicine
DX: J44.9 Chronic obstructive pulmonary disease, unspecified (principal); R06.02 Shortness of breath; E11.9 Type 2 diabetes mellitus without complications; Z79.4 Long term (current) use of insulin

== ENCOUNTER 2020-11-10 13:52 | Emergency (ER) | payer MEDICAID ==
[~2020-11-10] VITALS: Ht 165.1 cm; Wt 113.6 kg
[~2020-11-10 13:52] MED LIST changes: +VISTARIL25 MG PO; +ZANAFLEX4 MG PO
[2020-11-10 13:56] VITALS: BP 185/95; Ht 165.1 cm; Wt 113.6 kg
[2020-11-10] MEDS ORDERED: VOLTAREN25 MG PO (15:58)
[2020-11-10] MEDS ORDERED: BACLOFEN20 M1 PO (15:58)
== END 2020-11-10 16:35 | disposition home or self-care (01) ==
LOC: D.ER 13:52
DX: M79.10 Myalgia, unspecified site (principal); W19.XXXA Unspecified fall, initial encounter; Y93.9 Activity, unspecified; Y92.9 Unspecified place or not applicable; R07.9 Chest pain, unspecified; M54.2 Cervicalgia; E11.9 Type 2 diabetes mellitus without complications; Z86.73 Personal history of transient ischemic attack (TIA), and cerebral infarction without residual deficits; I50.9 Heart failure, unspecified; J44.9 Chronic obstructive pulmonary disease, unspecified; K21.9 Gastro-esophageal reflux disease without esophagitis; Z79.84 Long term (current) use of oral hypoglycemic drugs

== ENCOUNTER 2020-11-19 14:50 | Emergency (ER) | payer MEDICAID ==
[~2020-11-19] VITALS: Ht 165.1 cm; Wt 112.3 kg
[~2020-11-19 14:50] MED LIST changes: +VOLTAREN25 MG PO
[2020-11-19 15:08] VITALS: Ht 165.1 cm; Wt 112.3 kg
[2020-11-19 15:58] LABS: BASOPHILS 0.2 % (0-2); EOSINOPHILS 3.9 % (0-7); HEMATOCRIT 33.2 % (36.0-48.0); HEMOGLOBIN 10.6 g/dL (12-16); IMMATURE GRANULOCYTES 0.5 % (0-5); LYMPHOCYTE ABS# 1.64 10x3/uL (1.18-3.74); LYMPHOCYTES 24.7 % (15-50); MCH 25.4 pg (26.0-34.0); MCHC 31.9 g/dL (31.0-37.0); MCV 79.6 fL (80.0-100.0); MEAN PLATELET VOLUME 8.8 fL (7.4-10.4); MONOCYTES 3.9 % (2-11); NEUTROPHIL ABS# 4.44 10x3/uL (1.56-6.13); NEUTROPHILS 66.8 % (40-80); PLATELET COUNT 204 10x3/uL (130-400); RBC 4.17 10x6/uL (4.00-5.40); RDW 15.9 % (11.5-14.5); WBC 6.6 10x3/uL (4.8-10.8)
[2020-11-19 16:08] LABS: CALC OSMOLALITY 274 mosm/kg (275-300); CALCIUM 8.7 mg/dL (8.5-10.1); CARBON DIOXIDE 29.7 mmol/L (21.0-32.0); CHLORIDE - SERUM 96 mmol/L (98-107); POTASSIUM - SERUM 3.6 mmol/L (3.5-5.1); SODIUM 130 mmol/L (136-145); UREA NITROGEN 7 mg/dL (7-18); eGFR NON AFRICAN AMERICAN 59 mL/min (90-120)
[2020-11-19 16:09] LABS: GLUCOSE 382 mg/dL (74-106)
[2020-11-19 16:23] LABS: ALBUMIN 2.9 g/dL (3.4-5.0); ALKALINE PHOSPHATASE 158 U/L (30-120); ALT (SGPT) 16 U/L (10-68); BILIRUBIN - TOTAL 0.41 mg/dL (0.2-1.3); CREATINE KINASE 21 UL (21-215); MAGNESIUM - SERUM 1.7 mg/dL (1.8-2.4); TROPONIN-I < 0.017 ng/mL (0.000-0.060)
[2020-11-19 16:40] LABS: APTT 32.6 SECONDS (22.8-39.4); INR 1.16 (0.85-1.17); PROTIME 13.7 SECONDS (11.6-15.0)
[2020-11-19 18:29] VITALS: BP 110/62
== END 2020-11-19 18:01 | disposition home or self-care (01) ==
LOC: D.ER 14:50
PROVIDERS: Family Medicine
DX: D53.9 Nutritional anemia, unspecified (principal); M54.5 Low back pain; G89.29 Other chronic pain; E87.1 Hypo-osmolality and hyponatremia; E11.9 Type 2 diabetes mellitus without complications; I50.9 Heart failure, unspecified; J44.9 Chronic obstructive pulmonary disease, unspecified; K21.9 Gastro-esophageal reflux disease without esophagitis; Z79.84 Long term (current) use of oral hypoglycemic drugs

== ENCOUNTER 2020-12-17 05:32 | Emergency (ER) | payer MEDICAID ==
[~2020-12-17] VITALS: Ht 165.1 cm; Wt 110.0 kg
[2020-12-17 05:34] VITALS: BP 121/64; Ht 165.1 cm; Wt 110.0 kg
[2020-12-17 06:31] LABS: BASOPHILS 0.2 % (0-2); EOSINOPHILS 3.8 % (0-7); HEMATOCRIT 32.8 % (36.0-48.0); HEMOGLOBIN 10.3 g/dL (12-16); IMMATURE GRANULOCYTES 0.5 % (0-5); LYMPHOCYTE ABS# 1.87 10x3/uL (1.18-3.74); LYMPHOCYTES 28.5 % (15-50); MCH 25.8 pg (26.0-34.0); MCHC 31.4 g/dL (31.0-37.0); MEAN PLATELET VOLUME 8.9 fL (7.4-10.4); MONOCYTES 4.6 % (2-11); NEUTROPHIL ABS# 4.09 10x3/uL (1.56-6.13); NEUTROPHILS 62.4 % (40-80); PLATELET COUNT 240 10x3/uL (130-400); RDW 16.8 % (11.5-14.5); WBC 6.6 10x3/uL (4.8-10.8)
[2020-12-17 06:51] LABS: CALC OSMOLALITY 287 mosm/kg (275-300); CALCIUM 8.7 mg/dL (8.5-10.1); CARBON DIOXIDE 25.7 mmol/L (21.0-32.0); CHLORIDE - SERUM 104 mmol/L (98-107); GLUCOSE 283 mg/dL (74-106); POTASSIUM - SERUM 3.7 mmol/L (3.5-5.1); SODIUM 139 mmol/L (136-145); UREA NITROGEN 13 mg/dL (7-18); eGFR NON AFRICAN AMERICAN 59 mL/min (90-120)
[2020-12-17 06:56] LABS: APTT 30.4 SECONDS (22.8-39.4); INR 1.09 (0.85-1.17)
[2020-12-17 07:06] LABS: ALBUMIN 2.9 g/dL (3.4-5.0); ALKALINE PHOSPHATASE 154 U/L (30-120); ALT (SGPT) 19 U/L (10-68); BILIRUBIN - TOTAL 0.32 mg/dL (0.2-1.3); CREATINE KINASE 17 UL (21-215); MAGNESIUM - SERUM 1.8 mg/dL (1.8-2.4); PRO BNP 40 pg/mL (0-125); PROTEIN - SERUM 6.9 g/dL (6.4-8.2); THYROID STIMULATING HORMONE 2.87 uIU/mL (0.36-3.74); TROPONIN-I < 0.017 ng/mL (0.000-0.060)
[2020-12-17 08:05] LABS: UDS - AMPHET NEGATIVE QUAL (NEGATIVE); UDS - BARB NEGATIVE QUAL (NEGATIVE); UDS - BENZO POSITIVE QUAL (NEGATIVE); UDS - COCAINE NEGATIVE QUAL (NEGATIVE); UDS - OPIATE NEGATIVE QUAL (NEGATIVE); UDS - PCP NEGATIVE QUAL (NEGATIVE); UDS - THC NEGATIVE QUAL (NEGATIVE)
[2020-12-17 08:27] LABS: BILIRUBIN NEGATIVE (NEGATIVE); KETONE NEGATIVE (NEGATIVE); NITRITE NEGATIVE (NEGATIVE); UROBILINOGEN NORMAL mg/dL (< 2)
[2020-12-17 08:28] LABS: BACTERIA FEW HPF (NONE SEEN); SQUAMOUS EPITHELIAL OCC HPF (0-4); WHITE CELLS - URINE OCC HPF (0-4)
== END 2020-12-17 09:10 | disposition home or self-care (01) ==
LOC: D.ER 05:32
PROVIDERS: Family Medicine
DX: E11.65 Type 2 diabetes mellitus with hyperglycemia (principal); Z79.4 Long term (current) use of insulin; Z86.73 Personal history of transient ischemic attack (TIA), and cerebral infarction without residual deficits; I50.9 Heart failure, unspecified; J44.9 Chronic obstructive pulmonary disease, unspecified; K21.9 Gastro-esophageal reflux disease without esophagitis; R51.9 Headache, unspecified; M54.2 Cervicalgia; M79.602 Pain in left arm; M79.601 Pain in right arm; M25.562 Pain in left knee; M25.561 Pain in right knee; R47.81 Slurred speech